=== PATIENT | male | born 1940 | race Caucasian/White ===

== ENCOUNTER 2016-10-13 07:21 | Emergency (ER) | payer MEDICARE, BC ==
[2016-10-13 07:33] VITALS: RESP 18
[2016-10-13] MEDS ORDERED: PROPARACAINE 0.5% OPHTH DROPS 15 ML BTL RIGHT EYE STA (08:12)
[2016-10-13 08:54] LABS: INR 1.4 (<1.1); Partial Thromboplastin Time 24.2 sec (22.0-30.0); Prothrombin Time 14.1 sec (9.0-12.0)
--- NOTE | 2016-10-13 08:55 | ED ---
Eye Problem HPI - General Chief complaint: Eye Problems Stated complaint: Right eye bloodshot Time Seen by Provider: 10/13/16 08:07 Source: patient, RN notes reviewed Mode of arrival: ambulatory Limitations: no limitations - History of Present Illness Initial comments: 76-year-old male presents emergency Department chief complaint right eye redness. Patient states that he woke up with this morning. Patient states she does remember last night that he felt that he had something in his eye or has an inch and states that he rubbed his right eye. Patient states he does normally take Coumadin but has not taken it in 4 days as he is scheduled for knee surgery on Monday. Patient denies any pain with his right eye. Denies any pain with ocular movements. Patient states his vision is normal denies any increased visual floaters. Patient states he normally has some visual floaters in which she has been evaluated by his classification and treatment director Dr. Fall. Patient states she does wear glasses. Patient states he has noticed some bruising underneath his right eye also. Patient denies headache, dizziness. Patient denies any melena or hematochezia. Patient offers no other complaints. - Related Data Home Medications Medication Instructions Recorded Confirmed HYDROcodone/APAP 7.5-325MG [[place] 1 tab PO Q3H PRN 10/13/16 10/13/16 7.5-325] Meloxicam [Mobic] 7.5 mg PO BID 10/13/16 10/13/16 Metoprolol Tartrate [Lopressor] 25 mg PO BID 10/13/16 10/13/16 Sertraline [Zoloft] 100 mg PO BID 10/13/16 10/13/16 Simvastatin [Zocor] 80 mg PO HS 10/13/16 10/13/16 Tamsulosin HCl [Flomax] 0.4 mg PO DAILY 10/13/16 10/13/16 Warfarin [Coumadin] 5 mg PO DAILY 10/13/16 10/13/16 amLODIPine [Norvasc] 5 mg PO DAILY 10/13/16 10/13/16 Allergies Allergy/AdvReac Type Severity Reaction Status Date / Time No Known Allergies Allergy Verified 10/13/16 07:48 Review of Systems ROS Statement: Those systems with pertinent positive or pertinent negative responses have been documented in the HPI. ROS Other: All systems not noted in ROS Statement are negative. Past Medical History Past Medical History: Hypertension History of Any Multi-Drug Resistant Organisms: None Reported Past Surgical History: Orthopedic Surgery Past Psychological History: No Psychological Hx Reported Smoking Status: Never smoker Past Alcohol Use History: Daily, Occasional Past Drug Use History: None Reported General Exam Limitations: no limitations General appearance: alert, in no apparent distress Head exam: Present: atraumatic, normocephalic, normal inspection Eye exam: Present: PERRL, EOMI, other (Mild ecchymosis inferior to the right I) . Absent: normal appearance, scleral icterus, conjunctival injection, periorbital swelling, periorbital tenderness Expanded Eyelids: Normal Inspection: Bilateral Pupils: Regular, Round: Bilateral Sclera/Conjunctival: Hemorrhage: Right (Large subconjunctival hemorrhage with some chemosis) Anterior chamber: Normal Inspection: Bilateral Visual acuity (R) = 20/: 40 Visual acuity (L) = 20/: 70 With correction: Yes IOP (R) in mmH ENT exam: Present: normal exam, mucous membranes moist Neck exam: Present: normal inspection, full ROM. Absent: tenderness, meningismus, lymphadenopathy Respiratory exam: Present: normal lung sounds bilaterally. Absent: respiratory distress, wheezes, rales, rhonchi, stridor Course Vital Signs 10/13/16 07:31 Temperature 97.0 F L Pulse Rate 84 Respiratory 18 Rate Blood Pressure 138/89 O2 Sat by Pulse 96 Oximetry Medical Decision Making - Medical Decision Making 76-year-old male present emergency department for right eye redness. Patient has a large subconjunctival hemorrhage. Patient's INR is 1.4. Patient's visual acuity is 20/40 which is better than his nonaffected eye. Pressure is 19. I did discuss case with Dr. vaz I strongly advised the patient to follow up with his classification and treatment director or barometers calibrator today or tomorrow morning. He states he will do this. He did understand if symptoms worsen that he needs to immediately come back to emergency department. - Lab Data Lab Results 10/13/16 Range/Units 08:23 PT 14.1 H (9.0-12.0) sec INR 1.4 (<1.1) APTT 24.2 (22.0-30.0) sec Disposition Clinical Impression: Subconjunctival hemorrhage of right eye Disposition: HOME SELF-CARE Condition: Stable Instructions: Subconjunctival Hemorrhage (ED) Additional Instructions: Please return to the Emergency Department if symptoms worsen or any other concerns. Follow-up with your classification and treatment director or barometers calibrator on-call today or tomorrow morning. Referrals: Blas Higginbotham DO [Primary Care Provider] - 1-2 days Ánegl Levi MD [STAFF PHYSICIAN] - 1-2 days Time of Disposition: 09:07
[2016-10-13 09:14] VITALS: BP 113/74; PULSE 72; TEMP 97.4
== END 2016-10-13 09:14 | disposition home or self-care (01) ==
LOC: EC 07:21
DX: H11.31 Conjunctival hemorrhage, right eye (principal); I10 Essential (primary) hypertension; Z79.899 Other long term (current) drug therapy; Z79.01 Long term (current) use of anticoagulants; Z79.1 Long term (current) use of non-steroidal anti-inflammatories (NSAID)
CPT/HCPCS: 36415; 85610; 85730; 99283

== ENCOUNTER 2018-02-18 12:30 | Emergency (ER) | payer MEDICARE, BC ==
[2018-02-18 12:52] VITALS: BP 123/71; PULSE 69; RESP 20; TEMP 98.2
[2018-02-18] MEDS ORDERED: DIPH,PERTUS(ACELL)TETVAC-LF 0.5 ML VIAL IM ONE (13:03)
--- NOTE | 2018-02-18 13:05 | ED ---
Wound/Laceration HPI - General Chief Complaint: Wound/Laceration Stated Complaint: LACERATION FIRST 3 FINGERS LEFT HAND Time Seen by Provider: 02/18/18 12:58 Source: patient Mode of arrival: ambulatory Limitations: no limitations - History of Present Illness Initial Comments: 78-year-old male patient presents the emergency department today for evaluation of laceration to the left second, third, and fourth digits. Patient states that he was cutting some wood when the board flew up and knocked his fingers into the blade. Patient states that he does take Coumadin. Patient is unsure when his last tetanus vaccine was. Patient denies any numbness or tingling to the fingers. He states he did get the bleeding under control with a "powder to stop bleeding". He denies any other injuries. Patient denies any headache, neck pain, back pain, chest pain, shortness of breath, dizziness, weakness, abdominal pain, nausea, vomiting, or difficulties with bowel movements or urination. - Related Data Home Medications Medication Instructions Recorded Confirmed HYDROcodone/APAP 7.5-325MG [[place] 1 tab PO Q3H PRN 10/13/16 10/13/16 7.5-325] Meloxicam [Mobic] 7.5 mg PO BID 10/13/16 10/13/16 Metoprolol Tartrate [Lopressor] 25 mg PO BID 10/13/16 10/13/16 Sertraline [Zoloft] 100 mg PO BID 10/13/16 10/13/16 Simvastatin [Zocor] 80 mg PO HS 10/13/16 10/13/16 Tamsulosin HCl [Flomax] 0.4 mg PO DAILY 10/13/16 10/13/16 Warfarin [Coumadin] 5 mg PO DAILY 10/13/16 10/13/16 amLODIPine [Norvasc] 5 mg PO DAILY 10/13/16 10/13/16 Previous Rx's Medication Instructions Recorded Cephalexin [Keflex] 500 mg PO Q6H #28 cap 02/18/18 Allergies Allergy/AdvReac Type Severity Reaction Status Date / Time No Known Allergies Allergy Verified 02/18/18 12:52 Review of Systems ROS Statement: Those systems with pertinent positive or pertinent negative responses have been documented in the HPI. ROS Other: All systems not noted in ROS Statement are negative. Past Medical History Past Medical History: Atrial Fibrillation, Hypertension History of Any Multi-Drug Resistant Organisms: None Reported Past Surgical History: Orthopedic Surgery Past Psychological History: No Psychological Hx Reported Smoking Status: Never smoker Past Alcohol Use History: Daily, Occasional Past Drug Use History: None Reported General Exam Limitations: no limitations General appearance: alert, in no apparent distress, other (This is a well- developed, well-nourished elderly male patient in no acute distress. Vital signs upon presentation are temperature 98.2F, pulse 69, respirations 20, blood pressure 123/71, pulse ox 96% on room air.) Eye exam: Present: normal appearance, PERRL, EOMI. Absent: scleral icterus, conjunctival injection, periorbital swelling ENT exam: Present: normal exam, normal oropharynx, mucous membranes moist Respiratory exam: Present: normal lung sounds bilaterally. Absent: respiratory distress, wheezes, rales, rhonchi, stridor Cardiovascular Exam: Present: regular rate, normal rhythm, normal heart sounds. Absent: systolic murmur, diastolic murmur, rubs, gallop, clicks Extremities exam: Present: full ROM, normal capillary refill, other. Absent: normal inspection, tenderness, pedal edema, joint swelling, calf tenderness Neurological exam: Present: alert, oriented X3, CN II-XII intact Psychiatric exam: Present: normal affect, normal mood Skin exam: Present: warm, dry, intact, normal color. Absent: rash Course Vital Signs 02/18/18 12:47 Temperature 98.2 F Pulse Rate 69 Respiratory 20 Rate Blood Pressure 123/71 O2 Sat by Pulse 96 Oximetry Procedures - Laceration Laceration #1 Consent Obtained: verbal consent Time Out Performed: Yes Indication: laceration Site: hand (Index finger) Size (cm): 2 Description: flap Depth: simple, single layer Anesthetic Used: lidocaine 1% Anesthesia Technique: nerve block Amount (mls): 10 Pre-repair: irrigated extensively Type of Sutures: nylon Size of Sutures: 4-0 Number of Sutures: 5 Technique: simple, interrupted Patient Tolerated Procedure: well, no complications Laceration #2 Consent Obtained: verbal consent Time Out Performed: Yes Indication: laceration Site: hand (Middle finger) Size (cm): 1 Description: linear Depth: simple, single layer Type of Sutures: other (Exofin) Patient Tolerated Procedure: well, no complications Laceration #3 Consent Obtained: verbal consent Time Out Performed: Yes Indication: laceration Site: hand (Ring Finger) Size (cm): 2 Description: flap, avulsion (Distal nail) Anesthetic Used: lidocaine 1% Anesthesia Technique: nerve block Amount (mls): 10 Pre-repair: irrigated extensively Type of Sutures: nylon Size of Sutures: 4-0 Number of Sutures: 2 Technique: simple, interrupted Patient Tolerated Procedure: well, no complications Additional Comments: Applied gelfoam to nail bed Medical Decision Making - Medical Decision Making 78-year-old nail patient presented to the emergency department today for evaluation of laceration to the distal tips of his left index, middle, and ring fingers. The ring finger did show a chip fracture to the tuft of the distal phalanx. Ring finger also exhibited distal nail avulsion with irregular laceration. Lacerations repaired as documented, Gelfoam was placed in nail bed on the ring finger. Patient's tetanus was updated. He did receive thousand milligrams of IM. He'll be given a prescription for Keflex. He is instructed to take Tylenol for pain control. He was educated regarding wound care and signs or symptoms of infection. He is instructed to follow-up with orthopedics for further evaluation. Return parameters discussed in detail. He verbalizes understanding and agreement with this plan. - Radiology Data Radiology results: report reviewed, image reviewed 3 views of the left hand are submitted. Report was reviewed in its entirety. Impression by Dr. Barron shows soft tissue injury predominantly involving the fourth digit with a tiny chip fracture tuft of the distal phalanx fourth digit. Diffuse arthropathy in a pattern suggestive of osteoarthritis. Disposition Clinical Impression: Open fracture of phalanx of left ring finger, Finger laceration Disposition: HOME SELF-CARE Condition: Good Instructions: Care For Your Stitches (ED), Finger Fracture (ED), Finger Laceration (ED) Additional Instructions: Keep wounds clean and dry. Cleanse twice daily with warm water and antibacterial soap. Return in 7 days to have the stitches removed. Follow-up with orthopedic physician for reevaluation. Complete antibiotic prescription and full. Return here immediately for any new, worsening, or concerning symptoms. Prescriptions: Cephalexin [Keflex] 500 mg PO Q6H #28 cap Is patient prescribed a controlled substance at d/c from ED?: No Referrals: [facility],Clinic [Primary Care Provider] - 1-2 days Benito Encarnacion DO [Doctor of Osteopathic Medicine] - 1-2 days Time of Disposition: 14:21
--- NOTE | 2018-02-18 13:30 | XR ---
EXAMINATION TYPE: XR hand complete LT DATE OF EXAM: 02/18/2018 COMPARISON: NONE HISTORY: Pain TECHNIQUE: Three views are submitted. FINDINGS: There is soft tissue injury particularly involving the third and fourth digits. Appears to be a chip fracture off the distal phalanx of the fourth digit. Arthropathy of all DIP, PIP and MCP joints and s evere arthropathy first MCP joint and a pattern suggestive of osteoarthritis. Chondrocalcinosis aroun d the wrist with narrowing of the carpal radial joint. IMPRESSION: 1. Soft tissue injury predominantly involving the fourth digit with a tiny chip fracture tuft distal phalanx fourth digit. 2. Diffuse arthropathy in a pattern suggestive of osteoarthritis.
[2018-02-18] MEDS ORDERED: TOPICAL SKIN ADHESIVE 1 EACH AMP TOPICAL ONE (14:18)
[2018-02-18] MEDS ORDERED: LIDOCAINE 1% INJ 10MG/ML (20 ML MDV) SQ ONE (14:18)
[2018-02-18] MEDS ORDERED: GELATIN SPONGE,ABSORB (SMALL) 1 EACH SPONGE TOPICAL STA (14:19)
[2018-02-18] MEDS ORDERED: ceFAZolin 1,000 MG VIAL IM STA (14:19)
== END 2018-02-18 14:47 | disposition home or self-care (01) ==
LOC: EC 12:30
DX: S62.635B Displaced fracture of distal phalanx of left ring finger, initial encounter for open fracture (principal); S61.318A Laceration without foreign body of other finger with damage to nail, initial encounter; S61.211A Laceration without foreign body of left index finger without damage to nail, initial encounter; S61.213A Laceration without foreign body of left middle finger without damage to nail, initial encounter; I10 Essential (primary) hypertension; I48.91 Unspecified atrial fibrillation; Z23 Encounter for immunization; Z98.890 Other specified postprocedural states; Z79.01 Long term (current) use of anticoagulants; Z79.1 Long term (current) use of non-steroidal anti-inflammatories (NSAID); Z79.899 Other long term (current) drug therapy; W26.8XXA Contact with other sharp object(s), not elsewhere classified, initial encounter; Y93.89 Activity, other specified
CPT/HCPCS: 73130; 90715; 99283; 12002; 90471; J0690; J2001

== ENCOUNTER 2019-10-06 07:05 | Inpatient (IN) | payer MEDICARE ==
[2019-10-06] MEDS ORDERED: IPRATROPIUM-ALBUTEROL 3 ML NEB INHALATION STA (07:30)
--- NOTE | 2019-10-06 07:44 | ED ---
Weakness HPI - General Chief complaint: Weakness Stated complaint: Fever, SOB Time Seen by Provider: 10/06/19 07:22 Source: patient, family, RN notes reviewed Mode of arrival: wheelchair Limitations: no limitations - History of Present Illness Initial comments: This is a 79-year-old male who presents with complaints of generalized weakness he also states been going on for several days he has a recent feeling of shakes and hot flashes no overt fever he has exertional dyspnea. He also states he's had rhinorrhea no overt fever that he is aware however. Is a slight cough no chest pain no focal weakness he states he is a prediabetic his glucose was b etween 94 and 111 at home he takes it daily. Is a history of chronic atrial fibrillation. No other complaints or modifying factors reported at this time MD Complaint: generalized weakness - Related Data Home Medications Medication Instructions Recorded Confirmed HYDROcodone/APAP 7.5-325MG [[place] 1 tab PO Q3H PRN 10/13/16 10/13/16 7.5-325] Meloxicam [Mobic] 7.5 mg PO BID 10/13/16 10/13/16 Metoprolol Tartrate [Lopressor] 25 mg PO BID 10/13/16 10/13/16 Sertraline [Zoloft] 100 mg PO BID 10/13/16 10/13/16 Simvastatin [Zocor] 80 mg PO HS 10/13/16 10/13/16 Tamsulosin HCl [Flomax] 0.4 mg PO DAILY 10/13/16 10/13/16 Warfarin [Coumadin] 5 mg PO DAILY 10/13/16 10/13/16 amLODIPine [Norvasc] 5 mg PO DAILY 10/13/16 10/13/16 Previous Rx's Medication Instructions Recorded Cephalexin [Keflex] 500 mg PO Q6H #28 cap 02/18/18 Allergies Allergy/AdvReac Type Severity Reaction Status Date / Time No Known Allergies Allergy Verified 10/06/19 07:15 Review of Systems ROS Statement: Those systems with pertinent positive or pertinent negative responses have been documented in the HPI. ROS Other: All systems not noted in ROS Statement are negative. Past Medical History Past Medical History: Atrial Fibrillation, Hyperlipidemia, Hypertension History of Any Multi-Drug Resistant Organisms: None Reported Past Surgical History: Orthopedic Surgery Past Psychological History: Anxiety Smoking Status: Never smoker Past Alcohol Use History: Daily, Occasional Past Drug Use History: None Reported General Exam - General Exam Comments Initial Comments: This is a well-developed well-nourished awake alert oriented 3 male Limitations: no limitations General appearance: alert, anxious Head exam: Present: atraumatic, normocephalic, normal inspection Eye exam: Present: normal appearance, PERRL, EOMI. Absent: scleral icterus, conjunctival injection, periorbital swelling ENT exam: Present: normal exam, mucous membranes moist Neck exam: Present: normal inspection, full ROM, other ([place]). Absent: tenderness, meningismus, lymphadenopathy Respiratory exam: Present: decreased breath sounds. Absent: respiratory distress, wheezes, rales, rhonchi, stridor Cardiovascular Exam: Present: irregular rhythm. Absent: systolic murmur, diast olic murmur, rubs, gallop, clicks GI/Abdominal exam: Present: soft, normal bowel sounds. Absent: distended, tenderness, guarding, rebound, rigid Extremities exam: Present: full ROM, normal capillary refill, pedal edema. Absent: tenderness, joint swelling, calf tenderness Back exam: Present: normal inspection Neurological exam: Present: alert, oriented X3, CN II-XII intact Psychiatric exam: Present: normal affect, normal mood Skin exam: Present: warm, dry, intact, normal color. Absent: rash Course Vital Signs 10/06/19 10/06/19 10/06/19 07:16 08:35 08:40 Temperature 97.8 F Pulse Rate 64 56 L 55 L Respiratory 18 Rate Blood Pressure 140/80 O2 Sat by Pulse 96 Oximetry - Reevaluation(s) Reevaluation #1: 10/06/19 09:26 Stated summary is relief from the breathing with updraft nebulized treatment. EKG Findings - EKG Results: EKG: interpreted by ERMD (Atrial fibrillation rate of 59 QRS 106 QT since QTC 438/[address] configuration) Medical Decision Making - Medical Decision Making Did discuss the findings with the patient and his gas was present patient will be admitted I did discuss case with Dr. Paiz patient does demonstrate evidence of CHF and acute kidney injury will be admitted with consultation by far - Lab Data Result diagrams: 10/06/19 07:45 10/06/19 07:45 Lab Results 10/06/19 10/06/19 10/06/19 Range/Units 07:45 07:45 07:45 WBC 4.7 (3.8-10.6) k/uL RBC 3.86 L (4.30-5.90) m/uL Hgb 12.7 L (13.0-17.5) gm/dL Hct 38.8 L (39.0-53.0) % MCV 100.5 H (80.0-100.0) fL MCH 32.9 (25.0-35.0) pg MCHC 32.8 (31.0-37.0) g/dL RDW 14.3 (11.5-15.5) % Plt Count 128 L (150-450) k/uL Neutrophils % 75 % Lymphocytes % 14 % Monocytes % 7 % Eosinophils % 2 % Basophils % 1 % Neutrophils # 3.5 (1.3-7.7) k/uL Lymphocytes # 0.7 L (1.0-4.8) k/uL Monocytes # 0.3 (0-1.0) k/uL Eosinophils # 0.1 (0-0.7) k/uL Basophils # 0.0 (0-0.2) k/uL Macrocytosis Slight PT (9.0-12.0) sec INR (<1.2) APTT (22.0-30.0) sec Sodium 146 H (137-145) mmol/L Potassium 4.9 (3.5-5.1) mmol/L Chloride 114 H (98-107) mmol/L Carbon Dioxide 24 (22-30) mmol/L Anion Gap 8 mmol/L BUN 51 H (9-20) mg/dL Creatinine 3.03 H (0.66-1.25) mg/dL Est GFR (CKD-EPI)AfAm 22 (>60 ml/min/1.73 sqM) Est GFR (CKD-EPI)NonAf 19 (>60 ml/min/1.73 sqM) Glucose 112 H (74-99) mg/dL Plasma Lactic Acid Cornelio 1.0 (0.7-2.0) mmol/L Calcium 9.7 (8.4-10.2) mg/dL Magnesium 2.4 H (1.6-2.3) mg/dL Total Bilirubin 1.1 (0.2-1.3) mg/dL AST 38 (17-59) U/L ALT 34 (4-49) U/L Alkaline Phosphatase 57 (38-126) U/L Creatine Kinase 108 (55-170) U/L Troponin I (0.000-0.034) ng/mL NT-Pro-B Natriuret Pep pg/mL Total Protein 7.1 (6.3-8.2) g/dL Albumin 4.3 (3.5-5.0) g/dL Influenza Type A RNA (Not Detectd) Influenza Type B (PCR) (Not Detectd) 10/06/19 10/06/19 10/06/19 Range/Units 07:45 07:45 07:45 WBC (3.8-10.6) k/uL RBC (4.30-5.90) m/uL Hgb (13.0-17.5) gm/dL Hct (39.0-53.0) % MCV (80.0-100.0) fL MCH (25.0-35.0) pg MCHC (31.0-37.0) g/dL RDW (11.5-15.5) % Plt Count (150-450) k/uL Neutrophils % % Lymphocytes % % Monocytes % % Eosinophils % % Basophils % % Neutrophils # (1.3-7.7) k/uL Lymphocytes # (1.0-4.8) k/uL Monocytes # (0-1.0) k/uL Eosinophils # (0-0.7) k/uL Basophils # (0-0.2) k/uL Macrocytosis PT 20.0 H (9.0-12.0) sec INR 2.1 H (<1.2) APTT 25.9 (22.0-30.0) sec Sodium (137-145) mmol/L Potassium (3.5-5.1) mmol/L Chloride (98-107) mmol/L Carbon Dioxide (22-30) mmol/L Anion Gap mmol/L BUN (9-20) mg/dL Creatinine (0.66-1.25) mg/dL Est GFR (CKD-EPI)AfAm (>60 ml/min/1.73 sqM) Est GFR (CKD-EPI)NonAf (>60 ml/min/1.73 sqM) Glucose (74-99) mg/dL Plasma Lactic Acid Cornelio (0.7-2.0) mmol/L Calcium (8.4-10.2) mg/dL Magnesium (1.6-2.3) mg/dL Total Bilirubin (0.2-1.3) mg/dL AST (17-59) U/L ALT (4-49) U/L Alkaline Phosphatase (38-126) U/L Creatine Kinase (55-170) U/L Troponin I <0.012 (0.000-0.034) ng/mL NT-Pro-B Natriuret Pep 8680 pg/mL Total Protein (6.3-8.2) g/dL Albumin (3.5-5.0) g/dL Influenza Type A RNA (Not Detectd) Influenza Type B (PCR) (Not Detectd) 10/06/19 Range/Units 08:30 WBC (3.8-10.6) k/uL RBC (4.30-5.90) m/uL Hgb (13.0-17.5) gm/dL Hct (39.0-53.0) % MCV (80.0-100.0) fL MCH (25.0-35.0) pg MCHC (31.0-37.0) g/dL RDW (11.5-15.5) % Plt Count (150-450) k/uL Neutrophils % % Lymphocytes % % Monocytes % % Eosinophils % % Basophils % % Neutrophils # (1.3-7.7) k/uL Lymphocytes # (1.0-4.8) k/uL Monocytes # (0-1.0) k/uL Eosinophils # (0-0.7) k/uL Basophils # (0-0.2) k/uL Macrocytosis PT (9.0-12.0) sec INR (<1.2) APTT (22.0-30.0) sec Sodium (137-145) mmol/L Potassium (3.5-5.1) mmol/L Chloride (98-107) mmol/L Carbon Dioxide (22-30) mmol/L Anion Gap mmol/L BUN (9-20) mg/dL Creatinine (0.66-1.25) mg/dL Est GFR (CKD-EPI)AfAm (>60 ml/min/1.73 sqM) Est GFR (CKD-EPI)NonAf (>60 ml/min/1.73 sqM) Glucose (74-99) mg/dL Plasma Lactic Acid Cornelio (0.7-2.0) mmol/L Calcium (8.4-10.2) mg/dL Magnesium (1.6-2.3) mg/dL Total Bilirubin (0.2-1.3) mg/dL AST (17-59) U/L ALT (4-49) U/L Alkaline Phosphatase (38-126) U/L Creatine Kinase (55-170) U/L Troponin I (0.000-0.034) ng/mL NT-Pro-B Natriuret Pep pg/mL Total Protein (6.3-8.2) g/dL Albumin (3.5-5.0) g/dL Influenza Type A RNA Not Detected (Not Detectd) Influenza Type B (PCR) Not Detected (Not Detectd) - Radiology Data Radiology results: report reviewed (Review the imaging and report cardiomegaly with increased pulmonary markings consistent complete report), image reviewed Disposition Clinical Impression: CHF (congestive heart failure), Acute kidney injury Disposition: ADMITTED IP TO THIS HOSP Condition: Fair Referrals: [facility],Clinic [Primary Care Provider] - 1-2 days
[2019-10-06 08:07] LABS: Basophils % (A) 1 %; Eosinophils # (A) 0.1 k/uL (0-0.7); Eosinophils % (A) 2 %; HCT 38.8 % (39.0-53.0); HGB 12.7 gm/dL (13.0-17.5); Lymphocytes # (A) 0.7 k/uL (1.0-4.8); Lymphocytes % (A) 14 %; MCH 32.9 pg (25.0-35.0); MCHC 32.8 g/dL (31.0-37.0); MCV 100.5 fL (80.0-100.0); Macrocytosis Slight; Mean Platelet Volume 8.1; Monocytes # (A) 0.3 k/uL (0-1.0); Monocytes % (A) 7 %; Neutrophils # (A) 3.5 k/uL (1.3-7.7); Neutrophils % (A) 75 %; Platelet Count 128 k/uL (150-450); RBC 3.86 m/uL (4.30-5.90); RDW 14.3 % (11.5-15.5); WBC 4.7 k/uL (3.8-10.6)
[2019-10-06 08:17] LABS: INR 2.1 (<1.2); Partial Thromboplastin Time 25.9 sec (22.0-30.0)
[2019-10-06 08:18] LABS: Albumin 4.3 g/dL (3.5-5.0); Calcium 9.7 mg/dL (8.4-10.2); Magnesium 2.4 mg/dL (1.6-2.3); Potassium 4.9 mmol/L (3.5-5.1); Total Bilirubin 1.1 mg/dL (0.2-1.3); Total Protein 7.1 g/dL (6.3-8.2)
--- NOTE | 2019-10-06 09:14 | XR ---
EXAMINATION TYPE: XR chest 2V DATE OF EXAM: 10/06/2019 HISTORY: Weakness. REFERENCE: Previous study dated 01/06/2012. FINDINGS: There is multichamber cardiac enlargement. There are chronic pleural parenchymal changes bi laterally. No definite lobar pneumonia is seen. No definite pleural fluid is seen. IMPRESSION: 1. MULTICHAMBER CARDIAC ENLARGEMENT. 2. CHRONIC PLEURAL PARENCHYMAL CHANGE WHICH IS WORSENED SOMEWHAT FROM THE PREVIOUS STUDY.
[2019-10-06] MEDS ORDERED: FUROSEMIDE 10 MG/ML 4 ML VIAL IV STA (09:27)
[2019-10-06] MEDS ORDERED: NITROGLYCERIN OINT 1 INCH/GM PACKET TOPICAL STA (09:28)
[2019-10-06] MEDS ORDERED: HYDROcodone/APAP 7.5-325MG 1 EACH TAB PO PRN (09:31)
--- NOTE | 2019-10-06 11:14 | CONS ---
CONSULTATION REASON FOR CONSULT: Renal failure. HISTORY OF PRESENT ILLNESS: The patient is a 79-year-old male who was admitted to the hospital with complaints of shortness of breath which had been getting worse over the past few days. The patient states he has not been feeling well for weeks. He thought he had the flu. He did have some diarrhea and vomiting and has not been eating much. He states that he was told his kidney function was weak a few years ago. However repeat labs had shown that it had improved and patient has not seen a blue leather setter. He is maintained on Mobic for pain. The serum creatinine was 3.0 mg/dL today and I do not have any other labs available for comparison. The patient denies any major prostatic issues. He is currently voiding. He was found to be in CHF and is currently being diuresed. PAST MEDICAL HISTORY: Hypertension, atrial fibrillation, being followed by Dr. Perez, depression, dyslipidemia, BPH, osteoarthritis. PAST SURGICAL HISTORY: Knee arthroplasties. SOCIAL HISTORY: Negative for smoking, drug abuse or alcohol abuse. MEDICATIONS: Medications prior to admission included Norvasc, Coumadin, Flomax, Zocor, Zoloft, Lopressor, Mobic, N[place]a. ALLERGIES: None. REVIEW OF SYSTEMS: As per HPI. Other systems negative. PHYSICAL EXAMINATION: Patient is comfortable, awake, alert, oriented x3, not in any acute distress. Blood pressure is 154/94, heart rate 66 per minute. He is afebrile. Examination of the heart S1, S2. Examination of the lungs, bilateral breath sounds are heard. ABDOMEN: Soft, nontender. Examination of lower extremities shows edema 2+ bilaterally more in the left leg as compared to the right leg. [facility] MAN exam grossly intact. LABS: Show sodium 146, potassium 4.9, chloride 114, CO2 is 24, BUN 51, creatinine 3.0, glucose 112, calcium is 9.7. Influenza antigen was negative. UA is not available. Chest x-ray shows cardiac enlargement, chronic parenchymal changes which seems to have worsened. ASSESSMENT: 1. Acute kidney injury associated with use of NSAIDs as well as possibly cardiorenal nonoliguric. We will check a urinalysis, repeat chest x-ray post diuresis. The patient is advised to avoid use of nonsteroidal anti-inflammatory agents. Check ultrasound of the kidneys. We will also try and obtain previous labs from primary care physician's office. The patient follows up at the [facility]. 2. Benign prostatic hypertrophy maintained on Flomax. 3. Hypertension. May continue with the Lopressor. 4. Atrial fibrillation with controlled ventricular response maintained on Coumadin. PLAN: DC Mobic. Check UA. Check ultrasound of the kidneys. May continue with the Lasix for now. Repeat chest x-ray in a.m. Repeat labs in a.m. Avoid hypotension and we will try and obtain previous labs to obtain patient's baseline renal function. Thank you for this consultation. We will continue to follow the patient with you during his hospitalization. MMODL / IJN: [id number] /
[2019-10-06 11:49] LABS: Glucose,Whole Blood 115 mg/dL (75-99)
[2019-10-06] MEDS: INSULIN ASPART (NovoLOG) 100 UNIT/ML VIAL SQ SCH ×3 (12:25→21:58)
[2019-10-06 13:01] VITALS: BMI 25.8
[2019-10-06] MEDS ORDERED: ALPRAZolam 0.25 MG TAB PO PRN (15:12)
[2019-10-06] MEDS ORDERED: ACETAMINOPHEN TAB 500 MG TAB PO PRN (15:12)
[2019-10-06 15:40] LABS: Appearance,Urine Clear (Clear); Bilirubin,Urine Negative (Negative); Blood,Urine Negative (Negative); Color,Urine Light Yellow; Glucose,Urine (UA) Negative (Negative); Ketones,Urine Negative (Negative); Leukocyte Esterase,Urine Negative (Negative); Nitrite,Urine Negative (Negative); PH, Urine 6.5 (5.0-8.0); Protein,Urine Negative (Negative); Specific Gravity,Urine 1.006 (1.001-1.035); Urobilinogen,Urine <2.0 mg/dL (<2.0)
[2019-10-06 16:47] LABS: Glucose,Whole Blood 85 mg/dL (75-99)
[2019-10-06 16:55] LABS: Appearance,Urine Clear (Clear); Bilirubin,Urine Negative (Negative); Blood,Urine Negative (Negative); Color,Urine Light Yellow; Glucose,Urine (UA) Negative (Negative); Ketones,Urine Negative (Negative); Leukocyte Esterase,Urine Negative (Negative); Nitrite,Urine Negative (Negative); PH, Urine 6.5 (5.0-8.0); Protein,Urine Negative (Negative); Specific Gravity,Urine 1.006 (1.001-1.035); Urobilinogen,Urine <2.0 mg/dL (<2.0)
--- NOTE | 2019-10-06 17:03 | P.CRDCN ---
History of Present Illness Consult date: 10/06/19 Reason for Consult (text): Atrial fibrillation and CHF History of present illness: This is a 79-year-old gentleman with history of hypertension and chronic atrial fibrillation on beta jon and anti-cognition therapy is admitted to the [facility] with complaints of increasing exertional shortness of breath, fatigue and tiredness. He was found to have renal failure with creatinine in the range of 3. A chest x-ray showed evidence of possible CHF. Patient has chronic atrial fibrillation with controlled ventricular response. Patient has history of arthritis but hasn't been taking any anti-inflammatory agents. Denies any chest pain. It appears that patient has, however, bili acute on chronic renal failure and some CHF and fluid overload. We'll get an echocardiogram to assess LV function. We will continue the current medical therapy including IV Lasix. Review of Systems As per the chart Past Medical History Past Medical History: Atrial Fibrillation, Hyperlipidemia, Hypertension History of Any Multi-Drug Resistant Organisms: None Reported Past Surgical History: Orthopedic Surgery Additional Past Surgical History / Comment(s): Bilateral knee replacement, cataract removal, cardioversion Past Anesthesia/Blood Transfusion Reactions: No Reported Reaction Past Psychological History: Anxiety Smoking Status: Never smoker Past Alcohol Use History: Daily, Occasional Past Drug Use History: None Reported - Past Family History Mother Family Medical History: Congestive Heart Failure (CHF), Diabetes Mellitus Additional Family Medical History / Comment(s): at 90yrs old Sister(s) Family Medical History: Cancer, Diabetes Mellitus Brother(s) Family Medical History: Diabetes Mellitus Medications and Allergies Home Medications Medication Instructions Recorded Confirmed Type Metoprolol Tartrate [Lopressor] 25 mg PO BID@0530,1700 10/13/16 10/06/19 History Sertraline [Zoloft] 100 mg PO BID@0530,1700 10/13/16 10/06/19 History Warfarin [Coumadin] 5 mg PO MOWEFR@1700 10/13/16 10/06/19 History amLODIPine [Norvasc] 5 mg PO DAILY 10/13/16 10/06/19 History Warfarin [Coumadin] 2.5 mg PO SUTUTHSA@1700 10/06/19 10/06/19 History Allergies Allergy/AdvReac Type Severity Reaction Status Date / Time No Known Allergies Allergy Verified 10/06/19 07:15 Physical Exam Vitals: Vital Signs Temp Pulse Pulse Resp BP BP Pulse Ox 10/06/19 15:55 98.6 F 62 16 152/92 93 L 10/06/19 10:45 98.5 F 67 16 150/82 95 10/06/19 10:30 97.8 F 66 18 154/94 94 L 10/06/19 10:08 66 18 154/94 94 L 10/06/19 09:00 56 L 152/85 10/06/19 08:40 55 L 10/06/19 08:35 56 L 10/06/19 08:00 143/82 10/06/19 07:16 97.8 F 64 18 140/80 96 Intake and Output 10/06/19 10/06/19 10/06/19 06:59 14:59 22:59 Intake Total 240 Output Total 400 Balance 240 -400 Intake: Oral 240 Output: Urine 400 Other: Voiding Method Toilet # Voids 2 Weight 81.647 kg GENERAL EXAM: Patient is alert and oriented and doesn't appear to be in any acute distress HEENT: Normocephalic. Normal reaction of pupils, equal size, normal range of extraocular motion. No erythema or exudates in the throat. NECK: No masses, no nuchal rigidity. JVD CHEST: No chest wall deformity. LUNGS: Equal air entry with no crackles or wheeze. He is regular and HEART: S1 and S2 normal with no audible mumurs or gallops. Irregular heart rhythm, femorals equal on both sides.. ABDOMEN: No hepatosplenomegaly, normal bowel sounds, no guarding or rigidity. SKIN: No rashes CENTRAL NERVOUS SYSTEM: No focal deficits. EXTREMITIES: Bilateral edema Results 10/06/19 07:45 10/06/19 07:45 Cardiac Enzymes 10/06/19 10/06/19 Range/Units 07:45 07:45 AST 38 (17-59) U/L Troponin I <0.012 (0.000-0.034) ng/mL Coagulation 10/06/19 Range/Units 07:45 PT 20.0 H (9.0-12.0) sec APTT 25.9 (22.0-30.0) sec CBC 10/06/19 Range/Units 07:45 WBC 4.7 (3.8-10.6) k/uL RBC 3.86 L (4.30-5.90) m/uL Hgb 12.7 L (13.0-17.5) gm/dL Hct 38.8 L (39.0-53.0) % Plt Count 128 L (150-450) k/uL Comprehensive Metabolic Panel 10/06/19 Range/Units 07:45 Sodium 146 H (137-145) mmol/L Potassium 4.9 (3.5-5.1) mmol/L Chloride 114 H (98-107) mmol/L Carbon Dioxide 24 (22-30) mmol/L BUN 51 H (9-20) mg/dL Creatinine 3.03 H (0.66-1.25) mg/dL Glucose 112 H (74-99) mg/dL Calcium 9.7 (8.4-10.2) mg/dL AST 38 (17-59) U/L ALT 34 (4-49) U/L Alkaline Phosphatase 57 (38-126) U/L Total Protein 7.1 (6.3-8.2) g/dL Albumin 4.3 (3.5-5.0) g/dL Current Medications Generic Name Dose Route Start Last Admin Trade Name Freq PRN Reason Stop Dose Admin Acetaminophen 500 mg 10/06/19 15:12 Tylenol Tab PO Q6HR PRN Fever and/ or Mild Pain Hydrocodone Bitart/Acetaminophen 1 each 10/06/19 09:31 [place] 7.5-325 PO Q3H PRN Pain Alprazolam 0.25 mg 10/06/19 15:12 Xanax PO TID PRN Anxiety Amlodipine Besylate 5 mg 10/07/19 09:00 Norvasc PO DAILY [facility] Aspirin 325 mg 10/07/19 09:30 Aspirin PO DAILY [facility] Atorvastatin Calcium 40 mg 10/06/19 21:00 Lipitor PO HS [facility] Furosemide 40 mg 10/07/19 09:00 Lasix IV DAILY [facility] Insulin Aspart 0 unit 10/06/19 12:30 10/06/19 12:25 Novolog SQ Not Given ACHS [facility] Protocol Metoprolol Tartrate 25 mg 10/06/19 21:00 Lopressor PO BID [facility] Pantoprazole Sodium 40 mg 10/07/19 07:30 Protonix PO AC-BRKFST [facility] Sertraline HCl 100 mg 10/06/19 21:00 Zoloft PO BID [facility] Tamsulosin HCl 0.4 mg 10/07/19 09:00 Flomax PO DAILY [facility] Warfarin Sodium 5 mg 10/07/19 18:00 Coumadin PO [email or web address] [facility] Protocol Warfarin Sodium 2.5 mg 10/06/19 18:00 Coumadin PO [email or web address] [facility] Protocol Intake and Output 10/06/19 10/06/19 10/06/19 06:59 14:59 22:59 Intake Total 240 Output Total 400 Balance 240 -400 Intake: Oral 240 Output: Urine 400 Other: Voiding Method Toilet # Voids 2 Weight 81.647 kg Patient Weight 10/07/19 06:59 Weight 81.647 kg 10/06/19 07:45 10/06/19 07:45 EKG Interpretations (text) Atrial fibrillation with controlled ventricular response Assessment and Plan (1) Chronic atrial fibrillation Current Visit: Yes Status: Acute Code(s): I48.20 - CHRONIC ATRIAL FIBRILLATION, UNSPECIFIED SNOMED Code(s): 173457169 (2) Acute kidney injury Current Visit: Yes Status: Acute Code(s): N17.9 - ACUTE KIDNEY FAILURE, UNSPECIFIED SNOMED Code(s): 82646996 (3) CHF (congestive heart failure) Current Visit: Yes Status: Acute Code(s): I50.9 - HEART FAILURE, UNSPECIFIED SNOMED Code(s): 69655522 Plan: Continue current medical therapy. Diuretic doses as per nephrology. We'll continue with the hydralazine and Imdur combination. He also get an echocardiogram. Further recommendations depend upon the clinical course
[2019-10-06] MEDS: WARFARIN 2.5 MG TAB PO SCH (17:28)
[2019-10-06 20:45] LABS: Glucose,Whole Blood 125 mg/dL (75-99)
[2019-10-06] MEDS ORDERED: FUROSEMIDE 10 MG/ML 4 ML VIAL IV SCH (21:00)
[2019-10-06] MEDS ORDERED: MELOXICAM 7.5 MG TAB PO SCH (21:00)
--- NOTE | 2019-10-06 21:49 | HP ---
HISTORY AND PHYSICAL DATE OF SERVICE: 10/06/2019 CHIEF COMPLAINT: Tiredness weakness, some shortness of breath and also hot flashes, and kidney injury. HISTORY OF PRESENT ILLNESS: This 79-year-old gentleman with a past medical history of multiple medical problems including atrial fibrillation, hypertension, hyperlipidemia, history of DJD, anxiety being followed by Dr. Higginbotham in the outpatient setting, was not feeling well for the past several days. Patient complaining of weakness. The patient also had some shortness of breath. The patient also has shaking and the patient also had hot flashes apparently. The patient came to [facility] and was admitted to the hospital for further evaluation and treatment. Found to have creatinine elevated up to 3. Baseline creatinine is unknown at this time. The patient being closely monitored. Chest x-ray showed some minimal infiltrate in the right side with water bottle heart and as well as some cardiomegaly. Cardiology evaluation in progress. There is no history of fever, rigors or chills. No history of headache, loss of consciousness, seizures at this time. NT pro BNP is elevated. PAST MEDICAL HISTORY: History of atrial fibrillation, history of hypertension, hyperlipidemia, DJD, history of anxiety. MEDICATIONS: Home medications prior to admission include are: 1. Norvasc 5 mg p.o. daily. 2. Coumadin 2.5 mg Monday, Monday, , Monday and 5 mg Monday, Monday, Monday. 3. Zoloft 100 mg p.o. b.i.d. 4. Lopressor 25 mg p.o. b.i.d. ALLERGIES: None. FAMILY HISTORY: History of CHF, diabetes mellitus. SOCIAL HISTORY: No history of smoking. Occasional alcohol intake. REVIEW OF SYSTEMS: ENT diminished vision. Diminished hearing. CARDIOVASCULAR system is as mentioned earlier. RESPIRATORY: As mentioned earlier. GASTROINTESTINAL: As mentioned earlier. as mentioned earlier. NERVOUS SYSTEM: No numbness or weakness. ALLERGY/IMMUNOLOGY: No asthma or hayfever. MUSCULOSKELETAL as mentioned earlier. HEMATOLOGY/ONCOLOGY: No history of anemia. ENDOCRINE: No history of diabetes or hypothyroidism. CONSTITUTIONAL: As mentioned earlier. DERMATOLOGY: Negative. RHEUMATOLOGY: Negative. PSYCHIATRY: As mentioned earlier. PHYSICAL EXAMINATION: Alert and oriented x2. Pulse 67, blood pressure 140/82, respiration 18, temperature 98.4, pulse ox 94% on room air. HEENT: Conjunctivae normal. Oral mucosa moist. NECK is jugular venous distention at the root of the neck. CARDIOVASCULAR system: S1, S2 muffled. Ejection murmur present. No S3, no S4. RESPIRATORY: Breath sounds diminished in the bases. A few scattered rhonchi. No crackles. ABDOMEN: Soft, nontender. No mass palpable. LEGS: No edema. No swelling. NERVOUS SYSTEM: Higher functions as mentioned earlier. Moves all four limbs. No focal motor or sensory deficits. SKIN: No ulcer, no rashes, no bleeding. JOINTS: No active deforming arthropathy. LABS: WBC 4.2, hemoglobin 12.7, and INR is 2.1. Sodium 146 and creatinine 3.03. ASSESSMENT: 1. Acute renal failure, multifactorial, possible acute tubular necrosis possibly contributed by NSAID usage. 2. Hypernatremia. 3. Anemia macrocytic. 4. History of atrial fibrillation. 5. Coumadin monitoring. 6. Hypertension. 7. Hyperlipidemia. 8. History of degenerative joint disease. 9. History of bilateral knee replacements. 10.History of anxiety. 11.Hard of hearing. 12.NO CODE, NO CPR, NO VENT. RECOMMENDATIONS AND DISCUSSION: In this 73-year-old gentleman who presented with multiple complex medical issues, we will monitor the patient closely, continue the current medications, management and symptomatic treatment. The patient was started on Lasix. I would recommend to cut down the dose to daily dose and continue to monitor the labs clearly. The patient does not have too much of signs of fluid overload at this time, even though right lower lobe infiltrate or some increased markings were suspected. I would recommend 2D echo with Doppler, intake/output charting. We will repeat labs. Nephrology input appreciated. Ultrasound of the abdomen. I would avoid nephrotoxic medications. No NSAIDs. Guarded prognosis because of multiple complex medical issues. Further recommendations to follow. A copy of dictation being forwarded to Dr. Higginbotham who is the primary care physician. We will initiate the home medications as well. MMODL / IJN: [id number] /
[2019-10-06] MEDS: SERTRALINE 100 MG TAB PO SCH (22:06)
[2019-10-06] MEDS: ATORVASTATIN 40 MG TAB PO SCH (22:06)
[2019-10-06] MEDS: METOPROLOL TARTRATE 25 MG TAB PO SCH (22:06)
[2019-10-07] MEDS ORDERED: ONDANSETRON 4 MG/2 ML VIAL IVP PRN (00:17)
[2019-10-07 06:26] LABS: Glucose,Whole Blood 125 mg/dL (75-99)
[2019-10-07] MEDS: PANTOPRAZOLE 40 MG TABLET PO SCH (06:39)
[2019-10-07] MEDS: INSULIN ASPART (NovoLOG) 100 UNIT/ML VIAL SQ SCH ×4 (06:39→21:50)
[2019-10-07 06:46] LABS: Basophils % (A) 1 %; Eosinophils # (A) 0.1 k/uL (0-0.7); Eosinophils % (A) 2 %; INR 2.1 (<1.2); Lymphocytes # (A) 0.7 k/uL (1.0-4.8); Lymphocytes % (A) 15 %; MCH 31.9 pg (25.0-35.0); MCHC 31.7 g/dL (31.0-37.0); MCV 100.4 fL (80.0-100.0); Macrocytosis Slight; Mean Platelet Volume 7.9; Monocytes # (A) 0.4 k/uL (0-1.0); Monocytes % (A) 8 %; Neutrophils # (A) 3.5 k/uL (1.3-7.7); Neutrophils % (A) 73 %; Platelet Count 135 k/uL (150-450); Prothrombin Time 20.2 sec (9.0-12.0); RBC 3.78 m/uL (4.30-5.90); RDW 14.4 % (11.5-15.5); WBC 4.8 k/uL (3.8-10.6)
[2019-10-07 06:53] LABS: Calcium 9.4 mg/dL (8.4-10.2); Potassium 4.3 mmol/L (3.5-5.1)
[2019-10-07] MEDS: ASPIRIN 325 MG TAB PO SCH (08:18)
[2019-10-07] MEDS: TAMSULOSIN 0.4 MG CAP.ER.24H PO SCH (08:18)
[2019-10-07] MEDS: METOPROLOL TARTRATE 25 MG TAB PO SCH ×2 (08:18→21:50)
[2019-10-07] MEDS: SERTRALINE 100 MG TAB PO SCH ×2 (08:18→21:50)
[2019-10-07] MEDS: amLODIPine 5 MG TAB PO SCH (08:18)
[2019-10-07] MEDS ORDERED: FUROSEMIDE 10 MG/ML 4 ML VIAL IV SCH (09:00)
--- NOTE | 2019-10-07 09:23 | US ---
EXAMINATION TYPE: US kidneys/renal and bladder DATE OF EXAM: 10/06/2019 COMPARISON: NONE CLINICAL HISTORY: rf. EXAM MEASUREMENTS: Right Kidney: 11.5 x 6.2 x 5.8 cm Left Kidney: 10.5 x 4.4 x 5.8 cm Incidental finding, splenomegaly. Spleen appears grossly heterogeneous vs innumerable masses. Right Kidney: mild to moderate hydro Left Kidney: moderate to severe hydro Bladder: wnl IMPRESSION: MODERATE, BILATERAL HYDRONEPHROSIS WITH DISTENTION OF THE BLADDER.
--- NOTE | 2019-10-07 09:26 | P.PN ---
Subjective Patient is seen in follow-up for acute kidney injury. Renal function a little worse. Creatinine 3.36 today. Unknown baseline renal function. Admits to good urine output. No vomiting or diarrhea. No chest pain. Dyspnea improved. Vital signs are stable. General: The patient appeared well nourished and normally developed. HEENT: Head exam is unremarkable. Neck is without jugular venous distension. LUNGS: Lungs are clear to auscultation and percussion. Breath sounds decreased. HEART: Rate and Rhythm are regular. First and second heart sounds normal. No murmurs, rubs or gallops. ABDOMEN: Abdominal exam reveals normal bowel sounds. Non-tender and non- distended. No evidence of peritonitis. EXTREMITITES: 1+ edema. Objective - Vital Signs Vital signs: Vital Signs Temp 97.8 F 10/07/19 08:24 Pulse 72 10/07/19 08:24 Resp 18 10/07/19 08:24 BP 145/86 10/07/19 08:24 Pulse Ox 95 10/07/19 08:24 Intake & Output 10/06/19 10/07/19 10/07/19 18:59 06:59 18:59 Intake Total 240 Output Total 800 1225 Balance -560 -1225 Weight 81.647 kg 85.6 kg Intake: Oral 240 Output: Urine 800 1225 Other: Voiding Method Toilet Toilet Toilet # Voids 2 1 - Labs CBC & Chem 7: 10/07/19 06:05 10/07/19 06:05 Labs: Abnormal Lab Results - Last 24 Hours (Table) 10/06/19 10/06/19 10/07/19 Range/Units 11:41 20:44 06:05 RBC 3.78 L (4.30-5.90) m/uL Hgb 12.0 L (13.0-17.5) gm/dL Hct 38.0 L (39.0-53.0) % MCV 100.4 H (80.0-100.0) fL Plt Count 135 L (150-450) k/uL Lymphocytes # 0.7 L (1.0-4.8) k/uL PT (9.0-12.0) sec INR (<1.2) Sodium (137-145) mmol/L Chloride (98-107) mmol/L BUN (9-20) mg/dL Creatinine (0.66-1.25) mg/dL Glucose (74-99) mg/dL POC Glucose (mg/dL) 115 H 125 H (75-99) mg/dL 10/07/19 10/07/19 10/07/19 Range/Units 06:05 06:05 06:25 RBC (4.30-5.90) m/uL Hgb (13.0-17.5) gm/dL Hct (39.0-53.0) % MCV (80.0-100.0) fL Plt Count (150-450) k/uL Lymphocytes # (1.0-4.8) k/uL PT 20.2 H (9.0-12.0) sec INR 2.1 H (<1.2) Sodium 148 H (137-145) mmol/L Chloride 115 H (98-107) mmol/L BUN 55 H (9-20) mg/dL Creatinine 3.36 H (0.66-1.25) mg/dL Glucose 114 H (74-99) mg/dL POC Glucose (mg/dL) 125 H (75-99) mg/dL Assessment and Plan Plan: Assessment: 1. Acute kidney injury secondary to ATN secondary to nonsteroidals and cardiorenal syndrome. Unknown baseline renal function. Creatinine 3.36 today. UA is benign. 2. Rule out chronic kidney disease. 3. Hypernatremia secondary to lack of water intake. 4. A. fib maintained on anticoagulation. 5. Benign hypertension. Controlled. 6. BPH maintained on Flomax. Plan: I will change Lasix to 40 mg orally once daily. Follow-up kidney ultrasound. Follow-up echocardiogram. Continue to monitor renal function and urine output.
--- NOTE | 2019-10-07 10:22 | ECHOF ---
Referral Reason:chf MEASUREMENTS -------- HEIGHT: 182.9 cm WEIGHT: 85.3 kg BP: 156/86 RVIDd: 3.3 cm (< 3.3) IVSd: 1.2 cm (0.6 - 1.1) LVIDd: 5.5 cm (3.9 - 5.3) LVPWd: 1.3 cm (0.6 - 1.1) IVSs: 2.2 cm LVIDs: 3.0 cm LVPWs: 2.0 cm LAESV Index (A-L): 60.29 ml/m Ao Diam: 3.1 cm (2.0 - 3.7) AV Cusp: 1.7 cm (1.5 - 2.6) LA Diam: 4.9 cm (2.7 - 3.8) MV EXCURSION: 22.495 mm (> 18.000) MV EF SLOPE: 244 mm/s (70 - 150) EPSS: 0.4 cm AR PHT: 425 ms RAP: 15.00 mmHg RVSP: 65.83 mmHg FINDINGS -------- Atrial fibrillation. This was a technically good study. The left ventricular size is normal. There is mild concentric left ventricular hypertrophy. Overa ll left ventricular systolic function is low-normal with, an EF between 50 - 55 %. Left ventricular fillimg pressure cannot be estimated due to Atrial fibrillation. The right ventricle is mildly enlarged. LA is severely dilated >40 ml/m2 The right atrium is moderately enlarged. The aortic valve is trileaflet and appears structurally normal. There is mild aortic regurgitation. The mitral valve is normal. The mitral valve leaflets are mildly thickened. Moderate mitral regur gitation is present. The tricuspid valve appears structurally normal. Moderate to severe tricuspid regurgitation present . There is moderate to severe pulmonary hypertension. The right ventricular systolic pressure, is slightly overestimated, as measured by Doppler, is 65.83mmHg. There is no pulmonic regurgitation present. The aortic root size is normal. The inferior vena cava is mildly dilated. There is no pericardial effusion. CONCLUSIONS -------- 1. Atrial fibrillation. 2. This was a technically good study. 3. The left ventricular size is normal. 4. There is mild concentric left ventricular hypertrophy. 5. Overall left ventricular systolic function is low-normal with, an EF between 50 - 55 %. 6. Left ventricular fillimg pressure cannot be estimated due to Atrial fibrillation. 7. The right ventricle is mildly enlarged. 8. LA is severely dilated >40 ml/m2 9. The right atrium is moderately enlarged. 10. The aortic valve is trileaflet and appears structurally normal. 11. There is mild aortic regurgitation. 12. The mitral valve is normal. 13. The mitral valve leaflets are mildly thickened. 14. Moderate mitral regurgitation is present. 15. The tricuspid valve appears structurally normal. 16. Moderate to severe tricuspid regurgitation present. 17. There is moderate to severe pulmonary hypertension. 18. The right ventricular systolic pressure, as measured by Doppler, is 65.83mmHg. 19. There is no pulmonic regurgitation present. 20. The aortic root size is normal. 21. The inferior vena cava is mildly dilated. 22. There is no pericardial effusion. GENERAL ENGINEERING TEACHER: Kena Mitchell RDCS
--- NOTE | 2019-10-07 11:16 | P.PN ---
Subjective Progress Note Date: 10/07/19 This is a 79-year-old gentleman with history of hypertension and chronic atrial fibrillation on beta jon and anti-cognition therapy is admitted to the hospital with complaints of increasing exertional shortness of breath, fatigue and tiredness. He was found to have renal failure with creatinine in the range of 3. A chest x-ray showed evidence of possible CHF. Patient has chronic atrial fibrillation with controlled ventricular response. Patient had been on IV Lasix, this was discontinued today and patient will be reinitiated on oral diuretics from tomorrow. Blood pressure this morning 144/86, heart rate in the 70s, 95% on room air. White blood cell count 4.8, hemoglobin 12.0, platelet cou nt 135. INR 2.1. Sodium 148, potassium 4.3, BUN 55 and creatinine 3.3. Patient overall feels well this morning, no complaints. Echocardiogram with Doppler study was performed which revealed an ejection fraction of 50-55%, moderate mitral regurg, moderate to severe tricuspid regurg. Objective - Vital Signs Vital signs: Vital Signs Temp 97.8 F 10/07/19 08:24 Pulse 72 10/07/19 08:24 Resp 18 10/07/19 08:24 BP 145/86 10/07/19 08:24 Pulse Ox 95 10/07/19 08:24 Intake & Output 10/06/19 10/07/19 10/07/19 18:59 06:59 18:59 Intake Total 240 Output Total 800 1225 Balance -560 -1225 Weight 81.647 kg 85.6 kg Intake: Oral 240 Output: Urine 800 1225 Other: Voiding Method Toilet Toilet Toilet # Voids 2 1 - Exam GENERAL EXAM: Patient is alert and oriented and doesn't appear to be in any acute distress HEENT: Normocephalic. Normal reaction of pupils, equal size, normal range of extraocular motion. No erythema or exudates in the throat. NECK: No masses, no nuchal rigidity. JVD CHEST: No chest wall deformity. LUNGS: Equal air entry with no crackles or wheeze. HEART: S1 and S2 systolic murmur is heard . Irregular heart rhythm, femorals equal on both sides.. ABDOMEN: No hepatosplenomegaly, normal bowel sounds, no guarding or rigidity. SKIN: No rashes CENTRAL NERVOUS SYSTEM: No focal deficits. - Labs CBC & Chem 7: 10/07/19 06:05 10/07/19 06:05 Labs: Abnormal Lab Results - Last 24 Hours (Table) 10/06/19 10/06/19 10/07/19 Range/Units 11:41 20:44 06:05 RBC 3.78 L (4.30-5.90) m/uL Hgb 12.0 L (13.0-17.5) gm/dL Hct 38.0 L (39.0-53.0) % MCV 100.4 H (80.0-100.0) fL Plt Count 135 L (150-450) k/uL Lymphocytes # 0.7 L (1.0-4.8) k/uL PT (9.0-12.0) sec INR (<1.2) Sodium (137-145) mmol/L Chloride (98-107) mmol/L BUN (9-20) mg/dL Creatinine (0.66-1.25) mg/dL Glucose (74-99) mg/dL POC Glucose (mg/dL) 115 H 125 H (75-99) mg/dL 10/07/19 10/07/19 10/07/19 Range/Units 06:05 06:05 06:25 RBC (4.30-5.90) m/uL Hgb (13.0-17.5) gm/dL Hct (39.0-53.0) % MCV (80.0-100.0) fL Plt Count (150-450) k/uL Lymphocytes # (1.0-4.8) k/uL PT 20.2 H (9.0-12.0) sec INR 2.1 H (<1.2) Sodium 148 H (137-145) mmol/L Chloride 115 H (98-107) mmol/L BUN 55 H (9-20) mg/dL Creatinine 3.36 H (0.66-1.25) mg/dL Glucose 114 H (74-99) mg/dL POC Glucose (mg/dL) 125 H (75-99) mg/dL Microbiology - Last 24 Hours (Table) 10/06/19 07:45 Blood Culture - Preliminary Blood No Growth after 24 hours Assessment and Plan Plan: Assessment and plan #1 acute kidney injury #2 diastolic congestive heart failure acute on chronic #3 chronic persistent atrial fibrillation #4 BPH #5 hypertension #6 hyperlipidemia Plan Echocardiogram with Doppler study revealed a normal left ventricular systolic function with moderate mitral regurgitation and moderate to severe tricuspid regurg. His IV diuretics have been discontinued and will be resumed on oral diuretics from tomorrow per nephrology's recommendation. We will continue with current medications. DNP note has been reviewed, I agree with a documented findings and plan of care. Patient was seen and examined.
[2019-10-07 12:50] LABS: Glucose,Whole Blood 105 mg/dL (75-99)
[2019-10-07 17:09] LABS: Glucose,Whole Blood 131 mg/dL (75-99)
[2019-10-07] MEDS: WARFARIN 5 MG TAB PO SCH (17:29)
[2019-10-07 20:59] LABS: Glucose,Whole Blood 105 mg/dL (75-99)
--- NOTE | 2019-10-07 21:43 | P.PN ---
Subjective Progress Note Date: 10/07/19 Principal diagnosis: This is a 79-year-old male who was recently admitted for weakness, shortness of breath, kidney injury and is being closely monitored. Multiple medical consultat ions following including cardiology and nephrology. Patient is currently on IV lasix and being transitioned to oral lasix in the am. Patient creatinine is 3.36. Patient underwent an echo today showing overall left ventricular systolic function is low-normal with an EF of 50-55% with moderate mitral regurgitation with moderate to severe tricuspid regurgitation present. Currently patient states that his shortness of breath has slightly improved. Patient denies any chest pain or palpitations. Patient is afebrile. Patient denies any nausea or vomiting. Patient states urine output is significant. Objective - Vital Signs Vital signs: Vital Signs Temp 97.8 F 10/07/19 12:13 Pulse 67 10/07/19 12:13 Resp 18 10/07/19 12:13 BP 124/80 10/07/19 12:13 Pulse Ox 95 10/07/19 12:13 Intake & Output 10/06/19 10/07/19 10/07/19 18:59 06:59 18:59 Intake Total 240 480 Output Total 800 1225 Balance -560 -1225 480 Weight 81.647 kg 85.6 kg Intake: Oral 240 480 Output: Urine 800 1225 Other: Voiding Method Toilet Toilet Toilet # Voids 2 1 - Exam Gen: This is a 79 year old male lying in bed, alert and oriented x3, well nourished. Temp is 97.8F, pulse is 72, resp are 16, blood pressure is 145/86, and oxygen saturation is 95% on room air. HEENT: Head is atraumatic, normocephalic. Pupils equal, round. Sclerae is anicteric. NECK: Supple. JVD noted. No lymphadenopathy. No thyromegaly. LUNGS: diminished breath sounds at the bases with some scattered rhonchi noted. No intercostal retractions. HEART: S1, S2 muffled with an ejection murmur noted ABDOMEN: Soft. Bowel sounds are present. No masses. No tenderness. EXTREMITIES: mild bilateral lower extremity edema. No calf tenderness. NEUROLOGICAL: Patient is awake, alert and oriented x3. Cranial nerves 2 through 12 are grossly intact. - Labs CBC & Chem 7: 10/07/19 06:05 10/07/19 06:05 Labs: Abnormal Lab Results - Last 24 Hours (Table) 10/06/19 10/07/19 10/07/19 Range/Units 20:44 06:05 06:05 RBC 3.78 L (4.30-5.90) m/uL Hgb 12.0 L (13.0-17.5) gm/dL Hct 38.0 L (39.0-53.0) % MCV 100.4 H (80.0-100.0) fL Plt Count 135 L (150-450) k/uL Lymphocytes # 0.7 L (1.0-4.8) k/uL PT 20.2 H (9.0-12.0) sec INR 2.1 H (<1.2) Sodium (137-145) mmol/L Chloride (98-107) mmol/L BUN (9-20) mg/dL Creatinine (0.66-1.25) mg/dL Glucose (74-99) mg/dL POC Glucose (mg/dL) 125 H (75-99) mg/dL 10/07/19 10/07/19 10/07/19 Range/Units 06:05 06:25 12:39 RBC (4.30-5.90) m/uL Hgb (13.0-17.5) gm/dL Hct (39.0-53.0) % MCV (80.0-100.0) fL Plt Count (150-450) k/uL Lymphocytes # (1.0-4.8) k/uL PT (9.0-12.0) sec INR (<1.2) Sodium 148 H (137-145) mmol/L Chloride 115 H (98-107) mmol/L BUN 55 H (9-20) mg/dL Creatinine 3.36 H (0.66-1.25) mg/dL Glucose 114 H (74-99) mg/dL POC Glucose (mg/dL) 125 H 105 H (75-99) mg/dL Microbiology - Last 24 Hours (Table) 10/06/19 07:45 Blood Culture - Preliminary Blood No Growth after 24 hours Assessment and Plan Assessment: Acute renal failure, multifactorial, possible acute tubular necrosis possibly c ontributive by NSAID usage Hypernatremia Anemia macrocytic History of atrial fibrillation Coumadin monitoring Hypertension Hyperlipidemia History of degenerative joint disease History of bilateral knee replacements History of anxiety Heart of hearing No code, no CPR, no vent Recommendations and discussion: Recommend to continue current medications, management, and symptomatic treatment. Patient will be transitioned to oral lasix. Will continue to monitor vital signs and labs closely along with intake and output. PT/OT to evaluate the patient. Due to multiple complex medical issues prognosis is guarded. Further recommendations to follow. Will repeat am labs.
[2019-10-07] MEDS: ATORVASTATIN 40 MG TAB PO SCH (21:50)
[2019-10-08 05:52] LABS: Glucose,Whole Blood 140 mg/dL (75-99)
[2019-10-08 06:06] LABS: Basophils % (A) 0 %; Eosinophils # (A) 0.1 k/uL (0-0.7); Eosinophils % (A) 3 %; HCT 38.9 % (39.0-53.0); HGB 12.4 gm/dL (13.0-17.5); Lymphocytes # (A) 0.9 k/uL (1.0-4.8); Lymphocytes % (A) 19 %; MCH 31.7 pg (25.0-35.0); MCHC 31.8 g/dL (31.0-37.0); MCV 99.7 fL (80.0-100.0); Macrocytosis Slight; Mean Platelet Volume 7.6; Monocytes # (A) 0.4 k/uL (0-1.0); Monocytes % (A) 9 %; Neutrophils # (A) 3.1 k/uL (1.3-7.7); Neutrophils % (A) 67 %; Platelet Count 127 k/uL (150-450); RDW 14.2 % (11.5-15.5); WBC 4.7 k/uL (3.8-10.6)
[2019-10-08 06:18] LABS: Calcium 9.3 mg/dL (8.4-10.2); INR 2.1 (<1.2); Magnesium 2.1 mg/dL (1.6-2.3); Prothrombin Time 20.9 sec (9.0-12.0)
[2019-10-08] MEDS: PANTOPRAZOLE 40 MG TABLET PO SCH (06:31)
[2019-10-08] MEDS: INSULIN ASPART (NovoLOG) 100 UNIT/ML VIAL SQ SCH ×4 (06:31→22:00)
[2019-10-08] MEDS: SERTRALINE 100 MG TAB PO SCH ×2 (08:56→20:02)
[2019-10-08] MEDS: amLODIPine 5 MG TAB PO SCH (08:56)
[2019-10-08] MEDS: FUROSEMIDE 40 MG TAB PO SCH (08:56)
[2019-10-08] MEDS: METOPROLOL TARTRATE 25 MG TAB PO SCH ×2 (08:56→20:02)
[2019-10-08] MEDS: TAMSULOSIN 0.4 MG CAP.ER.24H PO SCH (08:56)
[2019-10-08] MEDS: ASPIRIN 325 MG TAB PO SCH (08:56)
--- NOTE | 2019-10-08 10:58 | P.PN ---
Subjective Patient is seen in follow-up for acute kidney injury. Renal function is fairly stable. Creatinine 3.42 today. Unknown baseline renal function. Admits to good urine output. No vomiting or diarrhea. No chest pain. Dyspnea improved. Vital signs are stable. General: The patient appeared well nourished and normally developed. HEENT: Head exam is unremarkable. Neck is without jugular venous distension. LUNGS: Lungs are clear to auscultation and percussion. Breath sounds decreased. HEART: Rate and Rhythm are regular. First and second heart sounds normal. No murmurs, rubs or gallops. ABDOMEN: Abdominal exam reveals normal bowel sounds. Non-tender and non- distended. No evidence of peritonitis. EXTREMITITES: Trace edema. Objective - Vital Signs Vital signs: Vital Signs Temp 98.4 F 10/08/19 08:00 Pulse 64 10/08/19 08:00 Resp 16 10/08/19 08:00 BP 147/79 10/08/19 08:00 Pulse Ox 95 10/08/19 08:00 Intake & Output 10/07/19 10/08/19 10/08/19 18:59 06:59 18:59 Intake Total 480 Output Total 1600 Balance 480 -1600 Weight 85.6 kg Intake: Oral 480 Output: Urine 1600 Other: Voiding Method Toilet Toilet # Voids 2 - Labs CBC & Chem 7: 10/08/19 05:35 10/08/19 05:35 Labs: Abnormal Lab Results - Last 24 Hours (Table) 10/07/19 10/07/19 10/07/19 Range/Units 12:39 16:53 20:54 RBC (4.30-5.90) m/uL Hgb (13.0-17.5) gm/dL Hct (39.0-53.0) % Plt Count (150-450) k/uL Lymphocytes # (1.0-4.8) k/uL PT (9.0-12.0) sec INR (<1.2) Sodium (137-145) mmol/L Chloride (98-107) mmol/L BUN (9-20) mg/dL Creatinine (0.66-1.25) mg/dL Glucose (74-99) mg/dL POC Glucose (mg/dL) 105 H 131 H 105 H (75-99) mg/dL 10/08/19 10/08/19 10/08/19 Range/Units 05:35 05:35 05:35 RBC 3.90 L (4.30-5.90) m/uL Hgb 12.4 L (13.0-17.5) gm/dL Hct 38.9 L (39.0-53.0) % Plt Count 127 L (150-450) k/uL Lymphocytes # 0.9 L (1.0-4.8) k/uL PT 20.9 H (9.0-12.0) sec INR 2.1 H (<1.2) Sodium 147 H (137-145) mmol/L Chloride 111 H (98-107) mmol/L BUN 59 H (9-20) mg/dL Creatinine 3.42 H (0.66-1.25) mg/dL Glucose 117 H (74-99) mg/dL POC Glucose (mg/dL) (75-99) mg/dL 10/08/19 Range/Units 05:50 RBC (4.30-5.90) m/uL Hgb (13.0-17.5) gm/dL Hct (39.0-53.0) % Plt Count (150-450) k/uL Lymphocytes # (1.0-4.8) k/uL PT (9.0-12.0) sec INR (<1.2) Sodium (137-145) mmol/L Chloride (98-107) mmol/L BUN (9-20) mg/dL Creatinine (0.66-1.25) mg/dL Glucose (74-99) mg/dL POC Glucose (mg/dL) 140 H (75-99) mg/dL Microbiology - Last 24 Hours (Table) 10/06/19 07:45 Blood Culture - Preliminary Blood No Growth after 48 hours Assessment and Plan Plan: Assessment: 1. Acute kidney injury secondary to ATN secondary to nonsteroidals and cardiorenal syndrome. There is also concern for obstructive uropathy due to bilateral hydronephrosis noted on kidney ultrasound. Unknown baseline renal function. Creatinine fairly stable at 3.42 today. UA is benign. 2. Rule out chronic kidney disease. 3. Hypernatremia secondary to lack of water intake. 4. A. fib maintained on anticoagulation. 5. Benign hypertension. Controlled. 6. BPH maintained on Flomax. 7. Acute on chronic diastolic CHF with moderate to severe tricuspid reg urgitation and pulmonary hypertension. Plan: Maintain Lasix 40 mg once daily. Check chest x-ray. Consult urology for the hydronephrosis. Continue to monitor renal function and urine output. Encourage oral intake, including free water.
--- NOTE | 2019-10-08 11:57 | CT ---
EXAMINATION TYPE: CT abdomen pelvis wo con DATE OF EXAM: 10/08/2019 HISTORY: abdominal pain, hydronephrosis CT DLP: 719.4 mGycm. Automated Exposure Control for Dose Reduction was Utilized. TECHNIQUE: CT scan of the abdomen and pelvis is performed without oral or IV contrast. COMPARISON: Renal ultrasound 2 days ago FINDINGS: Within the limitations of a non-contrast study, the following observations are made. LUNG BASES: Patchy bibasilar linear scarring and/or atelectasis. Cardiomegaly with coronary artery ca lcification. Moderate biatrial dilatation is present. LIVER/GB: Liver is slightly heterogeneous in appearance but normal in size. No concerning mass or sherry ace dilatation on noncontrast CT. PANCREAS: No significant abnormality is seen. SPLEEN: Mild splenomegaly confirmed a 13.8 cm long axis coronal image 65. ADRENALS: No significant abnormality is seen. KIDNEYS: Confirmation of severe left-sided hydronephrosis and hydroureter nearly up to UVJ without ob structing calculus or mass identified. Confirmation of moderate to severe right-sided hydronephrosis with more mild to moderate right-sided hydroureter. Moderate to severe distended bladder extending rai periorly past the umbilicus just to the right of midline. No abnormal intraluminal mass or wall thick ening. Local mass effect is present. BOWEL: No significant abnormality is seen. GENITAL ORGANS: Markedly enlarged prostate gland consistent with BPH bulging on bladder base. LYMPH NODES: No greater than 1cm abdominal or pelvic lymph nodes are appreciated. OSSEOUS STRUCTURES: Slight S-shaped scoliosis. Grade 1 anterolisthesis of L4 on L5. Moderate to sever e disc space narrowing L4-L5 level. [id number] multilevel anterior and lateral spurring. Mild-t o-moderate joint space loss in both hips.. OTHER: Moderate fat-containing wide mouth umbilical hernia containing fat along with tiny amount of f luid. Small fat-containing left inguinal hernia. IMPRESSION: Severe left-sided hydronephrosis and hydroureter along with moderate to severe right-side d hydronephrosis is confirmed. Findings felt on basis of abnormally distended bladder related to outl et obstruction from marked BPH. Consider Nuñez catheter decompression.
[2019-10-08 11:59] LABS: Glucose,Whole Blood 121 mg/dL (75-99)
--- NOTE | 2019-10-08 12:13 | XR ---
EXAMINATION TYPE: XR chest 1V DATE OF EXAM: 10/08/2019 COMPARISON: 10/06/2019 HISTORY: 79-year-old male with shortness of breath TECHNIQUE: Single frontal view of the chest is obtained. FINDINGS: Heart is mild to moderately enlarged. Diffuse interstitial prominence shows improvement from prior ex am. No consolidation or pleural effusion. IMPRESSION: Mild to moderate cardiomegaly. Improvement in aeration as compared to prior exam. No focal infiltrate .
--- NOTE | 2019-10-08 13:45 | P.PN ---
Subjective Progress Note Date: 10/08/19 This is a 79-year-old gentleman with history of hypertension and chronic atrial fibrillation on beta jon and anti-cognition therapy is admitted to the hospital with complaints of increasing exertional shortness of breath, fatigue and tiredness. He was found to have renal failure with creatinine in the range of 3. A chest x-ray showed evidence of possible CHF. Patient has chronic atrial fibrillation with controlled ventricular response. Patient had been on IV Lasix, this was discontinued today and patient will be reinitiated on oral diuretics from tomorrow. Blood pressure this morning 144/86, heart rate in the 70s, 95% on room air. White blood cell count 4.8, hemoglobin 12.0, platelet cou nt 135. INR 2.1. Sodium 148, potassium 4.3, BUN 55 and creatinine 3.3. Patient overall feels well this morning, no complaints. Echocardiogram with Doppler study was performed which revealed an ejection fraction of 50-55%, moderate mitral regurg, moderate to severe tricuspid regurg. 10/08/2019 Patient was seen and examined today, renal function as overall stable, creatinine 3.4, up from 3.3 yesterday. Having good urine output overall. His breathing is improving. Patient is quite anxious to be discharged home. Blood pressure 124/80 with a heart rate in the 70s, 96% on room air. White blood cell count 4.7, hemoglobin 12.4, platelet count 127. Pro time 20.9 with an INR of 2.1. Sodium 147, potassium 4.0, BUN 59, creatinine 3.4, magnesium 2.1. Objective - Vital Signs Vital signs: Vital Signs Temp 97.8 F 10/08/19 12:00 Pulse 72 10/08/19 12:00 Resp 16 10/08/19 12:00 BP 125/80 10/08/19 12:00 Pulse Ox 96 10/08/19 12:00 Intake & Output 10/07/19 10/08/19 10/08/19 18:59 06:59 18:59 Intake Total 480 480 Output Total 1600 Balance 480 -1600 480 Weight 85.6 kg Intake: Oral 480 480 Output: Urine 1600 Other: Voiding Method Toilet Toilet Toilet # Voids 2 - Exam GENERAL EXAM: Patient is alert and oriented and doesn't appear to be in any acute distress HEENT: Normocephalic. Normal reaction of pupils, equal size, normal range of extraocular motion. No erythema or exudates in the throat. NECK: No masses, no nuchal rigidity. JVD CHEST: No chest wall deformity. LUNGS: Equal air entry with no crackles or wheeze. HEART: S1 and S2 systolic murmur is heard . Irregular heart rhythm, femorals equal on both sides.. ABDOMEN: No hepatosplenomegaly, normal bowel sounds, no guarding or rigidity. SKIN: No rashes CENTRAL NERVOUS SYSTEM: No focal deficits. - Labs CBC & Chem 7: 10/08/19 05:35 10/08/19 05:35 Labs: Abnormal Lab Results - Last 24 Hours (Table) 10/07/19 10/07/19 10/08/19 Range/Units 16:53 20:54 05:35 RBC 3.90 L (4.30-5.90) m/uL Hgb 12.4 L (13.0-17.5) gm/dL Hct 38.9 L (39.0-53.0) % Plt Count 127 L (150-450) k/uL Lymphocytes # 0.9 L (1.0-4.8) k/uL PT (9.0-12.0) sec INR (<1.2) Sodium (137-145) mmol/L Chloride (98-107) mmol/L BUN (9-20) mg/dL Creatinine (0.66-1.25) mg/dL Glucose (74-99) mg/dL POC Glucose (mg/dL) 131 H 105 H (75-99) mg/dL 10/08/19 10/08/19 10/08/19 Range/Units 05:35 05:35 05:50 RBC (4.30-5.90) m/uL Hgb (13.0-17.5) gm/dL Hct (39.0-53.0) % Plt Count (150-450) k/uL Lymphocytes # (1.0-4.8) k/uL PT 20.9 H (9.0-12.0) sec INR 2.1 H (<1.2) Sodium 147 H (137-145) mmol/L Chloride 111 H (98-107) mmol/L BUN 59 H (9-20) mg/dL Creatinine 3.42 H (0.66-1.25) mg/dL Glucose 117 H (74-99) mg/dL POC Glucose (mg/dL) 140 H (75-99) mg/dL 10/08/19 Range/Units 11:49 RBC (4.30-5.90) m/uL Hgb (13.0-17.5) gm/dL Hct (39.0-53.0) % Plt Count (150-450) k/uL Lymphocytes # (1.0-4.8) k/uL PT (9.0-12.0) sec INR (<1.2) Sodium (137-145) mmol/L Chloride (98-107) mmol/L BUN (9-20) mg/dL Creatinine (0.66-1.25) mg/dL Glucose (74-99) mg/dL POC Glucose (mg/dL) 121 H (75-99) mg/dL Microbiology - Last 24 Hours (Table) 10/06/19 07:45 Blood Culture - Preliminary Blood No Growth after 48 hours Assessment and Plan Plan: Assessment and plan #1 acute kidney injury #2 diastolic congestive heart failure acute on chronic #3 chronic persistent atrial fibrillation #4 BPH #5 hypertension #6 hyperlipidemia Plan Echocardiogram with Doppler study revealed a normal left ventricular systolic function with moderate mitral regurgitation and moderate to severe tricuspid regurg. From cardiology's perspective, patient may be able to be discharged home once he is cleared by nephrology and primary care. We'll make a follow-up appointment in the office post discharge. DNP note has been reviewed, I agree with a documented findings and plan of care. Patient was seen and examined.
--- NOTE | 2019-10-08 14:16 | P.PN ---
Subjective Progress Note Date: 10/08/19 Principal diagnosis: This is a 79-year-old male who was recently admitted for weakness, shortness of breath, kidney injury and is being closely monitored. Multiple medical consultat ions following including cardiology and nephrology. Patient is currently on IV lasix and being transitioned to oral lasix in the am. Patient creatinine is 3.36. Patient underwent an echo today showing overall left ventricular systolic function is low-normal with an EF of 50-55% with moderate mitral regurgitation with moderate to severe tricuspid regurgitation present. Currently patient states that his shortness of breath has slightly improved. Patient denies any chest pain or palpitations. Patient is afebrile. Patient denies any nausea or vomiting. Patient states urine output is significant. 10/08/2019 Patient is sitting up in bed with family at the bedside. Patient states that his shortness of breath continues to slightly improve although he becomes slightly winded with exertion and has to sit for a few moments to catch his breath. Patient states he is still urinating but has noticed it's not as much as yesterday. Patient was transitioned oral Lasix today. Creatinine slightly worsened and is currently 3.42. Ultrasound of the kidneys was done yesterday along with the CT of the abdomen pelvis to confirm severe left-sided hydronephrosis and hydroureter nearly up to the UVJ without obstructing calculus or mass identified along with moderate to severe right-sided hydronephrosis with more mild to moderate right-sided hydroureter with a moderate to severely distended bladder. Urology was consulted. Nephrology and cardiology are following closely. Will continue to monitor closely. Review of Systems: Cardiovascular: No reports of chest pain or palpitations Respiratory: Reports some shortness of breath, no reports of cough GI: No reports of nausea, vomiting, or diarrhea : No reports of dysuria, reports decreased urine output from yesterday Active Medications Acetaminophen (Tylenol Tab) 500 mg PO Q6HR PRN PRN Reason: Fever and/ or Mild Pain Hydrocodone Bitart/Acetaminophen ([place] 7.5-325) 1 each PO Q3H PRN PRN Reason: Pain Alprazolam (Xanax) 0.25 mg PO TID PRN PRN Reason: Anxiety Amlodipine Besylate (Norvasc) 5 mg PO DAILY [facility] Last Admin: 10/08/19 08:56 Dose: 5 mg Documented by: Aspirin (Aspirin) 325 mg PO DAILY [facility] Last Admin: 10/08/19 08:56 Dose: 325 mg Documented by: Atorvastatin Calcium (Lipitor) 40 mg PO HS [facility] Last Admin: 10/07/19 21:50 Dose: 40 mg Documented by: Furosemide (Lasix) 40 mg PO DAILY [facility] Last Admin: 10/08/19 08:56 Dose: 40 mg Documented by: Insulin Aspart (Novolog) 0 unit SQ ACHS [facility]; Protocol Last Admin: 10/08/19 12:17 Dose: Not Given Documented by: Metoprolol Tartrate (Lopressor) 25 mg PO BID [facility] Last Admin: 10/08/19 08:56 Dose: 25 mg Documented by: Ondansetron HCl (Zofran) 4 mg IVP Q6HR PRN PRN Reason: Nausea And Vomiting Pantoprazole Sodium (Protonix) 40 mg PO AC-BRKFST [facility] Last Admin: 10/08/19 06:31 Dose: 40 mg Documented by: Sertraline HCl (Zoloft) 100 mg PO BID [facility] Last Admin: 10/08/19 08:56 Dose: 100 mg Documented by: Tamsulosin HCl (Flomax) 0.4 mg PO DAILY [facility] Last Admin: 10/08/19 08:56 Dose: 0.4 mg Documented by: Warfarin Sodium (Coumadin) 5 mg PO MoWeFr@1800 [facility]; Protocol Last Admin: 10/07/19 17:29 Dose: 5 mg Documented by: Warfarin Sodium (Coumadin) 2.5 mg PO [id number]@1800 [facility]; Protocol Last Admin: 10/06/19 17:28 Dose: 2.5 mg Documented by: Objective - Vital Signs Vital signs: Vital Signs Temp 98.4 F 10/08/19 08:00 Pulse 64 10/08/19 08:00 Resp 16 10/08/19 08:00 BP 147/79 10/08/19 08:00 Pulse Ox 95 10/08/19 08:00 Intake & Output 10/07/19 10/08/19 10/08/19 18:59 06:59 18:59 Intake Total 480 480 Output Total 1600 Balance 480 -1600 480 Weight 85.6 kg Intake: Oral 480 480 Output: Urine 1600 Other: Voiding Method Toilet Toilet Toilet # Voids 2 - Exam Gen: This is a 79 year old male sitting up in bed, alert and oriented x3, well nourished. Temp is 98.4 F, pulse is 64, resp are 16, blood pressure is 147/79, and oxygen saturation is 95% on room air. HEENT: Head is atraumatic, normocephalic. Pupils equal, round. Sclerae is anicteric. NECK: Supple. Mild JVD noted. No lymphadenopathy. No thyromegaly. LUNGS: diminished breath sounds at the bases with some scattered rhonchi noted. No intercostal retractions. HEART: S1, S2 muffled with an ejection murmur noted ABDOMEN: Soft. Bowel sounds are present. No masses. No tenderness. EXTREMITIES: mild bilateral lower extremity edema noted at the sock line. No calf tenderness. NEUROLOGICAL: Patient is awake, alert and oriented x3. Cranial nerves 2 through 12 are grossly intact. - Labs CBC & Chem 7: 10/08/19 05:35 10/08/19 05:35 Labs: Abnormal Lab Results - Last 24 Hours (Table) 10/07/19 10/07/19 10/07/19 Range/Units 12:39 16:53 20:54 RBC (4.30-5.90) m/uL Hgb (13.0-17.5) gm/dL Hct (39.0-53.0) % Plt Count (150-450) k/uL Lymphocytes # (1.0-4.8) k/uL PT (9.0-12.0) sec INR (<1.2) Sodium (137-145) mmol/L Chloride (98-107) mmol/L BUN (9-20) mg/dL Creatinine (0.66-1.25) mg/dL Glucose (74-99) mg/dL POC Glucose (mg/dL) 105 H 131 H 105 H (75-99) mg/dL 10/08/19 10/08/19 10/08/19 Range/Units 05:35 05:35 05:35 RBC 3.90 L (4.30-5.90) m/uL Hgb 12.4 L (13.0-17.5) gm/dL Hct 38.9 L (39.0-53.0) % Plt Count 127 L (150-450) k/uL Lymphocytes # 0.9 L (1.0-4.8) k/uL PT 20.9 H (9.0-12.0) sec INR 2.1 H (<1.2) Sodium 147 H (137-145) mmol/L Chloride 111 H (98-107) mmol/L BUN 59 H (9-20) mg/dL Creatinine 3.42 H (0.66-1.25) mg/dL Glucose 117 H (74-99) mg/dL POC Glucose (mg/dL) (75-99) mg/dL 10/08/19 Range/Units 05:50 RBC (4.30-5.90) m/uL Hgb (13.0-17.5) gm/dL Hct (39.0-53.0) % Plt Count (150-450) k/uL Lymphocytes # (1.0-4.8) k/uL PT (9.0-12.0) sec INR (<1.2) Sodium (137-145) mmol/L Chloride (98-107) mmol/L BUN (9-20) mg/dL Creatinine (0.66-1.25) mg/dL Glucose (74-99) mg/dL POC Glucose (mg/dL) 140 H (75-99) mg/dL Microbiology - Last 24 Hours (Table) 10/06/19 07:45 Blood Culture - Preliminary Blood No Growth after 48 hours Assessment and Plan Assessment: Acute renal failure, multifactorial, possible acute tubular necrosis possibly contributive by NSAID usage Hydronephrosis as noted on ultrasound and CAT scan bilaterally, severe on the left side, moderate to severe on the right side without obstructing calculus or mass identified Hypernatremia Anemia macrocytic History of atrial fibrillation Coumadin monitoring Hypertension Hyperlipidemia History of degenerative joint disease History of bilateral knee replacements History of anxiety Heart of hearing No code, no CPR, no vent Recommendations and discussion: Recommend to continue current medications, management, and symptomatic treatment. Urology was consulted and pending at this time. Patient was transitioned oral Lasix and noticing a decrease in urine output although patient states the output is clear and no reports of dysuria. Encourage oral intake of water. Patient may benefit from indwelling Nuñez catheter but refusing at this time. Will continue to monitor vital signs and labs closely along with intake and output. Due to multiple complex medical issues prognosis is guarded. Further recommendations to follow. Will repeat am labs.
--- NOTE | 2019-10-08 15:57 | P.GSCN ---
History of Present Illness Consult date: 10/08/19 History of present illness: This is a 79-year-old gentleman in the hospital for treatment of congestive heart failure. He presented to the emergency room with weakness. He has a known history of atrial fibrillation. During this evaluation is found to have renal failure with a creatinine of 3.3. He had a renal ultrasound identifying bilateral hydronephrosis with a distended bladder. He had a CAT scan that confirmed that. The left kidney is atrophic and chronically obstructed the right kidney has fairly good parenchyma but is also obstructed. The bladder is markedly distended based on computed tomography scan. I saw the patient once in 2016 for postoperative urinary retention after knee surgery. He remained in retention with a postvoid residual of greater than 1000 mL but he refused a catheter and he refused urologic follow-up. He stated that [facility] and had been urinating alright. He stated that he has not had any other urologic evaluation. He states that he urinates frequently and has a fair amount of urgency incontinence. He is a known very enlarged prostate. The CAT scan identified again markedly atrophic left kidney with with hydronephrosis and a hydronephrotic right kidney with fairly good pa renchyma and a very large prostate. His creatinine today was 3.4. Review of Systems - Constitutional Reports weight gain - Cardiovascular Reports dyspnea on exertion, Reports irregular heart beat - Genitourinary Reports as per HPI Past Medical History Past Medical History: Atrial Fibrillation, Hyperlipidemia, Hypertension History of Any Multi-Drug Resistant Organisms: None Reported Past Surgical History: Orthopedic Surgery Additional Past Surgical History / Comment(s): Bilateral knee replacement, cataract removal, cardioversion Past Anesthesia/Blood Transfusion Reactions: No Reported Reaction Past Psychological History: Anxiety Smoking Status: Never smoker Past Alcohol Use History: Daily, Occasional Past Drug Use History: None Reported - Past Family History Mother Family Medical History: Congestive Heart Failure (CHF), Diabetes Mellitus Additional Family Medical History / Comment(s): at 90yrs old Sister(s) Family Medical History: Cancer, Diabetes Mellitus Brother(s) Family Medical History: Diabetes Mellitus Medications and Allergies Home Medications Medication Instructions Recorded Confirmed Type Metoprolol Tartrate [Lopressor] 25 mg PO BID@0530,1700 10/13/16 10/06/19 History Sertraline [Zoloft] 100 mg PO BID@0530,1700 10/13/16 10/06/19 History Warfarin [Coumadin] 5 mg PO MOWEFR@1700 10/13/16 10/06/19 History amLODIPine [Norvasc] 5 mg PO DAILY 10/13/16 10/06/19 History Warfarin [Coumadin] 2.5 mg PO SUTUTHSA@1700 10/06/19 10/06/19 History Allergies Allergy/AdvReac Type Severity Reaction Status Date / Time No Known Allergies Allergy Verified 10/06/19 07:15 Surgical - Exam Vital Signs Temp Pulse Resp BP Pulse Ox 97.8 F 64 18 140/80 96 10/06/19 07:16 10/06/19 07:16 10/06/19 07:16 10/06/19 07:16 10/06/19 07:16 - General well developed, well nourished, no distress - Eyes PERRL - ENT no hearing loss - Neck trachea midline - Respiratory normal expansion, normal respiratory effort - Cardiovascular Rhythm: irregularly irregular - Abdomen The bladder is palpably full. - Genitourinary normal penis with no external lesions, testicles present - Integumentary no rash, no growths - Neurologic normal coordination, normal sensation - Musculoskeletal normal gait, normal posture - Psychiatric oriented to time, oriented to person, oriented to place, speech is normal, memory intact Results - Labs 10/08/19 05:35 10/08/19 05:35 Abnormal Lab Results - Last 24 Hours (Table) 10/07/19 10/07/19 10/08/19 Range/Units 16:53 20:54 05:35 RBC 3.90 L (4.30-5.90) m/uL Hgb 12.4 L (13.0-17.5) gm/dL Hct 38.9 L (39.0-53.0) % Plt Count 127 L (150-450) k/uL Lymphocytes # 0.9 L (1.0-4.8) k/uL PT (9.0-12.0) sec INR (<1.2) Sodium (137-145) mmol/L Chloride (98-107) mmol/L BUN (9-20) mg/dL Creatinine (0.66-1.25) mg/dL Glucose (74-99) mg/dL POC Glucose (mg/dL) 131 H 105 H (75-99) mg/dL 10/08/19 10/08/19 10/08/19 Range/Units 05:35 05:35 05:50 RBC (4.30-5.90) m/uL Hgb (13.0-17.5) gm/dL Hct (39.0-53.0) % Plt Count (150-450) k/uL Lymphocytes # (1.0-4.8) k/uL PT 20.9 H (9.0-12.0) sec INR 2.1 H (<1.2) Sodium 147 H (137-145) mmol/L Chloride 111 H (98-107) mmol/L BUN 59 H (9-20) mg/dL Creatinine 3.42 H (0.66-1.25) mg/dL Glucose 117 H (74-99) mg/dL POC Glucose (mg/dL) 140 H (75-99) mg/dL 10/08/19 Range/Units 11:49 RBC (4.30-5.90) m/uL Hgb (13.0-17.5) gm/dL Hct (39.0-53.0) % Plt Count (150-450) k/uL Lymphocytes # (1.0-4.8) k/uL PT (9.0-12.0) sec INR (<1.2) Sodium (137-145) mmol/L Chloride (98-107) mmol/L BUN (9-20) mg/dL Creatinine (0.66-1.25) mg/dL Glucose (74-99) mg/dL POC Glucose (mg/dL) 121 H (75-99) mg/dL Microbiology - Last 24 Hours (Table) 10/06/19 07:45 Blood Culture - Preliminary Blood No Growth after 48 hours Diabetes panel 10/08/19 Range/Units 05:35 Sodium 147 H (137-145) mmol/L Potassium 4.0 (3.5-5.1) mmol/L Chloride 111 H (98-107) mmol/L Carbon Dioxide 28 (22-30) mmol/L BUN 59 H (9-20) mg/dL Creatinine 3.42 H (0.66-1.25) mg/dL Glucose 117 H (74-99) mg/dL Calcium 9.3 (8.4-10.2) mg/dL Calcium panel 10/08/19 Range/Units 05:35 Calcium 9.3 (8.4-10.2) mg/dL Pituitary panel 10/08/19 Range/Units 05:35 Sodium 147 H (137-145) mmol/L Potassium 4.0 (3.5-5.1) mmol/L Chloride 111 H (98-107) mmol/L Carbon Dioxide 28 (22-30) mmol/L BUN 59 H (9-20) mg/dL Creatinine 3.42 H (0.66-1.25) mg/dL Glucose 117 H (74-99) mg/dL Calcium 9.3 (8.4-10.2) mg/dL Adrenal panel 10/08/19 Range/Units 05:35 Sodium 147 H (137-145) mmol/L Potassium 4.0 (3.5-5.1) mmol/L Chloride 111 H (98-107) mmol/L Carbon Dioxide 28 (22-30) mmol/L BUN 59 H (9-20) mg/dL Creatinine 3.42 H (0.66-1.25) mg/dL Glucose 117 H (74-99) mg/dL Calcium 9.3 (8.4-10.2) mg/dL - Imaging CT scan - abdomen: report reviewed, image reviewed CT scan - pelvis: report reviewed, image reviewed US - abdomen: report reviewed, image reviewed US - pelvic: report reviewed, image reviewed Assessment and Plan Assessment: Impression: Coronary artery disease with atrial fibrillation and congestive heart failure. Chronic and acute renal insufficiency due to vascular disease aggravated by chronic outlet obstruction. BPH with urinary retention acute and chronic a. Sided hydronephrosis chronic and severe. Right-sided hydronephrosis moderate. Recommendations: The patient has lost his left kidney most likely due to ob structive uropathy and chronic urine retention. I'm afraid he loses right kidney if we do not do something to address his lower urinary tract issues. I I recommend placing a Nuñez catheter and monitoring his urine output, kidney function. He will need urodynamics and cystoscopy as an outpatient to see if the bladder functions. I suspect the bladder will not function the needle and up either with a chronic indwelling catheter or intermittent catheterization. Hopefully there is enough parenchyma remaining in the right kidney to keep him off dialysis however this concerns me. If he does not follow-up as he has not in the past he puts himself at danger for complete kidney failure. This is been discussed at length with the patient and his friend. He understands the severity of the situation. A Nuñez catheter will be placed and we'll monitor how he does with regard to that. Time with Patient: Greater than 30
[2019-10-08 17:09] LABS: Glucose,Whole Blood 119 mg/dL (75-99)
[2019-10-08] MEDS: WARFARIN 2.5 MG TAB PO SCH (18:34)
[2019-10-08] MEDS: ATORVASTATIN 40 MG TAB PO SCH (20:02)
--- NOTE | 2019-10-08 20:52 | P.PN ---
Progress Note - Text Progress Note Date: 10/08/19 The patient was cathed for 1800 m of retention Will see how much his cr improves The patient will have to go home with the catheter HE will have outpatient cmg with cysto.
[2019-10-08 20:57] LABS: Glucose,Whole Blood 181 mg/dL (75-99)
[2019-10-09 06:15] LABS: Glucose,Whole Blood 110 mg/dL (75-99)
[2019-10-09] MEDS: INSULIN ASPART (NovoLOG) 100 UNIT/ML VIAL SQ SCH ×4 (06:15→21:43)
[2019-10-09] MEDS: PANTOPRAZOLE 40 MG TABLET PO SCH (06:18)
[2019-10-09 06:34] LABS: Basophils % (A) 0 %; Eosinophils # (A) 0.2 k/uL (0-0.7); Eosinophils % (A) 3 %; HCT 41.4 % (39.0-53.0); HGB 13.2 gm/dL (13.0-17.5); Lymphocytes # (A) 0.9 k/uL (1.0-4.8); Lymphocytes % (A) 15 %; MCHC 31.9 g/dL (31.0-37.0); MCV 100.4 fL (80.0-100.0); Macrocytosis Slight; Mean Platelet Volume 7.9; Monocytes # (A) 0.6 k/uL (0-1.0); Monocytes % (A) 9 %; Neutrophils # (A) 4.6 k/uL (1.3-7.7); Neutrophils % (A) 72 %; Platelet Count 125 k/uL (150-450); RBC 4.12 m/uL (4.30-5.90); RDW 14.1 % (11.5-15.5); WBC 6.4 k/uL (3.8-10.6)
[2019-10-09 06:40] LABS: INR 2.1 (<1.2); Prothrombin Time 20.5 sec (9.0-12.0)
[2019-10-09 06:44] LABS: Calcium 9.4 mg/dL (8.4-10.2)
--- NOTE | 2019-10-09 09:36 | P.PN ---
Subjective Patient is seen in follow-up for acute kidney injury. Patient was noted to have significant urinary retention and currently has a Nuñez catheter. Urine output over 8 L in the last 24 hours. Renal function is a little better today. Unknown baseline renal function. No vomiting or diarrhea. No chest pain. Dyspnea improved. Vital signs are stable. General: The patient appeared well nourished and normally developed. HEENT: Head exam is unremarkable. Neck is without jugular venous distension. LUNGS: Lungs are clear to auscultation and percussion. Breath sounds decreased. HEART: Rate and Rhythm are regular. First and second heart sounds normal. No murmurs, rubs or gallops. ABDOMEN: Abdominal exam reveals normal bowel sounds. Non-tender and non- distended. No evidence of peritonitis. EXTREMITITES: Trace edema. Objective - Vital Signs Vital signs: Vital Signs Temp 97.8 F 10/09/19 04:00 Pulse 75 10/09/19 04:00 Resp 18 10/09/19 04:00 BP 125/83 10/09/19 04:00 Pulse Ox 96 10/09/19 04:00 Intake & Output 10/08/19 10/09/19 10/09/19 18:59 06:59 18:59 Intake Total 720 480 Output Total 2800 5400 Balance -2080 -5400 480 Weight 79 kg Intake: Oral 720 480 Output: Urine 2800 5400 Other: Voiding Method Toilet Indwelling Catheter # Voids 2 - Labs CBC & Chem 7: 10/09/19 05:43 10/09/19 05:43 Labs: Abnormal Lab Results - Last 24 Hours (Table) 10/08/19 10/08/19 10/08/19 Range/Units 11:49 16:46 20:55 RBC (4.30-5.90) m/uL MCV (80.0-100.0) fL Plt Count (150-450) k/uL Lymphocytes # (1.0-4.8) k/uL PT (9.0-12.0) sec INR (<1.2) Sodium (137-145) mmol/L Chloride (98-107) mmol/L BUN (9-20) mg/dL Creatinine (0.66-1.25) mg/dL Glucose (74-99) mg/dL POC Glucose (mg/dL) 121 H 119 H 181 H (75-99) mg/dL 10/09/19 10/09/19 10/09/19 Range/Units 05:43 05:43 05:43 RBC 4.12 L (4.30-5.90) m/uL MCV 100.4 H (80.0-100.0) fL Plt Count 125 L (150-450) k/uL Lymphocytes # 0.9 L (1.0-4.8) k/uL PT 20.5 H (9.0-12.0) sec INR 2.1 H (<1.2) Sodium 149 H (137-145) mmol/L Chloride 112 H (98-107) mmol/L BUN 59 H (9-20) mg/dL Creatinine 3.28 H (0.66-1.25) mg/dL Glucose 110 H (74-99) mg/dL POC Glucose (mg/dL) (75-99) mg/dL 10/09/19 Range/Units 06:14 RBC (4.30-5.90) m/uL MCV (80.0-100.0) fL Plt Count (150-450) k/uL Lymphocytes # (1.0-4.8) k/uL PT (9.0-12.0) sec INR (<1.2) Sodium (137-145) mmol/L Chloride (98-107) mmol/L BUN (9-20) mg/dL Creatinine (0.66-1.25) mg/dL Glucose (74-99) mg/dL POC Glucose (mg/dL) 110 H (75-99) mg/dL Microbiology - Last 24 Hours (Table) 10/06/19 07:45 Blood Culture - Preliminary Blood No Growth after 48 hours Assessment and Plan Plan: Assessment: 1. Acute kidney injury secondary to ATN secondary to nonsteroidals and cardiorenal syndrome. Also component of urinary retention. Bilateral hydronephrosis noted on kidney ultrasound. Unknown baseline renal function. Renal function a little better today. UA is benign. 2. Rule out chronic kidney disease. 3. Hypernatremia secondary to lack of water intake. 4. A. fib maintained on anticoagulation. 5. Benign hypertension. Controlled. 6. BPH maintained on Flomax. 7. Acute on chronic diastolic CHF with moderate to severe tricuspid regurgitation and pulmonary hypertension. 8. Urinary retention status post Nuñez catheter placement. Urology following. Plan: Start D5W at 60 mL hour. Continue to monitor renal function and urine output. Encourage oral intake, including free water. Hold Lasix for now as patient is currently having significant urine output from postobstructive diuresis.
[2019-10-09] MEDS: TAMSULOSIN 0.4 MG CAP.ER.24H PO SCH (10:27)
[2019-10-09] MEDS: SERTRALINE 100 MG TAB PO SCH ×2 (10:27→21:49)
[2019-10-09] MEDS: amLODIPine 5 MG TAB PO SCH (10:27)
[2019-10-09] MEDS: ASPIRIN 325 MG TAB PO SCH (10:27)
[2019-10-09] MEDS: METOPROLOL TARTRATE 25 MG TAB PO SCH ×2 (10:27→21:49)
[2019-10-09] MEDS: DEXTROSE 5% IN WATER 1,000 ML IV SCH (10:30)
[2019-10-09] MEDS: FUROSEMIDE 40 MG TAB PO SCH (11:14)
[2019-10-09 11:56] LABS: Glucose,Whole Blood 142 mg/dL (75-99)
--- NOTE | 2019-10-09 12:49 | P.PN ---
Subjective Progress Note Date: 10/09/19 Principal diagnosis: This is a 79-year-old male who was recently admitted for weakness, shortness of breath, kidney injury and is being closely monitored. Multiple medical consultat ions following including cardiology and nephrology. Patient is currently on IV lasix and being transitioned to oral lasix in the am. Patient creatinine is 3.36. Patient underwent an echo today showing overall left ventricular systolic function is low-normal with an EF of 50-55% with moderate mitral regurgitation with moderate to severe tricuspid regurgitation present. Currently patient states that his shortness of breath has slightly improved. Patient denies any chest pain or palpitations. Patient is afebrile. Patient denies any nausea or vomiting. Patient states urine output is significant. 10/08/2019 Patient is sitting up in bed with family at the bedside. Patient states that his shortness of breath continues to slightly improve although he becomes slightly winded with exertion and has to sit for a few moments to catch his breath. Patient states he is still urinating but has noticed it's not as much as yesterday. Patient was transitioned oral Lasix today. Creatinine slightly worsened and is currently 3.42. Ultrasound of the kidneys was done yesterday along with the CT of the abdomen pelvis to confirm severe left-sided hydronephrosis and hydroureter nearly up to the UVJ without obstructing calculus or mass identified along with moderate to severe right-sided hydronephrosis with more mild to moderate right-sided hydroureter with a moderate to severely distended bladder. Urology was consulted. Nephrology and cardiology are following closely. Will continue to monitor closely. Review of Systems: Cardiovascular: No reports of chest pain or palpitations Respiratory: Reports some shortness of breath, no reports of cough GI: No reports of nausea, vomiting, or diarrhea : No reports of dysuria, reports decreased urine output from yesterday 10/09/2019 Patient is lying in bed with multiple friends at the bedside. Multiple medical consultations following including cardiology, nephrology, and urology. Patient underwent ultrasound and CT yesterday showing severe hydronephrosis and bladder distention and a Nuñez catheter was placed with a large amount of urinary output. Patient states that his abdomen feels soft and nontender. Creatinine slightly improved today and is 3.28. Patient will be started on gentle IV hydration and will hold Lasix at this time. Currently patient denies any chest pain, shortness of breath, or palpitations. Patient is afebrile. Patient denies any nausea or vomiting and has been tolerating diet. Will continue to monitor closely. Objective - Vital Signs Vital signs: Vital Signs Temp 98.3 F 10/09/19 12:00 Pulse 71 10/09/19 12:00 Resp 18 10/09/19 12:00 BP 115/71 10/09/19 12:00 Pulse Ox 92 L 10/09/19 12:00 Intake & Output 10/08/19 10/09/19 10/09/19 18:59 06:59 18:59 Intake Total 720 480 Output Total 2800 5400 Balance -2080 -5400 480 Weight 79 kg Intake: Oral 720 480 Output: Urine 2800 5400 Other: Voiding Method Toilet Indwelling Catheter Indwelling Catheter # Voids 2 - Exam Gen: This is a 79 year old male sitting up in bed, alert and oriented x3, well nourished. Temp is 98.3 F, pulse is 71, resp are 16, blood pressure is 115/71, and oxygen saturation is 92% on room air. HEENT: Head is atraumatic, normocephalic. Pupils equal, round. Sclerae is anicteric. NECK: Supple. Mild JVD noted. No lymphadenopathy. No thyromegaly. LUNGS: diminished breath sounds at the bases with some mild scattered rhonchi noted. No crackles or wheezing noted. No intercostal retractions. HEART: S1, S2 muffled with an ejection murmur noted ABDOMEN: Soft. Bowel sounds are present. No masses. No tenderness. EXTREMITIES: Trace bilateral lower extremity edema noted at the sock line. No calf tenderness. NEUROLOGICAL: Patient is awake, alert and oriented x3. Cranial nerves 2 through 12 are grossly intact. - Labs CBC & Chem 7: 10/09/19 05:43 10/09/19 05:43 Labs: Abnormal Lab Results - Last 24 Hours (Table) 10/08/19 10/08/19 10/09/19 Range/Units 16:46 20:55 05:43 RBC 4.12 L (4.30-5.90) m/uL MCV 100.4 H (80.0-100.0) fL Plt Count 125 L (150-450) k/uL Lymphocytes # 0.9 L (1.0-4.8) k/uL PT (9.0-12.0) sec INR (<1.2) Sodium (137-145) mmol/L Chloride (98-107) mmol/L BUN (9-20) mg/dL Creatinine (0.66-1.25) mg/dL Glucose (74-99) mg/dL POC Glucose (mg/dL) 119 H 181 H (75-99) mg/dL 10/09/19 10/09/19 10/09/19 Range/Units 05:43 05:43 06:14 RBC (4.30-5.90) m/uL MCV (80.0-100.0) fL Plt Count (150-450) k/uL Lymphocytes # (1.0-4.8) k/uL PT 20.5 H (9.0-12.0) sec INR 2.1 H (<1.2) Sodium 149 H (137-145) mmol/L Chloride 112 H (98-107) mmol/L BUN 59 H (9-20) mg/dL Creatinine 3.28 H (0.66-1.25) mg/dL Glucose 110 H (74-99) mg/dL POC Glucose (mg/dL) 110 H (75-99) mg/dL 10/09/19 Range/Units 11:54 RBC (4.30-5.90) m/uL MCV (80.0-100.0) fL Plt Count (150-450) k/uL Lymphocytes # (1.0-4.8) k/uL PT (9.0-12.0) sec INR (<1.2) Sodium (137-145) mmol/L Chloride (98-107) mmol/L BUN (9-20) mg/dL Creatinine (0.66-1.25) mg/dL Glucose (74-99) mg/dL POC Glucose (mg/dL) 142 H (75-99) mg/dL Microbiology - Last 24 Hours (Table) 10/06/19 07:45 Blood Culture - Preliminary Blood No Growth after 72 hours Assessment and Plan Assessment: Acute renal failure, multifactorial, possible acute tubular necrosis possibly contributive by NSAID usage Hydronephrosis as noted on ultrasound and CAT scan bilaterally, severe on the left side, moderate to severe on the right side without obstructing calculus or mass identified Hypernatremia Anemia macrocytic History of atrial fibrillation Coumadin monitoring Hypertension Hyperlipidemia History of degenerative joint disease History of bilateral knee replacements History of anxiety Heart of hearing No code, no CPR, no vent Recommendations and discussion: Recommend to continue current medications, management, and symptomatic treatment. Urology is following along with nephrology and cardiology. Lasix is on hold and D5W gentle hydration will be started. A Nuñez catheter was placed with over 1800 mL output initially. Encourage oral intake of water. Will continue to monitor vital signs and labs closely along with intake and output. Due to multiple complex medical issues prognosis is guarded. Further recommendat ions to follow. Will repeat am labs.
--- NOTE | 2019-10-09 12:51 | P.PN ---
Subjective Progress Note Date: 10/09/19 The patient was seen yesterday for bilateral hydronephrosis and renal failure and urine retention. He was catheterized for 1800 mL. He had a significant diuresis overnight. He feels better this morning. The urine is very minimal blood in it. The creatinine is gone down to 3.2. He should continue with the catheter for now. Objective - Vital Signs Vital signs: Vital Signs Temp 98.3 F 10/09/19 12:00 Pulse 71 10/09/19 12:00 Resp 18 10/09/19 12:00 BP 115/71 10/09/19 12:00 Pulse Ox 92 L 10/09/19 12:00 Intake & Output 10/08/19 10/09/19 10/09/19 18:59 06:59 18:59 Intake Total 720 480 Output Total 2800 5400 Balance -2080 -5400 480 Weight 79 kg Intake: Oral 720 480 Output: Urine 2800 5400 Other: Voiding Method Toilet Indwelling Catheter Indwelling Catheter # Voids 2 - Labs CBC & Chem 7: 10/09/19 05:43 10/09/19 05:43 Labs: Abnormal Lab Results - Last 24 Hours (Table) 10/08/19 10/08/19 10/09/19 Range/Units 16:46 20:55 05:43 RBC 4.12 L (4.30-5.90) m/uL MCV 100.4 H (80.0-100.0) fL Plt Count 125 L (150-450) k/uL Lymphocytes # 0.9 L (1.0-4.8) k/uL PT (9.0-12.0) sec INR (<1.2) Sodium (137-145) mmol/L Chloride (98-107) mmol/L BUN (9-20) mg/dL Creatinine (0.66-1.25) mg/dL Glucose (74-99) mg/dL POC Glucose (mg/dL) 119 H 181 H (75-99) mg/dL 10/09/19 10/09/19 10/09/19 Range/Units 05:43 05:43 06:14 RBC (4.30-5.90) m/uL MCV (80.0-100.0) fL Plt Count (150-450) k/uL Lymphocytes # (1.0-4.8) k/uL PT 20.5 H (9.0-12.0) sec INR 2.1 H (<1.2) Sodium 149 H (137-145) mmol/L Chloride 112 H (98-107) mmol/L BUN 59 H (9-20) mg/dL Creatinine 3.28 H (0.66-1.25) mg/dL Glucose 110 H (74-99) mg/dL POC Glucose (mg/dL) 110 H (75-99) mg/dL 10/09/19 Range/Units 11:54 RBC (4.30-5.90) m/uL MCV (80.0-100.0) fL Plt Count (150-450) k/uL Lymphocytes # (1.0-4.8) k/uL PT (9.0-12.0) sec INR (<1.2) Sodium (137-145) mmol/L Chloride (98-107) mmol/L BUN (9-20) mg/dL Creatinine (0.66-1.25) mg/dL Glucose (74-99) mg/dL POC Glucose (mg/dL) 142 H (75-99) mg/dL Microbiology - Last 24 Hours (Table) 10/06/19 07:45 Blood Culture - Preliminary Blood No Growth after 72 hours
--- NOTE | 2019-10-09 13:45 | P.PN ---
Subjective Progress Note Date: 10/09/19 This is a 79-year-old gentleman with history of hypertension and chronic atrial fibrillation on beta jon and anti-cognition therapy is admitted to the hospital with complaints of increasing exertional shortness of breath, fatigue and tiredness. He was found to have renal failure with creatinine in the range of 3. A chest x-ray showed evidence of possible CHF. Patient has chronic atrial fibrillation with controlled ventricular response. Patient had been on IV Lasix, this was discontinued today and patient will be reinitiated on oral diuretics from tomorrow. Blood pressure this morning 144/86, heart rate in the 70s, 95% on room air. White blood cell count 4.8, hemoglobin 12.0, platelet cou nt 135. INR 2.1. Sodium 148, potassium 4.3, BUN 55 and creatinine 3.3. Patient overall feels well this morning, no complaints. Echocardiogram with Doppler study was performed which revealed an ejection fraction of 50-55%, moderate mitral regurg, moderate to severe tricuspid regurg. 10/08/2019 Patient was seen and examined today, renal function as overall stable, creatinine 3.4, up from 3.3 yesterday. Having good urine output overall. His breathing is improving. Patient is quite anxious to be discharged home. Blood pressure 124/80 with a heart rate in the 70s, 96% on room air. White blood cell count 4.7, hemoglobin 12.4, platelet count 127. Pro time 20.9 with an INR of 2.1. Sodium 147, potassium 4.0, BUN 59, creatinine 3.4, magnesium 2.1. 10/09/2019 Patient was seen and examined this morning, he had significant urinary retention, catheter was placed and he was seen by urology in consultation. He put out over 8 L in the past 24 hours. Renal function is mildly improved today, his Lasix is on hold and he is receiving mild IV hydration at this time. Objective - Vital Signs Vital signs: Vital Signs Temp 98.3 F 10/09/19 12:00 Pulse 71 10/09/19 12:00 Resp 18 10/09/19 12:00 BP 115/71 10/09/19 12:00 Pulse Ox 92 L 10/09/19 12:00 Intake & Output 10/08/19 10/09/19 10/09/19 18:59 06:59 18:59 Intake Total 720 840 Output Total 2800 5400 Balance -2079 -540 840 Weight 79 kg Intake: Oral 720 840 Output: Urine 2800 5400 Other: Voiding Method Toilet Indwelling Catheter Indwelling Catheter # Voids 2 - Exam GENERAL EXAM: Patient is alert and oriented and doesn't appear to be in any acute distress HEENT: Normocephalic. Normal reaction of pupils, equal size, normal range of extraocular motion. No erythema or exudates in the throat. NECK: No masses, no nuchal rigidity. JVD CHEST: No chest wall deformity. LUNGS: Equal air entry with no crackles or wheeze. HEART: S1 and S2 systolic murmur is heard . Irregular heart rhythm, femorals equal on both sides.. ABDOMEN: No hepatosplenomegaly, normal bowel sounds, no guarding or rigidity. SKIN: No rashes CENTRAL NERVOUS SYSTEM: No focal deficits. - Labs CBC & Chem 7: 10/09/19 05:43 10/09/19 05:43 Labs: Abnormal Lab Results - Last 24 Hours (Table) 10/08/19 10/08/19 10/09/19 Range/Units 16:46 20:55 05:43 RBC 4.12 L (4.30-5.90) m/uL MCV 100.4 H (80.0-100.0) fL Plt Count 125 L (150-450) k/uL Lymphocytes # 0.9 L (1.0-4.8) k/uL PT (9.0-12.0) sec INR (<1.2) Sodium (137-145) mmol/L Chloride (98-107) mmol/L BUN (9-20) mg/dL Creatinine (0.66-1.25) mg/dL Glucose (74-99) mg/dL POC Glucose (mg/dL) 119 H 181 H (75-99) mg/dL 10/09/19 10/09/19 10/09/19 Range/Units 05:43 05:43 06:14 RBC (4.30-5.90) m/uL MCV (80.0-100.0) fL Plt Count (150-450) k/uL Lymphocytes # (1.0-4.8) k/uL PT 20.5 H (9.0-12.0) sec INR 2.1 H (<1.2) Sodium 149 H (137-145) mmol/L Chloride 112 H (98-107) mmol/L BUN 59 H (9-20) mg/dL Creatinine 3.28 H (0.66-1.25) mg/dL Glucose 110 H (74-99) mg/dL POC Glucose (mg/dL) 110 H (75-99) mg/dL 10/09/19 Range/Units 11:54 RBC (4.30-5.90) m/uL MCV (80.0-100.0) fL Plt Count (150-450) k/uL Lymphocytes # (1.0-4.8) k/uL PT (9.0-12.0) sec INR (<1.2) Sodium (137-145) mmol/L Chloride (98-107) mmol/L BUN (9-20) mg/dL Creatinine (0.66-1.25) mg/dL Glucose (74-99) mg/dL POC Glucose (mg/dL) 142 H (75-99) mg/dL Microbiology - Last 24 Hours (Table) 10/06/19 07:45 Blood Culture - Preliminary Blood No Growth after 72 hours Assessment and Plan Plan: Assessment and plan #1 acute kidney injury #2 diastolic congestive heart failure acute on chronic #3 chronic persistent atrial fibrillation #4 BPH #5 hypertension #6 hyperlipidemia Plan Echocardiogram with Doppler study revealed a normal left ventricular systolic function with moderate mitral regurgitation and moderate to severe tricuspid regurg. From cardiology's perspective, patient may be able to be discharged home once he is cleared by nephrology and primary care. We'll make a follow-up appointment in the office post discharge. DNP note has been reviewed, I agree with a documented findings and plan of care. Patient was seen and examined.
[2019-10-09 16:59] LABS: Glucose,Whole Blood 220 mg/dL (75-99)
[2019-10-09] MEDS: WARFARIN 5 MG TAB PO SCH (18:07)
[2019-10-09 21:02] LABS: Glucose,Whole Blood 126 mg/dL (75-99)
[2019-10-09] MEDS: ATORVASTATIN 40 MG TAB PO SCH (21:49)
[2019-10-10] MEDS: DEXTROSE 5% IN WATER 1,000 ML IV SCH (04:42)
[2019-10-10] MEDS: PANTOPRAZOLE 40 MG TABLET PO SCH (06:29)
[2019-10-10] MEDS: INSULIN ASPART (NovoLOG) 100 UNIT/ML VIAL SQ SCH ×2 (06:29→12:19)
[2019-10-10 06:33] LABS: Glucose,Whole Blood 115 mg/dL (75-99)
[2019-10-10 07:05] LABS: Calcium 9.1 mg/dL (8.4-10.2); Magnesium 1.7 mg/dL (1.6-2.3); Potassium 4.1 mmol/L (3.5-5.1)
--- NOTE | 2019-10-10 07:32 | P.PN ---
Subjective Progress Note Date: 10/10/19 The patient continues to do well with the catheter. The postobstructive diuresis appears to have slowed. His creatinine is down to 2.8. Again he will need cystometrogram and cystoscopy in the office after discharge Objective - Vital Signs Vital signs: Vital Signs Temp 97.8 F 10/10/19 03:56 Pulse 90 10/10/19 03:56 Resp 18 10/10/19 03:56 BP 188/67 10/10/19 03:56 Pulse Ox 95 10/10/19 03:56 Intake & Output 10/09/19 10/10/19 10/10/19 18:59 06:59 18:59 Intake Total 1080 Output Total 800 1600 Balance 280 -1600 Weight 79.7 kg Intake: Oral 1080 Output: Urine 800 1600 Other: Voiding Method Indwelling Catheter Indwelling Catheter - Labs CBC & Chem 7: 10/09/19 05:43 10/10/19 06:36 Labs: Abnormal Lab Results - Last 24 Hours (Table) 10/09/19 10/09/19 10/09/19 Range/Units 11:54 16:46 21:01 Chloride (98-107) mmol/L BUN (9-20) mg/dL Creatinine (0.66-1.25) mg/dL Glucose (74-99) mg/dL POC Glucose (mg/dL) 142 H 220 H 126 H (75-99) mg/dL 10/10/19 10/10/19 Range/Units 06:25 06:36 Chloride 109 H (98-107) mmol/L BUN 56 H (9-20) mg/dL Creatinine 2.82 H (0.66-1.25) mg/dL Glucose 126 H (74-99) mg/dL POC Glucose (mg/dL) 115 H (75-99) mg/dL Microbiology - Last 24 Hours (Table) 10/06/19 07:45 Blood Culture - Preliminary Blood No Growth after 72 hours
[2019-10-10] MEDS: ASPIRIN 325 MG TAB PO SCH (08:40)
[2019-10-10] MEDS: METOPROLOL TARTRATE 25 MG TAB PO SCH (08:41)
[2019-10-10] MEDS: TAMSULOSIN 0.4 MG CAP.ER.24H PO SCH (08:41)
[2019-10-10] MEDS: amLODIPine 5 MG TAB PO SCH (08:42)
[2019-10-10] MEDS: SERTRALINE 100 MG TAB PO SCH (08:42)
--- NOTE | 2019-10-10 09:37 | P.PN ---
Subjective Patient is seen in follow-up for acute kidney injury. Patient was noted to have significant urinary retention and currently has a Nuñez catheter. Nonoliguric. Renal function improving. Unknown baseline renal function. No vomiting or diarrhea. No chest pain. Dyspnea improved. Vital signs are stable. General: The patient appeared well nourished and normally developed. HEENT: Head exam is unremarkable. Neck is without jugular venous distension. LUNGS: Lungs are clear to auscultation and percussion. Breath sounds decreased. HEART: Rate and Rhythm are regular. First and second heart sounds normal. No murmurs, rubs or gallops. ABDOMEN: Abdominal exam reveals normal bowel sounds. Non-tender and non- distended. No evidence of peritonitis. EXTREMITITES: Trace edema. Objective - Vital Signs Vital signs: Vital Signs Temp 97.8 F 10/10/19 03:56 Pulse 73 10/10/19 08:52 Resp 16 10/10/19 08:52 BP 188/67 10/10/19 03:56 Pulse Ox 95 10/10/19 03:56 Intake & Output 10/09/19 10/10/19 10/10/19 18:59 06:59 18:59 Intake Total 1080 118 Output Total 800 1600 Balance 280 -1600 118 Weight 79.7 kg Intake: Oral 1080 118 Output: Urine 800 1600 Other: Voiding Method Indwelling Catheter Indwelling Catheter Indwelling Catheter - Labs CBC & Chem 7: 10/09/19 05:43 10/10/19 06:36 Labs: Abnormal Lab Results - Last 24 Hours (Table) 10/09/19 10/09/19 10/09/19 Range/Units 11:54 16:46 21:01 Chloride (98-107) mmol/L BUN (9-20) mg/dL Creatinine (0.66-1.25) mg/dL Glucose (74-99) mg/dL POC Glucose (mg/dL) 142 H 220 H 126 H (75-99) mg/dL 10/10/19 10/10/19 Range/Units 06:25 06:36 Chloride 109 H (98-107) mmol/L BUN 56 H (9-20) mg/dL Creatinine 2.82 H (0.66-1.25) mg/dL Glucose 126 H (74-99) mg/dL POC Glucose (mg/dL) 115 H (75-99) mg/dL Microbiology - Last 24 Hours (Table) 10/06/19 07:45 Blood Culture - Preliminary Blood No Growth after 72 hours Assessment and Plan Plan: Assessment: 1. Acute kidney injury secondary to ATN secondary to nonsteroidals and cardiorenal syndrome. Also component of urinary retention. Bilateral hydronephrosis noted on kidney ultrasound. Unknown baseline renal function. Renal function improving. Creatinine 2.82. UA is benign. 2. Rule out chronic kidney disease. 3. Hypernatremia secondary to lack of water intake. Better. 4. A. fib maintained on anticoagulation. 5. Benign hypertension. Controlled. 6. BPH maintained on Flomax. 7. Acute on chronic diastolic CHF with moderate to severe tricuspid regurgitation and pulmonary hypertension. 8. Urinary retention status post Nuñez catheter placement. Urology following. Plan: Maintain D5W at 60 mL hour. Continue to monitor renal function and urine output. Encourage oral intake, including free water. Hold lasix.
--- NOTE | 2019-10-10 10:39 | CDI ---
Documentation Clarification Form Date: 10/10/2019 10:11:10 AM From: Sindi Stahl RN CCDS Admit Date: 10/06/2019 09:29:00 AM Patient Name: Howard Doe Visit Number: [id number] Discharge Date: ATTENTION: The Clinical Documentation Specialists (CDI) and [facility] Coding Staff appreciate your assistance in clarifying documentation. Please respond to the clarification below the line at the bottom and electronically sign. The CDI & [facility] Coding staff will review the response and follow-up if needed. Please note: Queries are made part of the Legal Health Record. If you have any questions, please contact the author of this message via ITS. Dr. Hieu Mohan Rule Out Chronic Kidney Disease is documented in your progress note 2/3 and your subsequent progress notes. History/Risk Factors: 79-year-old male presents to the ED with nausea and vomiting. Clinical Indicators: Per your Progress Note 2/3 Acute kidney Injury secondary to ATN secondary to nonsteroidals and cardiorenal syndrome. Unknown baseline renal function Lab findings: 2 Bun 51; Cr 3.03; GFR 19; 2/3 Bun 55; Cr 3.36; GFR17; 10/08 Bun 59; Cr 3.42; GFR16; 10/09 Bun 59, Cr 3.28, GFR 17 2/ BUN 56; Cr 2.82; GFR 21 Ultrasound Kidneys/renal and bladder 2/2 Moderate, Bilateral hydronephrosis, with distention of the bladder. Vital Signs: 2/ 140/80 64 97.8 64 96% ra Other Clinical Indicators:2/2 Lasix ivp daily d/c 10/08; 2/3 Flomax po daily 2/ Dextrose 5% Water 60cc/hr. Treatment: Nuñez Catheter; In your professional opinion, can you please clarify CKD? * CKD Ruled Out * CKD Stage 2 (GFR 60-89) * CKD Stage 3 (GFR 30-59) * Other, please specify * Unable to determine (Last Revision: December 2017) unable to determine MTDD
[2019-10-10 11:46] VITALS: BP 103/67; PULSE 68; RESP 18; TEMP 98.5
[2019-10-10 12:11] LABS: Glucose,Whole Blood 126 mg/dL (75-99)
--- NOTE | 2019-10-10 12:26 | P.PN ---
Subjective Progress Note Date: 10/10/19 This is a 79-year-old gentleman with history of hypertension and chronic atrial fibrillation on beta jon and anti-cognition therapy is admitted to the hospital with complaints of increasing exertional shortness of breath, fatigue and tiredness. He was found to have renal failure with creatinine in the range of 3. A chest x-ray showed evidence of possible CHF. Patient has chronic atrial fibrillation with controlled ventricular response. Patient had been on IV Lasix, this was discontinued today and patient will be reinitiated on oral diuretics from tomorrow. Blood pressure this morning 144/86, heart rate in the 70s, 95% on room air. White blood cell count 4.8, hemoglobin 12.0, platelet cou nt 135. INR 2.1. Sodium 148, potassium 4.3, BUN 55 and creatinine 3.3. Patient overall feels well this morning, no complaints. Echocardiogram with Doppler study was performed which revealed an ejection fraction of 50-55%, moderate mitral regurg, moderate to severe tricuspid regurg. 10/08/2019 Patient was seen and examined today, renal function as overall stable, creatinine 3.4, up from 3.3 yesterday. Having good urine output overall. His breathing is improving. Patient is quite anxious to be discharged home. Blood pressure 124/80 with a heart rate in the 70s, 96% on room air. White blood cell count 4.7, hemoglobin 12.4, platelet count 127. Pro time 20.9 with an INR of 2.1. Sodium 147, potassium 4.0, BUN 59, creatinine 3.4, magnesium 2.1. 10/09/2019 Patient was seen and examined this morning, he had significant urinary retention, catheter was placed and he was seen by urology in consultation. He put out over 8 L in the past 24 hours. Renal function is mildly improved today, his Lasix is on hold and he is receiving mild IV hydration at this time. 10/10/2019 Patient seen and examined this morning, shortness of breath is definitely improving, creatinine today is 2.8. Continues to have a catheter in place for urinary retention. Blood pressure 104/60 with a heart rate in the 60s, 95% on room air. Objective - Vital Signs Vital signs: Vital Signs Temp 98.5 F 10/10/19 11:45 Pulse 68 10/10/19 11:45 Resp 18 10/10/19 11:45 BP 103/67 10/10/19 11:45 Pulse Ox 95 10/10/19 11:45 Intake & Output 10/09/19 10/10/19 10/10/19 18:59 06:59 18:59 Intake Total 1080 480 118 Output Total 800 1600 Balance 280 -1120 118 Weight 79.7 kg Intake: IV 480 Dextrose 5% in Water 1, 480 000 ml @ 60 mls/hr IV . [id number] [facility] Rx#:[id number] Oral 1080 118 Output: Urine 800 1600 Other: Voiding Method Indwelling Catheter Indwelling Catheter Indwelling Catheter - Exam GENERAL EXAM: Patient is alert and oriented and doesn't appear to be in any acute distress HEENT: Normocephalic. Normal reaction of pupils, equal size, normal range of extraocular motion. No erythema or exudates in the throat. NECK: No masses, no nuchal rigidity. JVD CHEST: No chest wall deformity. LUNGS: Equal air entry with no crackles or wheeze. HEART: S1 and S2 systolic murmur is heard . Irregular heart rhythm, femorals equal on both sides.. ABDOMEN: No hepatosplenomegaly, normal bowel sounds, no guarding or rigidity. SKIN: No rashes CENTRAL NERVOUS SYSTEM: No focal deficits. - Labs CBC & Chem 7: 10/09/19 05:43 10/10/19 06:36 Labs: Abnormal Lab Results - Last 24 Hours (Table) 10/09/19 10/09/19 10/10/19 Range/Units 16:46 21:01 06:25 Chloride (98-107) mmol/L BUN (9-20) mg/dL Creatinine (0.66-1.25) mg/dL Glucose (74-99) mg/dL POC Glucose (mg/dL) 220 H 126 H 115 H (75-99) mg/dL 10/10/19 10/10/19 Range/Units 06:36 11:54 Chloride 109 H (98-107) mmol/L BUN 56 H (9-20) mg/dL Creatinine 2.82 H (0.66-1.25) mg/dL Glucose 126 H (74-99) mg/dL POC Glucose (mg/dL) 126 H (75-99) mg/dL Microbiology - Last 24 Hours (Table) 10/06/19 07:45 Blood Culture - Preliminary Blood No Growth after 96 hours Assessment and Plan Plan: Assessment and plan #1 acute kidney injury #2 diastolic congestive heart failure acute on chronic #3 chronic persistent atrial fibrillation #4 BPH #5 hypertension #6 hyperlipidemia Plan From cardiology's perspective, we'll follow this patient along with you now on an as-needed basis only, please don't hesitate to call if you have any questions. We'll make a follow-up appointment in the office post discharge. DNP note has been reviewed, I agree with a documented findings and plan of care. Patient was seen and examined.
--- NOTE | 2019-10-10 12:57 | P.DS ---
Providers Date of admission: 10/06/19 09:29 Expected date of discharge: 10/10/19 Attending physician: Xander Castillo Consults: 10/06/19 09:29 Consult Physician Routine Consulting Provider: Brii Hardin Consult Reason/Comments: Acute kidney injury Do you want consulting provider notified?: Yes 10/06/19 14:35 Consult Physician Routine Consulting Provider: Floresita Perez Consult Reason/Comments: CHF Do you want consulting provider notified?: Yes 10/08/19 10:58 Consult Physician Urgent Consulting Provider: Sam Owen Consult Reason/Comments: hydronephrosis/ CHF/ elevated creatinine Do you want consulting provider notified?: Yes Primary care physician: [facility] Hospital Course: Final diagnosis Acute renal failure, multifactorial, possible acute tubular necrosis possibly contributive by NSAID usage Bilateral Hydronephrosis Hypernatremia Anemia macrocytic History of atrial fibrillation Coumadin monitoring Hypertension Hyperlipidemia History of degenerative joint disease History of bilateral knee replacements History of anxiety Heart of hearing No code, no CPR, no vent Discharge disposition Patient is being discharged in a stable condition with guarded prognosis to home and will follow-up with [facility] upon discharge. Patient will also be following up with nephrology, cardiology, and urology in the outpatient setting as discussed and scheduled. Patient will be going home with a indwelling Nuñez catheter and will follow-up with Dr. Owen in the outpatient setting for further testing. Total time taken is 35 minutes. History of present illness This is a 79-year-old male who was recently admitted for weakness, shortness of breath, kidney injury and was being closely monitored. Cardiology, nephrology, and urology were following closely. Patient was diuresed on IV Lasix and transitioned oral Lasix and creatinine continued to be elevated. Lasix was discontinued and patient was started on gentle IV hydration and continue to have urinary retention. Patient will continue to hold the Lasix in the outpatient setting until follow-up. Patient will need repeat labs in a few days to monitor kidney functions. Urology was consulted after computed tomography scan confirmed severe hydronephrosis bilaterally with left worse than right and recommending indwelling Nuñez catheter for severe bladder distention. Patient received Nuñez catheter had a large amount of output and is doing much better. Creatinine still elevated but slowly trending down and is currently 2.82. Discussed with the patient at length about following up with urology as well as nephrology in the outpatient setting as further testing needs to be done. Patient verbalized understanding and agrees with this treatment plan. Currently patient denies any chest pain, shortness of breath, or palpitations. Patient is afebrile. Patient denies any nausea or vomiting and has been tolerating diet. Discussed with patient also about increasing oral intake. Currently patient's condition is stable and is ready for discharge today. On exam vital signs are stable. Temp is 98.5F, pulse is 68, respirations are 18, blood pressure is 103/67, oxygen saturation is 95% on room air. Cardio S1, S2 are muffled. Respiratory system shows diminished breath sounds at the bases with no rhonchi or wheezes noted. Abdomen is soft and nontender. Nervous system shows no focal deficits. Please refer to medication reconciliation sheet for a list of medications. Patient Condition at Discharge: Fair Plan - Discharge Summary New Discharge Prescriptions: New Aspirin 325 mg PO DAILY 30 Days #30 tab Tamsulosin [Flomax] 0.4 mg PO DAILY 30 Days #30 cap.er.24h Atorvastatin [Lipitor] 40 mg PO HS 30 Days #30 tab Continue Warfarin [Coumadin] 5 mg PO MOWEFR@1700 amLODIPine [Norvasc] 5 mg PO DAILY Sertraline [Zoloft] 100 mg PO BID@0530,1700 Metoprolol Tartrate [Lopressor] 25 mg PO BID@0530,1700 Warfarin [Coumadin] 2.5 mg PO SUTUTHSA@1700 Discharge Medication List Metoprolol Tartrate [Lopressor] 25 mg PO BID@0530,1700 10/13/16 [History] Sertraline [Zoloft] 100 mg PO BID@0530,1700 10/13/16 [History] Warfarin [Coumadin] 5 mg PO MOWEFR@1700 10/13/16 [History] amLODIPine [Norvasc] 5 mg PO DAILY 10/13/16 [History] Warfarin [Coumadin] 2.5 mg PO SUTUTHSA@1700 10/06/19 [History] Aspirin 325 mg PO DAILY 30 Days #30 tab 10/10/19 [Rx] Atorvastatin [Lipitor] 40 mg PO HS 30 Days #30 tab 10/10/19 [Rx] Tamsulosin [Flomax] 0.4 mg PO DAILY 30 Days #30 cap.er.24h 10/10/19 [Rx] Follow up Appointment(s)/Referral(s): [facility], [NON-STAFF] - Floresita Perez MD [STAFF PHYSICIAN] - 10/22/19 2:30 pm (Monday) Hieu Mohan DO [STAFF PHYSICIAN] - 10/29/19 11:20 am (With Maria L [employer]. Please watch for new patient paperwork to be mailed to you to bring to follow up appointment. Kidney specialist.) Sam Owen MD [STAFF PHYSICIAN] - (Office will call with a follow up appointment regarding outpatient cystoscopy. Urologist.) [facility],Clinic [Primary Care Provider] - 10/24/19 3:00 pm (With Starr LORENZ.) Ambulatory/Diagnostic Orders: Basic Metabolic Panel [LAB.AMB] Time Frame: 3 Days, Location: None Selected Patient Instructions/Handouts: *Surgery [facility] - Nuñez Catheter Instructions, Heart Failure (DC), Acute Kidney Injury (DC), Nuñez Catheter Placement and Care (DC), Cystoscopy (DC) Activity/Diet/Wound Care/Special Instructions: Activity Limited until follow-up Continue current diet Follow-up with primary care provider upon discharge Follow-up with nephrology in 1-2 weeks Follow-up with urology in the outpatient setting Follow-up with cardiology in the outpatient setting Discharge Disposition: HOME SELF-CARE
== END 2019-10-10 13:51 | disposition home health service (06) | DRG 682 ==
LOC: EC 07:05 → 3SCARD 09:29
PROVIDERS: ADMIT Internal Medicine; ATTEND Internal Medicine
DX: N17.0 Acute kidney failure with tubular necrosis (principal); I50.33 Acute on chronic diastolic (congestive) heart failure; E87.0 Hyperosmolality and hypernatremia; I48.19 Other persistent atrial fibrillation; I27.20 Pulmonary hypertension, unspecified; N13.30 Unspecified hydronephrosis; I11.0 Hypertensive heart disease with heart failure; D53.9 Nutritional anemia, unspecified; F32.9 Major depressive disorder, single episode, unspecified; T39.395A Adverse effect of other nonsteroidal anti-inflammatory drugs [NSAID], initial encounter; E78.5 Hyperlipidemia, unspecified; F41.9 Anxiety disorder, unspecified; H91.90 Unspecified hearing loss, unspecified ear; I08.1 Rheumatic disorders of both mitral and tricuspid valves; N39.41 Urge incontinence; N40.1 Benign prostatic hyperplasia with lower urinary tract symptoms; H54.7 Unspecified visual loss; M19.90 Unspecified osteoarthritis, unspecified site; R33.8 Other retention of urine; Z79.01 Long term (current) use of anticoagulants; Z79.1 Long term (current) use of non-steroidal anti-inflammatories (NSAID); Z79.899 Other long term (current) drug therapy; Z96.653 Presence of artificial knee joint, bilateral; Z66 Do not resuscitate; Z83.3 Family history of diabetes mellitus; Z82.49 Family history of ischemic heart disease and other diseases of the circulatory system; Z80.9 Family history of malignant neoplasm, unspecified
CPT/HCPCS: 36415; 71045; 71046; 74176; 76770; 80048; 80053; 81003; 82550; 83605; 83735; 83880; 84484; 85025; 85610; 85730; 87040; 87502; 93005; 93306; 94640; 96374; 99285

== ENCOUNTER 2019-10-24 17:34 | Emergency (ER) | payer MEDICARE ==
[2019-10-24 17:39] VITALS: TEMP 97.8
--- NOTE | 2019-10-24 18:10 | ED ---
Male Urogenital HPI - General Chief complaint: Urogenital Stated complaint: Catheter issues Time Seen by Provider: 10/24/19 17:41 Source: patient Mode of arrival: ambulatory Limitations: no limitations - History of Present Illness Initial comments: Patient is 79-year-old male presents emergency Department with a chief complaint of catheter falling out. States that he is using a Nuñez catheter due to bladder damage. States he sees a urologist and has full catheter replaced briefly by a home nurse. States earlier today he was attempting to change d epending and noticed the catheter just completely fell out. States the balloon was deflated but he did not do himself. States they put the Nuñez catheter back in although it won't stay in. He is scheduled to see the urologist tomorrow. Denies any bleeding in the Nuñez bag. - Related Data Home Medications Medication Instructions Recorded Confirmed Metoprolol Tartrate [Lopressor] 25 mg PO BID@0530,1700 10/13/16 10/06/19 Sertraline [Zoloft] 100 mg PO BID@0530,1700 10/13/16 10/06/19 Warfarin [Coumadin] 5 mg PO MOWEFR@1700 10/13/16 10/06/19 amLODIPine [Norvasc] 5 mg PO DAILY 10/13/16 10/06/19 Warfarin [Coumadin] 2.5 mg PO SUTUTHSA@1700 10/06/19 10/06/19 Previous Rx's Medication Instructions Recorded Aspirin 325 mg PO DAILY 30 Days #30 tab 10/10/19 Atorvastatin [Lipitor] 40 mg PO HS 30 Days #30 tab 10/10/19 Tamsulosin [Flomax] 0.4 mg PO DAILY 30 Days #30 10/10/19 cap.er.24h Allergies Allergy/AdvReac Type Severity Reaction Status Date / Time No Known Allergies Allergy Verified 10/24/19 17:39 Review of Systems ROS Statement: Those systems with pertinent positive or pertinent negative responses have been documented in the HPI. ROS Other: All systems not noted in ROS Statement are negative. Past Medical History Past Medical History: Atrial Fibrillation, Heart Failure, Hyperlipidemia, Hypertension, Renal Disease Additional Past Medical History / Comment(s): prostate problems kidneys History of Any Multi-Drug Resistant Organisms: None Reported Past Surgical History: Orthopedic Surgery Additional Past Surgical History / Comment(s): Bilateral knee replacement, cataract removal, cardioversion Past Anesthesia/Blood Transfusion Reactions: No Reported Reaction Past Psychological History: Anxiety Smoking Status: Never smoker Past Alcohol Use History: Daily, Occasional Past Drug Use History: None Reported - Past Family History Mother Family Medical History: Congestive Heart Failure (CHF), Diabetes Mellitus Additional Family Medical History / Comment(s): at 90yrs old Sister(s) Family Medical History: Cancer, Diabetes Mellitus Brother(s) Family Medical History: Diabetes Mellitus General Exam Limitations: no limitations General appearance: alert, in no apparent distress Head exam: Present: atraumatic, normocephalic, normal inspection Eye exam: Present: normal appearance Pupils: Present: normal accommodation ENT exam: Present: normal exam Neck exam: Present: normal inspection, full ROM Respiratory exam: Present: normal lung sounds bilaterally Cardiovascular Exam: Present: regular rate, normal rhythm, normal heart sounds exam: Present: other (Nuñez catheter) Extremities exam: Present: normal inspection, full ROM Back exam: Present: normal inspection, full ROM Neurological exam: Present: alert, oriented X3 Psychiatric exam: Present: normal affect, normal mood Skin exam: Present: warm, dry, intact, normal color Course Vital Signs 10/24/19 17:36 Temperature 97.8 F Pulse Rate 77 Respiratory 18 Rate Blood Pressure 157/85 O2 Sat by Pulse 96 Oximetry Medical Decision Making - Medical Decision Making Patient is 79-year-old male presenting to the emergency department with a chief complaint of Nuñez catheter falling out. On exam patient did put the catheter in but the balloon was not inflated. I suspect this is catheter malfunction. No full catheter was inserted, patient feels much better. Patient is going to see the urologist tomorrow. No respiratory noted in the new bag. Vital are stable. No fevers or chills at home. Nuñez catheter instructions were given to patient. Return parameters were thoroughly discussed with patient was understanding and agreeable. Case discussed with physician. Disposition Clinical Impression: Malfunction of Nuñez catheter Disposition: HOME SELF-CARE Condition: Stable Instructions (If sedation given, give patient instructions): Nuñez Catheter Placement and Care (ED), Nuñez Catheter Removal (DC) Additional Instructions: Follow-up with urologist tomorrow. Return to emergency department if symptoms worsen. Is patient prescribed a controlled substance at d/c from ED?: No Referrals: [facility],Clinic [Primary Care Provider] - 1-2 days Time of Disposition: 18:51
[2019-10-24 19:18] VITALS: BP 150/72; PULSE 72; RESP 16
== END 2019-10-24 19:19 | disposition home or self-care (01) ==
LOC: EC 17:34
DX: T83.018A Breakdown (mechanical) of other urinary catheter, initial encounter (principal); I48.91 Unspecified atrial fibrillation; I11.0 Hypertensive heart disease with heart failure; I50.9 Heart failure, unspecified; N42.9 Disorder of prostate, unspecified; F41.9 Anxiety disorder, unspecified; Z79.01 Long term (current) use of anticoagulants; Z79.899 Other long term (current) drug therapy; Z98.890 Other specified postprocedural states
CPT/HCPCS: 99283

== ENCOUNTER 2020-01-22 15:38 | Emergency (ER) | payer MEDICARE ==
[2020-01-22 15:44] VITALS: RESP 18; TEMP 98.2
--- NOTE | 2020-01-22 16:17 | ED ---
Male Urogenital HPI - General Chief complaint: Urogenital Stated complaint: Catheter Issues Time Seen by Provider: 01/22/20 15:46 Source: patient, RN notes reviewed, old records reviewed Mode of arrival: ambulatory Limitations: no limitations - History of Present Illness Initial comments: This Patient is a pleasant 80-year-old male who presents emergency department today with nonfunctioning Nuñez catheter. Patient reports that he noticed today that his urine was blood tinged when he awoke this morning. Reports a change the catheter. He also reports noting blood clots at that time. Patient states that since this afternoon he has not had any output from his catheter and does have some minor suprapubic pain and urgency to urinate. He's had this catheter placed for a few months, and has a visiting nurse change it frequently. He had his last Nuñez catheter change this week. Patient states that he is also on Coumadin and his last INR was checked a few weeks ago. - Related Data Home Medications Medication Instructions Recorded Confirmed Metoprolol Tartrate [Lopressor] 25 mg PO BID@0530,1700 10/13/16 10/06/19 Sertraline [Zoloft] 100 mg PO BID@0530,1700 10/13/16 10/06/19 Warfarin [Coumadin] 5 mg PO MOWEFR@1700 10/13/16 10/06/19 amLODIPine [Norvasc] 5 mg PO DAILY 10/13/16 10/06/19 Warfarin [Coumadin] 2.5 mg PO SUTUTHSA@1700 10/06/19 10/06/19 Previous Rx's Medication Instructions Recorded Aspirin 325 mg PO DAILY 30 Days #30 tab 10/10/19 Atorvastatin [Lipitor] 40 mg PO HS 30 Days #30 tab 10/10/19 Tamsulosin [Flomax] 0.4 mg PO DAILY 30 Days #30 10/10/19 cap.er.24h Sulfamethox-Tmp 800-160Mg [Bactrim 1 tab PO Q12HR #20 tab 01/22/20 DS 800-160 mg] Allergies Allergy/AdvReac Type Severity Reaction Status Date / Time No Known Allergies Allergy Verified 01/22/20 15:44 Review of Systems ROS Statement: Those systems with pertinent positive or pertinent negative responses have been documented in the HPI. ROS Other: All systems not noted in ROS Statement are negative. Past Medical History Past Medical History: Atrial Fibrillation, Heart Failure, Hyperlipidemia, Hypertension, Renal Disease Additional Past Medical History / Comment(s): prostate problems kidneys History of Any Multi-Drug Resistant Organisms: None Reported Past Surgical History: Orthopedic Surgery Additional Past Surgical History / Comment(s): Bilateral knee replacement, cataract removal, cardioversion Past Anesthesia/Blood Transfusion Reactions: No Reported Reaction Past Psychological History: Anxiety Smoking Status: Never smoker Past Alcohol Use History: Daily Past Drug Use History: None Reported - Past Family History Mother Family Medical History: Congestive Heart Failure (CHF), Diabetes Mellitus Additional Family Medical History / Comment(s): at 90yrs old Sister(s) Family Medical History: Cancer, Diabetes Mellitus Brother(s) Family Medical History: Diabetes Mellitus General Exam - General Exam Comments Initial Comments: 80 -year-old male. Alert and oriented. No distress. Limitations: no limitations General appearance: alert, in no apparent distress Head exam: Present: atraumatic, normocephalic, normal inspection Eye exam: Present: normal appearance, PERRL, EOMI. Absent: scleral icterus, conjunctival injection, periorbital swelling ENT exam: Present: normal exam, mucous membranes moist Neck exam: Present: normal inspection. Absent: tenderness, meningismus, lymphadenopathy Respiratory exam: Present: normal lung sounds bilaterally. Absent: respiratory distress, wheezes, rales, rhonchi, stridor Cardiovascular Exam: Present: regular rate, normal rhythm, normal heart sounds. Absent: systolic murmur, diastolic murmur, rubs, gallop, clicks GI/Abdominal exam: Present: soft, normal bowel sounds. Absent: distended, tenderness, guarding, rebound, rigid Extremities exam: Present: normal inspection, full ROM, normal capillary refill. Absent: tenderness, pedal edema, joint swelling, calf tenderness Back exam: Present: normal inspection Neurological exam: Present: alert, oriented X3, CN II-XII intact Psychiatric exam: Present: normal affect, normal mood Skin exam: Present: warm, dry, intact, normal color. Absent: rash Course Vital Signs 01/22/20 15:41 Temperature 98.2 F Pulse Rate 60 Respiratory 18 Rate Blood Pressure 160/88 O2 Sat by Pulse 97 Oximetry Medical Decision Making - Medical Decision Making 80-year-old male persist reserves today with complaints of black Nuñez catheter, hematuria. Patient fully catheter replaced. He does have evidence of hematuria. Greater than 182 red blood cells and white blood cells and bacteria is noted. Urine Court will be completed. Patient's INR was completed and is 2.3. With this concern for possible infection and cystitis related to bleeding Patient be started on antibiotics of Bactrim. I discussed Patient should also have INR rechecked after taking his antibiotics. Patient understands treatment and will comply. Return parameters were discussed. - Lab Data Lab Results 01/22/20 01/22/20 Range/Units 16:00 16:00 PT 22.1 H (9.0-12.0) sec INR 2.3 H (<1.2) APTT 28.3 (22.0-30.0) sec Urine Color Light Red Urine Appearance Cloudy (Clear) Urine pH 6.5 (5.0-8.0) Ur Specific [place] 1.016 (1.001-1.035) Urine Protein 2+ H (Negative) Urine Glucose (UA) Negative (Negative) Urine Ketones Negative (Negative) Urine Blood Large H (Negative) Urine Nitrite Positive (Negative) Urine Bilirubin Negative (Negative) Urine Urobilinogen <2.0 (<2.0) mg/dL Ur Leukocyte Esterase Large H (Negative) Urine RBC >182 H (0-5) /hpf Urine WBC >182 H (0-5) /hpf Urine Bacteria Few H (None) /hpf Urine Mucus Rare H (None) /hpf Urine Sperm Occasional H (None) /hpf Disposition Clinical Impression: Hematuria, Complication, blocked Nuñez catheter Disposition: HOME SELF-CARE Condition: Good Instructions (If sedation given, give patient instructions): Urinary Tract Infection in Men (ED) Additional Instructions: Patient is a close follow-up with primary care physician. Recheck PT/INR after abx. Return to the ED if any alarming signs or symptoms occur. Take the medication as prescribed. Prescriptions: Sulfamethox-Tmp 800-160Mg [Bactrim DS 800-160 mg] 1 tab PO Q12HR #20 tab Is patient prescribed a controlled substance at d/c from ED?: No Referrals: [facility],Clinic [Primary Care Provider] - 1-2 days Time of Disposition: 16:55
[2020-01-22 16:28] LABS: Appearance,Urine Cloudy (Clear); Bacteria,Urine Few /hpf; Bilirubin,Urine Negative (Negative); Blood,Urine Large (Negative); Color,Urine Light Red; Glucose,Urine (UA) Negative (Negative); Ketones,Urine Negative (Negative); Leukocyte Esterase,Urine Large (Negative); Mucus,Urine Rare /hpf; Nitrite,Urine Positive (Negative); PH, Urine 6.5 (5.0-8.0); Protein,Urine 2+ (Negative); RBC,Urine >182 /hpf (0-5); Specific Gravity,Urine 1.016 (1.001-1.035); Sperm,Urine Occasional /hpf; Urobilinogen,Urine <2.0 mg/dL (<2.0); WBC,Urine >182 /hpf (0-5)
[2020-01-22 16:30] LABS: INR 2.3 (<1.2); Partial Thromboplastin Time 28.3 sec (22.0-30.0); Prothrombin Time 22.1 sec (9.0-12.0)
[2020-01-22] MEDS ORDERED: SULFAMETH-TMP DS STARTER PACK 2 TAB BTL PO STA (16:57)
[2020-01-22 17:16] VITALS: BP 152/85; PULSE 74
== END 2020-01-22 17:22 | disposition home or self-care (01) ==
LOC: EC 15:38
DX: T83.098A Other mechanical complication of other urinary catheter, initial encounter (principal); R31.9 Hematuria, unspecified; R39.15 Urgency of urination; I48.91 Unspecified atrial fibrillation; I11.0 Hypertensive heart disease with heart failure; I50.9 Heart failure, unspecified; F41.9 Anxiety disorder, unspecified; Z96.653 Presence of artificial knee joint, bilateral; Z98.890 Other specified postprocedural states; Z79.899 Other long term (current) drug therapy; Z79.01 Long term (current) use of anticoagulants
CPT/HCPCS: 36415; 51702; 81001; 85610; 85730; 87086; 99284

== ENCOUNTER 2020-10-16 10:30 | Emergency (ER) | payer MEDICARE ==
[2020-10-16 10:34] VITALS: BP 160/97; PULSE 66; RESP 18; TEMP 98
[2020-10-16] MEDS ORDERED: methylPREDNISolone SOD SUCCI 125 MG/2 ML VIAL IM ONE (11:21)
--- NOTE | 2020-10-16 11:26 | ED ---
Skin/Abscess/FB HPI - General Chief complaint: Skin/Abscess/Foreign Body Stated complaint: Rash Time Seen by Provider: 10/16/20 10:36 Source: patient Mode of arrival: ambulatory Limitations: no limitations - History of Present Illness Initial comments: Patient is a 80-year-old male presenting to the emergency Department with complaints of a rash that has been ongoing for the past week. Patient states he first noticed the rash on his legs but that has since decreased, now it's mostly on his back, both of his arms. Patient states it is extremely itchy. He states he does change his soaps and laundry detergents often, no changes in medications. He is unsure if this is the cause of it. He has been trying some lotions with only mild relief of symptoms. He denies any fever or chills, no chest pain or shortness of breath. He denies any trouble breathing. He has no further complaints at this time. - Related Data Home Medications Medication Instructions Recorded Confirmed Metoprolol Tartrate [Lopressor] 25 mg PO BID@0530,1700 10/13/16 03/28/20 Sertraline [Zoloft] 100 mg PO BID@0530,1700 10/13/16 03/28/20 amLODIPine [Norvasc] 5 mg PO DAILY 10/13/16 03/28/20 Tamsulosin HCl [Flomax] 0.4 mg PO 03/29/20 Previous Rx's Medication Instructions Recorded predniSONE 50 mg PO DAILY #4 tab 10/16/20 Allergies Allergy/AdvReac Type Severity Reaction Status Date / Time No Known Allergies Allergy Verified 10/16/20 10:31 Review of Systems ROS Statement: Those systems with pertinent positive or pertinent negative responses have been documented in the HPI. ROS Other: All systems not noted in ROS Statement are negative. Past Medical History Past Medical History: Atrial Fibrillation, Heart Failure, Hyperlipidemia, Hypertension, Renal Disease Additional Past Medical History / Comment(s): prostate problems kidneys History of Any Multi-Drug Resistant Organisms: None Reported Past Surgical History: Orthopedic Surgery Additional Past Surgical History / Comment(s): Bilateral knee replacement, cataract removal, cardioversion. TUR - 2019 Past Anesthesia/Blood Transfusion Reactions: No Reported Reaction Past Psychological History: Anxiety Smoking Status: Never smoker Past Alcohol Use History: Daily Past Drug Use History: None Reported - Past Family History Mother Family Medical History: Congestive Heart Failure (CHF), Diabetes Mellitus Additional Family Medical History / Comment(s): at 90yrs old Sister(s) Family Medical History: Cancer, Diabetes Mellitus Brother(s) Family Medical History: Diabetes Mellitus General Exam - General Exam Comments Initial Comments: GENERAL: Patient is well-developed and well-nourished. Patient is nontoxic and in no acute distress. HEAD: Atraumatic, normocephalic. EYES: Pupils equal round and reactive to light, extraocular movements intact, sclera anicteric, conjunctiva are normal. Eyelids were unremarkable. ENT: TMs normal, nares patent, oropharynx clear without exudates. Moist mucous membranes. NECK: Normal range of motion, supple without lymphadenopathy or JVD. LUNGS: Unlabored respirations. Breath sounds clear to auscultation bilaterally and equal. No wheezes rales or rhonchi. HEART: Regular rate and rhythm without murmurs, rubs or gallops. ABDOMEN: Soft, nontender, normoactive bowel sounds. No guarding, no rebound. No masses appreciated. : Deferred MUSCULOSKELETAL: Normal extremities with adequate strength and normal range of motion, no pitting or edema. No clubbing or cyanosis. NEUROLOGICAL: Patient is alert and oriented x 3. Motor and sensory are also intact. Cranial nerves II through XII grossly intact. Symmetrical smile. Normal speech, normal gait. PSYCH: Normal mood, normal affect. SKIN: Warm, Dry, normal turgor. Patient has a diffuse macular papular rash on bilateral lower arms, upper and mid back area as well as a little bit on bilateral lower legs. Limitations: no limitations Course Vital Signs 10/16/20 10:31 Temperature 98 F Pulse Rate 66 Respiratory 18 Rate Blood Pressure 160/97 O2 Sat by Pulse 96 Oximetry Medical Decision Making - Medical Decision Making Patient is a 80-year-old male here for a diffuse maculopapular rash mostly on his back, bilateral arms and a little bit on the lower legs. He states it started a week ago, is extremely pruritic. Patient has tried topical lotions without improvement. No other complaints rest of exam is unremarkable. Patient was given dose of steroids here in the ER and will continue on oral steroids starting tomorrow. He does have a follow-up appointment with his PCP on Monday. Patient is stable for discharge. Patient is in agreement with this plan of care. Return parameters were discussed with the patient and they verbalized understanding. Case discussed with Dr. Mon. Disposition Clinical Impression: Dermatitis Disposition: HOME SELF-CARE Condition: Stable Instructions (If sedation given, give patient instructions): Acute Rash (ED) Additional Instructions: Please return to the Emergency Department if symptoms worsen or any other concerns. Recommended using lotions and laundry detergent that are sensitive to skin. May take Benadryl at night for any further itching. Take oral steroids starting tomorrow as prescribed. Follow-up with your regular doctor. Prescriptions: predniSONE 50 mg PO DAILY #4 tab Is patient prescribed a controlled substance at d/c from ED?: No Referrals: [facility],Clinic [Primary Care Provider] - 1-2 days
== END 2020-10-16 11:42 | disposition home or self-care (01) ==
LOC: EC 10:30
DX: L30.9 Dermatitis, unspecified (principal); F41.9 Anxiety disorder, unspecified; I11.0 Hypertensive heart disease with heart failure; I50.9 Heart failure, unspecified; Z79.899 Other long term (current) drug therapy; Z96.653 Presence of artificial knee joint, bilateral; Z98.49 Cataract extraction status, unspecified eye
CPT/HCPCS: 99282; 96372; J2930

== ENCOUNTER → 2023-11-30 | Outpatient (CLI) | payer MEDICARE ==
--- NOTE | 2023-11-30 10:13 | US ---
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 No DVT or SVT is noted . Common Femoral Vein Deep Femoral Vein Femoral Vein Popliteal Vein Proximal Calf Veins Greater Saph Vein Upper Small Saph Vein 2) There is venous reflux noted at the following venous levels: none 3) Incompetent perforators are noted at these levels: none IMPRESSION: 1. Venous reflux is not identified.
--- NOTE | 2023-11-30 21:04 | US ---
EXAMINATION TYPE: US arterial LE single level DATE OF EXAM: 11/30/2023 9:01 AM CLINICAL INDICATION: Male, 83 years old with history of I87.2 VENOUS INSUFFICIENCY (CHRONIC) (PERIPHE RAL); Bilateral lower legs non healing wounds History of: Smoker: Never Hypertension: Yes Diabetic: No Hyperlipidemia: No TIA/CVA: No Previous Vascular Surgery: No TN: No Right Brachial Pressure: 136 Left Brachial Pressure: 125 Ankle-Brachial Indices: Right: CNO (could not obtain) Left: CNO (could not obtain) (Vessel hardening > 1.4; Normal 0.9 - 1.4, Moderate 0.7 - 0.9, Severe 0.5-0.7) IMPRESSION: 1. Left Posterior tibial vascular flow could be identified. Lower extremity arterial flow could not o therwise be obtained below the knee.
== END | disposition home or self-care (01) ==
LOC: RADUSWWP 07:55
PROVIDERS: ATTEND Family Medicine
DX: I87.2 Venous insufficiency (chronic) (peripheral) (principal)
CPT/HCPCS: 93922; 93970

== ENCOUNTER → 2024-01-17 | Outpatient (CLI) | payer OTHER ==
[2024-01-17 10:53] VITALS: BP 125/69; PULSE 72; RESP 15; TEMP 98.2
--- NOTE | 2024-01-17 14:48 | P.PAINPG ---
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 Pt states pain level is provoked at 9 /10 in intensity, constant, localized in the lower lumbar spine, predominantly axial, stabbing in character w occasional shooting pain towards the RLE. Pain is provoked by lifting. Pain is alleviated by PT x 3 wks which he is currently in, physician guided home stretches every other day since Dec 2023, medications (Ibu), repositioning and rest . Oswestry axial pain score at 34. PMH: OA, aFib, CHF, Hyperlipidemia, HTN, CKD, BPH, MDD/ Anxiety PSH: BL Knee Replacement, Cataract Extraction, Cardioversion, TURP (2019) SH: Never smoker, Daily ETOH use, No illicit drug use FH: Mo- CHF, DM, at age 90. Sis- CA, DM. Bro- DM. All: See list Meds: See list including Eliquis REVIEW OF ORGAN SYSTEMS: CONSTITUTIONAL: No fevers or chills. No recent weight loss. NEUROLOGICAL: + numbness and tingling along the distal extremities. No seizure disorders or headaches. MUSCULOSKELETAL: + pain PSYCHIATRIC: Denies current depression or suicidal thoug hts. Physical Examinations : Constitutional : Cooperative , not in acute distress . Neurologic : Cranial nerve II to XII intact. No focal neurological deficits. Psychiatric : alert & oriented x 3. Matching mood & appropriate affect. Judgment & insight intact. Musculoskeletal : Cervical Spine Motor strength in the deltoid and biceps: Normal right side. Normal Left side Motor strength biceps and the wrist extensors: Normal right side . Normal left side Motor strength in the triceps muscle: Normal right side. Normal left side Deep tendon reflexes: Normal at the biceps. Normal at Brachioradialis. Normal at triceps Vertebral body tenderness to deep palpation over Cervical facet loading test: positive bilaterally Spurling test: positive bilaterally Neck distraction test: positive bilaterally Ngoc sign: positive bilaterally Lumbar spine Motor strength lower extremities ,thigh and legs 5/5 Right side , 5/5 Left side Deep tendon reflexes : Normal Knee Jerk. Normal Ankle Jerk Vertebral body tenderness over Wallace Test positive L5-S1 Lumbar facet Loading Test: positive Right / positive Left Range of motion of the lumbar spine Flexion 30 degrees, extension 10 degrees Straight Leg Raise test: Left/ Right positive at degrees Ni test: positive right / positive left. Severe tenderness over the Sacroiliac joint on the Right / Left sides Gaenslen test: positive bilaterally Seated flexion test: positive bilatera lly. Sacral spine : Severe tenderness over the Sacroiliac joint: right side / left side Range of motion: Flexion of the lumbar spine <60 degrees Range of motion: Extension of the lumbar spine <20 degrees Gaenslen's Test positive Ni test: positive right side / left side Thigh Thrust Test Sacral Thrust Test Imaging: Lumbar x ray from Dec 2023 performed at the [facility] Assessment/ Plan : Lumbar DDD Recommendation of MRI non contrast of the lumbar spine M51.36. Follow up in 3wks for a re evaluation. All questions answered. I have spent greater than 30 minutes on patient care today. Dr Squires was available by phone for the evaluation of this patient. The time was used to review the medical records including relevant urine studies and Prescription history (MAPs), review of the available imaging, evaluation and examination of the patient, coordination of care with the medical staff and if applicable referring physicians, as well as creation of the medical record PQRS Narrative: Smoking Status Never smoker Home Medications: Ambulatory Orders Metoprolol Tartrate [Lopressor] 25 mg PO BID@0530,1700 10/13/16 Sertraline [Zoloft] 100 mg PO BID@0530,1700 10/13/16 amLODIPine [Norvasc] 5 mg PO DAILY 10/13/16 Tamsulosin HCl [Flomax] 0.4 mg PO 03/29/20 predniSONE 50 mg PO DAILY #4 tab 10/16/20 Controlled Substance Measures - Controlled Substance Measures Is patient prescribed a controlled substance at discharge?: No
== END ==
LOC: PNWHC3 09:55
PROVIDERS: ATTEND Specialist
DX: M51.36 Other intervertebral disc degeneration, lumbar region (principal); M47.816 Spondylosis without myelopathy or radiculopathy, lumbar region
CPT/HCPCS: 99211

== ENCOUNTER → 2024-02-07 | Outpatient (CLI) | payer OTHER ==
[2024-02-07 12:07] VITALS: BP 146/82; PULSE 54; RESP 16
--- NOTE | 2024-02-07 15:17 | P.PAINPG ---
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 Pt states pain level is provoked at 9 /10 in intensity, constant, localized in the lower lumbar spine, predominantly axial, stabbing in character w occasional shooting pain towards the RLE. Pain is provoked by lifting. Pain is alleviated by PT x 3 wks which he is currently in, physician guided home stretches every other day since Dec 2023, medications, repositioning and rest . MRI results reviewed. Oswestry axial pain score at 34. Interventional procedures include Medications include Ibu, Eliquis REVIEW OF ORGAN SYSTEMS: CONSTITUTIONAL: No fevers or chills. No recent weight loss. NEUROLOGICAL: + numbness and tingling along the distal extremities. No seizure disorders or headaches. MUSCULOSKELETAL: + pain PSYCHIATRIC: Denies current depression or suicidal thoughts. Physical Examinations : Constitutional : Cooperative , not in acute distress . Neurologic : Cranial nerve II to XII intact. No focal neurological deficits. Psychiatric : alert & oriented x 3. Matching mood & appropriate affect. Judgment & insight intact. Musculoskeletal : Cervical Spine Motor strength in the deltoid and biceps: Normal right side. Normal Left side Motor strength biceps and the wrist extensors: Normal right side . Normal left side Motor strength in the triceps muscle: Normal right side. Normal left side Deep tendon reflexes: Normal at the biceps. Normal at Brachioradialis. Normal at triceps Vertebral body tenderness to deep palpation over Cervical facet loading test: positive bilaterally Spurling test: positive bilaterally Neck distraction test: positive bilaterally Ngoc sign: positive bilaterally Lumbar spine Motor strength lower extremities ,thigh and legs 5/5 Right side , 5/5 Left side Deep tendon reflexes : Normal Knee Jerk. Normal Ankle Jerk Vertebral body tenderness over L5 Wallace Test positive L5-S1 Lumbar facet Loading Test: positive Right / positive Left Range of motion of the lumbar spine Flexion 30 degrees, extension 10 degrees Straight Leg Raise test: Left/ Right positive at degrees Ni test: positive right / positive left. Severe tenderness over the Sacroiliac joint on the Right / Left sides Gaenslen test: positive bilaterally Seated flexion test: positive bilaterally. Sacral spine : Severe tenderness over the Sacroiliac joint: right side / left side Range of motion: Flexion of the lumbar spine <60 degrees Range of motion: Extension of the lumbar spine <20 degrees Gaenslen's Test positive Ni test: positive right side / left side Thigh Thrust Test Sacral Thrust Test Imaging: Lumbar x ray from Dec 2023 performed at the [facility] MRI noncontrast of the lumbar spine from 02/02/2024 reviewed Assessment/ Plan : Lumbar DDD Recommendation of MAYUR L5-S1 and medication management. Risks, benefits of procedure discussed and pt verbalized understanding. Protocol for discontinuation/ continuation of medications jennifer procedure discussed. [place] 5/325mg #60 w 1 RF. Use, side effects, adverse reactions and safe storage discussed. Opiate/narcotic agreement signed 02/07/2024. All questions answered. I have spent greater than 30 minutes on patient care today. Dr Squires was available by phone for the evaluation of this patient. The time was used to review the medical records including relevant urine studies and Prescription history (MAPs), review of the available imaging, evaluation and examination of the patient, coordination of care with the medical staff and if applicable referring physicians, as well as creation of the medical record PQRS Narrative: Smoking Status Never smoker Hx Alcohol Use (MH) Yes Home Medications: Ambulatory Orders Metoprolol Tartrate [Lopressor] 25 mg PO BID@0530,1700 10/13/16 Sertraline [Zoloft] 100 mg PO BID@0530,1700 10/13/16 amLODIPine [Norvasc] 5 mg PO DAILY 10/13/16 Tamsulosin HCl [Flomax] 0.4 mg PO 03/29/20 predniSONE 50 mg PO DAILY #4 tab 10/16/20 HYDROcodone/APAP 5-325MG [[place] 5-325] 1 tab PO BID PRN 30 Days #60 tab 02/07/24 HYDROcodone/APAP 5-325MG [[place] 5-325] 1 tab PO BID PRN 30 Days #60 tab 02/07/24 Controlled Substance Measures - Controlled Substance Measures Is patient prescribed a controlled substance at discharge?: Yes When asked, does pt state using other controlled substances?: No If prescribed controlled substance>3 days was MAPS reviewed?: Yes If Rx opioid, was Start Talking consent form obtained?: Yes Was information provided regarding opioid addiction?: Yes
== END ==
LOC: PNWHC3 09:51
PROVIDERS: ATTEND Specialist
DX: M51.37 Other intervertebral disc degeneration, lumbosacral region (principal); M47.817 Spondylosis without myelopathy or radiculopathy, lumbosacral region
CPT/HCPCS: 99211

== ENCOUNTER 2024-11-09 11:47 | Emergency (ER) | payer OTHER, MEDICARE ==
[2024-11-09 11:51] VITALS: RESP 18
--- NOTE | 2024-11-09 12:18 | XR ---
Chest and left ribs. HISTORY: Left rib pain. COMPARISON: 10/08/2019. TECHNIQUE: 5 views of the chest and left ribs were obtained. FINDINGS: There is persistent marked cardiomegaly. The pulmonary vasculature does not appear congested There is suggestion of mild atelectasis or interstitial changes in the lower lobes. There is no pleural effusion or pneumothorax. There is a minimally displaced lateral left rib fracture approximately eighth or ninth rib. The remaining osseous structures are intact. IMPRESSION: 1. Stable marked cardiomegaly. 2. Minimally displaced fracture of the left eighth or ninth rib. [facility], Workstation: [facility], 11/09/2024 12:15 PM
--- NOTE | 2024-11-09 12:23 | ED ---
General Adult HPI - General Chief complaint: Chest Pain Stated complaint: L sided abd pain Time Seen by Provider: 11/09/24 11:50 Source: patient, RN notes reviewed Mode of arrival: ambulatory Limitations: no limitations - History of Present Illness Initial comments: 84-year-old male presents emerged part complaint of left-sided rib pain. Patient states he had a [place] table slide into his rib. Patient states this happened last night states he still has pain this morning felt that he should get evaluated. He states its only his ribs he has no abdominal pain denies any back pain no other complaints. - Related Data Home Medications Medication Instructions Recorded Confirmed Metoprolol Tartrate [Lopressor] 25 mg PO BID@0530,1700 10/13/16 03/28/20 Sertraline [Zoloft] 100 mg PO BID@0530,1700 10/13/16 03/28/20 amLODIPine [Norvasc] 5 mg PO DAILY 10/13/16 03/28/20 Tamsulosin HCl [Flomax] 0.4 mg PO 03/29/20 Previous Rx's Medication Instructions Recorded predniSONE 50 mg PO DAILY #4 tab 10/16/20 HYDROcodone/APAP 5-325MG [[place] 1 tab PO BID PRN 30 Days #60 tab 02/07/24 5-325] HYDROcodone/APAP 5-325MG [[place] 1 tab PO BID PRN 30 Days #60 tab 02/07/24 5-325] Allergies Allergy/AdvReac Type Severity Reaction Status Date / Time No Known Allergies Allergy Verified 10/16/20 10:31 Review of Systems ROS Statement: Those systems with pertinent positive or pertinent negative responses have been documented in the HPI. ROS Other: All systems not noted in ROS Statement are negative. Past Medical History Past Medical History: Atrial Fibrillation, Heart Failure, Hyperlipidemia, Hypertension, Renal Disease Additional Past Medical History / Comment(s): prostate problems kidneys History of Any Multi-Drug Resistant Organisms: None Reported Past Surgical History: Orthopedic Surgery Additional Past Surgical History / Comment(s): Bilateral knee replacement, cataract removal, cardioversion. TUR - 2019 Past Anesthesia/Blood Transfusion Reactions: No Reported Reaction Past Psychological History: Anxiety Smoking Status: Never smoker - Past Family History Mother Family Medical History: Congestive Heart Failure (CHF), Diabetes Mellitus Additional Family Medical History / Comment(s): at 90yrs old Sister(s) Family Medical History: Cancer, Diabetes Mellitus Brother(s) Family Medical History: Diabetes Mellitus General Exam Limitations: no limitations General appearance: alert, in no apparent distress Head exam: Present: atraumatic, normocephalic, normal inspection Eye exam: Present: normal appearance, PERRL, EOMI. Absent: scleral icterus, conjunctival injection, periorbital swelling Respiratory exam: Present: normal lung sounds bilaterally, chest wall tenderness. Absent: respiratory distress, wheezes, rales, rhonchi, stridor Cardiovascular Exam: Present: regular rate, normal rhythm, normal heart sounds. Absent: systolic murmur, diastolic murmur, rubs, gallop, clicks GI/Abdominal exam: Present: soft, normal bowel sounds. Absent: distended, tenderness, guarding, rebound, rigid Course Vital Signs 11/09/24 11/09/24 11:47 12:46 Temperature 97.3 F L 97.6 F Pulse Rate 60 74 Respiratory 18 18 Rate Blood Pressure 158/85 148/79 O2 Sat by Pulse 95 97 Oximetry Medical Decision Making - Medical Decision Making Was pt. sent in by a medical professional or institution (, PA, POST ACUTE CARE NURSE PRACTITIONER, urgent care, hospital, or fpc...) When possible be specific @ -No Did you speak to anyone other than the patient for history (EMS, parent, family, police, friend...)? What history was obtained from this source @ -No Did you review nursing and triage notes (agree or disagree)? Why? @ -I reviewed and agree with nursing and triage notes Were old charts reviewed (outside hosp., previous admission, EMS record, old EKG, old radiological studies, urgent care reports/EKG's, fpc records)? Report findings @ -No old charts were reviewed Differential Diagnosis (chest pain, altered mental status, abdominal pain women, abdominal pain men, vaginal bleeding, weakness, fever, dyspnea, syncope, headache, dizziness, GI bleed, back pain, seizure, CVA, palpatations, mental hea lth, musculoskeletal)? @Contusion rib fracture EKG interpreted by me (3pts min.). @ -None X-rays interpreted by me (1pt min.). @ -Chest x-ray with rib series shows rib fracture CT interpreted by me (1pt min.). @ -None done U/S interpreted by me (1pt. min.). @ -None done What testing was considered but not performed or refused? (CT, X-rays, U/S, labs)? Why? @ -None What meds were considered but not given or refused? Why? @ -None Did you discuss the management of the patient with other professionals (professionals i.e. Dr., PA, POST ACUTE CARE NURSE PRACTITIONER, lab, RT, psych nurse, neonatal social worker, cyber software engineer, teacher, horticultural technical officer, manager of case management)? Give summary @ -No Was smoking cessation discussed for >3mins.? @ -No Was critical care preformed (if so, how long)? @ -No Were there social determinants of health that impacted care today? How? (Homelessness, low income, unemployed, alcoholism, drug addiction, transportation, low edu. Level, literacy, decrease access to med. care, custodial, rehab)? @ -No Was there de-escalation of care discussed even if they declined (Discuss DNR or withdrawal of care, Hospice)? DNR status @ -No What co-morbidities impacted this encounter? (DM, HTN, Smoking, COPD, CAD, Cancer, CVA, ARF, Chemo, Hep., AIDS, mental health diagnosis, sleep apnea, morbid obesity)? @ -None Was patient admitted / discharged? Hospital course, mention meds given and route, prescriptions, significant lab abnormalities, going to OR and other pertinent info. @ -[Discharge patient has rib fracture incentive spirometer given patient has no abdominal complaints patient discharged in stable condition Undiagnosed new problem with uncertain prognosis? @ -No Drug Therapy requiring intensive monitoring for toxicity (Heparin, Nitro, Insulin, Cardizem)? @ -No Were any procedures done? @ -No Diagnosis/symptom? @ -Rib fracture Acute, or Chronic, or Acute on Chronic? @ -Acute Uncomplicated (without systemic symptoms) or Complicated (systemic symptoms)? @ -Uncomplicated Side effects of treatment? @ -No Exacerbation, Progression, or Severe Exacerbation? @ -No Poses a threat to life or bodily function? How? (Chest pain, [place], [place], pneumonia, PE, COPD, DKA, ARF, appy, cholecystitis, CVA, Diverticulitis, Homicidal, Suic idal, threat to staff... and all critical care pts) @ -No Disposition Clinical Impression: Left rib fracture Disposition: HOME SELF-CARE Condition: Stable Instructions (If sedation given, give patient instructions): Rib Fracture (ED) Additional Instructions: Please return to the Emergency Department if symptoms worsen or any other concerns. Is patient prescribed a controlled substance at d/c from ED?: No Referrals: Blas Higginbotham DO [Primary Care Provider] - 1-2 days Time of Disposition: 12:23
[2024-11-09 13:07] VITALS: BP 148/79; PULSE 74; TEMP 97.6
== END 2024-11-09 12:51 | disposition home or self-care (01) ==
LOC: EC 11:47
DX: S22.32XA Fracture of one rib, left side, initial encounter for closed fracture (principal); W22.8XXA Striking against or struck by other objects, initial encounter
CPT/HCPCS: 99285

== ENCOUNTER 2024-11-11 20:30 | Inpatient (IN) | payer OTHER, MEDICARE ==
--- NOTE | 2024-11-11 21:45 | ED ---
Fall HPI - General Chief Complaint: Fall Stated Complaint: Fall-Rib Pain Time Seen by Provider: 11/11/24 21:32 Source: patient, family, RN notes reviewed Mode of arrival: wheelchair - History of Present Illness Initial Comments: 84-year-old male presenting to the emergency department after a fall. Patient states that prior to arrival he was walking when he tripped over a blanket falling onto the left side of his chest. He denies hitting his head or loss conscious time of the fall. Patient does have baseline lumbar back pain and this has been exacerbated at the time of the fall as well. Of note, patient was recently diagnosed with left posterior rib fractures on 11/09/2024 from a another injury. He endorses difficulty breathing with inspiration. Denies blood thinner use. - Related Data Home Medications Medication Instructions Recorded Confirmed Metoprolol Tartrate [Lopressor] 25 mg PO BID@0530,1700 10/13/16 03/28/20 Sertraline [Zoloft] 100 mg PO BID@0530,1700 10/13/16 03/28/20 amLODIPine [Norvasc] 5 mg PO DAILY 10/13/16 03/28/20 Tamsulosin HCl [Flomax] 0.4 mg PO 03/29/20 Previous Rx's Medication Instructions Recorded predniSONE 50 mg PO DAILY #4 tab 10/16/20 HYDROcodone/APAP 5-325MG [[place] 1 tab PO BID PRN 30 Days #60 tab 02/07/24 5-325] HYDROcodone/APAP 5-325MG [[place] 1 tab PO BID PRN 30 Days #60 tab 02/07/24 5-325] Allergies Allergy/AdvReac Type Severity Reaction Status Date / Time No Known Allergies Allergy Verified 11/11/24 20:37 Review of Systems ROS Statement: Those systems with pertinent positive or pertinent negative responses have been documented in the HPI. ROS Other: All systems not noted in ROS Statement are negative. Past Medical History Past Medical History: Atrial Fibrillation, Heart Failure, Hyperlipidemia, Hypertension, Renal Disease Additional Past Medical History / Comment(s): prostate problems kidneys History of Any Multi-Drug Resistant Organisms: None Reported Past Surgical History: Orthopedic Surgery Additional Past Surgical History / Comment(s): Bilateral knee replacement, c ataract removal, cardioversion. 2019 Past Anesthesia/Blood Transfusion Reactions: No Reported Reaction Past Psychological History: Anxiety Smoking Status: Never smoker Past Alcohol Use History: Occasional Past Drug Use History: None Reported - Past Family History Mother Family Medical History: Congestive Heart Failure (CHF), Diabetes Mellitus Additional Family Medical History / Comment(s): at 90yrs old Sister(s) Family Medical History: Cancer, Diabetes Mellitus Brother(s) Family Medical History: Diabetes Mellitus General Exam Limitations: no limitations Eye exam: Present: normal appearance, PERRL, EOMI. Absent: scleral icterus, conjunctival injection, periorbital swelling Neck exam: Present: normal inspection. Absent: tenderness, meningismus, lymphadenopathy Respiratory exam: Present: normal lung sounds bilaterally, chest wall tenderness (anterior and posterior to palpation that is exacerbated on palpation and deep inspiration). Absent: respiratory distress, wheezes, rales, rhonchi, stridor Cardiovascular Exam: Present: regular rate, normal rhythm, normal heart sounds. Absent: systolic murmur, diastolic murmur, rubs, gallop, clicks GI/Abdominal exam: Present: soft, normal bowel sounds. Absent: distended, tenderness, guarding, rebound, rigid Extremities exam: Present: normal inspection, full ROM, normal capillary refill. Absent: tenderness, pedal edema, joint swelling, calf tenderness Back exam: Present: normal inspection, tenderness (lumbar spine to palpation). Absent: CVA tenderness (R), CVA tenderness (L) Neurological exam: Present: alert, oriented X3, CN II-XII intact Course Vital Signs 11/11/24 11/11/24 20:32 21:49 Temperature 97.5 F L 97.4 F L Pulse Rate 65 58 L Respiratory 18 17 Rate Blood Pressure 137/77 127/85 O2 Sat by Pulse 90 L 92 L Oximetry Medical Decision Making - Medical Decision Making Was pt. sent in by a medical professional or institution (, PA, FRONT CLERK, urgent care, hospital, or residential...) When possible be specific @ -No Did you speak to anyone other than the patient for history (EMS, parent, family, police, friend...)? What history was obtained from this source @ -No Did you review nursing and triage notes (agree or disagree)? Why? @ -I reviewed and agree with nursing and triage notes Were old charts reviewed (outside hosp., previous admission, EMS record, old EKG, old radiological studies, urgent care reports/EKG's, residential records)? Report findings @ -Reviewed patient's emergency department visit note from 11/09/2024 where he presented with left-sided rib pain where he had a table slide into the left side of his chest on his rib. X-ray of the chest with left ribs completed concerning for fractures of the left eighth or ninth rib, minimally displaced Differential Diagnosis (chest pain, altered mental status, abdominal pain women, abdominal pain men, vaginal bleeding, weakness, fever, dyspnea, syncope, headache, dizziness, GI bleed, back pain, seizure, CVA, palpatations, mental health, musculoskeletal)? @Rib fracture, pneumothorax, hemothorax, lumbar spine fracture, this list is not all inclusive EKG interpreted by me (3pts min.). @ -none X-rays interpreted by me (1pt min.). @ -None done CT interpreted by me (1pt min.). @ -CT of the chest without contrast reveals acute fractures of the left anterior 4th through 7th ribs, acute fracture of the left posterior ninth and 10th ribs U/S interpreted by me (1pt. min.). @ -None done What testing was considered but not performed or refused? (CT, X-rays, U/S, labs)? Why? @ -None What meds were considered but not given or refused? Why? @ -None Did you discuss the management of the patient with other professionals (professionals i.e. , PA, FRONT CLERK, lab, RT, psych nurse, social work program coordinator, mid level practitioner, teacher, risk control officer, manager case)? Give summary @ -Spoke with on-call trauma specialist, Dr. Brar, was agreed to admit the patient for pain management. Was smoking cessation discussed for >3mins.? @ -No Was critical care preformed (if so, how long)? @ -No Were there social determinants of health that impacted care today? How? (Homelessness, low income, unemployed, alcoholism, drug addiction, transportation, low edu. Level, literacy, decrease access to med. care, assisted, rehab)? @ -No Was there de-escalation of care discussed even if they declined (Discuss DNR or withdrawal of care, Hospice)? DNR status @ -No What co-morbidities impacted this encounter? (DM, HTN, Smoking, COPD, CAD, Cancer, CVA, ARF, Chemo, Hep., AIDS, mental health diagnosis, sleep apnea, morbid obesity)? @ -None Was patient admitted / discharged? Hospital course, mention meds given and route, prescriptions, significant lab abnormalities, going to OR and other pertinent info. @ -Admitted. 84-year-old male presenting to the emergency department after a fall. Patient noted to have pain to palpation of the mid back in addition to the left side of the ribs and appears quite uncomfortable. He is provided with dose of pain medication. CT of the chest and abdomen concerning for fractures of the left anterior 4th through 7th ribs and acute fracture left posterior ninth and 10th ribs. Patient is in continued pain despite pain medication. Patient will be admitted to trauma with pulmonology on consult for continued pain management of rib fractures. Case discussed with Dr. Bird Undiagnosed new problem with uncertain prognosis? @ -No Drug Therapy requiring intensive monitoring for toxicity (Heparin, Nitro, Insulin, Cardizem)? @ -No Were any procedures done? @ -No Diagnosis/symptom? @ -Rib fracture Acute, or Chronic, or Acute on Chronic? @ -Acute Uncomplicated (without systemic symptoms) or Complicated (systemic symptoms)? @ -Complicated Side effects of treatment? @ -No Exacerbation, Progression, or Severe Exacerbation? @ -No Poses a threat to life or bodily function? How? (Chest pain, [place], [place], pneumonia, PE, COPD, DKA, ARF, appy, cholecystitis, CVA, Diverticulitis, Homicidal, Suicidal, threat to staff... and all critical care pts) @ -No Disposition Clinical Impression: Fall, Ribs, multiple fractures Disposition: ADMITTED IP [facility] Condition: Stable Decision to Admit Reason: Admit from EC Decision Date: 11/11/24 Decision Time: 23:41
[2024-11-11] MEDS: HYDROmorphone 1 MG/ML 1 ML SYRINGE IM STA (21:52)
--- NOTE | 2024-11-11 23:14 | CT ---
EXAM: CT Chest Without Intravenous Contrast CLINICAL HISTORY: ITS.REASON CT Reason: fall, known rib fx, posterior mid back pain TECHNIQUE: Axial computed tomography images of the chest without intravenous contrast. CTDI is 9.8 mGy and DLP is 599.4 mGy-cm. This CT exam was performed using one or more of the following dose reduction techniques: automated exposure control, adjustment of the mA and/or kV according to patient size, and/or use of iterative reconstruction technique. COMPARISON: No relevant prior studies available. FINDINGS: Lungs: Scattered atelectasis in the lungs. No pulmonary contusion. Pleural space: No pleural effusion or pneumothorax. Heart: Severe cardiomegaly. Bones/joints: Acute fractures left anterior fourth through seventh ribs. Acute fracture left posterior ninth and 10th ribs. Multiple chronic fracture deformities in the ribs bilaterally. Soft tissues: Unremarkable. Vasculature: Unremarkable. Lymph nodes: Unremarkable. Other findings: Buckle of the sternal cortex which is age indeterminate. IMPRESSION: 1. Acute fractures left anterior fourth through seventh ribs. 2. Acute fracture left posterior ninth and 10th ribs. 3. Buckle of the sternal cortex which is age indeterminate. Correlate for point tenderness. 4. Severe cardiomegaly. EXAM: CT Abdomen Without Intravenous Contrast CLINICAL HISTORY: ITS.REASON CT Reason: fall, known rib fx, posterior mid back pain TECHNIQUE: Axial computed tomography images of the abdomen without intravenous contrast. CTDI is 9.8 mGy and DLP is 599.4 mGy-cm. This CT exam was performed using one or more of the following dose reduction techniques: automated exposure control, adjustment of the mA and/or kV according to patient size, and/or use of iterative reconstruction technique. COMPARISON: No relevant prior studies available. FINDINGS: Lung bases: Unremarkable. No mass. No consolidation. Liver: Unremarkable. Gallbladder and bile ducts: Unremarkable. No calcified stones. No ductal dilation. Pancreas: Unremarkable. No ductal dilation. Spleen: Unremarkable. No splenomegaly. Adrenals: Unremarkable. No mass. Kidneys and ureters: Atrophic left kidney. Unremarkable right kidney. No obstructing stones. No hydronephrosis. Stomach and bowel: Unremarkable. No obstruction. No mucosal thickening. Intraperitoneal space: Unremarkable. No free air. No significant fluid collection. Bones/joints: Severe degenerative changes in the lumbar spine. Anterolisthesis at the L4-5. No acute fracture. No dislocation. Soft tissues: Unremarkable. Vasculature: Aortobiiliac atherosclerotic calcifications. No abdominal aortic aneurysm. Lymph nodes: Unremarkable. No enlarged lymph nodes. IMPRESSION: No acute abnormality.
[2024-11-11] MEDS ORDERED: MORPHINE SULFATE 2 MG/ML SYRINGE IVP PRN (23:42)
[2024-11-11] MEDS ORDERED: NALOXONE 0.4 MG/ML 1 ML VIAL IV PRN (23:42)
[2024-11-11] MEDS ORDERED: ACETAMINOPHEN TAB 325 MG TAB PO PRN (23:42)
[2024-11-11] MEDS: HYDROmorphone 1 MG/ML 1 ML SYRINGE IVP STA (23:49)
[2024-11-11] MEDS: KETOROLAC 15 MG/ML 1 ML VIAL IVP STA (23:50)
[2024-11-11] MEDS: LIDOCAINE 4% PATCH TOPICAL ONE (23:53)
[2024-11-12 00:16] LABS: Basophils % (A) 0 %; Eosinophils # (A) 0.1 k/uL (0-0.7); Eosinophils % (A) 1 %; HCT 46.4 % (39.0-53.0); HGB 14.8 gm/dL (13.0-17.5); Lymphocytes # (A) 1.3 k/uL (1.0-4.8); Lymphocytes % (A) 16 %; MCH 33.1 pg (25.0-35.0); MCV 103.7 fL (80.0-100.0); Macrocytosis Slight; Mean Platelet Volume 7.6; Monocytes # (A) 0.7 k/uL (0-1.0); Monocytes % (A) 9 %; Neutrophils # (A) 6.1 k/uL (1.3-7.7); Neutrophils % (A) 72 %; Platelet Count 162 k/uL (150-450); RBC 4.48 m/uL (4.30-5.90); RDW 13.1 % (11.5-15.5); WBC 8.4 k/uL (3.8-10.6)
[2024-11-12 00:30] LABS: ALT 36 U/L (4-49); AST 39 U/L (17-59); African American GFR (CKD) 72 (>60 ml/min/1.73 sqM); Albumin 4.2 g/dL (3.5-5.0); Alkaline Phosphatase 61 U/L (38-126); Anion Gap 5 mmol/L; Blood Urea Nitrogen 37 mg/dL (9-20); Calcium 9.4 mg/dL (8.4-10.2); Carbon Dioxide 28 mmol/L (22-30); Chloride 105 mmol/L (98-107); Glucose 105 mg/dL (74-99); Non-African American GFR(CKD) 63 (>60 ml/min/1.73 sqM); Potassium 4.5 mmol/L (3.5-5.1); Sodium 138 mmol/L (137-145); Total Bilirubin 1.4 mg/dL (0.2-1.3); Total Protein 6.8 g/dL (6.3-8.2)
[2024-11-12] MEDS: ENOXAPARIN 40 MG/0.4 ML SYRINGE SQ SCH (01:20)
[2024-11-12 03:11] LABS: Allen Test Performed? Yes
[2024-11-12 03:12] LABS: ABG HCO3 27 mmol/L (21-25); ABG Oxygen Saturation 93.2 % (94-97); ABG PCO2 49 mmHg (35-45); ABG PH 7.36 (7.35-7.45); ABG PO2 70 mmHg (83-108); ABG TCO2 29 mmol/L (19-24)
--- NOTE | 2024-11-12 05:47 | CT ---
EXAMINATION TYPE: CT brain wo con DATE OF EXAM: 11/12/2024 COMPARISON: NONE CLINICAL INDICATION: Male, 84 years old with history of altered mental status; recent fall, TECHNIQUE: CT scan of the head is performed without contrast. CT DLP: 1196 mGycm. Automated Exposure Control for Dose Reduction was Utilized. FINDINGS: There is no acute intracranial hemorrhage or midline shift identified. There is moderate diffuse ventricular and sulcal prominence consistent with diffuse age-related cerebral atrophy. Ther e is mild low-attenuation in the periventricular white matter most likely consistent with chronic sma ll vessel ischemic change in patient of this age. The calvarium is intact. Bilateral aphakia is prese nt. The visualized sinuses are clear. IMPRESSION: No acute intracranial hemorrhage or midline shift. There is moderate diffuse age-relate d cerebral atrophy and mild chronic small vessel ischemic change noted. [facility], , 11/12/2024 5:45 AM
--- NOTE | 2024-11-12 07:13 | P.CNPUL ---
History of Present Illness Consult date: 11/12/24 Requesting physician: Luanne Chung Reason for consult: other (Rib fractures, pulmonary contusion) Chief complaint: Mechanical fall History of present illness: Patient is an 84-year-old male with past medical history significant for hypertension, paroxysmal atrial fibrillation, and chronic lumbar back pain. Patient currently confused and is a poor historian. Apparently, has been experiencing multiple falls while at home. Had a recent ER visit on 11/09/2024 for fall and left-sided chest pain. Chest x-ray at that time showed minimally displaced left-sided rib fractures of ribs 8 and 9. Ultimately, discharged home. Patient returns to the ED last night after reportedly tripping over a blanket. Again, landing on his left side. No obvious head trauma. No documented anticoagulants. CT of the chest/abdomen/pelvis remarkable for acute fractures of left anterior 4th through 7th ribs, as well as, acute fracture left posterior ninth and 10th ribs. Buckle of the sternal cortex which is age- indeterminate. Scattered atelectatic changes including bilateral bases and lingula. No pneumothoraces or pleural effusions. CBC unremarkable, no leukocytosis, hemoglobin 14.8, platelets 162. CMP also unremarkable, electrolytes WDL, creatinine 1.09, glucose 105. LFTs not elevated. On my evaluation, patient is lethargic, will wake up, oriented to self only. Moves all 4 extremities. Currently on 3 L/min nasal cannula. SpO2 reading 93%. I did order an ABG, and likely not the cause of the patient's confusion. Findings including PaO2 of 70, pCO2 of 49, pH of 7.36. Has been received a total of 2 mg IV Dilaudid. Also, received a dose of Toradol. No significant grimacing or tenderness with clinical examination. No subcutaneous emphysema or crepitus. There is a lidocaine patch on the left lateral chest. Current vital signs, afebrile, heart rate 78 bpm, blood pressure 124/84 mmHg, nontachypneic, SpO2 93% on above-mentioned 3 L/min nasal cannula. Review of Systems ROS unobtainable: due to mental status Past Medical History Past Medical History: Atrial Fibrillation, Heart Failure, Hyperlipidemia, Hypertension, Renal Disease Additional Past Medical History / Comment(s): prostate problems kidneys History of Any Multi-Drug Resistant Organisms: None Reported Past Surgical History: Orthopedic Surgery Additional Past Surgical History / Comment(s): Bilateral knee replacement, cataract removal, cardioversion. 2019 Past Anesthesia/Blood Transfusion Reactions: No Reported Reaction Past Psychological History: Anxiety Smoking Status: Never smoker Past Alcohol Use History: Occasional Past Drug Use History: None Reported - Past Family History Mother Family Medical History: Congestive Heart Failure (CHF), Diabetes Mellitus Additional Family Medical History / Comment(s): at 90yrs old Sister(s) Family Medical History: Cancer, Diabetes Mellitus Brother(s) Family Medical History: Diabetes Mellitus Medications and Allergies Home Medications Medication Instructions Recorded Confirmed Type Metoprolol Tartrate [Lopressor] 25 mg PO BID 10/13/16 11/12/24 History Apixaban [Eliquis] 5 mg PO BID 11/12/24 11/12/24 History Lidocaine 5% Patch [Lidoderm] 1 patch TOPICAL DAILY PRN 11/12/24 11/12/24 History Venlafaxine HCl ER [Effexor Xr] 75 mg PO DAILY 11/12/24 11/12/24 History Venlafaxine HCl ER [Effexor Xr] 150 mg PO DAILY 11/12/24 11/12/24 History amLODIPine [Norvasc] 5 mg PO DAILY 11/12/24 11/12/24 History Allergies Allergy/AdvReac Type Severity Reaction Status Date / Time No Known Allergies Allergy Verified 11/12/24 08:07 Physical Exam Vitals: Vital Signs Temp Pulse Resp BP Pulse Ox 11/12/24 02:00 78 20 124/84 95 11/12/24 00:02 79 18 127/86 86 L 11/11/24 21:49 97.4 F L 58 L 17 127/85 92 L 11/11/24 20:32 97.5 F L 65 18 137/77 90 L Intake and Output 11/11/24 11/11/24 11/12/24 14:59 22:59 06:59 Other: Weight 77.111 kg GENERAL EXAM: Lethargic, 84-year-old male, comfortable in no apparent distress. HEAD: Normocephalic and atraumatic EYES: Normal reaction of pupils, equal size. NOSE: Clear with pink turbinates. THROAT: No erythema or exudates. NECK: No masses, no JVD. CHEST: No chest wall deformity. No crepitus or subcutaneous emphysema LUNGS: Equal air entry with no crackles, wheeze, rhonchi or dullness. On 3 L/min nasal cannula. No conversational dyspnea or accessory muscle use.. CVS: S1 and S2 normal with grade 3 systolic murmur, irregular rhythm. No other e xtra heart sounds ABDOMEN: No hepatosplenomegaly, active bowel sounds, no guarding or rigidity. SPINE: No scoliosis or deformity SKIN: No rashes CENTRAL NERVOUS SYSTEM: Lethargic, oriented to self, no focal deficits, tone is normal in all 4 extremities. EXTREMITIES: There is no peripheral edema, clubbing, or cyanosis. Peripheral pulses are intact. Results - Laboratory Findings CBC and BMP: 11/12/24 08:06 11/12/24 08:06 Abnormal lab findings: Abnormal Labs 11/11/24 11/11/24 23:50 23:50 MCV 103.7 H BUN 37 H Glucose 105 H Total Bilirubin 1.4 H - Diagnostic Findings Chest x-ray: image reviewed Assessment and Plan Assessment: Mechanical fall, sustaining acute left-sided rib fractures involving the anterior 4th through 7th ribs as well as acute fracture of the left posterior ninth and 10th ribs. Block of the sternal cortex which is age-indeterminate. Scattered atelectatic changes including bilateral bases and lingula. No pneumothoraces or pleural effusions were noted. Acute hypoxemic respiratory failure, currently on 3 L/min nasal cannula, secondary to above Altered mental status, possibly secondary to medication effect, recently received total of 2 mg of IV Dilaudid Hypertension Paroxysmal atrial fibrillation, no documented anticoagulants History of valvular heart disease with moderate mitral regurgitation, mild aortic regurgitation, and severe tricuspid regurgitation Chronic lumbar back pain History of BPH Plan: Continue supplemental oxygen to maintain oxygen saturation of 92% or greater Pain management, continue combination of lidocaine patch, with Toradol and Tylenol as needed. Would hold narcotics at this time. Consult was placed to pain management Encourage incentive spirometer hourly while awake and when able Unsure of patient's baseline mentation; however, reportedly lives at home alone. Altered mental status under investigation Will continue to follow I have personally seen and examined the patient, performed the documentation and the assessment and plan as written. Number of minutes spent on the visit:20 Joint evaluation that was done along with the nurse practitioner. Evaluation was done and 33 minutes. The patient is currently stable on room air oxygen with a pulse ox of 95%. No significant respiratory distress. Complaining of skeletal chest wall pain. Chest x-ray was repeated this morning and shows no acute cardiopulmonary process. The patient has marked cardiomegaly and his previous CAT scan of the chest showed no evidence of any pericardial effusion. Rib fractures are less well-appreciated compared to the CAT scan of the chest based on the chest x-ray that was done this morning. CAT scan of the brain was also repeated that showed no acute intracranial process. Labs were reviewed. CBC is normal, electrolytes are normal. Lactic acid level is down to 1.2. Ammonia level is less than 5. UA is abnormal and the patient was started on IV Rocephin. Faxon for pain control. Toradol for pain control. Lidocaine patch. Morphine as needed. Will continue to follow. Patient was seen also by the anesthesia group. No plans for any epidural pain control based on the fact that the patient was taking anticoagulants. He is currently on Lovenox 40 mg subcu Time with Patient: Greater than 30
[2024-11-12] MEDS ORDERED: IPRATROPIUM-ALBUTEROL 3 ML NEB INHALATION PRN ×2 (08:01)
[2024-11-12] MEDS ORDERED: LIDOCAINE 4% PATCH TOPICAL PRN (08:23)
--- NOTE | 2024-11-12 08:24 | XR ---
EXAMINATION TYPE: XR chest 1V portable DATE OF EXAM: 11/12/2024 4:46 AM COMPARISON: CT CLINICAL INDICATION: Male, 84 years old with history of fall, rib fractures; [facility] TECHNIQUE: XR chest 1V portable Frontal view of the chest. FINDINGS: Lungs/Pleura: There is no evidence of pleural effusion, focal consolidation, or pneumothorax. Pulmonary vascularity: Unremarkable. Heart/mediastinum: Cardiomediastinal silhouette is enlarged and stable. Musculoskeletal: Known rib fractures are better appreciated on CT. Other findings: None Lines/Tubes: IMPRESSION: 1. No acute cardiopulmonary disease/process. 2. Rib fractures are less well appreciated compared to CT. 3. Marked cardiomegaly. [facility], , 11/12/2024 8:22 AM
[2024-11-12 08:26] LABS: HCT 43.5 % (39.0-53.0); MCH 33.3 pg (25.0-35.0); MCHC 32.2 g/dL (31.0-37.0); MCV 103.3 fL (80.0-100.0); Macrocytosis Slight; Mean Platelet Volume 7.8; Platelet Count 133 k/uL (150-450); RBC 4.21 m/uL (4.30-5.90); RDW 13.8 % (11.5-15.5); WBC 6.3 k/uL (3.8-10.6)
[2024-11-12 08:41] LABS: ALT 33 U/L (4-49); African American GFR (CKD) 89 (>60 ml/min/1.73 sqM); Albumin 3.7 g/dL (3.5-5.0); Anion Gap 6 mmol/L; Blood Urea Nitrogen 33 mg/dL (9-20); Calcium 8.9 mg/dL (8.4-10.2); Carbon Dioxide 26 mmol/L (22-30); Chloride 106 mmol/L (98-107); Glucose 107 mg/dL (74-99); Non-African American GFR(CKD) 77 (>60 ml/min/1.73 sqM); Sodium 138 mmol/L (137-145); Total Bilirubin 1.7 mg/dL (0.2-1.3); Total Protein 6.3 g/dL (6.3-8.2)
[2024-11-12 08:47] LABS: AST 37 U/L (17-59); Alkaline Phosphatase 49 U/L (38-126); Potassium 5.1 mmol/L (3.5-5.1)
[2024-11-12] MEDS ORDERED: VENLAFAXINE HCL ER 150 MG CAP PO SCH (09:00)
[2024-11-12] MEDS: METOPROLOL TARTRATE 25 MG TAB PO SCH (09:02)
[2024-11-12] MEDS: amLODIPine 5 MG TAB PO SCH (09:02)
[2024-11-12] MEDS: VENLAFAXINE HCL ER 75 MG CAP PO SCH (09:03)
[2024-11-12] MEDS: KETOROLAC 15 MG/ML 1 ML VIAL IVP PRN (10:34)
[2024-11-12] MEDS: HYDROcodone/APAP 5-325MG 1 EACH TAB PO PRN (10:35)
--- NOTE | 2024-11-12 10:54 | P.CONS ---
History of Present Illness - Reason for Consult Consult date: 11/12/24 Medical Management Requesting physician: Tye Brar - History of Present Illness History of Presenting Illness: Patient is a pleasant 84-year-old male with a past medical history of atrial fibrillation status post cardioversion, hypertension, hyperlipidemia, diastolic heart failure, and BPH with previous TURP.. He presented to the emergency department on 11/11/2024 status post trip and fall from standing position on anticoagulants. Patient reported he tripped and fell over a blanket landing onto the left side of his chest and denied hitting his head or having any loss of consciousness. Patient reported experiencing left-sided chest pain and lower lumbar back pain resulting from fall. Upon arrival to our facility, patient underwent evaluation in the emergency department. Vital signs upon arrival show blood pressure 137/77, heart rate 65, respiratory rate 16, temp 97.5 F, and SpO2 of 90% on room air shortly desaturating down to 86% on room air short while after arrival requiring supplemental oxygen with 3 L O2 via nasal cannula. EKG was completed showing atrial fibrillation with a slowed ventricular rate of 56 bpm and T wave inversion in inferior leads III and aVF. CT chest without contrast was completed showing acute fractures of the left anterior 4th through 7th ribs and acute fracture of left posterior ninth and 10th ribs along with a buckle fracture of the sternal cortex of indeterminate age and severe cardiomyopathy. CT abdomen negative for acute intra-abdominal process. CT lumbar spine showing severe degenerative changes in the lumbar spine with anterolisthesis at the L4-L5 but negative for acute fracture. CT brain negative for acute intracranial hemorrhage or abnormality showing moderate diffuse age-related cerebral atrophy and mild chronic small vessel ischemic changes. Labs completed and reviewed. CBC showing macrocytosis with MCV of 103.7 otherwise normal findings. BMP showing prerenal azotemia with BUN of 37, creatinine of 1.09, and GFR of 63 with baseline creatinine around 1.4. Blood glucose 105. Liver profile showing elevated total bili of 1.4. Patient was admitted to trauma surgery team with consultations to pulmonology for pulmonary contusion and we were consulted for medical management throughout hospitalization. After patient became hypoxic with SpO2 decreasing to 86%, ABG was completed showing respiratory alkalosis with pH of 7.36, pCO2 of 49, PaO2 of 70, bicarb of 27, total CO2 of 29, and low O2 sat of 93.2.. Patient maintaining oxygen saturations 95 to 96% on 3 L and currently shortness of breath, cough, or congestion. He does report having nasal stuffiness and dryness and pain to left ribs. Review of systems: Pertinent positives and negatives as discussed in HPI, a complete review of systems was performed and all other systems are negative. Physical exam: Vital signs reviewed and stable. General: Nontoxic, no distress and appears stated age. Derm: Skin warm and dry, normal coloration for ethnicity. Head: Atraumatic, normocephalic and symmetric. Eyes: EOM's intact, no lid lag, and anicteric sclera Mouth: no lip lesions, mucus membranes moist Cardiovascular: Irregularly irregular, systolic murmur, positive posterior tibial pulses bilaterally, and cap refill < 2 seconds. Lungs: Respirations even, regular, and unlabored on 3L O2 via NC. Lungs diminished, no rhonchi, no rales, no wheezing, and no accessory muscle usage. Abdominal: soft, nontender to palpation, no guarding, no appreciable organomegaly Ext: No gross muscle atrophy, no edema, no contractures Neuro: Speech clear, face symmetrical and CN II-XII grossly intact with no noted focal neuro deficits Psych: Alert and oriented to person, place, time, and situation. Appropriate and pleasant affect. Assessment and Plan of Care: Acute hypoxic respiratory failure Multiple Left-sided rib fractures, anteriorly left-sided 4th through 7th ribs and posteriorly ninth and 10th ribs Fall on anticoagulant -Patient admitted under general surgery/trauma surgery team. -Continue supplemental oxygen as needed to maintain SpO2 equal to or greater than 92% and wean as patient tolerates. Currently on 3 L O2. -Encourage use of incentive spirometry 10-15 times hourly while awake. Encourage coughing and deep breathing exercises. -Pulmonology following, discussed plan of care with Dr. Escobedo. -Telemetry monitoring. -Symptomatic care and pain management with Tylenol 650 mg every 6 hours as needed for mild pain, Wood 5-325 mg tablets every 4 hours as needed for moderate pain and morphine 4 mg IVP every 4 hours as needed for severe pain. -Lidocaine patch 4% to be applied to left rib region daily. -Maintain fall precautions and consult placed to physical and Occupational Therapy for evaluation. Chronic atrial fibrillation, currently with slowed ventricular rate History of diastolic heart failure, not in acute exacerbation Hypertension Hyperlipidemia -Patient on Eliquis 5 mg twice daily, Eliquis being held at this time pending clearance from cripple cutter and general surgeon to resume. -Monitor vital signs. Continue amlodipine 5 mg daily and metoprolol 25 mg twice daily with parameters placed to hold for heart rate less than 60. History of BPH with previous TURP -Patient not on daily medications, monitor output. Orders placed for bladder scan to monitor for any urinary retention/postvoid residuals. Data and imaging reviewed: As stated above in HPI. Morning vital signs reviewed. Blood pressure 110/69, heart rate 64, respiratory rate 15, and SpO2 of 96% on 3 L. Repeat morning labs ordered and reviewed upon completion. CBC showing stable hemoglobin of 14.0, continued macrocytosis with MCV of 103.3 and mild thrombocytopenia with platelet count of 133. Thank you for allowing us to participate in the care of this pleasant patient. Do not hesitate to contact us with questions. Someone can be reached from the [facility] hospitalist group all hours of the day at [phone] or via [employer]. Patient was seen independently by Nurse Practitioner. This document was prepared using [employer] dictation software. Please allow for errors in city weighmaster while rare they do occur. Orestes Mcconnell NP rendered care for this patient independently, reviewed the fi ndings and plan as documented in the note above and agree with plan. I did not physically speak with or examine the patient on this date. Past Medical History Past Medical History: Atrial Fibrillation, Heart Failure, Hyperlipidemia, Hypertension, Renal Disease Additional Past Medical History / Comment(s): prostate problems kidneys History of Any Multi-Drug Resistant Organisms: None Reported Past Surgical History: Orthopedic Surgery Additional Past Surgical History / Comment(s): Bilateral knee replacement, cataract removal, cardioversion. TURP - 2019 Past Anesthesia/Blood Transfusion Reactions: No Reported Reaction Past Psychological History: Anxiety Smoking Status: Never smoker Past Alcohol Use History: Occasional Past Drug Use History: None Reported - Past Family History Mother Family Medical History: Congestive Heart Failure (CHF), Diabetes Mellitus Additional Family Medical History / Comment(s): at 90yrs old Sister(s) Family Medical History: Cancer, Diabetes Mellitus Brother(s) Family Medical History: Diabetes Mellitus Medications and Allergies Home Medications Medication Instructions Recorded Confirmed Type Metoprolol Tartrate [Lopressor] 25 mg PO BID 10/13/16 11/12/24 History Apixaban [Eliquis] 5 mg PO BID 11/12/24 11/12/24 History Lidocaine 5% Patch [Lidoderm] 1 patch TOPICAL DAILY PRN 11/12/24 11/12/24 History Venlafaxine HCl ER [Effexor Xr] 75 mg PO DAILY 11/12/24 11/12/24 History Venlafaxine HCl ER [Effexor Xr] 150 mg PO DAILY 11/12/24 11/12/24 History amLODIPine [Norvasc] 5 mg PO DAILY 11/12/24 11/12/24 History Allergies Allergy/AdvReac Type Severity Reaction Status Date / Time No Known Allergies Allergy Verified 11/12/24 08:07 Physical Exam Vitals: Vital Signs Temp Pulse Resp BP Pulse Ox 11/12/24 06:00 49 L 14 120/64 98 11/12/24 05:00 47 L 16 115/62 96 11/12/24 04:00 56 L 14 127/71 96 11/12/24 02:00 78 20 124/84 95 11/12/24 00:02 79 18 127/86 86 L 11/11/24 21:49 97.4 F L 58 L 17 127/85 92 L 11/11/24 20:32 97.5 F L 65 18 137/77 90 L Intake and Output 11/11/24 11/12/24 11/12/24 22:59 06:59 14:59 Other: Weight 77.111 kg Results CBC & Chem 7: 11/12/24 08:06 11/12/24 08:06 Labs: Abnormal Lab Results - Last 24 Hours (Table) 11/11/24 11/11/24 11/12/24 Range/Units 23:50 23:50 03:08 MCV 103.7 H (80.0-100.0) fL ABG pCO2 49 H (35-45) mmHg ABG pO2 70 L (83-108) mmHg ABG HCO3 27 H (21-25) mmol/L ABG Total CO2 29 H (19-24) mmol/L ABG O2 Saturation 93.2 L (94-97) % BUN 37 H (9-20) mg/dL Glucose 105 H (74-99) mg/dL Total Bilirubin 1.4 H (0.2-1.3) mg/dL
[2024-11-12] MEDS ORDERED: FLUTICASONE NASAL 50MCG/SPRAY 16GM BTL EA NOSTRIL PRN (11:34)
--- NOTE | 2024-11-12 12:03 | P.PAINCN ---
History of Present Illness - History of Present Illness This is a 84-year-old pleasant gentleman who is an ER with multiple rib fractu res because of fall. I have been asked to consult for pain control. Patient is is moderately confused secondary to dementia which has gotten worse recently according to daughter. Patient relates he is reasonably comfortable at this point. Denies any pain when we were there. Patient had his oral Andale and Toradol injection done about an hour ago. He denies any motor or sensory symptoms in upper or lower extremities. Denies any bowel or bladder incontinence. Past Medical History Past Medical History: Atrial Fibrillation, Heart Failure, Hyperlipidemia, Hypertension, Renal Disease Additional Past Medical History / Comment(s): prostate problems kidneys History of Any Multi-Drug Resistant Organisms: None Reported Past Surgical History: Orthopedic Surgery Additional Past Surgical History / Comment(s): Bilateral knee replacement, cataract removal, cardioversion. TURP - 2019 Past Anesthesia/Blood Transfusion Reactions: No Reported Reaction Past Psychological History: Anxiety Smoking Status: Never smoker Past Alcohol Use History: Occasional Past Drug Use History: None Reported - Past Family History Mother Family Medical History: Congestive Heart Failure (CHF), Diabetes Mellitus Additional Family Medical History / Comment(s): at 90yrs old Sister(s) Family Medical History: Cancer, Diabetes Mellitus Brother(s) Family Medical History: Diabetes Mellitus Medications and Allergies Home Medications Medication Instructions Recorded Confirmed Type Metoprolol Tartrate [Lopressor] 25 mg PO BID@0530,1700 10/13/16 03/28/20 History Apixaban [Eliquis] 5 mg PO BID 11/12/24 11/12/24 History Lidocaine 5% Patch [Lidoderm] 1 patch TOPICAL DAILY PRN 11/12/24 11/12/24 History Venlafaxine HCl ER [Effexor Xr] 75 mg PO DAILY 11/12/24 11/12/24 History Venlafaxine HCl ER [Effexor Xr] 150 mg PO DAILY 11/12/24 11/12/24 History amLODIPine [Norvasc] 5 mg PO DAILY 11/12/24 11/12/24 History Allergies Allergy/AdvReac Type Severity Reaction Status Date / Time No Known Allergies Allergy Verified 11/12/24 08:07 Physical Exam Vitals: Vital Signs Temp Pulse Resp BP Pulse Ox 11/12/24 09:09 64 15 110/69 96 11/12/24 08:14 62 18 141/80 97 11/12/24 06:00 49 L 14 120/64 98 11/12/24 05:00 47 L 16 115/62 96 11/12/24 04:00 56 L 14 127/71 96 11/12/24 02:00 78 20 124/84 95 11/12/24 00:02 79 18 127/86 86 L 11/11/24 21:49 97.4 F L 58 L 17 127/85 92 L 11/11/24 20:32 97.5 F L 65 18 137/77 90 L Intake and Output 11/11/24 11/12/24 11/12/24 22:59 06:59 14:59 Other: Weight 77.111 kg Limited physical exam because of pain exacerbation. On pressure on the left side of the chest patient complains of increased pain. No obvious sensory deficit in lower extremities. No obvious motor deficit in lower extremities. Patient is not short of breath. Results CBC & Chem 7: 11/12/24 08:06 11/12/24 08:06 Labs: Abnormal Lab Results - Last 24 Hours (Table) 11/11/24 11/11/24 11/12/24 Range/Units 23:50 23:50 03:08 RBC (4.30-5.90) m/uL MCV 103.7 H (80.0-100.0) fL Plt Count (150-450) k/uL ABG pCO2 49 H (35-45) mmHg ABG pO2 70 L (83-108) mmHg ABG HCO3 27 H (21-25) mmol/L ABG Total CO2 29 H (19-24) mmol/L ABG O2 Saturation 93.2 L (94-97) % BUN 37 H (9-20) mg/dL Glucose 105 H (74-99) mg/dL Total Bilirubin 1.4 H (0.2-1.3) mg/dL 11/12/24 11/12/24 Range/Units 08:06 08:06 RBC 4.21 L (4.30-5.90) m/uL MCV 103.3 H (80.0-100.0) fL Plt Count 133 L (150-450) k/uL ABG pCO2 (35-45) mmHg ABG pO2 (83-108) mmHg ABG HCO3 (21-25) mmol/L ABG Total CO2 (19-24) mmol/L ABG O2 Saturation (94-97) % BUN 33 H (9-20) mg/dL Glucose 107 H (74-99) mg/dL Total Bilirubin 1.7 H (0.2-1.3) mg/dL Chest x-ray: pending Assessment and Plan Assessment: Multiple rib fracture left side. Plan: Patient could be a candidate for continuous thoracic epidural for longer term pain control or left erector spinae block for relatively short-term pain control. Patient is on Eliquis for atrial fibrillation which needs to be stopped for at least 3 days before any procedure. Patient apparently took his Eliquis last dose yesterday sometime in the morning according to daughter. Patient is also prophylactic Lovenox every 12 hours. Lovenox needs to be off for at least 12 hours before the procedure. Please let us know if cardiology gives okay to stop Eliquis for 3 days and Lovenox for 12 hours for either of the procedures if requested. Meanwhile continue current pain regimen of Andale, Toradol, lidocaine patch and morphine IV as needed. PQRS Measure Charge Sheet PQRS Narrative: Smoking Status Never smoker Blood Pressure 110/69 Pain Intensity 0 Pain Scale Used Numeric (1 - 10) Scale Used Numeric (1 - 10) Hx Alcohol Use (MH) Yes Home Medications: Ambulatory Orders Metoprolol Tartrate [Lopressor] 25 mg PO BID@0530,1700 10/13/16 Apixaban [Eliquis] 5 mg PO BID 11/12/24 Lidocaine 5% Patch [Lidoderm] 1 patch TOPICAL DAILY PRN 11/12/24 Venlafaxine HCl ER [Effexor Xr] 75 mg PO DAILY 11/12/24 Venlafaxine HCl ER [Effexor Xr] 150 mg PO DAILY 11/12/24 amLODIPine [Norvasc] 5 mg PO DAILY 11/12/24
[2024-11-12] MEDS: MORPHINE SULFATE 4 MG/ML SYRINGE IVP PRN (14:23)
[2024-11-12 14:29] LABS: Appearance,Urine Cloudy (Clear); Bacteria,Urine Few /hpf; Bilirubin,Urine Negative (Negative); Blood,Urine Negative (Negative); Color,Urine Yellow; Glucose,Urine (UA) Negative (Negative); Ketones,Urine Negative (Negative); Leukocyte Esterase,Urine Large (Negative); Mucus,Urine Rare /hpf; Nitrite,Urine Negative (Negative); Protein,Urine Trace (Negative); RBC,Urine 1 /hpf (0-5); Specific Gravity,Urine 1.025 (1.001-1.035); Squamous Epithelial Cell,Urine <1 /hpf (0-4); Urobilinogen,Urine <2.0 mg/dL (<2.0); WBC,Urine 56 /hpf (0-5)
[2024-11-12] MEDS: HALOPERIDOL LACTATE 5 MG/ML 1 ML VIAL IM STA (15:19)
[2024-11-12] MEDS: LORazepam 2 MG/ML INJ IV STA (15:39)
--- NOTE | 2024-11-12 16:03 | P.PN ---
Progress Note - Text Progress Note Date: 11/12/24 Indication: Called to bedside, pt with new onset mental status changes. 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 Was previously alert and oriented x3-4 now alert to self only. Pulled out IV. Security was called to bedside. Pt's niece (ALONZO) was also notified and returned to bedside. She reports that patient has not had episodes of confusion intermittently over the past few months but he is never became combative or confused to this extent. In order to protect patient and staff safety, patient was medically restrained and placed in soft restraints. Patient continued to thrash around in bed. Vital signs at this time show blood pressure 142/89, heart rate 87, respiratory rate 22, and SpO2 of 92% on 5 L. Physical exam: Vital signs reviewed and stable. General: Nontoxic, no distress and appears stated age. Derm: Skin warm and dry, normal coloration for ethnicity. Head: Atraumatic, normocephalic and symmetric. Eyes: EOM's intact, no lid lag, and anicteric sclera Mouth: no lip lesions, mucus membranes moist Cardiovascular: Irregularly irregular, systolic murmur, positive posterior tibial pulses bilaterally, and cap refill < 2 seconds. Lungs: Respirations even, regular, and unlabored on 5L O2 via NC. Lungs diminished, no rhonchi, no rales, no wheezing, and no accessory muscle usage. Abdominal: soft, nontender to palpation, no guarding, no appreciable organomegaly. umbilical hernia Ext: No gross muscle atrophy, no edema, no contractures Neuro: Speech clear, face symmetrical and pt moving all extremities without noted difficulties. Psych: Alert and oriented to self only. Patient very confused, agitated, and combative. Assessmen and Plan of Care: Acute mental status changes, unclear cause -Order placed for 4 point soft restraints to maintain patient's safety. -Order placed for Haldol 2 mg IM x 1 dose patient with no improvement after approximately 25 minutes and continuing to thrash in bed yelling and threatening to "kill" staff. Pt even pulling arms out of restraints, patient given Ativan 1 mg IVP x 1 dose. -Orders placed for stat CT brain, [id number] glucose, TSH with free T4, VBG, lactic acid and ammonia level. -Will start patient on Rocephin 2 g IVPB for possible UTI as urinalysis resulting showing leukocyte esterase and 56 WBCs with AMS and left flank pain (rib pain vs CVA tenderness.) Continue antibiotic pending urine culture results. -Order placed for continuous sitter at bedside -Continue neurochecks every 4 hours. Maintain fall and aspiration precautions. -Pending further results, may consider consultation to neurology. Notified: Called and notified primary admitting trauma surgeon, Dr. Brar of new onset acute mental status changes. A Total of 39 minutes of critical care time was spent on the complex care of this patient.
--- NOTE | 2024-11-12 17:02 | P.GSHP ---
History of Present Illness H&P Date: 11/12/24 Chief Complaint: Multiple falls This is a 84-year-old male who was admitted through the emergency room after tripping on a blanket. Patient has had multiple falls in the last several days. Patient's CAT scan performed shows multiple rib fractures left-sided 4 through 7 and 9 through 10. Patient is complaints of left chest wall pain. Past Medical History Past Medical History: Atrial Fibrillation, Heart Failure, Hyperlipidemia, Hy pertension, Renal Disease Additional Past Medical History / Comment(s): prostate problems kidneys History of Any Multi-Drug Resistant Organisms: None Reported Past Surgical History: Orthopedic Surgery Additional Past Surgical History / Comment(s): Bilateral knee replacement, cataract removal, cardioversion. TURP - 2019 Past Anesthesia/Blood Transfusion Reactions: No Reported Reaction Past Psychological History: Anxiety Smoking Status: Never smoker Past Alcohol Use History: Occasional Past Drug Use History: None Reported - Past Family History Mother Family Medical History: Congestive Heart Failure (CHF), Diabetes Mellitus Additional Family Medical History / Comment(s): at 90yrs old Sister(s) Family Medical History: Cancer, Diabetes Mellitus Brother(s) Family Medical History: Diabetes Mellitus Medications and Allergies Home Medications Medication Instructions Recorded Confirmed Type Metoprolol Tartrate [Lopressor] 25 mg PO BID 10/13/16 11/12/24 History Apixaban [Eliquis] 5 mg PO BID 11/12/24 11/12/24 History Lidocaine 5% Patch [Lidoderm] 1 patch TOPICAL DAILY PRN 11/12/24 11/12/24 History Venlafaxine HCl ER [Effexor Xr] 75 mg PO DAILY 11/12/24 11/12/24 History Venlafaxine HCl ER [Effexor Xr] 150 mg PO DAILY 11/12/24 11/12/24 History amLODIPine [Norvasc] 5 mg PO DAILY 11/12/24 11/12/24 History Allergies Allergy/AdvReac Type Severity Reaction Status Date / Time No Known Allergies Allergy Verified 11/12/24 08:07 Surgical - Exam Vital Signs Temp Pulse Resp BP Pulse Ox 97.5 F L 65 18 137/77 90 L 11/11/24 20:32 11/11/24 20:32 11/11/24 20:32 11/11/24 20:32 11/11/24 20:32 Patient Seen Date: 11/12/24 Patient Seen Time: 08:00 - General well developed, no distress - Eyes PERRL - ENT normal pinna - Neck no masses - Respiratory normal expansion - Cardiovascular Rhythm: regular - Abdomen Abdomen: soft, non tender - Integumentary no rash - Musculoskeletal normal posture - Psychiatric oriented to time Results - Labs 11/12/24 08:06 11/12/24 08:06 Abnormal Lab Results - Last 24 Hours (Table) 11/11/24 11/11/24 11/12/24 Range/Units 23:50 23:50 03:08 RBC (4.30-5.90) m/uL MCV 103.7 H (80.0-100.0) fL Plt Count (150-450) k/uL ABG pCO2 49 H (35-45) mmHg ABG pO2 70 L (83-108) mmHg ABG HCO3 27 H (21-25) mmol/L ABG Total CO2 29 H (19-24) mmol/L ABG O2 Saturation 93.2 L (94-97) % BUN 37 H (9-20) mg/dL Glucose 105 H (74-99) mg/dL Total Bilirubin 1.4 H (0.2-1.3) mg/dL Urine Protein (Negative) Ur Leukocyte Esterase (Negative) Urine WBC (0-5) /hpf Urine Bacteria (None) /hpf Urine Mucus (None) /hpf 11/12/24 11/12/24 11/12/24 Range/Units 08:06 08:06 13:30 RBC 4.21 L (4.30-5.90) m/uL MCV 103.3 H (80.0-100.0) fL Plt Count 133 L (150-450) k/uL ABG pCO2 (35-45) mmHg ABG pO2 (83-108) mmHg ABG HCO3 (21-25) mmol/L ABG Total CO2 (19-24) mmol/L ABG O2 Saturation (94-97) % BUN 33 H (9-20) mg/dL Glucose 107 H (74-99) mg/dL Total Bilirubin 1.7 H (0.2-1.3) mg/dL Urine Protein Trace H (Negative) Ur Leukocyte Esterase Large H (Negative) Urine WBC 56 H (0-5) /hpf Urine Bacteria Few H (None) /hpf Urine Mucus Rare H (None) /hpf Diabetes panel 11/11/24 11/12/24 Range/Units 23:50 08:06 Sodium 138 138 (137-145) mmol/L Potassium 4.5 5.1 (3.5-5.1) mmol/L Chloride 105 106 (98-107) mmol/L Carbon Dioxide 28 26 (22-30) mmol/L BUN 37 H 33 H (9-20) mg/dL Creatinine 1.09 0.92 (0.66-1.25) mg/dL Glucose 105 H 107 H (74-99) mg/dL Calcium 9.4 8.9 (8.4-10.2) mg/dL AST 39 37 (17-59) U/L ALT 36 33 (4-49) U/L Alkaline Phosphatase 61 49 (38-126) U/L Total Protein 6.8 6.3 (6.3-8.2) g/dL Albumin 4.2 3.7 (3.5-5.0) g/dL Calcium panel 11/11/24 11/12/24 Range/Units 23:50 08:06 Calcium 9.4 8.9 (8.4-10.2) mg/dL Albumin 4.2 3.7 (3.5-5.0) g/dL Pituitary panel 11/11/24 11/12/24 Range/Units 23:50 08:06 Sodium 138 138 (137-145) mmol/L Potassium 4.5 5.1 (3.5-5.1) mmol/L Chloride 105 106 (98-107) mmol/L Carbon Dioxide 28 26 (22-30) mmol/L BUN 37 H 33 H (9-20) mg/dL Creatinine 1.09 0.92 (0.66-1.25) mg/dL Glucose 105 H 107 H (74-99) mg/dL Calcium 9.4 8.9 (8.4-10.2) mg/dL Adrenal panel 11/11/24 11/12/24 Range/Units 23:50 08:06 Sodium 138 138 (137-145) mmol/L Potassium 4.5 5.1 (3.5-5.1) mmol/L Chloride 105 106 (98-107) mmol/L Carbon Dioxide 28 26 (22-30) mmol/L BUN 37 H 33 H (9-20) mg/dL Creatinine 1.09 0.92 (0.66-1.25) mg/dL Glucose 105 H 107 H (74-99) mg/dL Calcium 9.4 8.9 (8.4-10.2) mg/dL Total Bilirubin 1.4 H 1.7 H (0.2-1.3) mg/dL AST 39 37 (17-59) U/L ALT 36 33 (4-49) U/L Alkaline Phosphatase 61 49 (38-126) U/L Total Protein 6.8 6.3 (6.3-8.2) g/dL Albumin 4.2 3.7 (3.5-5.0) g/dL Assessment and Plan Assessment: Fall on thinners. Patient has multiple left-sided rib fractures. Patient will be observed and have the rib protocol order set
[2024-11-12 17:17] LABS: Glucose,Whole Blood 93 mg/dL (70-110)
--- NOTE | 2024-11-12 17:21 | CT ---
EXAMINATION TYPE: CT brain wo con DATE OF EXAM: 11/12/2024 4:56 PM COMPARISON: 11/12/2024. CLINICAL INDICATION: Male, 84 years old with history of mental status changes, TECHNIQUE: Brain: Axial CT images of the brain were obtained with coronal and sagittal reformats created and rev iewed. Contrast used: None. Oral contrast used: None. CT DLP: 1125 mGycm, Automated exposure control for dose reduction was used. FINDINGS: Brain: Extra-axial spaces: No abnormal extra-axial fluid collections. Ventricular system: Dilatation in proportion to cerebral atrophy. Cerebral parenchyma: Cerebral atrophy. No acute intraparenchymal hemorrhage or mass effect. The perez -white junction is well differentiated. Scattered hypoattenuating areas are seen within the white mat ter. Cerebellum: Unremarkable. Mass effect: No evidence of midline shift. Intracranial vasculature: Atherosclerotic calcifications of the intracranial vessels. Soft tissues: Normal. Calvarium/osseous structures: No depressed skull fracture. Paranasal sinuses and mastoid air cells: Mild scattered paranasal sinus disease. Visualized orbits: Bilateral aphakia IMPRESSION: 1. No acute intracranial process. 2. Nonspecific white matter changes, likely secondary to chronic small vessel ischemic disease. [facility], , 11/12/2024 5:19 PM
[2024-11-12 17:25] LABS: VBG PH 7.42 (7.31-7.41)
[2024-11-12 17:36] LABS: Lactic Acid, Venous 1.2 mmol/L (0.7-2.0)
[2024-11-13 07:06] LABS: ALT 29 U/L (4-49); AST 37 U/L (17-59); African American GFR (CKD) 78 (>60 ml/min/1.73 sqM); Albumin 3.4 g/dL (3.5-5.0); Alkaline Phosphatase 59 U/L (38-126); Anion Gap 7 mmol/L; Blood Urea Nitrogen 28 mg/dL (9-20); Calcium 8.6 mg/dL (8.4-10.2); Carbon Dioxide 25 mmol/L (22-30); Chloride 105 mmol/L (98-107); Glucose 84 mg/dL (74-99); Magnesium 1.9 mg/dL (1.6-2.3); Non-African American GFR(CKD) 68 (>60 ml/min/1.73 sqM); Potassium 4.3 mmol/L (3.5-5.1); Sodium 137 mmol/L (137-145); Total Bilirubin 1.1 mg/dL (0.2-1.3); Total Protein 5.8 g/dL (6.3-8.2)
[2024-11-13 07:18] LABS: HCT 41.1 % (39.0-53.0); HGB 13.1 gm/dL (13.0-17.5); MCH 32.8 pg (25.0-35.0); MCHC 31.9 g/dL (31.0-37.0); Macrocytosis Slight; Mean Platelet Volume 7.7; Platelet Count 136 k/uL (150-450); RBC 3.99 m/uL (4.30-5.90); RDW 13.5 % (11.5-15.5); WBC 7.3 k/uL (3.8-10.6)
--- NOTE | 2024-11-13 09:12 | XR ---
EXAMINATION TYPE: XR chest 1V portable DATE OF EXAM: 11/13/2024 8:55 AM COMPARISON: CT chest CLINICAL INDICATION: Male, 84 years old with history of follow up CXR, continued O2 needs; [facility] TECHNIQUE: XR chest 1V portable Frontal view of the chest. FINDINGS: Lungs/Pleura: There is no evidence of pleural effusion, focal consolidation, or pneumothorax. Pulmonary vascularity: Unremarkable. Heart/mediastinum: Cardiomediastinal silhouette is enlarged and stable. Musculoskeletal: Known rib fractures are better appreciated on CT. Other findings: None IMPRESSION: 1. No significant change of cardiomegaly. 2. Rib fractures are less well appreciated compared to CT. [facility], , 11/13/2024 9:09 AM
[2024-11-13] MEDS: FOLIC ACID 1 MG TAB PO SCH (09:25)
[2024-11-13] MEDS: SIMETHICONE 80 MG CHEWABLE PO STA (09:25)
[2024-11-13] MEDS: LIDOCAINE 4% PATCH TOPICAL SCH (09:29)
--- NOTE | 2024-11-13 11:56 | P.PN ---
Subjective Progress Note Date: 11/13/24 Hospital Course: Patient is a pleasant 84-year-old male with a past medical history of atrial fibrillation status post cardioversion, hypertension, hyperlipidemia, diastolic heart failure, and BPH with previous TURP.. He presented to the emergency department on 11/11/2024 status post trip and fall from standing position on anticoagulants. Patient reported he tripped and fell over a blanket landing onto the left side of his chest and denied hitting his head or having any loss of consciousness. Patient reported experiencing left-sided chest pain and lower lumbar back pain resulting from fall. Upon arrival to our facility, patient underwent evaluation in the emergency department. Vital signs upon arrival show blood pressure 137/77, heart rate 65, respiratory rate 16, temp 97.5 F, and SpO2 of 90% on room air shortly desaturating down to 86% on room air short while after arrival requiring supplemental oxygen with 3 L O2 via nasal cannula. EKG was completed showing atrial fibrillation with a slowed ventricular rate of 56 bpm and T wave inversion in inferior leads III and aVF. CT chest without contrast was completed showing acute fractures of the left anterior 4th through 7th ribs and acute fracture of left posterior ninth and 10th ribs along with a buckle fracture of the sternal cortex of indeterminate age and severe cardiomyopathy. CT abdomen negative for acute intra-abdominal process. CT lumbar spine showing severe degenerative changes in the lumbar spine with anterolisthesis at the L4-L5 but negative for acute fracture. CT brain negative for acute intracranial hemorrhage or abnormality showing moderate diffuse age- related cerebral atrophy and mild chronic small vessel ischemic changes. Labs completed and reviewed. CBC showing macrocytosis with MCV of 103.7 otherwise normal findings. BMP showing prerenal azotemia with BUN of 37, creatinine of 1.09, and GFR of 63 with baseline creatinine around 1.4. Blood glucose 105. L iver profile showing elevated total bili of 1.4. After patient became hypoxic with SpO2 decreasing to 86%, ABG was completed showing respiratory alkalosis with pH of 7.36, pCO2 of 49, PaO2 of 70, bicarb of 27, total CO2 of 29, and low O2 sat of 93.2. Late afternoon on 11/12/2024 patient with acute new onset mental status changes with combative and aggressive behaviors. Patient required medical sedation and restraints to maintain his safety and safety of staff. Blood glucose at this time was 93. VBG revealed a pH of 7.42 with a pCO2 of 40 and bicarb of 25. Patient was maintaining oxygen saturations on 5 L O2 with SpO2 of 95%. Repeat stat CT brain was completed again negative for acute intracranial process. TSH normal findings at 0.050 with ammonia level of less than 9. Urinalysis rai bsequently positive for trace protein, leukocyte esterase, and 56 WBCs. Due to positive UA, acute mental status changes and left flank/rib pain cannot rule out UTI and patient was started on antibiotics with Rocephin 2 g IVPB daily. Sitter was placed at bedside to maintain safety. Physical exam: Patient seen and fully evaluated at bedside this morning. His mentation is significantly improved from yesterday afternoon and he is alert to person and preoperative removal. Sitter remains at bedside maintaining safety. Patient no longer agitated or aggressive with staff and he is currently calm and cooperativ e. Vital signs reviewed and stable. General: Nontoxic, no distress and appears stated age. Derm: Skin warm and dry, normal coloration for ethnicity. Head: Atraumatic, normocephalic and symmetric. Hard of hearing Eyes: EOM's intact, no lid lag, and anicteric sclera Mouth: no lip lesions, mucus membranes moist Cardiovascular: Irregularly irregular, systolic murmur, positive posterior tibial pulses bilaterally, and cap refill < 2 seconds. Lungs: Respirations even, regular, and unlabored on 3L O2 via NC. Lungs diminished, no rhonchi, no rales, no wheezing, and no accessory muscle usage. Abdominal: soft, nontender to palpation, no guarding, no appreciable organomegaly Ext: No gross muscle atrophy, no edema, no contractures Neuro: Speech clear, face symmetrical and CN II-XII grossly intact with no noted focal neuro deficits Psych: Alert and oriented to person and place this morning, remains confused to time and situation. Currently cooperative and pleasant. Assessment and Plan of Care: Acute hypoxic respiratory failure Acute mental status changes, possibly delirium resulting from narcotic pain medications vs metabolic encephalopathy Fall on anticoagulant with Multiple Left-sided rib fractures, anteriorly left-s ided 4th through 7th ribs and posteriorly ninth and 10th ribs -Continue supplemental oxygen as needed to maintain SpO2 equal to or greater than 92% and wean as patient tolerates. Currently on 5 L O2. -Order placed for repeat morning chest x-ray -Encourage use of incentive spirometry 10-15 times hourly while awake. Encourage coughing and deep breathing exercises. -Pulmonology following, discussed plan of care with Dr. Escobedo. -Continue neuro checks Q4 hours -Telemetry monitoring. -Symptomatic care and pain management with Tylenol 650 mg every 6 hours as needed for mild pain, [place] 5-325 mg tablets every 4 hours as needed for moderate pain and Toradol 15 mg IVP every 6 hours for persistent uncontrolled pain. -Lidocaine patch 4% to be applied to left rib region daily. -Maintain safety with sitter at bedside. -Fall precautions -Consult placed to Physical and Occupational Therapy for evaluation. UTI -Urinalysis positive for trace protein, leukocyte esterase, and 56 WBCs. -Due to positive UA, acute mental status changes and left flank/rib pain cannot rule out complicated UTI and patient was started on antibiotics -Continue Rocephin 2 g IVPB daily, follow up on urine culture. Chronic atrial fibrillation, currently with slowed ventricular rate History of diastolic heart failure, not in acute exacerbation Hypertension Hyperlipidemia -Patient on Eliquis 5 mg twice daily, Eliquis being held at this time pending clearance from canal equipment mechanic and general surgeon to resume. -Monitor vital signs. Continue amlodipine 5 mg daily and metoprolol 25 mg twice daily with parameters placed to hold for heart rate less than 60. History of BPH with previous TURP -Patient not on daily medications, monitor output. -Continue Bladder scans as needed to monitor for any urinary retention/postvoid residuals. Data and imaging reviewed: -Morning vital signs reviewed. Blood pressure 143/79, heart rate 76, respiratory rate 16, temp 98.1 F, and SpO2 of 96% on 3 L. -Labs reviewed. CBC showing mild macrocytosis with MCV of 103.0 and thrombocytopenia with platelet count of 136. BMP showing mild prerenal azotemia with BUN of 28, creatinine 1.02, GFR of 68. Blood glucose 84. Magnesium 1.9. Liver profile unremarkable with the exception of low protein of 5.8 and hypoalbuminemia with albumin of 3.4. Thank you for allowing us to participate in the care of this pleasant patient. Do not hesitate to contact us with questions. Someone can be reached from the [facility] hospitalist group all hours of the day at [phone] or via [employer]. Patient was seen independently by Nurse Practitioner. This document was prepared using [employer] dictation software. Please allow for errors in airline lounge receptionist while rare they do occur. Orestes Mcconnell, ELECTRICAL APPLIANCE MECHANIC rendered care for this patient independently, reviewed the findings and plan as documented in the note above and agree with plan. I did not physically speak with or examine the patient on this date. Objective - Vital Signs Vital signs: Vital Signs Temp 98.2 F 11/13/24 04:00 Pulse 64 11/13/24 04:00 Resp 17 11/13/24 04:00 BP 148/76 11/13/24 04:00 Pulse Ox 100 11/13/24 04:00 FiO2 Intake & Output 11/12/24 11/13/24 11/13/24 18:59 06:59 18:59 Intake Total 290 Balance 290 Weight 77 kg Intake: IV 10 Invasive Line 1 10 Oral 280 Other: # Voids 1 - Labs CBC & Chem 7: 11/13/24 05:49 11/13/24 05:49 Labs: Abnormal Lab Results - Last 24 Hours (Table) 11/12/24 11/12/24 11/12/24 Range/Units 08:06 08:06 13:30 RBC 4.21 L (4.30-5.90) m/uL MCV 103.3 H (80.0-100.0) fL Plt Count 133 L (150-450) k/uL VBG pH (7.31-7.41) BUN 33 H (9-20) mg/dL Glucose 107 H (74-99) mg/dL Total Bilirubin 1.7 H (0.2-1.3) mg/dL Total Protein (6.3-8.2) g/dL Albumin (3.5-5.0) g/dL Urine Protein Trace H (Negative) Ur Leukocyte Esterase Large H (Negative) Urine WBC 56 H (0-5) /hpf Urine Bacteria Few H (None) /hpf Urine Mucus Rare H (None) /hpf 11/12/24 11/13/24 11/13/24 Range/Units 17:15 05:49 05:49 RBC 3.99 L (4.30-5.90) m/uL MCV 103.0 H (80.0-100.0) fL Plt Count 136 L (150-450) k/uL VBG pH 7.42 H (7.31-7.41) BUN 28 H (9-20) mg/dL Glucose (74-99) mg/dL Total Bilirubin (0.2-1.3) mg/dL Total Protein 5.8 L (6.3-8.2) g/dL Albumin 3.4 L (3.5-5.0) g/dL Urine Protein (Negative) Ur Leukocyte Esterase (Negative) Urine WBC (0-5) /hpf Urine Bacteria (None) /hpf Urine Mucus (None) /hpf
[2024-11-13 12:50] LABS: Influenza A Not Detected (Not Detectd); Influenza B Not Detected (Not Detectd); RSV Not Detected (Not Detectd)
--- NOTE | 2024-11-13 13:38 | P.PN ---
Subjective Progress Note Date: 11/13/24 SURGICAL PROGRESS NOTE CHIEF COMPLAINT: Fall with rib fractures HISTORY OF PRESENT ILLNESS: Patient was very confused yesterday required to be restrained and received Haldol. Patient is less confused. He is sitting up in the chair. He reports his pain is controlled. He has pain with movement. Afebrile. Repeat CT scan of the brain completed due to altered mental status reports no acute intracranial process. Nonspecific white matter changes likely secondary to chronic small vessel ischemic disease. Chest x-ray reflexes are less well-appreciated compared to CT. No significant change or cardiomegaly. No pneumothorax. PHYSICAL EXAM: VITAL SIGNS: Reviewed. GENERAL: Well-developed in no acute distress. ABDOMEN: Soft. Nondistended. Nontender. NEUROLOGIC: Alert and oriented x [address] ASSESSMENT: 1. Trip and fall with history of multiple falls over the last several days 2. Traumatic rib fractures on the left 4 through 7 and 9-10 due to trip and fall 3. Altered mental status changes likely due narcotic pain medications versus a metabolic encephalopathy 4. UTI PLAN: -Continue bedside sitter -Continue pain management with Tylenol. Patient seen by pain service for possible epidural injection for pain -Incentive spirometer ordered -Encourage patient to increase activity level -Consult PT OT -Consult skilled nursing case manager for possible ECF placement -Eliquis remains on hold for possible epidural injection for pain. Okay to hold Lovenox 12 hours before procedure -Continue Lovenox for DVT prophylaxis Physician Director Of Officiating note has been reviewed by physician. Signing provider agrees with the documented findings, assessment, and plan of care. Objective - Vital Signs Vital signs: Vital Signs Temp 98.1 F 11/13/24 09:05 Pulse 62 11/13/24 11:15 Resp 16 11/13/24 11:15 BP 124/69 11/13/24 11:15 Pulse Ox 95 11/13/24 11:15 FiO2 Intake & Output 11/12/24 11/13/24 11/13/24 18:59 06:59 18:59 Intake Total 290 Balance 290 Weight 77 kg Intake: IV 10 Invasive Line 1 10 Oral 280 Other: Voiding Method Toilet # Voids 1 - Labs CBC & Chem 7: 11/13/24 05:49 11/13/24 05:49 Labs: Abnormal Lab Results - Last 24 Hours (Table) 11/12/24 11/12/24 11/13/24 Range/Units 13:30 17:15 05:49 RBC 3.99 L (4.30-5.90) m/uL MCV 103.0 H (80.0-100.0) fL Plt Count 136 L (150-450) k/uL VBG pH 7.42 H (7.31-7.41) BUN (9-20) mg/dL Total Protein (6.3-8.2) g/dL Albumin (3.5-5.0) g/dL Urine Protein Trace H (Negative) Ur Leukocyte Esterase Large H (Negative) Urine WBC 56 H (0-5) /hpf Urine Bacteria Few H (None) /hpf Urine Mucus Rare H (None) /hpf 11/13/24 Range/Units 05:49 RBC (4.30-5.90) m/uL MCV (80.0-100.0) fL Plt Count (150-450) k/uL VBG pH (7.31-7.41) BUN 28 H (9-20) mg/dL Total Protein 5.8 L (6.3-8.2) g/dL Albumin 3.4 L (3.5-5.0) g/dL Urine Protein (Negative) Ur Leukocyte Esterase (Negative) Urine WBC (0-5) /hpf Urine Bacteria (None) /hpf Urine Mucus (None) /hpf
[2024-11-13] MEDS: LORazepam 1 MG/0.5 ML VIAL IV STA (14:18)
--- NOTE | 2024-11-13 17:13 | P.PN ---
Subjective Progress Note Date: 11/13/24 Patient is an 84-year-old male with past medical history significant for hypertension, paroxysmal atrial fibrillation, and chronic lumbar back pain. Patient currently confused and is a poor historian. Apparently, has been experiencing multiple falls while at home. Had a recent ER visit on 11/09/2024 for fall and left-sided chest pain. Chest x-ray at that time showed minimally displaced left-sided rib fractures of ribs 8 and 9. Ultimately, discharged home. Patient returns to the ED last night after reportedly tripping over a blanket. Again, landing on his left side. No obvious head trauma. No documented anticoagulants. CT of the chest/abdomen/pelvis remarkable for acute fractures of left anterior 4th through 7th ribs, as well as, acute fracture left posterior ninth and 10th ribs. Buckle of the sternal cortex which is age- indeterminate. Scattered atelectatic changes including bilateral bases and lingula. No pneumothoraces or pleural effusions. CBC unremarkable, no leukocytosis, hemoglobin 14.8, platelets 162. CMP also unremarkable, electrolytes WDL, creatinine 1.09, glucose 105. LFTs not elevated. On my evaluation, patient is lethargic, will wake up, oriented to self only. Moves all 4 extremities. Currently on 3 L/min nasal cannula. SpO2 reading 93%. I did order an ABG, and likely not the cause of the patient's confusion. Findings including PaO2 of 70, pCO2 of 49, pH of 7.36. Has been received a total of 2 mg IV Dilaudid. Also, received a dose of Toradol. No significant grimacing or tenderness with clinical examination. No subcutaneous emphysema or crepitus. There is a lidocaine patch on the left lateral chest. Current vital signs, afebrile, heart rate 78 bpm, blood pressure 124/84 mmHg, nontachypneic, SpO2 93% on above-mentioned 3 L/min nasal cannula. On today's evaluation of 11/13/2024, the patient is somewhat delirious and confused. No agitation. No falls. No significant respiratory distress. No significant chest pain and the patient is currently on 1 L of oxygen by nasal cannula with pulse ox of 95%. Hemoglobin is stable at 13.1. BUN is 28 and a creatinine of 1.02. Sodium levels at 137. Remains on empiric antibiotic coverage with IV Rocephin. Remains on Lovenox for DVT prophylaxis. Rest of the medications remain unchanged. Pain is under better control. No other new complaints otherwise for now. He has a sitter at the bedside. He is using the incentive spirometer.Repeat chest x-ray was also obtained today and shows no significant changes. Right-sided rib fractures are less well-appreciated on today's chest x-ray. Objective - Vital Signs Vital signs: Vital Signs Temp 98.1 F 11/13/24 09:05 Pulse 76 11/13/24 09:05 Resp 16 11/13/24 09:05 BP 143/79 11/13/24 09:05 Pulse Ox 96 11/13/24 09:05 FiO2 Intake & Output 11/12/24 11/13/24 11/13/24 18:59 06:59 18:59 Intake Total 290 Balance 290 Weight 77 kg Intake: IV 10 Invasive Line 1 10 Oral 280 Other: Voiding Method Toilet # Voids 1 - Exam GENERAL EXAM: Lethargic, 84-year-old male, comfortable in no apparent distress. The patient is currently on 1 L of O2 nasal cannula HEAD: Normocephalic and atraumatic EYES: Normal reaction of pupils, equal size. NOSE: Clear with pink turbinates. THROAT: No erythema or exudates. NECK: No masses, no JVD. CHEST: No chest wall deformity. No crepitus or subcutaneous emphysema LUNGS: Equal air entry with no crackles, wheeze, rhonchi or dullness. . No conversational dyspnea or accessory muscle use.. CVS: S1 and S2 normal with grade 3 systolic murmur, irregular rhythm. No other extra heart sounds ABDOMEN: No hepatosplenomegaly, active bowel sounds, no guarding or rigidity. SPINE: No scoliosis or deformity SKIN: No rashes CENTRAL NERVOUS SYSTEM: Lethargic, oriented to self, no focal deficits, tone is normal in all 4 extremities. EXTREMITIES: There is no peripheral edema, clubbing, or cyanosis. Peripheral pulses are intact. - Labs CBC & Chem 7: 11/13/24 05:49 11/13/24 05:49 Labs: Abnormal Lab Results - Last 24 Hours (Table) 11/12/24 11/12/24 11/13/24 Range/Units 13:30 17:15 05:49 RBC 3.99 L (4.30-5.90) m/uL MCV 103.0 H (80.0-100.0) fL Plt Count 136 L (150-450) k/uL VBG pH 7.42 H (7.31-7.41) BUN (9-20) mg/dL Total Protein (6.3-8.2) g/dL Albumin (3.5-5.0) g/dL Urine Protein Trace H (Negative) Ur Leukocyte Esterase Large H (Negative) Urine WBC 56 H (0-5) /hpf Urine Bacteria Few H (None) /hpf Urine Mucus Rare H (None) /hpf 11/13/24 Range/Units 05:49 RBC (4.30-5.90) m/uL MCV (80.0-100.0) fL Plt Count (150-450) k/uL VBG pH (7.31-7.41) BUN 28 H (9-20) mg/dL Total Protein 5.8 L (6.3-8.2) g/dL Albumin 3.4 L (3.5-5.0) g/dL Urine Protein (Negative) Ur Leukocyte Esterase (Negative) Urine WBC (0-5) /hpf Urine Bacteria (None) /hpf Urine Mucus (None) /hpf Assessment and Plan Assessment: Mechanical fall, sustaining acute left-sided rib fractures involving the anterior 4th through 7th ribs as well as acute fracture of the left posterior ninth and 10th ribs. Block of the sternal cortex which is age-indeterminate. Scattered atelectatic changes including bilateral bases and lingula. No pneumothoraces or pleural effusions were noted. Repeat chest x-ray from 11/13/2024 shows that the rib fractures are less prominent compared to the CAT scan findings. No evidence of any hemothorax or pleural effusion. No evidence of any pulmonary contusion. Chest wall pain, currently stable Acute hypoxemic respiratory failure, currently on 1 L of O2 nasal cannula Altered mental status,/delirium, part related to drug effect Hypertension Paroxysmal atrial fibrillation, no documented anticoagulants History of valvular heart disease with moderate mitral regurgitation, mild aortic regurgitation, and severe tricuspid regurgitation Chronic lumbar back pain History of BPH Plan: Patient is currently on 1 L of O2 nasal cannula Pain management, continue combination of lidocaine patch, with Toradol and Tylenol as needed. Would hold narcotics at this time. Monitor mental status Follow-up chest x-ray was noted Lovenox for DVT prophylaxis Sitter at the bedside Consider ECF Will continue to follow. Clinically and hemodynamic stable Time with Patient: Greater than 30
[2024-11-13] MEDS: LORazepam 1 MG/0.5 ML VIAL IV PRN (20:19)
[2024-11-14 07:20] LABS: HCT 43.6 % (39.0-53.0); HGB 13.9 gm/dL (13.0-17.5); MCHC 31.9 g/dL (31.0-37.0); MCV 103.2 fL (80.0-100.0); Macrocytosis Slight; Mean Platelet Volume 7.4; Platelet Count 141 k/uL (150-450); RBC 4.22 m/uL (4.30-5.90); RDW 12.9 % (11.5-15.5); WBC 5.7 k/uL (3.8-10.6)
[2024-11-14 07:40] LABS: ALT 30 U/L (4-49); AST 38 U/L (17-59); African American GFR (CKD) 75 (>60 ml/min/1.73 sqM); Albumin 3.4 g/dL (3.5-5.0); Alkaline Phosphatase 58 U/L (38-126); Anion Gap 6 mmol/L; Blood Urea Nitrogen 28 mg/dL (9-20); Calcium 8.7 mg/dL (8.4-10.2); Carbon Dioxide 27 mmol/L (22-30); Chloride 107 mmol/L (98-107); Glucose 101 mg/dL (74-99); Magnesium 2.1 mg/dL (1.6-2.3); Non-African American GFR(CKD) 65 (>60 ml/min/1.73 sqM); Potassium 4.1 mmol/L (3.5-5.1); Sodium 140 mmol/L (137-145); Total Bilirubin 1.1 mg/dL (0.2-1.3); Total Protein 5.9 g/dL (6.3-8.2)
--- NOTE | 2024-11-14 13:35 | P.PN ---
Subjective Progress Note Date: 11/14/24 SURGICAL PROGRESS NOTE CHIEF COMPLAINT: Fall with rib fractures HISTORY OF PRESENT ILLNESS: Patient was confused again during the night and required to be in restraints. Also received Ativan. Does have a bedside sitter. Patient was more awake on rounds with Dr. Brar. Lying in bed comfortably. Pain is controlled. He did receive [place] yesterday. Patient's oxygen needs are decreasing he is down to 1 L of O2. Afebrile. WBC 5.7 PHYSICAL EXAM: VITAL SIGNS: Reviewed. GENERAL: Well-developed in no acute distress. ABDOMEN: Soft. Nondistended. Nontender. NEUROLOGIC: Alert and oriented x [address] ASSESSMENT: 1. Trip and fall with history of multiple falls over the last several days 2. Traumatic rib fractures on the left 4 through 7 and 9-10 due to trip and fall 3. Altered mental status changes likely due narcotic pain medications versus a metabolic encephalopathy 4. UTI PLAN: -Discontinue [place] in case that is contribute to patient's confusion -Will continue with Tylenol and add Motrin for pain control. Continue Lidoderm patch -manager french working on ECF placement at time of discharge -Continue Lovenox for DVT prophylaxis Physician Auto Emissions Technician note has been reviewed by physician. Signing provider agrees with the documented findings, assessment, and plan of care. Objective - Vital Signs Vital signs: Vital Signs Temp 98.6 F 11/14/24 08:10 Pulse 86 11/14/24 12:05 Resp 18 11/14/24 12:05 BP 158/83 11/14/24 12:05 Pulse Ox 95 11/14/24 12:05 FiO2 Intake & Output 11/13/24 11/14/24 11/14/24 18:59 06:59 18:59 Intake Total 260 Balance 260 Intake: IV 20 Invasive Line 1 20 Oral 240 Other: Voiding Method Toilet Toilet Toilet # Voids 1 1 2 - Labs CBC & Chem 7: 11/14/24 06:52 11/14/24 06:52 Labs: Abnormal Lab Results - Last 24 Hours (Table) 11/14/24 11/14/24 Range/Units 06:52 06:52 RBC 4.22 L (4.30-5.90) m/uL MCV 103.2 H (80.0-100.0) fL Plt Count 141 L (150-450) k/uL BUN 28 H (9-20) mg/dL Glucose 101 H (74-99) mg/dL Total Protein 5.9 L (6.3-8.2) g/dL Albumin 3.4 L (3.5-5.0) g/dL Microbiology - Last 24 Hours (Table) 11/12/24 13:30 Urine Culture - Preliminary Urine,Voided Gram Neg Bacilli
--- NOTE | 2024-11-14 15:53 | P.PN ---
Subjective Progress Note Date: 11/14/24 Subjective: Patient seen and examined at bedside. Continues to remain confused and agitated overnight. Sitter at bedside. Patient is incontinent per making urine. No bowel movements at the moment. Pertinent positives and negatives as discussed above, a complete review of systems was performed and all other systems are negative. Vitals Signs Reviewed. General: Nontoxic, no distress, appears at stated age, somnolent Derm: Warm, dry Head: Atraumatic, normocephalic, symmetric Eyes: EOMI, no lid lag, anicteric sclera Mouth: No lip lesion, mucus membranes moist Cardiovascular: S1S2 reg, no murmur Lungs: CTA bilateral, no rhonchi, no rales, no accessory muscle use Abdominal: Soft, nontender to palpation, no guarding, no appreciable organomegaly Ext: No gross muscle atrophy, no edema, no contractures Neuro: CN II-XI grossly intact, no focal neuro deficits Psych: Somnolent, oriented x 2, appropriate affect Data Reviewed Today: Pertinent Labs: WBC 5.7, creatinine 1.06, magnesium 2.1 Imaging: No new imaging Assessment and Plan: Active: Acute encephalopathy, likely delirium Mechanical fall with multiple left-sided rib fractures Urinary tract infection -Okay to continue sitter at bedside -Pain control with oral Tylenol 650 every 6 hours and ibuprofen 600 3 times daily as needed, narcotics discontinued by general surgery -Also on lidocaine patch 4% daily -I will schedule Tylenol in case encephalopathy and delirium is secondary to pain -Patient able to urinate, bladder scan if needed -Started on senna nightly -Seroquel 25 nightly for acute delirium -Continue ceftriaxone 2 g IV every 24 hours, urine cultures pending, currently growing gram-negative bacilli -PT OT following Resolved: Acute hypoxic respiratory failure Chronic: Chronic A-fib -restart Eliquis if surgery agrees History of diastolic heart failure, not in exacerbation Hypertension Dyslipidemia BPH DVT ppx: Lovenox Thank you for allowing us to participate in the care of this pleasant patient. Do not hesitate to contact us with questions. Someone can be reached from the [facility] hospitalist group all hours of the day at [phone] or via perfect serve. Objective - Vital Signs Vital signs: Vital Signs Temp 98.6 F 11/14/24 08:10 Pulse 86 11/14/24 12:05 Resp 18 11/14/24 12:05 BP 158/83 11/14/24 12:05 Pulse Ox 95 11/14/24 12:05 FiO2 Intake & Output 11/13/24 11/14/24 11/14/24 18:59 06:59 18:59 Intake Total 260 Balance 260 Intake: IV 20 Invasive Line 1 20 Oral 240 Other: Voiding Method Toilet Toilet Toilet # Voids 1 1 2 - Labs CBC & Chem 7: 11/14/24 06:52 11/14/24 06:52 Labs: Abnormal Lab Results - Last 24 Hours (Table) 11/14/24 11/14/24 Range/Units 06:52 06:52 RBC 4.22 L (4.30-5.90) m/uL MCV 103.2 H (80.0-100.0) fL Plt Count 141 L (150-450) k/uL BUN 28 H (9-20) mg/dL Glucose 101 H (74-99) mg/dL Total Protein 5.9 L (6.3-8.2) g/dL Albumin 3.4 L (3.5-5.0) g/dL Microbiology - Last 24 Hours (Table) 11/12/24 13:30 Urine Culture - Preliminary Urine,Voided Gram Neg Bacilli
[2024-11-14] MEDS: haloperidoL 1 MG TAB PO STA (16:18)
[2024-11-14] MEDS: ACETAMINOPHEN TAB 500 MG TAB PO SCH (18:47)
--- NOTE | 2024-11-14 18:57 | P.PN ---
Subjective Progress Note Date: 11/14/24 Patient is an 84-year-old male with past medical history significant for hypertension, paroxysmal atrial fibrillation, and chronic lumbar back pain. Patient currently confused and is a poor historian. Apparently, has been experiencing multiple falls while at home. Had a recent ER visit on 11/09/2024 for fall and left-sided chest pain. Chest x-ray at that time showed minimally displaced left-sided rib fractures of ribs 8 and 9. Ultimately, discharged home. Patient returns to the ED last night after reportedly tripping over a blanket. Again, landing on his left side. No obvious head trauma. No documented anticoagulants. CT of the chest/abdomen/pelvis remarkable for acute fractures of left anterior 4th through 7th ribs, as well as, acute fracture left posterior ninth and 10th ribs. Buckle of the sternal cortex which is age- indeterminate. Scattered atelectatic changes including bilateral bases and lingula. No pneumothoraces or pleural effusions. CBC unremarkable, no leukocytosis, hemoglobin 14.8, platelets 162. CMP also unremarkable, electrolytes WDL, creatinine 1.09, glucose 105. LFTs not elevated. On my evaluation, patient is lethargic, will wake up, oriented to self only. Moves all 4 extremities. Currently on 3 L/min nasal cannula. SpO2 reading 93%. I did order an ABG, and likely not the cause of the patient's confusion. Findings including PaO2 of 70, pCO2 of 49, pH of 7.36. Has been received a total of 2 mg IV Dilaudid. Also, received a dose of Toradol. No significant grimacing or tenderness with clinical examination. No subcutaneous emphysema or crepitus. There is a lidocaine patch on the left lateral chest. Current vital signs, afebrile, heart rate 78 bpm, blood pressure 124/84 mmHg, nontachypneic, SpO2 93% on above-mentioned 3 L/min nasal cannula. On today's evaluation of 11/13/2024, the patient is somewhat delirious and confused. No agitation. No falls. No significant respiratory distress. No significant chest pain and the patient is currently on 1 L of oxygen by nasal cannula with pulse ox of 95%. Hemoglobin is stable at 13.1. BUN is 28 and a creatinine of 1.02. Sodium levels at 137. Remains on empiric antibiotic coverage with IV Rocephin. Remains on Lovenox for DVT prophylaxis. Rest of the medications remain unchanged. Pain is under better control. No other new complaints otherwise for now. He has a sitter at the bedside. He is using the incentive spirometer.Repeat chest x-ray was also obtained today and shows no significant changes. Right-sided rib fractures are less well-appreciated on today's chest x-ray. On 11/14/2024, the patient is at times confused. Denies having any chest pain or shortness of breath. No cough. No sputum production. Sitter at the bedside. He has developed a gram-negative urine tract infection the patient remains on IV Rocephin. The white cell count is at 5.7, hemoglobin 13.9 and platelet count of 141. BUN is 28 with a creatinine 1.06 and a sodium level is at 140. He is cu rrently on 1 L of O2 nasal cannula. No other significant events overnight. Objective - Vital Signs Vital signs: Vital Signs Temp 98.6 F 11/14/24 08:10 Pulse 77 11/14/24 08:10 Resp 18 11/14/24 08:10 BP 152/85 11/14/24 08:10 Pulse Ox 95 11/14/24 10:01 FiO2 Intake & Output 11/13/24 11/14/24 11/14/24 18:59 06:59 18:59 Intake Total 260 Balance 260 Intake: IV 20 Invasive Line 1 20 Oral 240 Other: Voiding Method Toilet Toilet Toilet # Voids 1 1 0 - Exam GENERAL EXAM: Lethargic, 84-year-old male, comfortable in no apparent distress. The patient is currently on 1 L of O2 nasal cannula HEAD: Normocephalic and atraumatic EYES: Normal reaction of pupils, equal size. NOSE: Clear with pink turbinates. THROAT: No erythema or exudates. NECK: No masses, no JVD. CHEST: No chest wall deformity. No crepitus or subcutaneous emphysema LUNGS: Equal air entry with no crackles, wheeze, rhonchi or dullness. . No conversational dyspnea or accessory muscle use.. CVS: S1 and S2 normal with grade 3 systolic murmur, irregular rhythm. No other extra heart sounds ABDOMEN: No hepatosplenomegaly, active bowel sounds, no guarding or rigidity. SPINE: No scoliosis or deformity SKIN: No rashes CENTRAL NERVOUS SYSTEM: Lethargic, oriented to self, no focal deficits, tone is normal in all 4 extremities. EXTREMITIES: There is no peripheral edema, clubbing, or cyanosis. Peripheral pulses are intact. - Labs CBC & Chem 7: 11/14/24 06:52 11/14/24 06:52 Labs: Abnormal Lab Results - Last 24 Hours (Table) 11/14/24 11/14/24 Range/Units 06:52 06:52 RBC 4.22 L (4.30-5.90) m/uL MCV 103.2 H (80.0-100.0) fL Plt Count 141 L (150-450) k/uL BUN 28 H (9-20) mg/dL Glucose 101 H (74-99) mg/dL Total Protein 5.9 L (6.3-8.2) g/dL Albumin 3.4 L (3.5-5.0) g/dL Microbiology - Last 24 Hours (Table) 11/12/24 13:30 Urine Culture - Preliminary Urine,Voided Gram Neg Bacilli Assessment and Plan Assessment: Mechanical fall, sustaining acute left-sided rib fractures involving the anterior 4th through 7th ribs as well as acute fracture of the left posterior ninth and 10th ribs. Block of the sternal cortex which is age-indeterminate. Scattered atelectatic changes including bilateral bases and lingula. No pneumothoraces or pleural effusions were noted. Repeat chest x-ray from 11/13/2024 shows that the rib fractures are less prominent compared to the CAT scan findings. No evidence of any hemothorax or pleural effusion. No evidence of any pulmonary contusion. Chest wall pain, currently stable Acute hypoxemic respiratory failure, currently on 1 L of O2 nasal cannula Gram-negative UTI, currently on IV Rocephin Altered mental status,/delirium, part related to drug effect Hypertension Paroxysmal atrial fibrillation, no documented anticoagulants History of valvular heart disease with moderate mitral regurgitation, mild aor tic regurgitation, and severe tricuspid regurgitation Chronic lumbar back pain History of BPH Plan: Patient is currently on 1 L of O2 nasal cannula Pain management, continue combination of lidocaine patch, with Toradol and Tylenol as needed. Would hold narcotics at this time. Pain is under adequate control for now IV Rocephin Monitor mental status Follow-up chest x-ray was noted Lovenox for DVT prophylaxis Sitter at the bedside Consider ECF Will continue to follow. Clinically and hemodynamic stable
[2024-11-14] MEDS: QUEtiapine 25 MG TAB PO SCH (19:38)
[2024-11-15 06:34] LABS: Basophils % (A) 0 %; Eosinophils # (A) 0.1 k/uL (0-0.7); Eosinophils % (A) 2 %; HCT 41.9 % (39.0-53.0); HGB 13.1 gm/dL (13.0-17.5); Lymphocytes # (A) 0.9 k/uL (1.0-4.8); Lymphocytes % (A) 15 %; MCH 32.1 pg (25.0-35.0); MCHC 31.2 g/dL (31.0-37.0); MCV 102.8 fL (80.0-100.0); Macrocytosis Slight; Mean Platelet Volume 7.2; Monocytes # (A) 0.7 k/uL (0-1.0); Monocytes % (A) 11 %; Neutrophils # (A) 4.4 k/uL (1.3-7.7); Neutrophils % (A) 70 %; Platelet Count 146 k/uL (150-450); RBC 4.08 m/uL (4.30-5.90); WBC 6.3 k/uL (3.8-10.6)
[2024-11-15 06:44] LABS: African American GFR (CKD) 78 (>60 ml/min/1.73 sqM); Anion Gap 6 mmol/L; Blood Urea Nitrogen 24 mg/dL (9-20); Calcium 8.7 mg/dL (8.4-10.2); Carbon Dioxide 29 mmol/L (22-30); Chloride 106 mmol/L (98-107); Glucose 104 mg/dL (74-99); Magnesium 2.1 mg/dL (1.6-2.3); Non-African American GFR(CKD) 67 (>60 ml/min/1.73 sqM); Potassium 4.2 mmol/L (3.5-5.1); Sodium 141 mmol/L (137-145)
--- NOTE | 2024-11-15 13:42 | P.PN ---
Subjective Progress Note Date: 11/15/24 SURGICAL PROGRESS NOTE CHIEF COMPLAINT: Fall with rib fractures HISTORY OF PRESENT ILLNESS: Patient having confusion during the night and required restraints again. He has a bedside sitter. This morning he is awake and lying in bed. Pain controlled. He is on room air. WBC 6.3. Medicine service has changed the Tylenol to scheduled for possible pain contributing to patient's mentation changes PHYSICAL EXAM: VITAL SIGNS: Reviewed. GENERAL: Well-developed in no acute distress. ABDOMEN: Soft. Nondistended. Nontender. NEUROLOGIC: Alert and oriented x [address] ASSESSMENT: 1. Trip and fall with history of multiple falls over the last several days 2. Traumatic rib fractures on the left 4 through 7 and 9-10 due to trip and fall 3. Altered mental status changes likely due narcotic pain medications versus a metabolic encephalopathy 4. UTI PLAN: -Continue to monitor -Increase activity level -Encourage patient to use incentive spirometer -Continue pain management -Patient will require ECF at discharge -Okay to resume Eliquis from surgical standpoint -Continue Lovenox for DVT prophylaxis Physician Photographer Motion Picture note has been reviewed by physician. Signing provider agrees with the documented findings, assessment, and plan of care. Objective - Vital Signs Vital signs: Vital Signs Temp 98.5 F 11/15/24 08:00 Pulse 82 11/15/24 08:24 Resp 18 11/15/24 08:24 BP 167/73 11/15/24 08:00 Pulse Ox 93 L 11/15/24 08:00 FiO2 Intake & Output 11/14/24 11/15/24 11/15/24 18:59 06:59 18:59 Intake Total 10 Output Total 1500 400 Balance -1500 -390 Weight 65 kg Intake: IV 10 Invasive Line 1 10 Output: Urine 1500 400 Straight 400 Uretheral (Nuñez) 650 Other: Voiding Method Toilet Urinal Urinal Diaper Diaper # Voids 2 - Labs CBC & Chem 7: 11/15/24 06:04 11/15/24 06:04 Labs: Abnormal Lab Results - Last 24 Hours (Table) 11/15/24 11/15/24 Range/Units 06:04 06:04 RBC 4.08 L (4.30-5.90) m/uL MCV 102.8 H (80.0-100.0) fL Plt Count 146 L (150-450) k/uL Lymphocytes # 0.9 L (1.0-4.8) k/uL BUN 24 H (9-20) mg/dL Glucose 104 H (74-99) mg/dL
--- NOTE | 2024-11-15 14:41 | P.PN ---
Subjective Progress Note Date: 11/15/24 Subjective: Patient seen and examined at bedside. Mostly . Sitter at bedside. Improved from yesterday. Having urinary retention, had to be straight cathed twice. Pertinent positives and negatives as discussed above, a complete review of systems was performed and all other systems are negative. Vitals Signs Reviewed. General: Nontoxic, no distress, appears at stated age, somnolent Derm: Warm, dry Head: Atraumatic, normocephalic, symmetric Eyes: EOMI, no lid lag, anicteric sclera Mouth: No lip lesion, mucus membranes moist Cardiovascular: S1S2 reg, no murmur Lungs: CTA bilateral, no rhonchi, no rales, no accessory muscle use Abdominal: Soft, nontender to palpation, no guarding, no appreciable organomegaly Ext: No gross muscle atrophy, no edema, no contractures Neuro: CN II-XI grossly intact, no focal neuro deficits Psych: Somnolent, oriented x 2, appropriate affect Data Reviewed Today: Pertinent Labs: WBC 6.3, hemoglobin 13.1, sodium 141, creatinine 1.03, magnesium 2.1 Imaging: No new imaging Assessment and Plan: Active: Acute encephalopathy, likely delirium Mechanical fall with multiple left-sided rib fractures Urinary tract infection Acute urinary retention -Okay to continue sitter at bedside -Pain control with oral Tylenol scheduled 1000 mg every 8 hours and ibuprofen 600 3 times daily as needed, narcotics discontinued by general surgery -Also on lidocaine patch 4% daily -Patient had to be straight cath twice overnight, started on Flomax 0.4 daily -Started on senna twice daily -Seroquel 25 nightly for acute delirium -Continue ceftriaxone 2 g IV every 24 hours, urine cultures pending, currently growing gram-negative bacilli -PT OT following -Patient does have some history of alcohol use but not behaving like alcohol withdrawal -Per niece, patient was already showing signs of dementia prior to this hospitalization ` Resolved: Acute hypoxic respiratory failure Chronic: Chronic A-fib History of diastolic heart failure, not in exacerbation Hypertension Dyslipidemia BPH DVT ppx: Zachary Thank you for allowing us to participate in the care of this pleasant patient. Do not hesitate to contact us with questions. Someone can be reached from the [facility] hospitalist group all hours of the day at [phone] or via perfect serve. Objective - Vital Signs Vital signs: Vital Signs Temp 98.5 F 11/15/24 08:00 Pulse 82 11/15/24 08:24 Resp 18 11/15/24 08:24 BP 167/73 11/15/24 08:00 Pulse Ox 93 L 11/15/24 08:00 FiO2 Intake & Output 11/14/24 11/15/24 11/15/24 18:59 06:59 18:59 Intake Total 10 Output Total 1500 400 Balance -1500 -390 Weight 65 kg Intake: IV 10 Invasive Line 1 10 Output: Urine 1500 400 Straight 400 Uretheral (Nuñez) 650 Other: Voiding Method Toilet Urinal Urinal Diaper Diaper # Voids 2 - Labs CBC & Chem 7: 11/15/24 06:04 11/15/24 06:04 Labs: Abnormal Lab Results - Last 24 Hours (Table) 11/15/24 11/15/24 Range/Units 06:04 06:04 RBC 4.08 L (4.30-5.90) m/uL MCV 102.8 H (80.0-100.0) fL Plt Count 146 L (150-450) k/uL Lymphocytes # 0.9 L (1.0-4.8) k/uL BUN 24 H (9-20) mg/dL Glucose 104 H (74-99) mg/dL
[2024-11-15] MEDS: TAMSULOSIN 0.4 MG CAP.ER.24H PO SCH (15:32)
[2024-11-15] MEDS ORDERED: HALOPERIDOL LACTATE 5 MG/ML 1 ML VIAL IVP PRN (16:52)
[2024-11-15] MEDS ORDERED: HALOPERIDOL LACTATE 5 MG/ML 1 ML VIAL IM PRN (16:54)
--- NOTE | 2024-11-15 17:50 | P.PN ---
Subjective Progress Note Date: 11/15/24 Patient is an 84-year-old male with past medical history significant for hypertension, paroxysmal atrial fibrillation, and chronic lumbar back pain. Patient currently confused and is a poor historian. Apparently, has been experiencing multiple falls while at home. Had a recent ER visit on 11/09/2024 for fall and left-sided chest pain. Chest x-ray at that time showed minimally displaced left-sided rib fractures of ribs 8 and 9. Ultimately, discharged home. Patient returns to the ED last night after reportedly tripping over a blanket. Again, landing on his left side. No obvious head trauma. No documented anticoagulants. CT of the chest/abdomen/pelvis remarkable for acute fractures of left anterior 4th through 7th ribs, as well as, acute fracture left posterior ninth and 10th ribs. Buckle of the sternal cortex which is age- indeterminate. Scattered atelectatic changes including bilateral bases and lingula. No pneumothoraces or pleural effusions. CBC unremarkable, no leukocytosis, hemoglobin 14.8, platelets 162. CMP also unremarkable, electrolytes WDL, creatinine 1.09, glucose 105. LFTs not elevated. On my evaluation, patient is lethargic, will wake up, oriented to self only. Moves all 4 extremities. Currently on 3 L/min nasal cannula. SpO2 reading 93%. I did order an ABG, and likely not the cause of the patient's confusion. Findings including PaO2 of 70, pCO2 of 49, pH of 7.36. Has been received a total of 2 mg IV Dilaudid. Also, received a dose of Toradol. No significant grimacing or tenderness with clinical examination. No subcutaneous emphysema or crepitus. There is a lidocaine patch on the left lateral chest. Current vital signs, afebrile, heart rate 78 bpm, blood pressure 124/84 mmHg, nontachypneic, SpO2 93% on above-mentioned 3 L/min nasal cannula. On today's evaluation of 11/13/2024, the patient is somewhat delirious and confused. No agitation. No falls. No significant respiratory distress. No significant chest pain and the patient is currently on 1 L of oxygen by nasal cannula with pulse ox of 95%. Hemoglobin is stable at 13.1. BUN is 28 and a creatinine of 1.02. Sodium levels at 137. Remains on empiric antibiotic coverage with IV Rocephin. Remains on Lovenox for DVT prophylaxis. Rest of the medications remain unchanged. Pain is under better control. No other new complaints otherwise for now. He has a sitter at the bedside. He is using the incentive spirometer.Repeat chest x-ray was also obtained today and shows no significant changes. Right-sided rib fractures are less well-appreciated on today's chest x-ray. On 11/14/2024, the patient is at times confused. Denies having any chest pain or shortness of breath. No cough. No sputum production. Sitter at the bedside. He has developed a gram-negative urine tract infection the patient remains on IV Rocephin. The white cell count is at 5.7, hemoglobin 13.9 and platelet count of 141. BUN is 28 with a creatinine 1.06 and a sodium level is at 140. He is cu rrently on 1 L of O2 nasal cannula. No other significant events overnight. 11/15/2024, patient continues to have delirium and on and off confusion. No chest pain. No shortness of breath. Having urinary retention and the patient is giving a straight cath periodically. Sitter at the bedside as the patient is found to have sundowning. The white cell count 6.3, hemoglobin 13.1 and a platelet count is currently at 146. Electrolytes are all within normal limits. He is on 1 L O2 nasal cannula with a pulse ox of 95%. Objective - Vital Signs Vital signs: Vital Signs Temp 98.5 F 11/15/24 08:00 Pulse 82 11/15/24 08:24 Resp 18 11/15/24 08:24 BP 167/73 11/15/24 08:00 Pulse Ox 93 L 11/15/24 08:00 FiO2 Intake & Output 11/14/24 11/15/24 11/15/24 18:59 06:59 18:59 Intake Total 10 Output Total 1500 400 Balance -1500 -390 Weight 65 kg Intake: IV 10 Invasive Line 1 10 Output: Urine 1500 400 Straight 400 Uretheral (Nuñez) 650 Other: Voiding Method Toilet Urinal Urinal Diaper Diaper # Voids 2 - Exam GENERAL EXAM: Lethargic, 84-year-old male, comfortable in no apparent distress. The patient is currently on 1 L of O2 nasal cannula HEAD: Normocephalic and atraumatic EYES: Normal reaction of pupils, equal size. NOSE: Clear with pink turbinates. THROAT: No erythema or exudates. NECK: No masses, no JVD. CHEST: No chest wall deformity. No crepitus or subcutaneous emphysema LUNGS: Equal air entry with no crackles, wheeze, rhonchi or dullness. . No conversational dyspnea or accessory muscle use.. CVS: S1 and S2 normal with grade 3 systolic murmur, irregular rhythm. No other extra heart sounds ABDOMEN: No hepatosplenomegaly, active bowel sounds, no guarding or rigidity. SPINE: No scoliosis or deformity SKIN: No rashes CENTRAL NERVOUS SYSTEM: Lethargic, oriented to self, no focal deficits, tone is normal in all 4 extremities. EXTREMITIES: There is no peripheral edema, clubbing, or cyanosis. Peripheral pulses are intact. - Labs CBC & Chem 7: 11/15/24 06:04 11/15/24 06:04 Labs: Abnormal Lab Results - Last 24 Hours (Table) 11/15/24 11/15/24 Range/Units 06:04 06:04 RBC 4.08 L (4.30-5.90) m/uL MCV 102.8 H (80.0-100.0) fL Plt Count 146 L (150-450) k/uL Lymphocytes # 0.9 L (1.0-4.8) k/uL BUN 24 H (9-20) mg/dL Glucose 104 H (74-99) mg/dL Assessment and Plan Assessment: Mechanical fall, sustaining acute left-sided rib fractures involving the anterior 4th through 7th ribs as well as acute fracture of the left posterior ninth and 10th ribs. Block of the sternal cortex which is age-indeterminate. Scattered atelectatic changes including bilateral bases and lingula. No pneumothoraces or pleural effusions were noted. Repeat chest x-ray from 11/13/2024 shows that the rib fractures are less prominent compared to the CAT scan findings. No evidence of any hemothorax or pleural effusion. No evidence of any pulmonary contusion. Chest wall pain, currently stable Acute hypoxemic respiratory failure, currently on 1 L of O2 nasal cannula Gram-negative UTI, currently on IV Rocephin Altered mental status,/delirium, part related to drug effect Hypertension Paroxysmal atrial fibrillation, no documented anticoagulants History of valvular heart disease with moderate mitral regurgitation, mild aortic regurgitation, and severe tricuspid regurgitation Chronic lumbar back pain History of BPH Plan: Episodes of delirium and sundowning Patient is currently on 1 L of O2 nasal cannula, should be able to transition to room air oxygen Pain management, continue combination of lidocaine patch, with Toradol and Tylenol as needed. Would hold narcotics at this time. Pain is under adequate control for now IV Rocephin Monitor mental status Follow-up chest x-ray was noted Lovenox for DVT prophylaxis Sitter at the bedside Consider ECF Will continue to follow. Clinically and hemodynamic stable
[2024-11-15] MEDS: APIXABAN 5 MG TAB PO SCH (20:32)
[2024-11-15] MEDS: SENNOSIDES 8.6 MG TAB PO SCH (20:33)
--- NOTE | 2024-11-16 08:26 | P.PN ---
Subjective Progress Note Date: 11/16/24 The patient is still in restraints. He has a sitter. Patient appears to be less awake this morning. The sitter is feeding him his breakfast. On exam vital signs appear stable. Patient states he has minimal left-sided rib pain. History of multiple falls. Patient has left rib fractures. He will be sent to rehab once his mentation has improved. Objective - Vital Signs Vital signs: Vital Signs Temp 97.7 F 11/16/24 01:03 Pulse 75 11/16/24 01:03 Resp 19 11/16/24 01:03 BP 122/70 11/16/24 01:03 Pulse Ox 93 L 11/16/24 08:21 FiO2 21 11/16/24 08:21 Intake & Output 11/15/24 11/16/24 11/16/24 18:59 06:59 18:59 Output Total 725 225 Balance -725 -225 Output: Urine 725 225 Other: Voiding Method Urinal Indwelling Catheter Diaper - Labs CBC & Chem 7: 11/15/24 06:04 11/15/24 06:04
--- NOTE | 2024-11-16 11:24 | P.PN ---
Subjective Progress Note Date: 11/16/24 Subjective: Patient seen and examined at bedside. Still having hyperactive delirium. Sitter at bedside. Nuñez catheter in place urinary retention Pertinent positives and negatives as discussed above, a complete review of systems was performed and all other systems are negative. Vitals Signs Reviewed. General: Nontoxic, no distress, appears at stated age, somnolent Derm: Warm, dry Head: Atraumatic, normocephalic, symmetric Eyes: EOMI, no lid lag, anicteric sclera Mouth: No lip lesion, mucus membranes moist Cardiovascular: S1S2 reg, no murmur Lungs: CTA bilateral, no rhonchi, no rales, no accessory muscle use Abdominal: Soft, nontender to palpation, no guarding, no appreciable org anomegaly Ext: No gross muscle atrophy, no edema, no contractures Neuro: CN II-XI grossly intact, no focal neuro deficits Psych: Somnolent, oriented x 1, appropriate affect Data Reviewed Today: Pertinent Labs: BMP and magnesium pending, will be reviewed when available Imaging: No new imaging Assessment and Plan: Active: Acute encephalopathy, likely hyperactive delirium Mechanical fall with multiple left-sided rib fractures Urinary tract infection Acute urinary retention -Okay to continue sitter at bedside -Pain control with oral Tylenol scheduled 1000 mg every 8 hours and ibuprofen 600 3 times daily as needed, narcotics discontinued by general surgery -Also on lidocaine patch 4% daily -on Flomax 0.4 daily, Nuñez catheter in place -Started on senna twice daily -Seroquel 25 nightly for acute delirium -Melatonin 3 mg nightly ordered -Continue ceftriaxone 2 g IV every 24 hours, urine cultures pending, currently growing gram-negative bacilli -PT OT following -Patient does have some history of alcohol use but not behaving like alcohol withdrawal -Per niece, patient was already showing signs of dementia prior to this hospitalization -No further improvement in encephalopathy, will get neurology involved Resolved: Acute hypoxic respiratory failure Chronic: Chronic A-fib History of diastolic heart failure, not in exacerbation Hypertension Dyslipidemia BPH DVT ppx: Zachary Thank you for allowing us to participate in the care of this pleasant patient. Do not hesitate to contact us with questions. Someone can be reached from the [facility] hospitalist group all hours of the day at [phone] or via perfect serve. Objective - Vital Signs Vital signs: Vital Signs Temp 98.3 F 11/16/24 08:00 Pulse 89 11/16/24 08:00 Resp 17 11/16/24 08:00 BP 159/87 11/16/24 08:00 Pulse Ox 93 L 11/16/24 08:21 FiO2 21 11/16/24 08:21 Intake & Output 11/15/24 11/16/24 11/16/24 18:59 06:59 18:59 Output Total 725 225 Balance -725 -225 Output: Urine 725 225 Other: Voiding Method Urinal Indwelling Catheter Diaper - Labs CBC & Chem 7: 11/15/24 06:04 11/15/24 06:04
[2024-11-16 12:30] LABS: BUN/Creat Ratio 16.91 Ratio (12.00-20.00); Blood Urea Nitrogen 18.6 mg/dL (9.0-27.0); Carbon Dioxide 23.2 mmol/L (21.6-31.8); Chloride 107 mmol/L (96-109); Glucose 108 mg/dL (70-110); Magnesium 1.9 mg/dL (1.5-2.4); Potassium 4.2 mmol/L (3.5-5.5); Sodium 144 mmol/L (135-145)
--- NOTE | 2024-11-16 14:20 | P.CNNES ---
History of Present Illness Consult date: 11/16/24 Reason for Consult: Encephalopathy History of Present Illness: The patient is an 84-year-old male who is seen in neurologic consultation on November 16, 2024, in collaboration with Marta Shah, via teleneurology. History is obtained entirely from review of the chart. Patient reportedly presented to the emergency department following a fall. He reportedly tripped and fell to the floor, onto his side.. He was found to have a quite severe urinary tract infection. He reportedly has a history of dementia and since admission, has been much more confused. Workup in the emergency department involved a CT scan of the brain. There was no reported evidence of acute hemorrhage or infarct. In addition to CT scan of the brain, CT scan of the chest was performed. There is reported evidence of multiple rib fractures. Review of Systems Unable to obtain secondary to mental status of patient Past Medical History Past Medical History: Atrial Fibrillation, Heart Failure, Hyperlipidemia, Hypertension, Renal Disease Additional Past Medical History / Comment(s): prostate problems kidneys History of Any Multi-Drug Resistant Organisms: None Reported Past Surgical History: Orthopedic Surgery Additional Past Surgical History / Comment(s): Bilateral knee replacement, cataract removal, cardioversion. TURP - 2019 Past Anesthesia/Blood Transfusion Reactions: No Reported Reaction Past Psychological History: Anxiety Smoking Status: Never smoker Past Alcohol Use History: Occasional Past Drug Use History: None Reported - Past Family History Mother Family Medical History: Congestive Heart Failure (CHF), Diabetes Mellitus Additional Family Medical History / Comment(s): at 90yrs old Sister(s) Family Medical History: Cancer, Diabetes Mellitus Brother(s) Family Medical History: Diabetes Mellitus Medications and Allergies Home Medications Medication Instructions Recorded Confirmed Type Metoprolol Tartrate [Lopressor] 25 mg PO BID 10/13/16 11/12/24 History Apixaban [Eliquis] 5 mg PO BID 11/12/24 11/12/24 History Lidocaine 5% Patch [Lidoderm] 1 patch TOPICAL DAILY PRN 11/12/24 11/12/24 History Venlafaxine HCl ER [Effexor Xr] 75 mg PO DAILY 11/12/24 11/12/24 History Venlafaxine HCl ER [Effexor Xr] 150 mg PO DAILY 11/12/24 11/12/24 History amLODIPine [Norvasc] 5 mg PO DAILY 11/12/24 11/12/24 History Allergies Allergy/AdvReac Type Severity Reaction Status Date / Time No Known Allergies Allergy Verified 11/12/24 08:07 Physical Examination - Vital Signs Vital Signs: Vital Signs Temp Pulse Resp BP Pulse Ox FiO2 11/16/24 08:21 93 L 21 11/16/24 08:00 98.3 F 89 17 159/87 94 L 11/16/24 01:03 97.7 F 75 19 122/70 90 L 11/15/24 21:53 74 19 11/15/24 19:41 98.4 F 74 19 153/79 94 L Intake and Output 11/15/24 11/16/24 11/16/24 22:59 06:59 14:59 Output Total 525 225 Balance -525 -225 Output: Urine 525 225 Other: Voiding Method Indwelling Catheter Indwelling Catheter General: The patient is reclining in the bed. There is a sitter at the bedside. He is well-nourished and in no acute distress. HEENT: Head is atraumatic, normocephalic. Fundus not visualized. There is no scleral icterus. Mucous membranes are moist. Neck: Supple without carotid bruits Heart: Regular rate and rhythm Lungs: No shortness of breath or cough Extremities: Without edema Neurological examination Mental status: The patient is arousable. He is able to state his name. He falls quickly back to sleep. His speech is slurred and nonsensical. He does deny pain. Cranial nerves: Pupils are equal at 3 mm and reactive. The patient does blink to visual threat. There is no obvious facial asymmetry. The patient does not cooperate with further cranial nerve testing. Motor: Patient is able to move all 4 extremities. He does not cooperate with strength testing. Sensation: Grossly intact to noxious stimulation. Deep tendon reflexes: 3+/4+ in bilateral upper extremities. Lower extremity reflexes are absent. Coordination: Patient is unable to cooperate at this time Gait: Not assessed Results - Laboratory Findings CBC and BMP: 11/15/24 06:04 11/16/24 03:44 Abnormal Lab Findings: Abnormal Labs 11/11/24 11/11/24 11/12/24 23:50 23:50 03:08 RBC MCV 103.7 H Plt Count Lymphocytes # ABG pCO2 49 H ABG pO2 70 L ABG HCO3 27 H ABG Total CO2 29 H ABG O2 Saturation 93.2 L VBG pH Anion Gap BUN 37 H Glucose 105 H Total Bilirubin 1.4 H Total Protein Albumin Urine Protein Ur Leukocyte Esterase Urine WBC Urine Bacteria Urine Mucus 11/12/24 11/12/24 11/12/24 08:06 08:06 13:30 RBC 4.21 L MCV 103.3 H Plt Count 133 L Lymphocytes # ABG pCO2 ABG pO2 ABG HCO3 ABG Total CO2 ABG O2 Saturation VBG pH Anion Gap BUN 33 H Glucose 107 H Total Bilirubin 1.7 H Total Protein Albumin Urine Protein Trace H Ur Leukocyte Esterase Large H Urine WBC 56 H Urine Bacteria Few H Urine Mucus Rare H 11/12/24 11/13/24 11/13/24 17:15 05:49 05:49 RBC 3.99 L MCV 103.0 H Plt Count 136 L Lymphocytes # ABG pCO2 ABG pO2 ABG HCO3 ABG Total CO2 ABG O2 Saturation VBG pH 7.42 H Anion Gap BUN 28 H Glucose Total Bilirubin Total Protein 5.8 L Albumin 3.4 L Urine Protein Ur Leukocyte Esterase Urine WBC Urine Bacteria Urine Mucus 11/14/24 11/14/24 11/15/24 06:52 06:52 06:04 RBC 4.22 L 4.08 L MCV 103.2 H 102.8 H Plt Count 141 L 146 L Lymphocytes # 0.9 L ABG pCO2 ABG pO2 ABG HCO3 ABG Total CO2 ABG O2 Saturation VBG pH Anion Gap BUN 28 H Glucose 101 H Total Bilirubin Total Protein 5.9 L Albumin 3.4 L Urine Protein Ur Leukocyte Esterase Urine WBC Urine Bacteria Urine Mucus 11/15/24 11/16/24 06:04 03:44 RBC MCV Plt Count Lymphocytes # ABG pCO2 ABG pO2 ABG HCO3 ABG Total CO2 ABG O2 Saturation VBG pH Anion Gap 13.80 H BUN 24 H Glucose 104 H Total Bilirubin Total Protein Albumin Urine Protein Ur Leukocyte Esterase Urine WBC Urine Bacteria Urine Mucus Assessment and Plan Assessment: 1. Delirium secondary to urinary tract infection 2. History of atrial fibrillation 3. History of fall 4. Rib fractures Plan: 1. Avoid the use of benzodiazepines 2. Agree with Seroquel for agitation. Perhaps adjust dose to 50 mg twice daily 3. Attempt to keep the patient awake during the day so as he will sleep at night, to regain accurate sleep/wake cycle 4. Limit/avoid use of narcotics 5. Primary team to address urinary tract infection Thank you for allowing us to participate in the care of this patient Time with Patient: Greater than 30 (45 minutes were spent caring for this patient today including, obtaining history, examining the patient, reviewing imaging, chart documentation, labs, placing orders and creating this note)
--- NOTE | 2024-11-16 14:37 | P.PN ---
Subjective Progress Note Date: 11/16/24 Patient is an 84-year-old male with past medical history significant for hypertension, paroxysmal atrial fibrillation, and chronic lumbar back pain. Patient currently confused and is a poor historian. Apparently, has been experiencing multiple falls while at home. Had a recent ER visit on 11/09/2024 for fall and left-sided chest pain. Chest x-ray at that time showed minimally displaced left-sided rib fractures of ribs 8 and 9. Ultimately, discharged home. Patient returns to the ED last night after reportedly tripping over a blanket. Again, landing on his left side. No obvious head trauma. No documented anticoagulants. CT of the chest/abdomen/pelvis remarkable for acute fractures of left anterior 4th through 7th ribs, as well as, acute fracture left posterior ninth and 10th ribs. Buckle of the sternal cortex which is age- indeterminate. Scattered atelectatic changes including bilateral bases and lingula. No pneumothoraces or pleural effusions. CBC unremarkable, no leukocytosis, hemoglobin 14.8, platelets 162. CMP also unremarkable, electrolytes WDL, creatinine 1.09, glucose 105. LFTs not elevated. On my evaluation, patient is lethargic, will wake up, oriented to self only. Moves all 4 extremities. Currently on 3 L/min nasal cannula. SpO2 reading 93%. I did order an ABG, and likely not the cause of the patient's confusion. Findings including PaO2 of 70, pCO2 of 49, pH of 7.36. Has been received a total of 2 mg IV Dilaudid. Also, received a dose of Toradol. No significant grimacing or tenderness with clinical examination. No subcutaneous emphysema or crepitus. There is a lidocaine patch on the left lateral chest. Current vital signs, afebrile, heart rate 78 bpm, blood pressure 124/84 mmHg, nontachypneic, SpO2 93% on above-mentioned 3 L/min nasal cannula. On today's evaluation of 11/13/2024, the patient is somewhat delirious and confused. No agitation. No falls. No significant respiratory distress. No significant chest pain and the patient is currently on 1 L of oxygen by nasal cannula with pulse ox of 95%. Hemoglobin is stable at 13.1. BUN is 28 and a creatinine of 1.02. Sodium levels at 137. Remains on empiric antibiotic coverage with IV Rocephin. Remains on Lovenox for DVT prophylaxis. Rest of the medications remain unchanged. Pain is under better control. No other new complaints otherwise for now. He has a sitter at the bedside. He is using the incentive spirometer.Repeat chest x-ray was also obtained today and shows no significant changes. Right-sided rib fractures are less well-appreciated on today's chest x-ray. On 11/14/2024, the patient is at times confused. Denies having any chest pain or shortness of breath. No cough. No sputum production. Sitter at the bedside. He has developed a gram-negative urine tract infection the patient remains on IV Rocephin. The white cell count is at 5.7, hemoglobin 13.9 and platelet count of 141. BUN is 28 with a creatinine 1.06 and a sodium level is at 140. He is cu rrently on 1 L of O2 nasal cannula. No other significant events overnight. 11/15/2024, patient continues to have delirium and on and off confusion. No chest pain. No shortness of breath. Having urinary retention and the patient is giving a straight cath periodically. Sitter at the bedside as the patient is found to have sundowning. The white cell count 6.3, hemoglobin 13.1 and a platelet count is currently at 146. Electrolytes are all within normal limits. He is on 1 L O2 nasal cannula with a pulse ox of 95%. 11/16/2024, the patient is that he recently is having nighttime agitation. R eceiving Haldol. Will start the patient on Seroquel 100 mg at bedtime. Otherwise, no respiratory difficulties. Medication remain unchanged. His pulse ox is 93% room air oxygen. Afebrile. Hemodynamically stable. Still being treated for gram-negative UTI with IV Rocephin. Neurology consultation has been also obtained. Will avoid benzodiazepine as recommended. Seroquel was added. Objective - Vital Signs Vital signs: Vital Signs Temp 98.3 F 11/16/24 08:00 Pulse 89 11/16/24 08:00 Resp 17 11/16/24 08:00 BP 159/87 11/16/24 08:00 Pulse Ox 93 L 11/16/24 08:21 FiO2 21 11/16/24 08:21 Intake & Output 11/15/24 11/16/24 11/16/24 18:59 06:59 18:59 Output Total 725 225 Balance -725 -225 Output: Urine 725 225 Other: Voiding Method Urinal Indwelling Catheter Diaper - Exam GENERAL EXAM: Lethargic, 84-year-old male, comfortable in no apparent distress. The patient is currently on 1 L of O2 nasal cannula HEAD: Normocephalic and atraumatic EYES: Normal reaction of pupils, equal size. NOSE: Clear with pink turbinates. THROAT: No erythema or exudates. NECK: No masses, no JVD. CHEST: No chest wall deformity. No crepitus or subcutaneous emphysema LUNGS: Equal air entry with no crackles, wheeze, rhonchi or dullness. . No con versational dyspnea or accessory muscle use.. CVS: S1 and S2 normal with grade 3 systolic murmur, irregular rhythm. No other extra heart sounds ABDOMEN: No hepatosplenomegaly, active bowel sounds, no guarding or rigidity. SPINE: No scoliosis or deformity SKIN: No rashes CENTRAL NERVOUS SYSTEM: Lethargic, oriented to self, no focal deficits, tone is normal in all 4 extremities. EXTREMITIES: There is no peripheral edema, clubbing, or cyanosis. Peripheral pulses are intact. - Labs CBC & Chem 7: 11/15/24 06:04 11/16/24 03:44 Assessment and Plan Assessment: Mechanical fall, sustaining acute left-sided rib fractures involving the anterior 4th through 7th ribs as well as acute fracture of the left posterior ni nth and 10th ribs. Block of the sternal cortex which is age-indeterminate. Scattered atelectatic changes including bilateral bases and lingula. No pneumothoraces or pleural effusions were noted. Repeat chest x-ray from 11/13/2024 shows that the rib fractures are less prominent compared to the CAT scan findings. No evidence of any hemothorax or pleural effusion. No evidence of any pulmonary contusion. Chest wall pain, currently stable Acute hypoxemic respiratory failure, currently on 1 L of O2 nasal cannula Gram-negative UTI, currently on IV Rocephin Delirium, likely secondary urinary tract infection. Hypertension Paroxysmal atrial fibrillation, no documented anticoagulants History of valvular heart disease with moderate mitral regurgitation, mild aortic regurgitation, and severe tricuspid regurgitation Chronic lumbar back pain History of BPH Plan: Episodes of delirium and sundowning, started on Seroquel Avoid benzodiazepine use Haldol as needed for agitation Patient is currently on room air oxygen Pain management, continue combination of lidocaine patch, with Toradol and Tylenol as needed. Would hold narcotics at this time. Pain is under adequate control for now IV Rocephin Monitor mental status Follow-up chest x-ray was noted Lovenox for DVT prophylaxis Sitter at the bedside Consider ECF Will continue to follow. Clinically and hemodynamic stable Time with Patient: Greater than 30
[2024-11-16] MEDS: LACTATED RINGERS 1,000 ML IV SCH (16:14)
[2024-11-16] MEDS ORDERED: HALOPERIDOL LACTATE 5 MG/ML 1 ML VIAL IM PRN (19:11)
[2024-11-16] MEDS: MELATONIN 3 MG TABLET PO SCH (20:44)
[2024-11-16] MEDS: QUEtiapine 100 MG TAB PO SCH (20:44)
[2024-11-17 08:17] LABS: ALT 26 U/L (4-49); AST 29 U/L (17-59); African American GFR (CKD) 88 (>60 ml/min/1.73 sqM); Albumin 3.1 g/dL (3.5-5.0); Albumin/Globulin Ratio 1.2; Alkaline Phosphatase 51 U/L (38-126); Anion Gap 5 mmol/L; Blood Urea Nitrogen 19 mg/dL (9-20); Calcium 8.6 mg/dL (8.4-10.2); Carbon Dioxide 28 mmol/L (22-30); Chloride 105 mmol/L (98-107); Globulin 2.5 g/dL; Glucose 92 mg/dL (74-99); Non-African American GFR(CKD) 76 (>60 ml/min/1.73 sqM); Potassium 3.9 mmol/L (3.5-5.1); Sodium 138 mmol/L (137-145); Total Protein 5.6 g/dL (6.3-8.2)
[2024-11-17] MEDS: PIPERACILLIN-TAZOBACTAM 3.375 GM in SODIUM CHLORIDE 0.9% 100 ML IVPB SCH (08:31)
--- NOTE | 2024-11-17 11:02 | P.PN ---
Subjective Progress Note Date: 11/17/24 Patient appears to be more awake. He has minimal complaints of pain. Apparently had some confusion and disconnected his Nuñez catheter. On exam vital signs are stable. Abdomen is soft nontender Status post multiple falls with left-sided rib fractures. Patient may be able to go to rehab tomorrow. Objective - Vital Signs Vital signs: Vital Signs Temp 97.9 F 11/17/24 06:50 Pulse 80 11/17/24 06:50 Resp 17 11/17/24 06:50 BP 124/79 11/17/24 06:50 Pulse Ox 94 L 11/17/24 06:50 FiO2 21 11/16/24 08:21 Intake & Output 11/16/24 11/17/24 11/17/24 18:59 06:59 18:59 Output Total 675 400 Balance -675 -400 Output: Urine 675 400 Other: Voiding Method Indwelling Catheter Indwelling Catheter - Labs CBC & Chem 7: 11/15/24 06:04 11/17/24 07:08 Labs: Abnormal Lab Results - Last 24 Hours (Table) 11/16/24 11/17/24 Range/Units 03:44 07:08 Anion Gap 13.80 H (4.00-12.00) mmol/L Total Protein 5.6 L (6.3-8.2) g/dL Albumin 3.1 L (3.5-5.0) g/dL Microbiology - Last 24 Hours (Table) 11/12/24 13:30 Urine Culture - Final Urine,Voided Pseudomonas fluorescens/putida
--- NOTE | 2024-11-17 12:27 | P.PN ---
Subjective Progress Note Date: 11/17/24 Subjective: Patient seen and examined at bedside. Hypoactive delirium is improved. No sitter at bedside. Nuñez catheter in place for urinary retention. Pertinent positives and negatives as discussed above, a complete review of systems was performed and all other systems are negative. Vitals Signs Reviewed. General: Nontoxic, no distress, appears at stated age Derm: Warm, dry Head: Atraumatic, normocephalic, symmetric Eyes: EOMI, no lid lag, anicteric sclera Mouth: No lip lesion, mucus membranes moist Cardiovascular: S1S2 reg, no murmur Lungs: CTA bilateral, no rhonchi, no rales, no accessory muscle use Abdominal: Soft, nontender to palpation, no guarding, no appreciable organomeg cara Ext: No gross muscle atrophy, no edema, no contractures Neuro: CN II-XI grossly intact, no focal neuro deficits Psych: Alert and oriented x2, appropriate affect Data Reviewed Today: Pertinent Labs: Sodium 138, creatinine 0.93, magnesium 2 Imaging: No new imaging Assessment and Plan: Active: Acute encephalopathy, likely hyperactive delirium, resolving Mechanical fall with multiple left-sided rib fractures Urinary tract infection, MDRO Acute urinary retention -Pain control with oral Tylenol scheduled 1000 mg every 8 hours and ibuprofen 600 3 times daily as needed, narcotics discontinued by general surgery -Also on lidocaine patch 4% daily -on Flomax 0.4 daily, Nuñez catheter in place -Continue senna twice daily -Neurology following, Seroquel increased to 100 nightly -Melatonin 3 mg nightly -Urine cultures growing MDRO Pseudomonas, started on IV Zosyn -PT OT following Resolved: Acute hypoxic respiratory failure Chronic: Chronic A-fib History of diastolic heart failure, not in exacerbation Hypertension Dyslipidemia BPH DVT ppx: Zachary Thank you for allowing us to participate in the care of this pleasant patient. Do not hesitate to contact us with questions. Someone can be reached from the [facility] hospitalist group all hours of the day at [phone] or via perfect serve. Objective - Vital Signs Vital signs: Vital Signs Temp 97.9 F 11/17/24 06:50 Pulse 80 11/17/24 06:50 Resp 17 11/17/24 06:50 BP 124/79 11/17/24 06:50 Pulse Ox 94 L 11/17/24 06:50 FiO2 21 11/16/24 08:21 Intake & Output 11/16/24 11/17/24 11/17/24 18:59 06:59 18:59 Output Total 675 400 Balance -675 -400 Output: Urine 675 400 Other: Voiding Method Indwelling Catheter Indwelling Catheter - Labs CBC & Chem 7: 11/15/24 06:04 11/17/24 07:08 Labs: Abnormal Lab Results - Last 24 Hours (Table) 11/16/24 11/17/24 Range/Units 03:44 07:08 Anion Gap 13.80 H (4.00-12.00) mmol/L Total Protein 5.6 L (6.3-8.2) g/dL Albumin 3.1 L (3.5-5.0) g/dL Microbiology - Last 24 Hours (Table) 11/12/24 13:30 Urine Culture - Final Urine,Voided Pseudomonas fluorescens/putida
--- NOTE | 2024-11-17 14:29 | P.PN ---
Subjective Progress Note Date: 11/17/24 Patient is an 84-year-old male with past medical history significant for hypertension, paroxysmal atrial fibrillation, and chronic lumbar back pain. Patient currently confused and is a poor historian. Apparently, has been experiencing multiple falls while at home. Had a recent ER visit on 11/09/2024 for fall and left-sided chest pain. Chest x-ray at that time showed minimally displaced left-sided rib fractures of ribs 8 and 9. Ultimately, discharged home. Patient returns to the ED last night after reportedly tripping over a blanket. Again, landing on his left side. No obvious head trauma. No documented anticoagulants. CT of the chest/abdomen/pelvis remarkable for acute fractures of left anterior 4th through 7th ribs, as well as, acute fracture left posterior ninth and 10th ribs. Buckle of the sternal cortex which is age- indeterminate. Scattered atelectatic changes including bilateral bases and lingula. No pneumothoraces or pleural effusions. CBC unremarkable, no leukocytosis, hemoglobin 14.8, platelets 162. CMP also unremarkable, electrolytes WDL, creatinine 1.09, glucose 105. LFTs not elevated. On my evaluation, patient is lethargic, will wake up, oriented to self only. Moves all 4 extremities. Currently on 3 L/min nasal cannula. SpO2 reading 93%. I did order an ABG, and likely not the cause of the patient's confusion. Findings including PaO2 of 70, pCO2 of 49, pH of 7.36. Has been received a total of 2 mg IV Dilaudid. Also, received a dose of Toradol. No significant grimacing or tenderness with clinical examination. No subcutaneous emphysema or crepitus. There is a lidocaine patch on the left lateral chest. Current vital signs, afebrile, heart rate 78 bpm, blood pressure 124/84 mmHg, nontachypneic, SpO2 93% on above-mentioned 3 L/min nasal cannula. On today's evaluation of 11/13/2024, the patient is somewhat delirious and confused. No agitation. No falls. No significant respiratory distress. No significant chest pain and the patient is currently on 1 L of oxygen by nasal cannula with pulse ox of 95%. Hemoglobin is stable at 13.1. BUN is 28 and a creatinine of 1.02. Sodium levels at 137. Remains on empiric antibiotic coverage with IV Rocephin. Remains on Lovenox for DVT prophylaxis. Rest of the medications remain unchanged. Pain is under better control. No other new complaints otherwise for now. He has a sitter at the bedside. He is using the incentive spirometer.Repeat chest x-ray was also obtained today and shows no significant changes. Right-sided rib fractures are less well-appreciated on today's chest x-ray. On 11/14/2024, the patient is at times confused. Denies having any chest pain or shortness of breath. No cough. No sputum production. Sitter at the bedside. He has developed a gram-negative urine tract infection the patient remains on IV Rocephin. The white cell count is at 5.7, hemoglobin 13.9 and platelet count of 141. BUN is 28 with a creatinine 1.06 and a sodium level is at 140. He is cu rrently on 1 L of O2 nasal cannula. No other significant events overnight. 11/15/2024, patient continues to have delirium and on and off confusion. No chest pain. No shortness of breath. Having urinary retention and the patient is giving a straight cath periodically. Sitter at the bedside as the patient is found to have sundowning. The white cell count 6.3, hemoglobin 13.1 and a platelet count is currently at 146. Electrolytes are all within normal limits. He is on 1 L O2 nasal cannula with a pulse ox of 95%. 11/16/2024, the patient is that he recently is having nighttime agitation. R eceiving Haldol. Will start the patient on Seroquel 100 mg at bedtime. Otherwise, no respiratory difficulties. Medication remain unchanged. His pulse ox is 93% room air oxygen. Afebrile. Hemodynamically stable. Still being treated for gram-negative UTI with IV Rocephin. Neurology consultation has been also obtained. Will avoid benzodiazepine as recommended. Seroquel was added. On 11/17/2024, c showing some signs of improvement in his delirium. He was started on Seroquel yesterday. He has a Nuñez catheter for urinary retention. Overall respiratory status is unchanged. No significant chest wall pain. He is on oxygen at 1 L/min nasal cannula with a pulse ox of 94%. Electrolytes from today are all stable with a BUN of 19 and a creatinine of 0.93. LFTs are also within normal limits. Remains on anticoagulation. Remains on LR at rate of 75 cc an hour. Remains on IV Zosyn as the patient has been found to have Pseudomonas in the urine culture. Objective - Vital Signs Vital signs: Vital Signs Temp 97.9 F 11/17/24 06:50 Pulse 80 11/17/24 06:50 Resp 17 11/17/24 06:50 BP 124/79 11/17/24 06:50 Pulse Ox 94 L 11/17/24 06:50 FiO2 21 11/16/24 08:21 Intake & Output 11/16/24 11/17/24 11/17/24 18:59 06:59 18:59 Output Total 675 400 Balance -675 -400 Output: Urine 675 400 Other: Voiding Method Indwelling Catheter Indwelling Catheter - Exam GENERAL EXAM: Lethargic, 84-year-old male, comfortable in no apparent distress. The patient is currently on 1 L of O2 nasal cannula HEAD: Normocephalic and atraumatic EYES: Normal reaction of pupils, equal size. NOSE: Clear with pink turbinates. THROAT: No erythema or exudates. NECK: No masses, no JVD. CHEST: No chest wall deformity. No crepitus or subcutaneous emphysema LUNGS: Equal air entry with no crackles, wheeze, rhonchi or dullness. . No conversational dyspnea or accessory muscle use.. CVS: S1 and S2 normal with grade 3 systolic murmur, irregular rhythm. No other extra heart sounds ABDOMEN: No hepatosplenomegaly, active bowel sounds, no guarding or rigidity. SPINE: No scoliosis or deformity SKIN: No rashes CENTRAL NERVOUS SYSTEM: Lethargic, oriented to self, no focal deficits, tone is normal in all 4 extremities. EXTREMITIES: There is no peripheral edema, clubbing, or cyanosis. Peripheral pulses are intact. - Labs CBC & Chem 7: 11/15/24 06:04 11/17/24 07:08 Labs: Abnormal Lab Results - Last 24 Hours (Table) 11/16/24 11/17/24 Range/Units 03:44 07:08 Anion Gap 13.80 H (4.00-12.00) mmol/L Total Protein 5.6 L (6.3-8.2) g/dL Albumin 3.1 L (3.5-5.0) g/dL Microbiology - Last 24 Hours (Table) 11/12/24 13:30 Urine Culture - Final Urine,Voided Pseudomonas fluorescens/putida Assessment and Plan Assessment: Mechanical fall, sustaining acute left-sided rib fractures involving the anterior 4th through 7th ribs as well as acute fracture of the left posterior ninth and 10th ribs. Block of the sternal cortex which is age-indeterminate. Scattered atelectatic changes including bilateral bases and lingula. No pneumothoraces or pleural effusions were noted. Repeat chest x-ray from 11/13/2024 shows that the rib fractures are less prominent compared to the CAT scan findings. No evidence of any hemothorax or pleural effusion. No evidence of any pulmonary contusion. Chest wall pain, currently stable Acute hypoxemic respiratory failure, currently on 1 L of O2 nasal cannula Gram-negative UTI, with positive cultures indicating Pseudomonas and the patient is currently on IV Zosyn Delirium, likely secondary urinary tract infection. Hypertension Paroxysmal atrial fibrillation, no documented anticoagulants History of valvular heart disease with moderate mitral regurgitation, mild aortic regurgitation, and severe tricuspid regurgitation Chronic lumbar back pain History of BPH Plan: Episodes of delirium and sundowning, started on Seroquel, clinically improving as the patient is being treated with Seroquel and his underlying urine tract infection is also being treated. Avoid benzodiazepine use Haldol as needed for agitation Patient is currently on room air oxygen Pain management, continue combination of lidocaine patch, with Toradol and Tylenol as needed. Would hold narcotics at this time. Pain is under adequate control for now Monitor mental status Follow-up chest x-ray was noted Lovenox for DVT prophylaxis Clinically and hemodynamic stable Time with Patient: Greater than 30
--- NOTE | 2024-11-18 11:48 | P.DS ---
Providers Date of admission: 11/11/24 23:45 Expected date of discharge: 11/18/24 Attending physician: Tye Brar Consults: 11/11/24 23:42 Consult Physician Routine Consulting Provider: [facility] Consult Reason/Comments: Pulmonary Contusion Do you want consulting provider notified?: Yes 11/12/24 15:13 Consult Physician Stat Consulting Provider: Yevgeniy Cain Consult Reason/Comments: Medical Management Do you want consulting provider notified?: Yes, Notify in am 11/16/24 11:19 Consult Physician Routine Consulting Provider: Tony Ch Consult Reason/Comments: encephalopathy Do you want consulting provider notified?: Yes Primary care physician: Blas Higginbotham Hospital Course: Discharge diagnosis 1. Trip and fall with history of multiple falls over the last several days 2. Traumatic rib fractures on the left 4 through 7 and 9-10 due to trip and fall 3. Altered mental status changes likely due narcotic pain medications versus a metabolic encephalopathy 4. Possible UTI Hospital course This is a 84-year-old male admitted after tripping on a blanket and was found to have evidence of multiple rib fractures left sided 4 through 7 and 9 through 10. He has a known history of multiple falls over the last several days prior to admission. He was seen by pulmonary service, medicine service and neurology during this admission. Patient's pain is controlled. He is tolerating diet. He is on room air. He is afebrile. He has worked with physical therapy and they are recommending rehab at discharge. Patient has been cleared by pulmonary and medicine service for discharge. Patient is stable for discharge. Per medicine service no further antibiotics are needed. Please refer to chart for any further details. Physician Radio Message Router note has been reviewed by physician. Signing provider agrees with the documented findings, assessment, and plan of care. Patient Condition at Discharge: Stable Plan - Discharge Summary Discharge Rx Participant: Yes New Discharge Prescriptions: New Tamsulosin [Flomax] 0.4 mg PO PC-BRKFST cap Folic Acid 1 mg PO DAILY tab Melatonin 3 mg PO HS tab Sennosides [Senokot] 8.6 mg PO BID tab Acetaminophen Tab [Tylenol Tab] 650 mg PO Q4H PRN #30 tablet PRN Reason: Pain QUEtiapine [SEROquel] 25 mg PO HS tab Continue Metoprolol Tartrate [Lopressor] 25 mg PO BID Lidocaine 5% Patch [Lidoderm 5% Patch] 1 patch TOPICAL DAILY PRN PRN Reason: Pain Venlafaxine HCl ER [Effexor XR] 150 mg PO DAILY Apixaban [Eliquis] 5 mg PO BID amLODIPine [Norvasc] 5 mg PO DAILY Venlafaxine HCl ER [Effexor XR] 75 mg PO DAILY Discharge Medication List Metoprolol Tartrate [Lopressor] 25 mg PO BID 10/13/16 [History] Apixaban [Eliquis] 5 mg PO BID 11/12/24 [History] Lidocaine 5% Patch [Lidoderm 5% Patch] 1 patch TOPICAL DAILY PRN 11/12/24 [History] Venlafaxine HCl ER [Effexor XR] 75 mg PO DAILY 11/12/24 [History] Venlafaxine HCl ER [Effexor XR] 150 mg PO DAILY 11/12/24 [History] amLODIPine [Norvasc] 5 mg PO DAILY 11/12/24 [History] Acetaminophen Tab [Tylenol Tab] 650 mg PO Q4H PRN #30 tablet 11/18/24 [Rx] Folic Acid 1 mg PO DAILY tab 11/18/24 [Rx] Melatonin 3 mg PO HS tab 11/18/24 [Rx] QUEtiapine [SEROquel] 25 mg PO HS tab 11/18/24 [Rx] Sennosides [Senokot] 8.6 mg PO BID tab 11/18/24 [Rx] Tamsulosin [Flomax] 0.4 mg PO PC-BRKFST cap 11/18/24 [Rx] Follow up Appointment(s)/Referral(s): Blas Higginbotham DO [Primary Care Provider] - 1-2 days Shahnaz Escobedo MD [STAFF PHYSICIAN] - 1 Week Discharge Disposition: TRANSFER TO SNF/ECF
[2024-11-18 12:06] VITALS: BMI 21.7
[2024-11-18] MEDS: QUEtiapine 25 MG TAB PO SCH (12:42)
--- NOTE | 2024-11-18 12:50 | P.PN ---
Subjective Progress Note Date: 11/18/24 Subjective: Patient seen and examined at bedside. Delirium has resolved. Nuñez catheter in place for urinary retention. Pertinent positives and negatives as discussed above, a complete review of systems was performed and all other systems are negative. Vitals Signs Reviewed. General: Nontoxic, no distress, appears at stated age Derm: Warm, dry Head: Atraumatic, normocephalic, symmetric Eyes: EOMI, no lid lag, anicteric sclera Mouth: No lip lesion, mucus membranes moist Cardiovascular: S1S2 reg, no murmur Lungs: CTA bilateral, no rhonchi, no rales, no accessory muscle use Abdominal: Soft, nontender to palpation, no guarding, no appreciable organomegaly Ext: No gross muscle atrophy, no edema, no contractures Neuro: CN II-XI grossly intact, no focal neuro deficits Psych: Alert and oriented x3, appropriate affect Data Reviewed Today: Pertinent Labs: No new labs Imaging: No new imaging Assessment and Plan: Active: Acute encephalopathy, likely hyperactive delirium, resolved Mechanical fall with multiple left-sided rib fractures Suspected urinary tract infection Acute urinary retention -Pain control with oral Tylenol scheduled 1000 mg every 8 hours and ibuprofen 600 3 times daily as needed, narcotics discontinued by general surgery -Also on lidocaine patch 4% daily -on Flomax 0.4 daily, Nuñez catheter in place, voiding trial today -Continue senna twice daily -Neurology following, Seroquel increased to 25 twice daily -Melatonin 3 mg nightly -Urine cultures growing Pseudomonas fluorescens/putida, likely contaminant based on literature. Patient already received 5 days of IV antibiotics. Will discontinue at the time of discharge. -PT OT following Resolved: Acute hypoxic respiratory failure Chronic: Chronic A-fib History of diastolic heart failure, not in exacerbation Hypertension Dyslipidemia BPH DVT ppx: Ivoryqubienvenido Patient is medically optimized for discharge Thank you for allowing us to participate in the care of this pleasant patient. Do not hesitate to contact us with questions. Someone can be reached from the [facility] hospitalist group all hours of the day at [phone] or via perfect serve. Objective - Vital Signs Vital signs: Vital Signs Temp 97.5 F L 11/18/24 08:00 Pulse 63 11/18/24 08:00 Resp 18 11/18/24 08:00 BP 159/80 11/18/24 08:00 Pulse Ox 95 11/18/24 08:00 FiO2 21 11/16/24 08:21 Intake & Output 11/17/24 11/18/24 11/18/24 18:59 06:59 18:59 Intake Total 450 Output Total 600 950 Balance -150 -950 Weight 65 kg Intake: Oral 450 Output: Urine 600 950 Other: Voiding Method Indwelling Catheter # Voids 1 # Bowel Movements 1 - Labs CBC & Chem 7: 11/15/24 06:04 11/17/24 07:08
--- NOTE | 2024-11-18 14:27 | P.PN ---
Subjective Progress Note Date: 11/18/24 Patient is an 84-year-old male with past medical history significant for hypertension, paroxysmal atrial fibrillation, and chronic lumbar back pain. Patient currently confused and is a poor historian. Apparently, has been experiencing multiple falls while at home. Had a recent ER visit on 11/09/2024 for fall and left-sided chest pain. Chest x-ray at that time showed minimally displaced left-sided rib fractures of ribs 8 and 9. Ultimately, discharged home. Patient returns to the ED last night after reportedly tripping over a blanket. Again, landing on his left side. No obvious head trauma. No documented anticoagulants. CT of the chest/abdomen/pelvis remarkable for acute fractures of left anterior 4th through 7th ribs, as well as, acute fracture left posterior ninth and 10th ribs. Buckle of the sternal cortex which is age- indeterminate. Scattered atelectatic changes including bilateral bases and lingula. No pneumothoraces or pleural effusions. CBC unremarkable, no leukocytosis, hemoglobin 14.8, platelets 162. CMP also unremarkable, electrolytes WDL, creatinine 1.09, glucose 105. LFTs not elevated. On my evaluation, patient is lethargic, will wake up, oriented to self only. Moves all 4 extremities. Currently on 3 L/min nasal cannula. SpO2 reading 93%. I did order an ABG, and likely not the cause of the patient's confusion. Findings including PaO2 of 70, pCO2 of 49, pH of 7.36. Has been received a total of 2 mg IV Dilaudid. Also, received a dose of Toradol. No significant grimacing or tenderness with clinical examination. No subcutaneous emphysema or crepitus. There is a lidocaine patch on the left lateral chest. Current vital signs, afebrile, heart rate 78 bpm, blood pressure 124/84 mmHg, nontachypneic, SpO2 93% on above-mentioned 3 L/min nasal cannula. On today's evaluation of 11/13/2024, the patient is somewhat delirious and confused. No agitation. No falls. No significant respiratory distress. No significant chest pain and the patient is currently on 1 L of oxygen by nasal cannula with pulse ox of 95%. Hemoglobin is stable at 13.1. BUN is 28 and a creatinine of 1.02. Sodium levels at 137. Remains on empiric antibiotic coverage with IV Rocephin. Remains on Lovenox for DVT prophylaxis. Rest of the medications remain unchanged. Pain is under better control. No other new complaints otherwise for now. He has a sitter at the bedside. He is using the incentive spirometer.Repeat chest x-ray was also obtained today and shows no s ignificant changes. Right-sided rib fractures are less well-appreciated on today's chest x-ray. On 11/14/2024, the patient is at times confused. Denies having any chest pain or shortness of breath. No cough. No sputum production. Sitter at the bedside. He has developed a gram-negative urine tract infection the patient remains on IV Rocephin. The white cell count is at 5.7, hemoglobin 13.9 and platelet count of 141. BUN is 28 with a creatinine 1.06 and a sodium level is at 140. He is cur rently on 1 L of O2 nasal cannula. No other significant events overnight. 11/15/2024, patient continues to have delirium and on and off confusion. No chest pain. No shortness of breath. Having urinary retention and the patient is giving a straight cath periodically. Sitter at the bedside as the patient is found to have sundowning. The white cell count 6.3, hemoglobin 13.1 and a platelet count is currently at 146. Electrolytes are all within normal limits. He is on 1 L O2 nasal cannula with a pulse ox of 95%. 11/16/2024, the patient is that he recently is having nighttime agitation. Re ceiving Haldol. Will start the patient on Seroquel 100 mg at bedtime. Otherwise, no respiratory difficulties. Medication remain unchanged. His pulse ox is 93% room air oxygen. Afebrile. Hemodynamically stable. Still being treated for gram-negative UTI with IV Rocephin. Neurology consultation has been also obtained. Will avoid benzodiazepine as recommended. Seroquel was added. On 11/17/2024, c showing some signs of improvement in his delirium. He was started on Seroquel yesterday. He has a Nuñez catheter for urinary retention. Overall respiratory status is unchanged. No significant chest wall pain. He is on oxygen at 1 L/min nasal cannula with a pulse ox of 94%. Electrolytes from today are all stable with a BUN of 19 and a creatinine of 0.93. LFTs are also within normal limits. Remains on anticoagulation. Remains on LR at rate of 75 cc an hour. Remains on IV Zosyn as the patient has been found to have Pseudomonas in the urine culture. The patient is seen today November 18, 2024 in follow-up on the regular medical floor. He is currently resting in bed. Awake and alert in no acute distress. He is maintaining good O2 saturation in the mid 90s on room air. He is af ebrile. Hemodynamically stable. Urine culture was positive for Pseudomonas. Zosyn. Anticoagulated with Eliquis. Remains on Seroquel, Effexor and also Haldol as needed. He has been more calm and cooperative today. No safety officer at the bedside. Objective - Vital Signs Vital signs: Vital Signs Temp 97.5 F L 11/18/24 08:00 Pulse 63 11/18/24 08:00 Resp 18 11/18/24 08:00 BP 159/80 11/18/24 08:00 Pulse Ox 95 11/18/24 08:00 FiO2 21 11/16/24 08:21 Intake & Output 11/17/24 11/18/24 11/18/24 18:59 06:59 18:59 Intake Total 450 Output Total 600 950 Balance -150 -950 Weight 65 kg Intake: Oral 450 Output: Urine 600 950 Other: Voiding Method Indwelling Catheter # Voids 1 # Bowel Movements 1 - Exam GENERAL EXAM: Alert, 84-year-old male patient, on room air, comfortable in no apparent distress. HEAD: Normocephalic. EYES: Normal reaction of pupils, equal size. NOSE: Clear with pink turbinates. THROAT: No erythema or exudates. NECK: No masses, no JVD. CHEST: No chest wall deformity. LUNGS: Equal air entry with no crackles, wheeze, rhonchi or dullness. CVS: S1 and S2 normal with no audible murmur, regular rhythm. ABDOMEN: No hepatosplenomegaly, normal bowel sounds, no guarding or rigidity. SPINE: No scoliosis or deformity SKIN: No rashes CENTRAL NERVOUS SYSTEM: No focal deficits, tone is normal in all 4 extremities. EXTREMITIES: There is no peripheral edema. No clubbing, no cyanosis. Peripher al pulses are intact. - Labs CBC & Chem 7: 11/15/24 06:04 11/17/24 07:08 Assessment and Plan Assessment: Mechanical fall, sustaining acute left-sided rib fractures involving the anterior 4th through 7th ribs as well as acute fracture of the left posterior ninth and 10th ribs. Block of the sternal cortex which is age-indeterminate. Scattered atelectatic changes including bilateral bases and lingula. No pneumot horaces or pleural effusions were noted. Repeat chest x-ray from 11/13/2024 shows that the rib fractures are less prominent compared to the CAT scan findings. No evidence of any hemothorax or pleural effusion. No evidence of any pulmonary contusion Chest wall pain, currently stable Acute hypoxemic respiratory failure, recovered and on room air Acute urinary tract infection secondary to Pseudomonas and the patient is currently on IV Zosyn Delirium, likely secondary urinary tract infection Hypertension Paroxysmal atrial fibrillation, currently on Eliquis History of valvular heart disease with moderate mitral regurgitation, mild aortic regurgitation, and severe tricuspid regurgitation Chronic lumbar back pain History of BPH Plan: The patient was seen and evaluated Labs and medications reviewed Currently stable and on room air Educated regarding the use of the incentive spirometer Plan is for [facility] possibly today I have personally seen and examined the patient, performed the documentation and the assessment and plan as written. Number of minutes spent on the visit: 10 Dictation was produced using [employer] dictation software. Please excuse any grammatical, word or spelling errors.
[2024-11-18] MEDS: QUEtiapine 25 MG TAB PO STA (22:27)
--- NOTE | 2024-11-19 11:49 | P.PN ---
Subjective Progress Note Date: 11/19/24 Subjective: Patient seen and examined at bedside. Was again delirious overnight. Pertinent positives and negatives as discussed above, a complete review of systems was performed and all other systems are negative. Vitals Signs Reviewed. General: Nontoxic, no distress, appears at stated age, sleeping Derm: Warm, dry Head: Atraumatic, normocephalic, symmetric Eyes: EOMI, no lid lag, anicteric sclera Mouth: No lip lesion, mucus membranes moist Cardiovascular: S1S2 reg, no murmur Lungs: CTA bilateral, no rhonchi, no rales, no accessory muscle use Abdominal: Soft, nontender to palpation, no guarding, no appreciable organomegaly Ext: No gross muscle atrophy, no edema, no contractures Neuro: No focal neuro deficits Psych: Unable to assess Data Reviewed Today: Pertinent Labs: No new labs Imaging: No new imaging Assessment and Plan: Active: Acute encephalopathy Hyperactive delirium Mechanical fall with multiple left-sided rib fractures Urinary tract infection unlikely Acute urinary retention, resolved -Pain control with oral Tylenol scheduled 1000 mg every 8 hours and ibuprofen 600 3 times daily as needed, narcotics discontinued by general surgery -Also on lidocaine patch 4% daily -on Flomax 0.4 daily, Nuñez catheter in place, voiding trial today -Continue senna twice daily -Neurology following, Seroquel increased to 25 twice daily -Melatonin 3 mg nightly -Urine cultures growing Pseudomonas fluorescens/putida, likely contaminant based on literature. Patient already received 5 days of IV antibiotics. Will discontinue at the time of discharge. -PT OT following -Try to maintain a sleep-wake cycle -On IV fluids at 75 cc an hour of lactated Ringer's -Psychiatry also consulted Resolved: Acute hypoxic respiratory failure Chronic: Chronic A-fib History of diastolic heart failure, not in exacerbation Hypertension Dyslipidemia BPH DVT ppx: Zachary Thank you for allowing us to participate in the care of this pleasant patient. Do not hesitate to contact us with questions. Someone can be reached from the [facility] hospitalist group all hours of the day at [phone] or via perfect serve. Objective - Vital Signs Vital signs: Vital Signs Temp 97.5 F L 11/19/24 07:05 Pulse 64 11/19/24 07:05 Resp 16 11/19/24 07:05 BP 155/89 11/19/24 07:05 Pulse Ox 92 L 11/19/24 07:05 FiO2 21 11/16/24 08:21 Intake & Output 11/18/24 11/19/24 11/19/24 18:59 06:59 18:59 Weight 65 kg Other: Voiding Method Toilet # Voids 3 1 - Labs CBC & Chem 7: 11/15/24 06:04 11/17/24 07:08
--- NOTE | 2024-11-19 12:25 | P.PN ---
Subjective Progress Note Date: 11/19/24 SURGICAL PROGRESS NOTE CHIEF COMPLAINT: Fall with rib fractures HISTORY OF PRESENT ILLNESS: Patient remains confused. He had more agitation and aggression yesterday in which a yue banegas was called. His discharge was held yesterday due to his agitation. He again has a bedside sitter. Medicine servi ce has consulted psychiatry. Patient reports his pain is controlled. Denies shortness of breath. Discussed case with medicine service. They felt urine culture showing likely a contaminant and no further antibiotics needed. And that this was unlikely UTI. PHYSICAL EXAM: VITAL SIGNS: Reviewed. GENERAL: Well-developed in no acute distress. ABDOMEN: Soft. Nondistended. Nontender. NEUROLOGIC: Alert and oriented x [address] ASSESSMENT: 1. Trip and fall with history of multiple falls over the last several days 2. Traumatic rib fractures on the left 4 through 7 and 9-10 due to trip and fall 3. Altered mental status changes likely due narcotic pain medications versus a metabolic encephalopathy 4. Delirium PLAN: -Agree with psychiatric eval -Awaiting clearance from consultants for discharge to [facility] -Continue to monitor -Increase activity level -Encourage patient to use incentive spirometer -Continue pain management. Continue Tylenol and Lidoderm patch -Continue Lovenox for DVT prophylaxis Physician Dialysis Nurse note has been reviewed by physician. Signing provider agrees with the documented findings, assessment, and plan of care. Objective - Vital Signs Vital signs: Vital Signs Temp 97.5 F L 11/19/24 07:05 Pulse 64 11/19/24 07:05 Resp 16 11/19/24 07:05 BP 155/89 11/19/24 07:05 Pulse Ox 92 L 11/19/24 07:05 FiO2 21 11/16/24 08:21 Intake & Output 11/18/24 11/19/24 11/19/24 18:59 06:59 18:59 Weight 65 kg Other: Voiding Method Toilet # Voids 3 1 - Labs CBC & Chem 7: 11/15/24 06:04 11/17/24 07:08
--- NOTE | 2024-11-19 12:35 | P.PN ---
Subjective Progress Note Date: 11/19/24 Patient is an 84-year-old male with past medical history significant for hypertension, paroxysmal atrial fibrillation, and chronic lumbar back pain. Patient currently confused and is a poor historian. Apparently, has been experiencing multiple falls while at home. Had a recent ER visit on 11/09/2024 for fall and left-sided chest pain. Chest x-ray at that time showed minimally displaced left-sided rib fractures of ribs 8 and 9. Ultimately, discharged home. Patient returns to the ED last night after reportedly tripping over a blanket. Again, landing on his left side. No obvious head trauma. No documented anticoagulants. CT of the chest/abdomen/pelvis remarkable for acute fractures of left anterior 4th through 7th ribs, as well as, acute fracture left posterior ninth and 10th ribs. Buckle of the sternal cortex which is age- indeterminate. Scattered atelectatic changes including bilateral bases and lingula. No pneumothoraces or pleural effusions. CBC unremarkable, no leukocytosis, hemoglobin 14.8, platelets 162. CMP also unremarkable, electrolytes WDL, creatinine 1.09, glucose 105. LFTs not elevated. On my evaluation, patient is lethargic, will wake up, oriented to self only. Moves all 4 extremities. Currently on 3 L/min nasal cannula. SpO2 reading 93%. I did order an ABG, and likely not the cause of the patient's confusion. Findings including PaO2 of 70, pCO2 of 49, pH of 7.36. Has been received a total of 2 mg IV Dilaudid. Also, received a dose of Toradol. No significant grimacing or tenderness with clinical examination. No subcutaneous emphysema or crepitus. There is a lidocaine patch on the left lateral chest. Current vital signs, afebrile, heart rate 78 bpm, blood pressure 124/84 mmHg, nontachypneic, SpO2 93% on above-mentioned 3 L/min nasal cannula. On today's evaluation of 11/13/2024, the patient is somewhat delirious and confused. No agitation. No falls. No significant respiratory distress. No significant chest pain and the patient is currently on 1 L of oxygen by nasal cannula with pulse ox of 95%. Hemoglobin is stable at 13.1. BUN is 28 and a creatinine of 1.02. Sodium levels at 137. Remains on empiric antibiotic coverage with IV Rocephin. Remains on Lovenox for DVT prophylaxis. Rest of the medications remain unchanged. Pain is under better control. No other new complaints otherwise for now. He has a sitter at the bedside. He is using the incentive spirometer.Repeat chest x-ray was also obtained today and shows no s ignificant changes. Right-sided rib fractures are less well-appreciated on today's chest x-ray. On 11/14/2024, the patient is at times confused. Denies having any chest pain or shortness of breath. No cough. No sputum production. Sitter at the bedside. He has developed a gram-negative urine tract infection the patient remains on IV Rocephin. The white cell count is at 5.7, hemoglobin 13.9 and platelet count of 141. BUN is 28 with a creatinine 1.06 and a sodium level is at 140. He is cur rently on 1 L of O2 nasal cannula. No other significant events overnight. 11/15/2024, patient continues to have delirium and on and off confusion. No chest pain. No shortness of breath. Having urinary retention and the patient is giving a straight cath periodically. Sitter at the bedside as the patient is found to have sundowning. The white cell count 6.3, hemoglobin 13.1 and a platelet count is currently at 146. Electrolytes are all within normal limits. He is on 1 L O2 nasal cannula with a pulse ox of 95%. 11/16/2024, the patient is that he recently is having nighttime agitation. Re ceiving Haldol. Will start the patient on Seroquel 100 mg at bedtime. Otherwise, no respiratory difficulties. Medication remain unchanged. His pulse ox is 93% room air oxygen. Afebrile. Hemodynamically stable. Still being treated for gram-negative UTI with IV Rocephin. Neurology consultation has been also obtained. Will avoid benzodiazepine as recommended. Seroquel was added. On 11/17/2024, c showing some signs of improvement in his delirium. He was started on Seroquel yesterday. He has a Nuñez catheter for urinary retention. Overall respiratory status is unchanged. No significant chest wall pain. He is on oxygen at 1 L/min nasal cannula with a pulse ox of 94%. Electrolytes from today are all stable with a BUN of 19 and a creatinine of 0.93. LFTs are also within normal limits. Remains on anticoagulation. Remains on LR at rate of 75 cc an hour. Remains on IV Zosyn as the patient has been found to have Pseudomonas in the urine culture. The patient is seen today November 18, 2024 in follow-up on the regular medical floor. He is currently resting in bed. Awake and alert in no acute distress. He is maintaining good O2 saturation in the mid 90s on room air. He is af ebrile. Hemodynamically stable. Urine culture was positive for Pseudomonas. Zosyn. Anticoagulated with Eliquis. Remains on Seroquel, Effexor and also Haldol as needed. He has been more calm and cooperative today. No manager food safety at the bedside. The patient is seen today November 19, 2024 in follow-up on the regular medical floor. He is maintaining good O2 saturations in the 90s on room air. He remains afebrile. Hemodynamically stable. He had been again been having issues of restlessness and confusion. A manager food safety remains at the bedside. He remains on Seroquel and Haldol as needed. He is anticoagulated with Eliquis. Urine culture was positive for Pseudomonas. Completed a course of Zosyn. Objective - Vital Signs Vital signs: Vital Signs Temp 97.5 F L 11/19/24 07:05 Pulse 64 11/19/24 07:05 Resp 16 11/19/24 07:05 BP 155/89 11/19/24 07:05 Pulse Ox 92 L 11/19/24 07:05 FiO2 21 11/16/24 08:21 Intake & Output 11/18/24 11/19/24 11/19/24 18:59 06:59 18:59 Weight 65 kg Other: Voiding Method Toilet # Voids 3 1 - Exam GENERAL EXAM: Alert, confused at times 84-year-old male, on room air, comfortable in no apparent distress. HEAD: Normocephalic. EYES: Normal reaction of pupils, equal size. NOSE: Clear with pink turbinates. THROAT: No erythema or exudates. NECK: No masses, no JVD. CHEST: No chest wall deformity. LUNGS: Equal air entry with no crackles, wheeze, rhonchi or dullness. CVS: S1 and S2 normal with no audible murmur, regular rhythm. ABDOMEN: No hepatosplenomegaly, normal bowel sounds, no guarding or rigidity. SPINE: No scoliosis or deformity SKIN: No rashes CENTRAL NERVOUS SYSTEM: No focal deficits, tone is normal in all 4 extremities. EXTREMITIES: There is no peripheral edema. No clubbing, no cyanosis. Peripheral pulses are intact. - Labs CBC & Chem 7: 11/15/24 06:04 11/17/24 07:08 Assessment and Plan Assessment: Mechanical fall, sustaining acute left-sided rib fractures involving the anterior 4th through 7th ribs as well as acute fracture of the left posterior ninth and 10th ribs. Scattered atelectatic changes including bilateral bases and lingula. No pneumothoraces or pleural effusions were noted. Repeat chest x-ray from 11/13/2024 shows that the rib fractures are less prominent compared to the CAT scan findings. No evidence of any hemothorax or pleural effusion. No evidence of any pulmonary contusion Chest wall pain, currently stable Acute hypoxemic respiratory failure secondary to above, recovered and on room air Acute urinary tract infection secondary to Pseudomonas and completed Zosyn Delirium, likely secondary urinary tract infection Hypertension Paroxysmal atrial fibrillation, currently on Eliquis History of valvular heart disease Chronic lumbar back pain History of BPH Plan: The patient was seen and evaluated Medications reviewed Currently stable and on room air Continues with episodes of confusion Initiated on Seroquel 25 mg twice daily Haldol as needed Awaiting ECF placement This patient was seen by the pulmonary nurse practitioner addressing pulmonary issues I have personally seen and examined the patient, performed the documentation and the assessment and plan as written. Number of minutes spent on the visit: 23 Dictation was produced using [employer] dictation software. Please excuse any grammatical, word or spelling errors.
--- NOTE | 2024-11-19 14:22 | P.CN ---
Psychiatric Consult - . Consult date: 11/19/24 Consult:: 11/19/24 13:34 IDENTIFYING DATA: This patient is a 84-year-old male , claims he is single he has no kids. REASON FOR REFERRAL: Psychiatry was consulted for confusion/combative HISTORY OF PRESENT ILLNESS: The patient presented to the hospital initially on 11/11 to the ER after a fall at home, patient apparently was set to go to [facility] however yesterday patient became confused refused to go, restless agitated swinging at staff. He is requiring a occupational health and safety manager at the bedside. Acquisition Analyst attempted to speak to patient today, he appeared to have poor concentration, was illogical at times and his responses, loose associations. It was a fairly poor historian. He was rambling at times and difficult to redirect. He had fairly poor insight poor judgment. He knew his correct age name however did not know today's date or location. He denies any depression and states that he feels "celebratory" and responded nonsensically further to other questions. He did claim that he is hearing voices however was not able to specify what they are saying denies any visual hallucinations. At this time patient denies any suicidal or homical ideations, intent or plan. Patients admits to using no recreational drugs PAST PSYCHIATRIC HISTORY: Patient has a a history of form of mental illness however patient cannot recall. Patient is currently on Seroquel and Effexor and also melatonin. Able to provide further psychiatric history Past Medical History: Atrial Fibrillation, Heart Failure, Hyperlipidemia, Hypertension, Renal Disease Additional Past Medical History / Comment(s): prostate problems kidneys History of Any Multi-Drug Resistant Organisms: None Reported Past Surgical History: Orthopedic Surgery Additional Past Surgical History / Comment(s): Bilateral knee replacement, cataract removal, cardioversion. TURP - 2019 Past Anesthesia/Blood Transfusion Reactions: No Reported Reaction Past Psychological History: Anxiety Smoking Status: Never smoker Past Alcohol Use History: Occasional Past Drug Use History: None Reported ALLERGIES: as per EMR. CHEMICAL DEPENDENCY HISTORY: as per HPI. FAMILY PSYCHIATRIC/SUBSTANCE USE HISTORY: Unable to provide SOCIAL HISTORY: Patient was unable to provide further social history MENTAL STATUS EXAM: General Appearance: Patient appears to be thin, fairly thin hair, restless at times, stated age is alert,, pleasant, difficult to redirect. Patient appears to have fair hygiene and grooming wearing hospital gown with poor eye contact. Behavior: Patient is restless at times moving around the bed, difficult to redirect, somewhat pleasant Speech: Patient's speech is fluent and nonpressured. Rambles Mood/Affect: Patient reports their mood is "ok", affect is congruent Suicidality/Homicidality: Patient denies having any suicidal or homicidal ideation intent or plan. Perceptions: Patient denies any visual hallucinations and states that he is hearing voices Though content/process: Patient is nonsensical at times, illogical, loose associations. Rambling. Memory and concentration: AOX1-2, poor attention span n. Cannot spell "WORLD" backwards Judgment and insight: Poor/impulsive IMPRESSIONS: Delirium, unknown etiology Mood disorder unspecified PLAN: -At this time patient DOES NOT meet criteria for inpatient psychiatric admission. -Patient DOES NOT have decision making capacity at this time and is unable to reason through and communicate/appreciate the risks, benefits and alternatives to treatment. -Delirium precautions recommended with patient including - avoiding use of narcotics and INTERNET DATABASE SPECIALIST sedatives, limit anticholinergic medications when possible, frequent re-orientation, minimize use of restraints, open window shades during the day and close them at night -Would recommend the following medication changes/additions: Start Zyprexa 2.5 mg twice daily for mood stabilization/psychosis, melatonin 3 mg nightly for sleep, Depakote 250 mg liquid nightly for mood stabilization/aggression. Haldol 2.5 mg every 6 hours as needed IM and p.o. for severe agitation/psychosis. trazodone 25 mg qhs prn for sleep -Continue 1:1 sitter for safety -recreation worker to provide patient with outpatient mental health/psychiatry resources for appropriate follow up upon discharge -Communicated plan to patient's nurse -Will continue to follow along as needed. -Please contact with any questions. 11/19/24 14:16
[2024-11-19] MEDS: haloperidoL 5 MG TAB PO PRN (14:41)
[2024-11-19] MEDS: OLANZapine 2.5 MG TAB PO SCH (14:42)
[2024-11-19] MEDS: HALOPERIDOL LACTATE 5 MG/ML 1 ML VIAL IM PRN (16:19)
[2024-11-19] MEDS: VALPROIC ACID ORAL SOLN 250 MG/5 ML CUP PO SCH (20:04)
[2024-11-19] MEDS: traZODone HCL 50 MG TAB PO PRN (20:04)
[2024-11-19] MEDS: IBUPROFEN 600 MG TAB PO PRN (23:23)
--- NOTE | 2024-11-20 11:43 | P.PN ---
Subjective Progress Note Date: 11/20/24 SURGICAL PROGRESS NOTE CHIEF COMPLAINT: Fall with rib fractures HISTORY OF PRESENT ILLNESS: Patient remains confused. He has a bedside sitter. He was seen by psychiatry they have adjusted medications. Denies any pain. Afebrile. On room air PHYSICAL EXAM: VITAL SIGNS: Reviewed. GENERAL: Well-developed in no acute distress. ABDOMEN: Soft. Nondistended. Nontender. NEUROLOGIC: Confused ASSESSMENT: 1. Trip and fall with history of multiple falls over the last several days 2. Traumatic rib fractures on the left 4 through 7 and 9-10 due to trip and fall 3. Delirium PLAN: -Will transfer patient to medicine service for admitting and trauma service will remain on consult -Continue pain management. Continue Tylenol and Lidoderm patch -Appreciate psychiatry recommendations for delirium -Continue Lovenox for DVT prophylaxis Physician Transportation Planner note has been reviewed by physician. Signing provider agrees with the documented findings, assessment, and plan of care. Objective - Vital Signs Vital signs: Vital Signs Temp 97.7 F 11/20/24 07:52 Pulse 82 11/20/24 07:52 Resp 18 11/20/24 07:52 BP 105/58 11/20/24 07:52 Pulse Ox 95 11/20/24 07:52 FiO2 21 11/16/24 08:21 Intake & Output 11/19/24 11/20/24 11/20/24 18:59 06:59 18:59 Other: Voiding Method Toilet # Voids 3 3 # Bowel Movements 1 - Labs CBC & Chem 7: 11/15/24 06:04 11/17/24 07:08
--- NOTE | 2024-11-20 13:23 | P.PN ---
Subjective Progress Note Date: 11/20/24 Subjective: Patient seen and examined at bedside. Continues to remain delirious. Also having hallucinations in the room. Pertinent positives and negatives as discussed above, a complete review of systems was performed and all other systems are negative. Vitals Signs Reviewed. General: Nontoxic, no distress, appears at stated age Derm: Warm, dry Head: Atraumatic, normocephalic, symmetric Eyes: EOMI, no lid lag, anicteric sclera Mouth: No lip lesion, mucus membranes moist Cardiovascular: S1S2 reg, no murmur Lungs: CTA bilateral, no rhonchi, no rales, no accessory muscle use Abdominal: Soft, nontender to palpation, no guarding, no appreciable organomegaly Ext: No gross muscle atrophy, no edema, no contractures Neuro: No focal neuro deficits Psych: Having visual hallucinations, flight of thought Data Reviewed Today: Pertinent Labs: No new labs Imaging: No new imaging Assessment and Plan: Active: Acute encephalopathy Hyperactive delirium Mechanical fall with multiple left-sided rib fractures Urinary tract infection unlikely Acute urinary retention, resolved -Pain control with oral Tylenol scheduled 1000 mg every 8 hours and ibuprofen 600 3 times daily as needed, avoid narcotics, Also on lidocaine patch 4% daily -on Flomax 0.4 daily -Continue senna twice daily -Neurology following -Discussed with psychiatry, will likely need increase in his medications given persistent hyperactive delirium, currently on Zyprexa 2.5 twice daily, valproic acid 250 nightly, venlafaxine 225 daily, also on as needed IM Haldol, oral Haldol for agitation, as needed oral trazodone for insomnia -Melatonin 3 mg nightly -Urine cultures growing Pseudomonas fluorescens/putida, likely contaminant based on literature. Patient already received 5 days of IV antibiotics. Discontinued antibiotics -PT OT following -Try to maintain a sleep-wake cycle -On IV fluids at 75 cc an hour of lactated Ringer's Resolved: Acute hypoxic respiratory failure Chronic: Chronic A-fib History of diastolic heart failure, not in exacerbation Hypertension Dyslipidemia BPH DVT ppx: Eliquis Disposition: Likely subacute rehab when mentation improves Objective - Vital Signs Vital signs: Vital Signs Temp 97.7 F 11/20/24 07:52 Pulse 82 11/20/24 07:52 Resp 18 11/20/24 07:52 BP 105/58 11/20/24 07:52 Pulse Ox 95 11/20/24 07:52 FiO2 21 11/16/24 08:21 Intake & Output 11/19/24 11/20/24 11/20/24 18:59 06:59 18:59 Other: Voiding Method Toilet # Voids 3 3 # Bowel Movements 1 - Labs CBC & Chem 7: 11/15/24 06:04 11/17/24 07:08
--- NOTE | 2024-11-20 13:25 | P.PN ---
Subjective Progress Note Date: 11/20/24 Patient is an 84-year-old male with past medical history significant for hypertension, paroxysmal atrial fibrillation, and chronic lumbar back pain. Patient currently confused and is a poor historian. Apparently, has been experiencing multiple falls while at home. Had a recent ER visit on 11/09/2024 for fall and left-sided chest pain. Chest x-ray at that time showed minimally displaced left-sided rib fractures of ribs 8 and 9. Ultimately, discharged home. Patient returns to the ED last night after reportedly tripping over a blanket. Again, landing on his left side. No obvious head trauma. No documented anticoagulants. CT of the chest/abdomen/pelvis remarkable for acute fractures of left anterior 4th through 7th ribs, as well as, acute fracture left posterior ninth and 10th ribs. Buckle of the sternal cortex which is age- indeterminate. Scattered atelectatic changes including bilateral bases and lingula. No pneumothoraces or pleural effusions. CBC unremarkable, no leukocytosis, hemoglobin 14.8, platelets 162. CMP also unremarkable, electrolytes WDL, creatinine 1.09, glucose 105. LFTs not elevated. On my evaluation, patient is lethargic, will wake up, oriented to self only. Moves all 4 extremities. Currently on 3 L/min nasal cannula. SpO2 reading 93%. I did order an ABG, and likely not the cause of the patient's confusion. Findings including PaO2 of 70, pCO2 of 49, pH of 7.36. Has been received a total of 2 mg IV Dilaudid. Also, received a dose of Toradol. No significant grimacing or tenderness with clinical examination. No subcutaneous emphysema or crepitus. There is a lidocaine patch on the left lateral chest. Current vital signs, afebrile, heart rate 78 bpm, blood pressure 124/84 mmHg, nontachypneic, SpO2 93% on above-mentioned 3 L/min nasal cannula. On today's evaluation of 11/13/2024, the patient is somewhat delirious and confused. No agitation. No falls. No significant respiratory distress. No significant chest pain and the patient is currently on 1 L of oxygen by nasal cannula with pulse ox of 95%. Hemoglobin is stable at 13.1. BUN is 28 and a creatinine of 1.02. Sodium levels at 137. Remains on empiric antibiotic coverage with IV Rocephin. Remains on Lovenox for DVT prophylaxis. Rest of the medications remain unchanged. Pain is under better control. No other new complaints otherwise for now. He has a sitter at the bedside. He is using the incentive spirometer.Repeat chest x-ray was also obtained today and shows no s ignificant changes. Right-sided rib fractures are less well-appreciated on today's chest x-ray. On 11/14/2024, the patient is at times confused. Denies having any chest pain or shortness of breath. No cough. No sputum production. Sitter at the bedside. He has developed a gram-negative urine tract infection the patient remains on IV Rocephin. The white cell count is at 5.7, hemoglobin 13.9 and platelet count of 141. BUN is 28 with a creatinine 1.06 and a sodium level is at 140. He is cur rently on 1 L of O2 nasal cannula. No other significant events overnight. 11/15/2024, patient continues to have delirium and on and off confusion. No chest pain. No shortness of breath. Having urinary retention and the patient is giving a straight cath periodically. Sitter at the bedside as the patient is found to have sundowning. The white cell count 6.3, hemoglobin 13.1 and a platelet count is currently at 146. Electrolytes are all within normal limits. He is on 1 L O2 nasal cannula with a pulse ox of 95%. 11/16/2024, the patient is that he recently is having nighttime agitation. Re ceiving Haldol. Will start the patient on Seroquel 100 mg at bedtime. Otherwise, no respiratory difficulties. Medication remain unchanged. His pulse ox is 93% room air oxygen. Afebrile. Hemodynamically stable. Still being treated for gram-negative UTI with IV Rocephin. Neurology consultation has been also obtained. Will avoid benzodiazepine as recommended. Seroquel was added. On 11/17/2024, c showing some signs of improvement in his delirium. He was started on Seroquel yesterday. He has a Nuñez catheter for urinary retention. Overall respiratory status is unchanged. No significant chest wall pain. He is on oxygen at 1 L/min nasal cannula with a pulse ox of 94%. Electrolytes from today are all stable with a BUN of 19 and a creatinine of 0.93. LFTs are also within normal limits. Remains on anticoagulation. Remains on LR at rate of 75 cc an hour. Remains on IV Zosyn as the patient has been found to have Pseudomonas in the urine culture. The patient is seen today November 18, 2024 in follow-up on the regular medical floor. He is currently resting in bed. Awake and alert in no acute distress. He is maintaining good O2 saturation in the mid 90s on room air. He is af ebrile. Hemodynamically stable. Urine culture was positive for Pseudomonas. Zosyn. Anticoagulated with Eliquis. Remains on Seroquel, Effexor and also Haldol as needed. He has been more calm and cooperative today. No drug safety assistant at the bedside. The patient is seen today November 19, 2024 in follow-up on the regular medical floor. He is maintaining good O2 saturations in the 90s on room air. He remains afebrile. Hemodynamically stable. He had been again been having issues of restlessness and confusion. A drug safety assistant remains at the bedside. He remains on Seroquel and Haldol as needed. He is anticoagulated with Eliquis. Urine culture was positive for Pseudomonas. Completed a course of Zosyn. The patient is seen today November 20, 2024 in follow-up on the regular medical floor. Awake and alert in no acute distress. Still somewhat uncooperative and confused at times. He is sitting up in a chair at the bedside. violin maker hand remains in the room. Urine culture was positive for Pseudomonas. He completed antibiotics. He is on Eliquis for anticoagulation. He was seen and evaluated by psychiatry yesterday. Medications were adjusted. Objective - Vital Signs Vital signs: Vital Signs Temp 97.7 F 11/20/24 07:52 Pulse 82 11/20/24 07:52 Resp 18 11/20/24 07:52 BP 105/58 11/20/24 07:52 Pulse Ox 95 11/20/24 07:52 FiO2 21 11/16/24 08:21 Intake & Output 11/19/24 11/20/24 11/20/24 18:59 06:59 18:59 Other: Voiding Method Toilet # Voids 3 3 # Bowel Movements 1 - Exam GENERAL EXAM: Alert, confused at times, 84-year-old male, on room air, sitting up in a chair, comfortable in no apparent distress. HEAD: Normocephalic. EYES: Normal reaction of pupils, equal size. NOSE: Clear with pink turbinates. THROAT: No erythema or exudates. NECK: No masses, no JVD. CHEST: No chest wall deformity. LUNGS: Equal air entry with no crackles, wheeze, rhonchi or dullness. CVS: S1 and S2 normal with no audible murmur, regular rhythm. ABDOMEN: No hepatosplenomegaly, normal bowel sounds, no guarding or rigidity. SPINE: No scoliosis or deformity SKIN: No rashes CENTRAL NERVOUS SYSTEM: No focal deficits, tone is normal in all 4 extremities. EXTREMITIES: There is no peripheral edema. No clubbing, no cyanosis. Peripheral pulses are intact. - Labs CBC & Chem 7: 11/15/24 06:04 11/17/24 07:08 Assessment and Plan Assessment: Mechanical fall, sustaining acute left-sided rib fractures involving the anterior 4th through 7th ribs as well as acute fracture of the left posterior ninth and 10th ribs. Scattered atelectatic changes including bilateral bases and lingula. No pneumothoraces or pleural effusions were noted. Repeat chest x-ray from 11/13/2024 shows that the rib fractures are less prominent compared to the CAT scan findings. No evidence of any hemothorax or pleural effusion. No evidence of any pulmonary contusion Chest wall pain, currently stable Acute hypoxemic respiratory failure secondary to above, recovered and on room air Acute urinary tract infection secondary to Pseudomonas and completed Zosyn Delirium, likely secondary urinary tract infection Hypertension Paroxysmal atrial fibrillation, currently on Eliquis History of valvular heart disease Chronic lumbar back pain History of BPH Plan: The patient was seen and evaluated Medications reviewed Currently stable and on room air Continues with episodes of confusion Psychiatry consultation appreciated Medications have been adjusted violin maker hand remains at the bedside Case management working on placement This patient was seen by the pulmonary nurse practitioner addressing pulmonary issues I have personally seen and examined the patient, performed the documentation and the assessment and plan as written. Number of minutes spent on the visit: 24 Dictation was produced using Smartdate dictation software. Please excuse any grammatical, word or spelling errors.
[2024-11-20] MEDS: OLANZapine 10 MG VIAL IM STA (17:20)
[2024-11-21 08:34] LABS: Basophils # (A) 0.1 k/uL (0-0.2); Basophils % (A) 1 %; Eosinophils # (A) 0.3 k/uL (0-0.7); Eosinophils % (A) 4 %; HCT 42.8 % (39.0-53.0); HGB 13.7 gm/dL (13.0-17.5); Hypochromasia Slight; Lymphocytes # (A) 1.8 k/uL (1.0-4.8); Lymphocytes % (A) 22 %; MCHC 32.2 g/dL (31.0-37.0); MCV 102.5 fL (80.0-100.0); Macrocytosis Slight; Mean Platelet Volume 8.2; Monocytes # (A) 0.5 k/uL (0-1.0); Monocytes % (A) 6 %; Neutrophils # (A) 5.4 k/uL (1.3-7.7); Neutrophils % (A) 66 %; Platelet Count 207 k/uL (150-450); RBC 4.17 m/uL (4.30-5.90); RDW 12.9 % (11.5-15.5); WBC 8.2 k/uL (3.8-10.6)
[2024-11-21 08:51] LABS: ALT 30 U/L (4-49); AST 28 U/L (17-59); African American GFR (CKD) 69 (>60 ml/min/1.73 sqM); Albumin 3.8 g/dL (3.5-5.0); Albumin/Globulin Ratio 1.5; Alkaline Phosphatase 92 U/L (38-126); Anion Gap 7 mmol/L; Blood Urea Nitrogen 21 mg/dL (9-20); Calcium 9.1 mg/dL (8.4-10.2); Carbon Dioxide 29 mmol/L (22-30); Chloride 105 mmol/L (98-107); Globulin 2.5 g/dL; Glucose 127 mg/dL (74-99); Magnesium 2.1 mg/dL (1.6-2.3); Non-African American GFR(CKD) 60 (>60 ml/min/1.73 sqM); Potassium 4.1 mmol/L (3.5-5.1); Sodium 141 mmol/L (137-145); Total Bilirubin 1.1 mg/dL (0.2-1.3); Total Protein 6.3 g/dL (6.3-8.2)
--- NOTE | 2024-11-21 11:06 | P.PN ---
Subjective Progress Note Date: 11/21/24 SURGICAL PROGRESS NOTE CHIEF COMPLAINT: Fall with rib fractures HISTORY OF PRESENT ILLNESS: Patient remains confused. He is resting comfortably. He has a health and safety instructor at bedside. Afebrile. On room air 92%. WBC 8.2 Hgb 13.7 PHYSICAL EXAM: VITAL SIGNS: Reviewed. GENERAL: Well-developed in no acute distress. ABDOMEN: Soft. Nondistended. Nontender. NEUROLOGIC: Confused ASSESSMENT: 1. Trip and fall with history of multiple falls over the last several days 2. Traumatic rib fractures on the left 4 through 7 and 9-10 due to trip and fall 3. Delirium PLAN: -Continue supportive care -Continue health and safety instructor -Continue pain management. Continue Tylenol and Lidoderm patch -Continue psychiatric management of patient's delirium Physician Rod Placer note has been reviewed by physician. Signing provider agrees with the documented findings, assessment, and plan of care. Objective - Vital Signs Vital signs: Vital Signs Temp 97.7 F 11/21/24 06:54 Pulse 71 11/21/24 06:54 Resp 18 11/21/24 06:54 BP 114/65 11/21/24 06:54 Pulse Ox 92 L 11/21/24 08:41 FiO2 21 11/16/24 08:21 Intake & Output 11/20/24 11/21/24 11/21/24 18:59 06:59 18:59 Output Total 1840 Balance -1840 Output: Urine 920 Straight 920 Post Void Residual 920 Other: Voiding Method Toilet Diaper # Voids 2 0 - Labs CBC & Chem 7: 11/21/24 08:15 11/21/24 08:15 Labs: Abnormal Lab Results - Last 24 Hours (Table) 11/21/24 11/21/24 Range/Units 08:15 08:15 RBC 4.17 L (4.30-5.90) m/uL MCV 102.5 H (80.0-100.0) fL BUN 21 H (9-20) mg/dL Glucose 127 H (74-99) mg/dL
--- NOTE | 2024-11-21 11:42 | P.PN ---
Subjective Progress Note Date: 11/21/24 Patient is an 84-year-old male with past medical history significant for hypertension, paroxysmal atrial fibrillation, and chronic lumbar back pain. Patient currently confused and is a poor historian. Apparently, has been experiencing multiple falls while at home. Had a recent ER visit on 11/09/2024 for fall and left-sided chest pain. Chest x-ray at that time showed minimally displaced left-sided rib fractures of ribs 8 and 9. Ultimately, discharged home. Patient returns to the ED last night after reportedly tripping over a blanket. Again, landing on his left side. No obvious head trauma. No documented anticoagulants. CT of the chest/abdomen/pelvis remarkable for acute fractures of left anterior 4th through 7th ribs, as well as, acute fracture left posterior ninth and 10th ribs. Buckle of the sternal cortex which is age- indeterminate. Scattered atelectatic changes including bilateral bases and lingula. No pneumothoraces or pleural effusions. CBC unremarkable, no leukocytosis, hemoglobin 14.8, platelets 162. CMP also unremarkable, electrolytes WDL, creatinine 1.09, glucose 105. LFTs not elevated. On my evaluation, patient is lethargic, will wake up, oriented to self only. Moves all 4 extremities. Currently on 3 L/min nasal cannula. SpO2 reading 93%. I did order an ABG, and likely not the cause of the patient's confusion. Findings including PaO2 of 70, pCO2 of 49, pH of 7.36. Has been received a total of 2 mg IV Dilaudid. Also, received a dose of Toradol. No significant grimacing or tenderness with clinical examination. No subcutaneous emphysema or crepitus. There is a lidocaine patch on the left lateral chest. Current vital signs, afebrile, heart rate 78 bpm, blood pressure 124/84 mmHg, nontachypneic, SpO2 93% on above-mentioned 3 L/min nasal cannula. On today's evaluation of 11/13/2024, the patient is somewhat delirious and confused. No agitation. No falls. No significant respiratory distress. No significant chest pain and the patient is currently on 1 L of oxygen by nasal cannula with pulse ox of 95%. Hemoglobin is stable at 13.1. BUN is 28 and a creatinine of 1.02. Sodium levels at 137. Remains on empiric antibiotic coverage with IV Rocephin. Remains on Lovenox for DVT prophylaxis. Rest of the medications remain unchanged. Pain is under better control. No other new complaints otherwise for now. He has a sitter at the bedside. He is using the incentive spirometer.Repeat chest x-ray was also obtained today and shows no s ignificant changes. Right-sided rib fractures are less well-appreciated on today's chest x-ray. On 11/14/2024, the patient is at times confused. Denies having any chest pain or shortness of breath. No cough. No sputum production. Sitter at the bedside. He has developed a gram-negative urine tract infection the patient remains on IV Rocephin. The white cell count is at 5.7, hemoglobin 13.9 and platelet count of 141. BUN is 28 with a creatinine 1.06 and a sodium level is at 140. He is cur rently on 1 L of O2 nasal cannula. No other significant events overnight. 11/15/2024, patient continues to have delirium and on and off confusion. No chest pain. No shortness of breath. Having urinary retention and the patient is giving a straight cath periodically. Sitter at the bedside as the patient is found to have sundowning. The white cell count 6.3, hemoglobin 13.1 and a platelet count is currently at 146. Electrolytes are all within normal limits. He is on 1 L O2 nasal cannula with a pulse ox of 95%. 11/16/2024, the patient is that he recently is having nighttime agitation. Re ceiving Haldol. Will start the patient on Seroquel 100 mg at bedtime. Otherwise, no respiratory difficulties. Medication remain unchanged. His pulse ox is 93% room air oxygen. Afebrile. Hemodynamically stable. Still being treated for gram-negative UTI with IV Rocephin. Neurology consultation has been also obtained. Will avoid benzodiazepine as recommended. Seroquel was added. On 11/17/2024, c showing some signs of improvement in his delirium. He was started on Seroquel yesterday. He has a Nuñez catheter for urinary retention. Overall respiratory status is unchanged. No significant chest wall pain. He is on oxygen at 1 L/min nasal cannula with a pulse ox of 94%. Electrolytes from today are all stable with a BUN of 19 and a creatinine of 0.93. LFTs are also within normal limits. Remains on anticoagulation. Remains on LR at rate of 75 cc an hour. Remains on IV Zosyn as the patient has been found to have Pseudomonas in the urine culture. The patient is seen today November 18, 2024 in follow-up on the regular medical floor. He is currently resting in bed. Awake and alert in no acute distress. He is maintaining good O2 saturation in the mid 90s on room air. He is af ebrile. Hemodynamically stable. Urine culture was positive for Pseudomonas. Zosyn. Anticoagulated with Eliquis. Remains on Seroquel, Effexor and also Haldol as needed. He has been more calm and cooperative today. No safety representative at the bedside. The patient is seen today November 19, 2024 in follow-up on the regular medical floor. He is maintaining good O2 saturations in the 90s on room air. He remains afebrile. Hemodynamically stable. He had been again been having issues of restlessness and confusion. A safety representative remains at the bedside. He remains on Seroquel and Haldol as needed. He is anticoagulated with Eliquis. Urine culture was positive for Pseudomonas. Completed a course of Zosyn. The patient is seen today November 20, 2024 in follow-up on the regular medical floor. Awake and alert in no acute distress. Still somewhat uncooperative and confused at times. He is sitting up in a chair at the bedside. bird sitter remains in the room. Urine culture was positive for Pseudomonas. He completed antibiotics. He is on Eliquis for anticoagulation. He was seen and evaluated by psychiatry yesterday. Medications were adjusted. The patient is seen today November 21, 2024 in follow-up on the regular medical floor. He is currently resting comfortably in the bed. He is awake and alert in no acute distress. He has been more calm and cooperative. He is maintaining good O2 saturations in the 90s on room air. He has been afebrile. Hemodynamically stable. White count 8.2. Hemoglobin 13.7. Platelets 207. Sodium 141. Potassium 4.1. Bicarb 29. BUN 21. Creatinine 1.13. Glucose 127. He remains on Haldol as needed. Initiated on Zyprexa. Anticoagulated with Eliquis. Objective - Vital Signs Vital signs: Vital Signs Temp 97.7 F 03/20/25 06:54 Pulse 71 11/21/24 06:54 Resp 18 11/21/24 06:54 BP 114/65 11/21/24 06:54 Pulse Ox 92 L 11/21/24 08:41 FiO2 21 11/16/24 08:21 Intake & Output 11/20/24 11/21/24 11/21/24 18:59 06:59 18:59 Output Total 1840 Balance -1840 Output: Urine 920 Straight 920 Post Void Residual 920 Other: Voiding Method Toilet Diaper # Voids 2 0 - Exam GENERAL EXAM: Alert, more cooperative today, 84-year-old male, on room air, resting in bed, in no apparent distress. HEAD: Normocephalic. EYES: Normal reaction of pupils, equal size. NOSE: Clear with pink turbinates. THROAT: No erythema or exudates. NECK: No masses, no JVD. CHEST: No chest wall deformity. LUNGS: Equal air entry with no crackles, wheeze, rhonchi or dullness. CVS: S1 and S2 normal with no audible murmur, regular rhythm. ABDOMEN: No hepatosplenomegaly, normal bowel sounds, no guarding or rigidity. SPINE: No scoliosis or deformity SKIN: No rashes CENTRAL NERVOUS SYSTEM: No focal deficits, tone is normal in all 4 extremities. EXTREMITIES: There is no peripheral edema. No clubbing, no cyanosis. Peripheral pulses are intact. - Labs CBC & Chem 7: 11/21/24 08:15 11/21/24 08:15 Labs: Abnormal Lab Results - Last 24 Hours (Table) 11/21/24 11/21/24 Range/Units 08:15 08:15 RBC 4.17 L (4.30-5.90) m/uL MCV 102.5 H (80.0-100.0) fL BUN 21 H (9-20) mg/dL Glucose 127 H (74-99) mg/dL Assessment and Plan Assessment: Mechanical fall, sustaining acute left-sided rib fractures involving the anterior 4th through 7th ribs as well as acute fracture of the left posterior ninth and 10th ribs. Scattered atelectatic changes including bilateral bases and lingula. No pneumothoraces or pleural effusions were noted. Repeat chest x-ray from 11/13/2024 shows that the rib fractures are less prominent compared to the CAT scan findings. No evidence of any hemothorax or pleural effusion. No evidence of any pulmonary contusion Chest wall pain, currently stable Acute hypoxemic respiratory failure secondary to above, recovered and on room ai r Acute urinary tract infection secondary to Pseudomonas and completed Zosyn Delirium, likely secondary urinary tract infection Hypertension Paroxysmal atrial fibrillation, currently on Eliquis History of valvular heart disease Chronic lumbar back pain History of BPH Plan: The patient was seen and evaluated Medications and labs reviewed Currently stable and on room air More calm and cooperative today Receiving Haldol as needed Initiated on Zyprexa bird sitter at the bedside Plan is for possible subacute rehab versus home with home care This patient was seen by the pulmonary nurse practitioner addressing pulmonary issues I have personally seen and examined the patient, performed the documentation and the assessment and plan as written. Number of minutes spent on the visit: 23 Dictation was produced using [employer] dictation software. Please excuse any grammatical, word or spelling errors.
--- NOTE | 2024-11-21 12:45 | P.PN ---
Subjective Progress Note Date: 11/21/24 Subjective: Patient seen and examined at bedside. Less delirious compared to yesterday. Did have urinary retention overnight as well as this morning and was straight cathed twice. Sitter at bedside Pertinent positives and negatives as discussed above, a complete review of systems was performed and all other systems are negative. Vitals Signs Reviewed. General: Nontoxic, no distress, appears at stated age Derm: Warm, dry Head: Atraumatic, normocephalic, symmetric Eyes: EOMI, no lid lag, anicteric sclera Mouth: No lip lesion, mucus membranes moist Cardiovascular: S1S2 reg, no murmur Lungs: CTA bilateral, no rhonchi, no rales, no accessory muscle use Abdominal: Soft, nontender to palpation, no guarding, no appreciable organomegaly Ext: No gross muscle atrophy, no edema, no contractures Neuro: No focal neuro deficits Psych: Alert and oriented x 2 Data Reviewed Today: Pertinent Labs: WBC 8.2, hemoglobin 13.7, potassium 4.1, creatinine 1.13, magnesium 2.1 Imaging: No new imaging Assessment and Plan: Active: Acute encephalopathy Hyperactive delirium Mechanical fall with multiple left-sided rib fractures Urinary tract infection unlikely Acute urinary retention -Pain control with oral Tylenol scheduled 1000 mg every 8 hours and ibuprofen 600 3 times daily as needed, avoid narcotics, Also on lidocaine patch 4% daily -on Flomax 0.4 daily, with straight cath twice, will assess if patient needs Nuñez catheter -Continue senna twice daily -Neurology following -Psychiatry following, currently on Zyprexa 2.5 twice daily, valproic acid 250 nightly, venlafaxine 225 daily, also on as needed IM Haldol, oral Haldol for agitation, as needed oral trazodone for insomnia -Melatonin 3 mg nightly -Urine cultures growing Pseudomonas fluorescens/putida, likely contaminant based on literature. Patient already received 5 days of IV antibiotics. Discontinued antibiotics -PT OT following -Try to maintain a sleep-wake cycle Resolved: Acute hypoxic respiratory failure Chronic: Chronic A-fib History of diastolic heart failure, not in exacerbation Hypertension Dyslipidemia BPH DVT ppx: Eliquis Disposition: Likely subacute rehab when mentation improves Objective - Vital Signs Vital signs: Vital Signs Temp 97.7 F 11/21/24 06:54 Pulse 71 11/21/24 06:54 Resp 18 11/21/24 06:54 BP 114/65 11/21/24 06:54 Pulse Ox 92 L 11/21/24 08:41 FiO2 21 11/16/24 08:21 Intake & Output 11/20/24 11/21/24 11/21/24 18:59 06:59 18:59 Output Total 1840 Balance -1840 Output: Urine 920 Straight 920 Post Void Residual 920 Other: Voiding Method Toilet Diaper # Voids 2 0 - Labs CBC & Chem 7: 11/21/24 08:15 11/21/24 08:15 Labs: Abnormal Lab Results - Last 24 Hours (Table) 11/21/24 11/21/24 Range/Units 08:15 08:15 RBC 4.17 L (4.30-5.90) m/uL MCV 102.5 H (80.0-100.0) fL BUN 21 H (9-20) mg/dL Glucose 127 H (74-99) mg/dL
[2024-11-21] MEDS ORDERED: traZODone HCL 50 MG TAB PO PRN (14:03)
--- NOTE | 2024-11-21 14:09 | P.PN ---
Progress Note - Text Progress Note Date: 11/21/24 Interval History: Patient was seen today for psychiatric evaluation. Patient's nurse states that patient was getting a little restless earlier, mildly agitated attempting to get out of bed, sitter states that patient stated that he wanted to "go to work" and try to get out of bed. Patient was eating his lunch when documentation writer talked to him. He was agreeable to speak, appears to be mildly more pleasant more directable during conversation. Less illogical today, continues to be fairly concrete. Continues to have fairly limited insight and judgment. Less impulsive, has not been swinging or agitated towards staff. Claims that he has been sleeping on and off at nighttime. Has been taking his medications not reporting any side effects. Admits a to have a good appetite. Denies any auditory or visual hallucinations denies any suicidal homicidal ideations intent or plan MENTAL STATUS EXAM: General Appearance: Patient appears to be thin, fairly thin hair, restless at times, stated age is alert,, pleasant, difficult to redirect. Patient appears to have fair hygiene and grooming wearing hospital gown with mildly improving eye contact. Behavior: Patient is less restless at times moving around the bed, somewhat pleasant Speech: Patient's speech is fluent and nonpressured. Rambles less today Mood/Affect: Patient reports their mood is "ok", affect is congruent Suicidality/Homicidality: Patient denies having any suicidal or homicidal ideation intent or plan. Perceptions: Patient denies any visual hallucinations and denies hearing any voices Though content/process: Patient is nonsensical at times, this is improving, more logical today. less Rambling. No paranoia Memory and concentration: AOX1-2, poor attention span Judgment and insight: Poor, improving mildly IMPRESSIONS: Delirium, unknown etiology Mood disorder unspecified PLAN: -At this time patient DOES NOT meet criteria for inpatient psychiatric admission. -Patient DOES NOT have decision making capacity at this time and is unable to reason through and communicate/appreciate the risks, benefits and alternatives to treatment. -Delirium precautions recommended with patient including - avoiding use of narcotics and EXTRACTION SUPERVISOR sedatives, limit anticholinergic medications when possible, frequent re-orientation, minimize use of restraints, open window shades during the day and close them at night -Would recommend the following medication changes/additions: Zyprexa 2.5 mg twice daily for mood stabilization/psychosis, increase melatonin 6 mg nightly for sleep, change Depakote to sprinkles 250 mg BID for mood stabilization/aggression. Haldol 2.5 mg every 6 hours as needed IM and p.o. for severe agitation/psychosis. increase trazodone 50 mg qhs prn for sleep -Continue 1:1 sitter for safety -private household worker to provide patient with outpatient mental health/psychiatry resources for appropriate follow up upon discharge -Communicated plan to patient's nurse -Will continue to follow along as needed. private household worker looking for placement at this time. -Please contact with any questions.
[2024-11-21] MEDS: DIVALPROEX SPRINKLE 125 MG CAP.SPRINK PO SCH (17:00)
[2024-11-21] MEDS ORDERED: DIVALPROEX SPRINKLE 125 MG CAP.SPRINK PO SCH (21:00)
[2024-11-21] MEDS: MELATONIN 3 MG TABLET PO SCH (21:56)
--- NOTE | 2024-11-22 12:52 | P.PN ---
Subjective Progress Note Date: 11/22/24 SURGICAL PROGRESS NOTE CHIEF COMPLAINT: Fall with rib fractures HISTORY OF PRESENT ILLNESS: Patient seen this morning. He was sleeping in bed comfortably. He has bedside sitter. Afebrile. WBC 8.2 PHYSICAL EXAM: VITAL SIGNS: Reviewed. GENERAL: Well-developed in no acute distress. ABDOMEN: Soft. Nondistended. Nontender. NEUROLOGIC: Confused ASSESSMENT: 1. Trip and fall with history of multiple falls over the last several days 2. Traumatic rib fractures on the left 4 through 7 and 9-10 due to trip and fall 3. Delirium PLAN: -Continue supportive care -Continue safety consultant -Continue pain management. Continue Tylenol and Lidoderm patch -Continue psychiatric management of patient's delirium Physician Supervisor Quality Control note has been reviewed by physician. Signing provider agrees with the documented findings, assessment, and plan of care. Objective - Vital Signs Vital signs: Vital Signs Temp 97.5 F L 11/22/24 08:00 Pulse 50 L 11/22/24 08:00 Resp 18 11/22/24 08:00 BP 128/73 11/22/24 08:00 Pulse Ox 96 11/22/24 08:00 FiO2 21 11/16/24 08:21 Intake & Output 11/21/24 11/22/24 11/22/24 18:59 06:59 18:59 Intake Total 200 Output Total 1300 250 Balance -1300 -50 Weight 65 kg Intake: Oral 200 Output: Urine 1300 250 Straight 600 Other: Voiding Method Diaper Indwelling Catheter Indwelling Catheter Incontinent - Labs CBC & Chem 7: 11/21/24 08:15 11/21/24 08:15
--- NOTE | 2024-11-22 13:21 | P.PN ---
Subjective Progress Note Date: 11/22/24 Patient is an 84-year-old male with past medical history significant for hypertension, paroxysmal atrial fibrillation, and chronic lumbar back pain. Patient currently confused and is a poor historian. Apparently, has been experiencing multiple falls while at home. Had a recent ER visit on 11/09/2024 for fall and left-sided chest pain. Chest x-ray at that time showed minimally displaced left-sided rib fractures of ribs 8 and 9. Ultimately, discharged home. Patient returns to the ED last night after reportedly tripping over a blanket. Again, landing on his left side. No obvious head trauma. No documented anticoagulants. CT of the chest/abdomen/pelvis remarkable for acute fractures of left anterior 4th through 7th ribs, as well as, acute fracture left posterior ninth and 10th ribs. Buckle of the sternal cortex which is age- indeterminate. Scattered atelectatic changes including bilateral bases and lingula. No pneumothoraces or pleural effusions. CBC unremarkable, no leukocytosis, hemoglobin 14.8, platelets 162. CMP also unremarkable, electrolytes WDL, creatinine 1.09, glucose 105. LFTs not elevated. On my evaluation, patient is lethargic, will wake up, oriented to self only. Moves all 4 extremities. Currently on 3 L/min nasal cannula. SpO2 reading 93%. I did order an ABG, and likely not the cause of the patient's confusion. Findings including PaO2 of 70, pCO2 of 49, pH of 7.36. Has been received a total of 2 mg IV Dilaudid. Also, received a dose of Toradol. No significant grimacing or tenderness with clinical examination. No subcutaneous emphysema or crepitus. There is a lidocaine patch on the left lateral chest. Current vital signs, afebrile, heart rate 78 bpm, blood pressure 124/84 mmHg, nontachypneic, SpO2 93% on above-mentioned 3 L/min nasal cannula. On today's evaluation of 11/13/2024, the patient is somewhat delirious and confused. No agitation. No falls. No significant respiratory distress. No significant chest pain and the patient is currently on 1 L of oxygen by nasal cannula with pulse ox of 95%. Hemoglobin is stable at 13.1. BUN is 28 and a creatinine of 1.02. Sodium levels at 137. Remains on empiric antibiotic coverage with IV Rocephin. Remains on Lovenox for DVT prophylaxis. Rest of the medications remain unchanged. Pain is under better control. No other new complaints otherwise for now. He has a sitter at the bedside. He is using the incentive spirometer.Repeat chest x-ray was also obtained today and shows no s ignificant changes. Right-sided rib fractures are less well-appreciated on today's chest x-ray. On 11/14/2024, the patient is at times confused. Denies having any chest pain or shortness of breath. No cough. No sputum production. Sitter at the bedside. He has developed a gram-negative urine tract infection the patient remains on IV Rocephin. The white cell count is at 5.7, hemoglobin 13.9 and platelet count of 141. BUN is 28 with a creatinine 1.06 and a sodium level is at 140. He is cur rently on 1 L of O2 nasal cannula. No other significant events overnight. 11/15/2024, patient continues to have delirium and on and off confusion. No chest pain. No shortness of breath. Having urinary retention and the patient is giving a straight cath periodically. Sitter at the bedside as the patient is found to have sundowning. The white cell count 6.3, hemoglobin 13.1 and a platelet count is currently at 146. Electrolytes are all within normal limits. He is on 1 L O2 nasal cannula with a pulse ox of 95%. 11/16/2024, the patient is that he recently is having nighttime agitation. Re ceiving Haldol. Will start the patient on Seroquel 100 mg at bedtime. Otherwise, no respiratory difficulties. Medication remain unchanged. His pulse ox is 93% room air oxygen. Afebrile. Hemodynamically stable. Still being treated for gram-negative UTI with IV Rocephin. Neurology consultation has been also obtained. Will avoid benzodiazepine as recommended. Seroquel was added. On 11/17/2024, c showing some signs of improvement in his delirium. He was started on Seroquel yesterday. He has a Nuñez catheter for urinary retention. Overall respiratory status is unchanged. No significant chest wall pain. He is on oxygen at 1 L/min nasal cannula with a pulse ox of 94%. Electrolytes from today are all stable with a BUN of 19 and a creatinine of 0.93. LFTs are also within normal limits. Remains on anticoagulation. Remains on LR at rate of 75 cc an hour. Remains on IV Zosyn as the patient has been found to have Pseudomonas in the urine culture. The patient is seen today November 18, 2024 in follow-up on the regular medical floor. He is currently resting in bed. Awake and alert in no acute distress. He is maintaining good O2 saturation in the mid 90s on room air. He is af ebrile. Hemodynamically stable. Urine culture was positive for Pseudomonas. Zosyn. Anticoagulated with Eliquis. Remains on Seroquel, Effexor and also Haldol as needed. He has been more calm and cooperative today. No safety instruction police officer at the bedside. The patient is seen today November 19, 2024 in follow-up on the regular medical floor. He is maintaining good O2 saturations in the 90s on room air. He remains afebrile. Hemodynamically stable. He had been again been having issues of restlessness and confusion. A safety instruction police officer remains at the bedside. He remains on Seroquel and Haldol as needed. He is anticoagulated with Eliquis. Urine culture was positive for Pseudomonas. Completed a course of Zosyn. The patient is seen today November 20, 2024 in follow-up on the regular medical floor. Awake and alert in no acute distress. Still somewhat uncooperative and confused at times. He is sitting up in a chair at the bedside. convalescent sitter remains in the room. Urine culture was positive for Pseudomonas. He completed antibiotics. He is on Eliquis for anticoagulation. He was seen and evaluated by psychiatry yesterday. Medications were adjusted. The patient is seen today November 21, 2024 in follow-up on the regular medical floor. He is currently resting comfortably in the bed. He is awake and alert in no acute distress. He has been more calm and cooperative. He is maintaining good O2 saturations in the 90s on room air. He has been afebrile. Hemodynamically stable. White count 8.2. Hemoglobin 13.7. Platelets 207. Sodium 141. Potassium 4.1. Bicarb 29. BUN 21. Creatinine 1.13. Glucose 127. He remains on Haldol as needed. Initiated on Zyprexa. Anticoagulated with Eliquis. The patient is seen today November 22, 2024 in follow-up on the regular medical floor. He is awake and alert in no acute distress. Continues to maintain good O2 saturations in the 90s on room air. He has been afebrile. Hemodynamically stable. He is resting comfortably in bed. He is calm and cooperative. He remains on bronchodilators as needed. Anticoagulated with Eliquis. Receiving Zyprexa twice daily. Haldol as needed. Being followed by psychiatry. No new labs today. Objective - Vital Signs Vital signs: Vital Signs Temp 97.5 F L 11/22/24 08:00 Pulse 50 L 11/22/24 08:00 Resp 18 11/22/24 08:00 BP 128/73 11/22/24 08:00 Pulse Ox 96 11/22/24 08:00 FiO2 21 11/16/24 08:21 Intake & Output 11/21/24 11/22/24 11/22/24 18:59 06:59 18:59 Intake Total 200 Output Total 1300 250 Balance -1300 -50 Weight 65 kg Intake: Oral 200 Output: Urine 1300 250 Straight 600 Other: Voiding Method Diaper Indwelling Catheter Indwelling Catheter Incontinent - Exam GENERAL EXAM: Alert, more cooperative, 84-year-old male, on room air, resting in bed, in no apparent distress. HEAD: Normocephalic. EYES: Normal reaction of pupils, equal size. NOSE: Clear with pink turbinates. THROAT: No erythema or exudates. NECK: No masses, no JVD. CHEST: No chest wall deformity. LUNGS: Equal air entry with no crackles, wheeze, rhonchi or dullness. CVS: S1 and S2 normal with no audible murmur, regular rhythm. ABDOMEN: No hepatosplenomegaly, normal bowel sounds, no guarding or rigidity. SPINE: No scoliosis or deformity SKIN: No rashes CENTRAL NERVOUS SYSTEM: No focal deficits, tone is normal in all 4 extremities. EXTREMITIES: There is no peripheral edema. No clubbing, no cyanosis. Peripheral pulses are intact. - Labs CBC & Chem 7: 11/21/24 08:15 11/21/24 08:15 Assessment and Plan Assessment: Mechanical fall, sustaining acute left-sided rib fractures involving the anterior 4th through 7th ribs as well as acute fracture of the left posterior ninth and 10th ribs. Scattered atelectatic changes including bilateral bases and lingula. No pneumothoraces or pleural effusions were noted. Repeat chest x-ray from 11/13/2024 shows that the rib fractures are less prominent compared to the CAT scan findings. No evidence of any hemothorax or pleural effusion. No evidence of any pulmonary contusion Chest wall pain, currently stable Acute hypoxemic respiratory failure secondary to above, recovered and on room air Acute urinary tract infection secondary to Pseudomonas and completed Zosyn Delirium, likely secondary urinary tract infection Hypertension Paroxysmal atrial fibrillation, currently on Eliquis History of valvular heart disease Chronic lumbar back pain History of BPH Plan: The patient was seen and evaluated Medications reviewed Currently stable and on room air More calm and cooperative Receiving Haldol as needed Initiated on Zyprexa per psychiatry convalescent sitter at the bedside Cleared for discharge Management working on placement This patient was seen by the pulmonary nurse practitioner addressing pulmonary issues I have personally seen and examined the patient, performed the documentation and the assessment and plan as written. Number of minutes spent on the visit: 24 Dictation was produced using [employer] dictation software. Please excuse any grammatical, word or spelling errors.
--- NOTE | 2024-11-22 17:07 | P.PN ---
Subjective Progress Note Date: 11/22/24 Patient was seen and examined. He reports well controlled pain in his left ribs. Nuñez catheter inserted overnight for urinary retention. Per case management, [facility] will not take patient unless 24H without sitter, daughter reports house will not be ready until next Monday. No new labs done today. General: non toxic, no distress, appears at stated age Derm: warm, dry Head: atraumatic, normocephalic, symmetric Mouth: no lip lesion, mucus membranes moist Cardiovascular: S1S2 reg, no murmur Lungs: Clear to auscultation bilaterally, no accessory muscle use Abd: Non tender to palpation Ext: no gross muscle atrophy, no edema, no contractures Neuro: no focal neuro deficits Psych: Alert and oriented. + Nuñez Based on my assessment of this patient, this patient meets a high complexity level of care. Acute encephalopathy secondary to Delirium: Window side bed. Avoid sedative medications. Frequent re-direction. Continue 1:1 sitter. Psychiatry recommends Zyprexa 2.5 mg PO BID, Melatonin 6 mg PO QHS, Depakote 250 mg PO BID, Trazodone 50 mg PO QHS PRN, Haldol PRN. Hopefully, the sitter can be discontinued on Monday in preparation for discharge to SNF versus home on Monday. Acute urinary retention due to BPH: Status post Nuñez. Increase Flomax to 0.4 mg PO BID. Voiding trial on Monday. Mechanical fall with multiple left-sided rib fractures: Pain control with Tylenol 1g PO TID, Ibuprofen 600 mg PO TID PRN, Lidocaine patch QD. Acute hypoxic respiratory failure secondary to rib fractures: Incentive spirometer. Pulmonary has cleared the patient for discharge. Urinary tract infection: UCx Pseudomonas fluorescens/putida, likely contaminant based on literature. Patient already received 5 days of IV antibiotics. Discontinued antibiotics. Chronic A-fib: Metoprolol 25 mg PO BID. Eliquis 5 mg PO BID. HFpEF: Not in acute exacerbation Hypertension: Metoprolol as above. Amlodipine 5 mg PO QD. CODE STATUS: FULL CODE. DVT Prophylaxis: Eliquis. GI Prophylaxis: Designated medical POA if patient is not able to make medical decisions for themselves: I have reviewed the following furniture sales consultant notes: Pulm, Surgery note. I have reviewed the results of the following tests: I have ordered the following tests: I have discussed the care of this patient with the following independent histori an: Case management. Tanvi. I have independently interpreted the following test below: I have discussed the management of this patient with the following physician: Objective - Vital Signs Vital signs: Vital Signs Temp 98.4 F 11/22/24 14:00 Pulse 48 L 11/22/24 14:00 Resp 18 11/22/24 14:00 BP 115/65 11/22/24 14:00 Pulse Ox 91 L 11/22/24 14:00 FiO2 21 11/16/24 08:21 Intake & Output 11/21/24 11/22/24 11/22/24 18:59 06:59 18:59 Intake Total 200 Output Total 1300 250 Balance -1300 -50 Weight 65 kg Intake: Oral 200 Output: Urine 1300 250 Straight 600 Other: Voiding Method Diaper Indwelling Catheter Indwelling Catheter Incontinent - Labs CBC & Chem 7: 11/21/24 08:15 11/21/24 08:15
[2024-11-22] MEDS: TAMSULOSIN 0.4 MG CAP.ER.24H PO SCH (20:36)
--- NOTE | 2024-11-23 12:15 | P.PN ---
Subjective Progress Note Date: 11/23/24 Ongoing agitation issues despite meds and sitter. Discussed with nursing the benefit of removing unnecessary lines such as chao catheter and observe for improvement thereafter. Gen: In NAD, non-toxic HEENT: normocephalic, atraumatic, hearing acuity is intant, mucous membranes moist CVS: perfusing all extremities well, no pitting edema, Respiratory: symmetric chest expansion, no accessory muscle use, GI: soft, NTTP, ND, : no suprapubic tenderness, no CVA tenderness MSK/Derm: no rashes, cyanosis Neuro: CN II-XII intact, no motor weakness, Hospital course: 84-year-old man with a history of BPH, permanent atrial fibrillation, hypertension, heart failure with preserved ejection fraction presented after mechanical fall resulted in multiple left-sided rib fractures. Hospital course has been complicated by encephalopathy secondary to delirium superimposed on underlying dementia. Patient was seen by psychiatry who recommended the addition of Zyprexa, Depakote, trazodone, Haldol as needed. Patient has had urinary retention secondary to BPH and had Chao catheter placed which was r emoved on 11/23. Assessment/plan: Acute encephalopathy secondary to Delirium: Window side bed. Avoid sedative medications. Frequent re-direction. Continue 1:1 sitter. Psychiatry recommends Zyprexa 2.5 mg PO BID, Melatonin 6 mg PO QHS, Depakote 250 mg PO BID, Trazodone 50 mg PO QHS PRN, Haldol PRN. Hopefully, the sitter can be discontinued on Monday in preparation for discharge to SNF versus home on Monday. Acute urinary retention due to BPH: Status post Chao, with plans to remove the Chao today on 11/23; and replace with every 6 hours as needed straight catheterization in order to avoid excessive lines that can exacerbate delirium. Flomax was increased to 0.4 mg PO BID. Mechanical fall with multiple left-sided rib fractures: Pain control with Tylenol 1g PO TID, Ibuprofen 600 mg PO TID PRN, Lidocaine patch QD. Encourage incentive spirometer. Acute hypoxic respiratory failure secondary to rib fractures: Incentive spirometer. Pulmonary has cleared the patient for discharge. Urinary tract infection: UCx Pseudomonas fluorescens/putida, likely contaminant based on literature. Patient already received 5 days of IV antibiotics. Discontinued antibiotics. Chronic A-fib: Metoprolol 25 mg PO BID. Eliquis 5 mg PO BID. HFpEF: Not in acute exacerbation Hypertension: Metoprolol as above. Amlodipine 5 mg PO QD. CODE STATUS: DNR/DNI DVT Prophylaxis: Eliquis. Objective - Vital Signs Vital signs: Vital Signs Temp 98.2 F 11/23/24 07:15 Pulse 59 L 11/23/24 07:15 Resp 18 11/23/24 07:15 BP 137/73 11/23/24 07:15 Pulse Ox 94 L 11/23/24 07:15 FiO2 21 11/16/24 08:21 Intake & Output 11/22/24 11/23/24 11/23/24 18:59 06:59 18:59 Output Total 400 Balance -400 Output: Urine 400 Other: Voiding Method Indwelling Catheter Indwelling Catheter Indwelling Catheter # Voids 250 - Labs CBC & Chem 7: 11/21/24 08:15 11/21/24 08:15
--- NOTE | 2024-11-23 19:18 | P.PN ---
Progress Note - Text Progress Note Date: 11/23/24 Interval History: Patient was seen today for psychiatric evaluation. Per nursing staff, patient refused his oral Zyprexa and Depakote last night. He had difficulty sleeping overnight and requested Haldol as needed which he excepted orally. Patient was A&Ox1 to self. He was able to recoginze being in a hospital but did not know the name. Believed it to be "5" when I asked the month. Per staff, he napped during the day after having not slept overnight. This provider situated the patient to a seated position with the window open. Continues to have illogical tangential speech. Continues to have fairly limited insight and judgment. Less impulsive, has not been swinging or agitated towards staff. Claims that he has dreams that feel real. Denies any side effects. Admits to have a good appetite. Denies any auditory or visual hallucinations. Denies any suicidal homicidal ideations intent or plan. MENTAL STATUS EXAM: General Appearance: Patient appears to be thin, fairly thin hair, restless at times, stated age is alert,, pleasant, difficult to redirect. Patient appears to have fair hygiene and grooming wearing hospital gown with poor eye contact Behavior: Calm, seated Speech: Patient's speech is fluent and nonpressured. Mood/Affect: Patient reports their mood is "ok", affect is congruent Suicidality/Homicidality: Patient denies having any suicidal or homicidal ideation intent or plan. Perceptions: Patient denies any visual hallucinations and denies hearing any voices Though content/process: Rambling and tangential. No paranoia Memory and concentration: AOX1, poor attention span Judgment and insight: Poor, improving mildly IMPRESSIONS: Delirium, unknown etiology Mood disorder unspecified PLAN: -At this time patient DOES NOT meet criteria for inpatient psychiatric admission. -Patient DOES NOT have decision making capacity at this time and is unable to reason through and communicate/appreciate the risks, benefits and alternatives to treatment. -Delirium precautions recommended with patient including - avoiding use of narcotics and ADMINISTRATIVE SUPPORT ASSOCIATE sedatives, limit anticholinergic medications when possible, frequent re-orientation, minimize use of restraints, open window shades during the day and close them at night -Would recommend the following medication changes/additions: Zyprexa 2.5 mg PO twice daily for mood stabilization/psychosis, melatonin 6 mg nightly for sleep, Depakote sprinkles 250 mg BID for mood stabilization/aggression. Haldol 2.5 mg every 6 hours as needed IM and p.o. for severe agitation/psychosis. Chance trazodone 50 to rusty at bedtime for sleep -Continue 1:1 sitter for safety -maintenance worker to provide patient with outpatient mental health/psychiatry resources for appropriate follow up upon discharge -Communicated plan to patient's nurse -Will continue to follow along as needed. maintenance worker looking for placement at this time. -Please contact with any questions.
[2024-11-23] MEDS: traZODone HCL 50 MG TAB PO SCH (22:06)
--- NOTE | 2024-11-24 14:34 | P.PN ---
Subjective Progress Note Date: 11/24/24 Pt imiproved agitation after removal of chao, still quite impulsive however. Discussed with family member at bedside, plan is to take patient home with 24/ supervision on monday. Gen: In NAD, non-toxic HEENT: normocephalic, atraumatic, hearing acuity is intant, mucous membranes moist CVS: perfusing all extremities well, no pitting edema, Respiratory: symmetric chest expansion, no accessory muscle use, GI: soft, NTTP, ND, : no suprapubic tenderness, no CVA tenderness MSK/Derm: no rashes, cyanosis Neuro: CN II-XII intact, no motor weakness, Hospital course: 84-year-old man with a history of BPH, permanent atrial fibrillation, hypertension, heart failure with preserved ejection fraction presented after mechanical fall resulted in multiple left-sided rib fractures. Hospital course has been complicated by encephalopathy secondary to delirium superimposed on underlying dementia. Patient was seen by psychiatry who recommended the addition of Zyprexa, Depakote, trazodone, Haldol as needed. Patient has had urinary retention secondary to BPH and had Chao catheter placed which was removed on 11/23. Assessment/plan: Acute encephalopathy secondary to Delirium: Window side bed. Avoid sedative medications. Frequent re-direction. Continue 1:1 sitter. Psychiatry recommends Zyprexa 2.5 mg PO BID, Melatonin 6 mg PO QHS, Depakote 250 mg PO BID, Trazodone 50 mg PO QHS PRN, Haldol PRN. Hopefully, the sitter can be discontinued on Monday in preparation for discharge to SNF versus home on Monday. Acute urinary retention due to BPH: Status post Chao, with plans to remove the Chao today on 11/23; and replace with every 6 hours as needed straight catheterization in order to avoid excessive lines that can exacerbate delirium. Flomax was increased to 0.4 mg PO BID. Mechanical fall with multiple left-sided rib fractures: Pain control with Tylenol 1g PO TID, Ibuprofen 600 mg PO TID PRN, Lidocaine patch QD. Encourage incentive spirometer. Acute hypoxic respiratory failure secondary to rib fractures: Incentive spirometer. Pulmonary has cleared the patient for discharge. Urinary tract infection: UCx Pseudomonas fluorescens/putida, likely contaminant based on literature. Patient already received 5 days of IV antibiotics. Discontinued antibiotics. Chronic A-fib: Metoprolol 25 mg PO BID. Eliquis 5 mg PO BID. HFpEF: Not in acute exacerbation Hypertension: Metoprolol as above. Amlodipine 5 mg PO QD. CODE STATUS: DNR/DNI DVT Prophylaxis: Eliquis. Objective - Vital Signs Vital signs: Vital Signs Temp 98.3 F 11/24/24 08:00 Pulse 64 11/24/24 08:00 Resp 20 11/24/24 08:00 BP 155/91 11/24/24 08:00 Pulse Ox 94 L 11/24/24 08:00 FiO2 21 11/16/24 08:21 Intake & Output 11/23/24 11/24/24 11/24/24 18:59 06:59 18:59 Intake Total 10 Output Total 500 Balance -500 10 Intake: IV 10 Invasive Line 2 10 Output: Urine 500 Other: Voiding Method Indwelling Catheter # Voids 1 # Bowel Movements 2 - Labs CBC & Chem 7: 11/21/24 08:15 11/21/24 08:15
--- NOTE | 2024-11-25 13:00 | P.PN ---
Subjective Progress Note Date: 11/25/24 SURGICAL PROGRESS NOTE CHIEF COMPLAINT: Fall with rib fractures HISTORY OF PRESENT ILLNESS: Patient walking around comfortably in the room. He still has a sitter. He is still confused. Denies any rib pain. Denies shortness of breath. Afebrile. WBC is 8.2 PHYSICAL EXAM: VITAL SIGNS: Reviewed. GENERAL: Well-developed in no acute distress. ABDOMEN: Soft. Nondistended. Nontender. NEUROLOGIC: Confused ASSESSMENT: 1. Trip and fall with history of multiple falls over the last several days 2. Traumatic rib fractures on the left 4 through 7 and 9-10 due to trip and fall 3. Delirium PLAN: -Continue supportive care -Continue health safety and environment manager -Continue pain management. Continue Tylenol and Lidoderm patch -Anticipating discharge home with home care tomorrow -Patient can be discharged from trauma service standpoint when medically stable Physician Section Housekeeper note has been reviewed by physician. Signing provider agrees with the documented findings, assessment, and plan of care. Objective - Vital Signs Vital signs: Vital Signs Temp 94.7 F L 11/25/24 07:20 Pulse 62 11/25/24 07:20 Resp 16 11/25/24 07:20 BP 150/70 11/25/24 07:20 Pulse Ox 95 11/25/24 07:20 FiO2 21 11/16/24 08:21 Intake & Output 11/24/24 11/25/24 11/25/24 18:59 06:59 18:59 Output Total 127 Balance -127 Output: Post Void Residual 127 Other: Voiding Method Toilet # Voids 2 2 - Labs CBC & Chem 7: 11/21/24 08:15 11/21/24 08:15
--- NOTE | 2024-11-25 14:02 | P.PN ---
Subjective Progress Note Date: 11/25/24 No new complaints today. Pending dispo tomorrow home with supervision. Gen: In NAD, non-toxic HEENT: normocephalic, atraumatic, hearing acuity is intant, mucous membranes moist CVS: perfusing all extremities well, no pitting edema, Respiratory: symmetric chest expansion, no accessory muscle use, GI: soft, NTTP, ND, : no suprapubic tenderness, no CVA tenderness MSK/Derm: no rashes, cyanosis Neuro: CN II-XII intact, no motor weakness, Hospital course: 84-year-old man with a history of BPH, permanent atrial fibrillation, hypertension, heart failure with preserved ejection fraction presented after mechanical fall resulted in multiple left-sided rib fractures. Hospital course has been complicated by encephalopathy secondary to delirium superimposed on underlying dementia. Patient was seen by psychiatry who recommended the addition of Zyprexa, Depakote, trazodone, Haldol as needed. Patient has had urinary retention secondary to BPH and had Nuñez catheter placed which was removed on 11/23. Assessment/plan: Acute encephalopathy secondary to Delirium: Window side bed. Avoid sedative medications. Frequent re-direction. Continue 1:1 sitter. Psychiatry recommends Zyprexa 2.5 mg PO BID, Melatonin 6 mg PO QHS, Depakote 250 mg PO BID, Trazodone 50 mg PO QHS PRN, Haldol PRN. Hopefully, the sitter can be discontinued on Monday in preparation for discharge to SNF versus home on Monday. Acute urinary retention due to BPH: Status post Nuñez, with plans to remove the Nuñez today on 11/23; and replace with every 6 hours as needed straight catheterization in order to avoid excessive lines that can exacerbate delirium. Flomax was increased to 0.4 mg PO BID. Mechanical fall with multiple left-sided rib fractures: Pain control with Tylenol 1g PO TID, Ibuprofen 600 mg PO TID PRN, Lidocaine patch QD. Encourage incentive spirometer. Acute hypoxic respiratory failure secondary to rib fractures: Incentive spirometer. Pulmonary has cleared the patient for discharge. Urinary tract infection: UCx Pseudomonas fluorescens/putida, likely contaminant based on literature. Patient already received 5 days of IV antibiotics. Discontinued antibiotics. Chronic A-fib: Metoprolol 25 mg PO BID. Eliquis 5 mg PO BID. HFpEF: Not in acute exacerbation Hypertension: Metoprolol as above. Amlodipine 5 mg PO QD. CODE STATUS: DNR/DNI DVT Prophylaxis: Eliquis. Objective - Vital Signs Vital signs: Vital Signs Temp 94.7 F L 11/25/24 07:20 Pulse 62 11/25/24 07:20 Resp 16 11/25/24 07:20 BP 150/70 11/25/24 07:20 Pulse Ox 95 11/25/24 07:20 FiO2 21 11/16/24 08:21 Intake & Output 11/24/24 11/25/24 11/25/24 18:59 06:59 18:59 Output Total 127 Balance -127 Weight 65 kg Output: Post Void Residual 127 Other: Voiding Method Toilet # Voids 2 2 - Labs CBC & Chem 7: 11/21/24 08:15 11/21/24 08:15
--- NOTE | 2024-11-25 15:12 | P.MHFACE ---
Face to Face Restrain/Seclus - Evaluation Patient's Immediate Situation: Endangers self safety, Endangers others' safety, Endangers staff safety Patient's Immediate Situation - Comment: Pt throwing himself around room, threatening staff, and endangering self and family member in room Patient's Reaction to the Intervention: Uncooperative, Anxious, Restless Patient's Medical & Behavioral Condition: Awake, Anxious, Agitated, Paranoid, Bizarre behavior Need to Continue or Terminate Restraint or Seclusion: Continue Face to Face Eval of Restraint Date: 11/25/24 Face to Face Eval of Restraint Time: 15:07
[2024-11-25] MEDS: LORazepam 1 MG/0.5 ML VIAL IV STA (15:16)
[2024-11-26] MEDS: clonazePAM 0.5 MG TAB PO PRN (08:17)
--- NOTE | 2024-11-26 11:10 | P.PN ---
Subjective Progress Note Date: 11/26/24 SURGICAL PROGRESS NOTE CHIEF COMPLAINT: Fall with rib fractures HISTORY OF PRESENT ILLNESS: Patient lying in bed comfortably. Still has a bedside sitter. Confused. No shortness of breath. No new complaints. Patient scheduled for discharge today with home care. PHYSICAL EXAM: VITAL SIGNS: Reviewed. GENERAL: Well-developed in no acute distress. ABDOMEN: Soft. Nondistended. Nontender. NEUROLOGIC: Confused ASSESSMENT: 1. Trip and fall with history of multiple falls over the last several days 2. Traumatic rib fractures on the left 4 through 7 and 9-10 due to trip and fall 3. Delirium PLAN: -Patient can be discharged from trauma service standpoint when medically stable Physician Heel Sprayer First note has been reviewed by physician. Signing provider agrees with the documented findings, assessment, and plan of care. Objective - Vital Signs Vital signs: Vital Signs Temp 97.8 F 11/26/24 06:52 Pulse 57 L 11/26/24 06:52 Resp 22 11/26/24 06:52 BP 125/71 11/26/24 06:52 Pulse Ox 96 11/26/24 06:52 FiO2 21 11/16/24 08:21 Intake & Output 11/25/24 11/26/24 11/26/24 18:59 06:59 18:59 Weight 65 kg Other: # Voids 3 5 - Labs CBC & Chem 7: 11/21/24 08:15 11/21/24 08:15
--- NOTE | 2024-11-26 12:53 | P.DS ---
Providers Date of admission: 11/11/24 23:45 Expected date of discharge: 11/26/24 Attending physician: Kobe Anderson Consults: 11/11/24 23:42 Consult Physician Routine Consulting Provider: [facility] Consult Reason/Comments: Pulmonary Contusion Do you want consulting provider notified?: Yes 11/12/24 15:13 Consult Physician Stat Consulting Provider: Tye Brar Consult Reason/Comments: Medical Management Do you want consulting provider notified?: Yes, Notify in am 11/16/24 11:19 Consult Physician Routine Consulting Provider: Tony Ch Consult Reason/Comments: encephalopathy Do you want consulting provider notified?: Yes 11/19/24 09:25 Consult Physician Routine Consulting Provider: Thaddeus Pedraza Consult Reason/Comments: confusion/combative Do you want consulting provider notified?: Yes [facility] Course: Acute encephalopathy secondary to Delirium: Acute urinary retention due to BPH: Mechanical fall with multiple left-sided rib fractures: Acute hypoxic respiratory failure secondary to rib fractures: Urinary tract infection: Chronic A-fib: HFpEF: Hypertension: Gen: In NAD, non-toxic HEENT: normocephalic, atraumatic, hearing acuity is intant, mucous membranes moist CVS: perfusing all extremities well, no pitting edema, Respiratory: symmetric chest expansion, no accessory muscle use, GI: soft, NTTP, ND, : no suprapubic tenderness, no CVA tenderness MSK/Derm: no rashes, cyanosis Neuro: CN II-XII intact, no motor weakness, Hospital course: 84-year-old man with a history of BPH, permanent atrial fibrillation, hypertension, heart failure with preserved ejection fraction presented after mechanical fall resulted in multiple left-sided rib fractures. Hospital course has been complicated by encephalopathy secondary to delirium superimposed on underlying dementia. Patient was seen by psychiatry who recommended the addition of Zyprexa, Depakote, trazodone, Haldol as needed. Patient has had urinary retention secondary to BPH and had Nuñez catheter placed which was removed on 11/23. Patient was ultimately able to be discharged home with 24/7 supervision from family and home care services. New prescriptions as recommended by our psychiatry service were prescribed as well as Klonopin wafers as needed for agitation issues while at home. I spent 38 minutes coordinating this discharge Patient Condition at Discharge: Good Plan - Discharge Summary Discharge Rx Participant: Yes New Discharge Prescriptions: New Tamsulosin [Flomax] 0.4 mg PO PC-BRKFST cap Folic Acid 1 mg PO DAILY tab Melatonin 3 mg PO HS tab Sennosides [Senokot] 8.6 mg PO BID tab Acetaminophen Tab [Tylenol Tab] 650 mg PO Q4H PRN #30 tablet PRN Reason: Pain clonazePAM [KlonoPIN ODT] 0.5 mg PO TID 3 Days #20 tab Divalproex Sprinkle [Depakote Sprinkle] 250 mg PO BID #60 cap haloperidoL [Haldol] 2.5 mg PO Q6H PRN #30 tab PRN Reason: Agitation OLANZapine [ZyPREXA] 2.5 mg PO BID #60 tab QUEtiapine [SEROquel] 25 mg PO HS tab traZODone HCL [Desyrel] 50 mg PO HS #30 tab Continue Metoprolol Tartrate [Lopressor] 25 mg PO BID Lidocaine 5% Patch [Lidoderm 5% Patch] 1 patch TOPICAL DAILY PRN PRN Reason: Pain Venlafaxine HCl ER [Effexor XR] 150 mg PO DAILY Apixaban [Eliquis] 5 mg PO BID amLODIPine [Norvasc] 5 mg PO DAILY Venlafaxine HCl ER [Effexor XR] 75 mg PO DAILY Discharge Medication List Metoprolol Tartrate [Lopressor] 25 mg PO BID 10/13/16 [History] Apixaban [Eliquis] 5 mg PO BID 11/12/24 [History] Lidocaine 5% Patch [Lidoderm 5% Patch] 1 patch TOPICAL DAILY PRN 11/12/24 [History] Venlafaxine HCl ER [Effexor XR] 75 mg PO DAILY 11/12/24 [History] Venlafaxine HCl ER [Effexor XR] 150 mg PO DAILY 11/12/24 [History] amLODIPine [Norvasc] 5 mg PO DAILY 11/12/24 [History] Acetaminophen Tab [Tylenol Tab] 650 mg PO Q4H PRN #30 tablet 11/18/24 [Rx] Folic Acid 1 mg PO DAILY tab 11/18/24 [Rx] Melatonin 3 mg PO HS tab 11/18/24 [Rx] QUEtiapine [SEROquel] 25 mg PO HS tab 03/17/25 [Rx] Sennosides [Senokot] 8.6 mg PO BID tab 11/18/24 [Rx] Tamsulosin [Flomax] 0.4 mg PO PC-BRKFST cap 11/18/24 [Rx] clonazePAM [KlonoPIN ODT] 0.5 mg PO TID 3 Days #20 tab 11/25/24 [Rx] Divalproex Sprinkle [Depakote Sprinkle] 250 mg PO BID #60 cap 11/26/24 [Rx] OLANZapine [ZyPREXA] 2.5 mg PO BID #60 tab 11/26/24 [Rx] haloperidoL [Haldol] 2.5 mg PO Q6H PRN #30 tab 11/26/24 [Rx] traZODone HCL [Desyrel] 50 mg PO HS #30 tab 11/26/24 [Rx] Follow up Appointment(s)/Referral(s): [facility], [NON-STAFF] - As Needed Blas Higginbotham DO [Primary Care Provider] - 1-2 days ([facility] please call for follow-up appointment.) Shahnaz Escobedo MD [STAFF PHYSICIAN] - 12/10/24 9:30 am Discharge Disposition: HOME WITH HOME HEALTH SERVICES
[2024-11-26 15:31] VITALS: BP 110/63; PULSE 45; RESP 18; TEMP 96.1
== END 2024-11-26 16:10 | disposition home health service (06) | DRG 183 ==
LOC: EC 20:30 → 3SCARD 23:45 → 4SSUR 11-14 23:24
PROVIDERS: ADMIT Student in an Organized Health Care Education/Training Program; ATTEND Student in an Organized Health Care Education/Training Program
DX: S22.42XA Multiple fractures of ribs, left side, initial encounter for closed fracture (principal); G92.8 Other toxic encephalopathy; J96.01 Acute respiratory failure with hypoxia; E87.3 Alkalosis; F03.918 Unspecified dementia, unspecified severity, with other behavioral disturbance; F03.92 Unspecified dementia, unspecified severity, with psychotic disturbance; B96.5 Pseudomonas (aeruginosa) (mallei) (pseudomallei) as the cause of diseases classified elsewhere; S27.321A Contusion of lung, unilateral, initial encounter; I13.0 Hypertensive heart and chronic kidney disease with heart failure and stage 1 through stage 4 chronic kidney disease, or unspecified chronic kidney disease; F05 Delirium due to known physiological condition; J45.909 Unspecified asthma, uncomplicated; I08.3 Combined rheumatic disorders of mitral, aortic and tricuspid valves; N18.9 Chronic kidney disease, unspecified; F03.93 Unspecified dementia, unspecified severity, with mood disturbance; F03.94 Unspecified dementia, unspecified severity, with anxiety; I42.9 Cardiomyopathy, unspecified; I48.21 Permanent atrial fibrillation; I50.32 Chronic diastolic (congestive) heart failure; S22.20XA Unspecified fracture of sternum, initial encounter for closed fracture; N39.0 Urinary tract infection, site not specified; Z16.24 Resistance to multiple antibiotics; Z66 Do not resuscitate; Z78.1 Physical restraint status; Y92.009 Unspecified place in unspecified non-institutional (private) residence as the place of occurrence of the external cause; W01.0XXA Fall on same level from slipping, tripping and stumbling without subsequent striking against object, initial encounter; N40.1 Benign prostatic hyperplasia with lower urinary tract symptoms; R45.1 Restlessness and agitation; R32 Unspecified urinary incontinence; B96.89 Other specified bacterial agents as the cause of diseases classified elsewhere; D75.89 Other specified diseases of blood and blood-forming organs; E78.5 Hyperlipidemia, unspecified; G89.29 Other chronic pain; T40.605A Adverse effect of unspecified narcotics, initial encounter; M43.16 Spondylolisthesis, lumbar region; M47.816 Spondylosis without myelopathy or radiculopathy, lumbar region; R29.6 Repeated falls; R33.8 Other retention of urine; Y93.01 Activity, walking, marching and hiking; Z91.81 History of falling; Z79.01 Long term (current) use of anticoagulants; Z79.899 Other long term (current) drug therapy; Z96.653 Presence of artificial knee joint, bilateral
CPT/HCPCS: 36600; 70450; 71045; 71250; 74150; 80048; 80053; 81001; 82140; 82803; 82805; 83605; 83735; 84443; 85025; 85027; 87077; 87086; 87186; 87636; 93005; 94760; 96365; 96366; 96372; 96375; 96376; 99285

== ENCOUNTER 2024-11-27 23:05 | Inpatient (IN) | payer OTHER, MEDICARE ==
[2024-11-27 23:41] LABS: Basophils % (A) 0 %; Eosinophils # (A) 0.3 k/uL (0-0.7); Eosinophils % (A) 3 %; HCT 39.8 % (39.0-53.0); HGB 12.7 gm/dL (13.0-17.5); Lymphocytes # (A) 1.3 k/uL (1.0-4.8); Lymphocytes % (A) 14 %; MCH 32.2 pg (25.0-35.0); MCV 100.6 fL (80.0-100.0); Mean Platelet Volume 7.1; Monocytes # (A) 0.7 k/uL (0-1.0); Monocytes % (A) 8 %; Neutrophils # (A) 6.6 k/uL (1.3-7.7); Neutrophils % (A) 73 %; Platelet Count 242 k/uL (150-450); RBC 3.95 m/uL (4.30-5.90); RDW 12.7 % (11.5-15.5)
[2024-11-28 00:01] LABS: ALT 28 U/L (4-49); AST 33 U/L (17-59); African American GFR (CKD) 81 (>60 ml/min/1.73 sqM); Albumin 3.7 g/dL (3.5-5.0); Alkaline Phosphatase 125 U/L (38-126); Anion Gap 8 mmol/L; Blood Urea Nitrogen 39 mg/dL (9-20); Carbon Dioxide 28 mmol/L (22-30); Chloride 101 mmol/L (98-107); Glucose 101 mg/dL (74-99); Non-African American GFR(CKD) 70 (>60 ml/min/1.73 sqM); Potassium 4.7 mmol/L (3.5-5.1); Sodium 137 mmol/L (137-145); Total Bilirubin 0.8 mg/dL (0.2-1.3); Total Protein 6.4 g/dL (6.3-8.2)
--- NOTE | 2024-11-28 00:21 | ED ---
Altered Mental Status HPI - General Chief Complaint: Altered Mental Status Stated Complaint: Dementia Time Seen by Provider: 11/27/24 23:11 Source: EMS Mode of arrival: EMS Limitations: altered mental status - History of Present Illness Initial Comments: This patient is an 84-year-old man with history of dementia who arrives to have evaluation for alteration from baseline. The patient reportedly had been agitated and combative with caregiver who had arrived in the home today. The patient does occasionally have episodes where he is combative. He reported to nursing staff that he felt people were trying to break into his home. When I interviewed the patient, he does not have complaints. Denies pain and dyspnea. MD Complaint: altered mental status, other -: hour(s) Severity: moderate Consistency of Symptoms: waxing and waning Context: history of similar presentation Associated Symptoms: denies other symptoms - Related Data Previous Rx's Medication Instructions Recorded Acetaminophen Tab [Tylenol] 650 mg PO Q6HR PRN #30 tab 12/02/24 Apixaban [Eliquis] 5 mg PO BID 30 Days #60 tab 12/02/24 Divalproex Sprinkle [Depakote 250 mg PO BID #60 cap 12/02/24 Sprinkle] Ibuprofen [Motrin Ib] 400 mg PO Q6H PRN #30 tab 12/02/24 Melatonin 6 mg PO HS 30 Days #60 tab 12/02/24 OLANZapine [ZyPREXA] 2.5 mg PO DAILY 30 Days #30 tab 12/02/24 OLANZapine [ZyPREXA] 5 mg PO HS 30 Days #30 tab 12/02/24 amLODIPine [Norvasc] 5 mg PO DAILY 30 Days #30 tab 12/02/24 haloperidoL [Haldol] 5 mg PO QID PRN #12 tab 12/02/24 traZODone HCL [Desyrel] 50 mg PO HS #30 tab 12/02/24 Allergies Allergy/AdvReac Type Severity Reaction Status Date / Time No Known Allergies Allergy Verified 11/27/24 23:15 Review of Systems ROS Statement: Those systems with pertinent positive or pertinent negative responses have been documented in the HPI. ROS Other: All systems not noted in ROS Statement are negative. Limitations: ROS unobtainable due to patients medical condition Constitutional: Denies: fever Respiratory: Denies: cough, dyspnea Cardiovascular: Denies: chest pain Gastrointestinal: Denies: abdominal pain, vomiting Neurological: Denies: headache Past Medical History Past Medical History: Atrial Fibrillation, Heart Failure, Hyperlipidemia, Hypertension, Renal Disease Additional Past Medical History / Comment(s): prostate problems kidneys History of Any Multi-Drug Resistant Organisms: None Reported Past Surgical History: Orthopedic Surgery Additional Past Surgical History / Comment(s): Bilateral knee replacement, cataract removal, cardioversion. TURP - 2019 Past Anesthesia/Blood Transfusion Reactions: No Reported Reaction Past Psychological History: Anxiety Smoking Status: Never smoker Past Alcohol Use History: Occasional Past Drug Use History: None Reported - Past Family History Mother Family Medical History: Congestive Heart Failure (CHF), Diabetes Mellitus Additional Family Medical History / Comment(s): at 90yrs old Sister(s) Family Medical History: Cancer, Diabetes Mellitus Brother(s) Family Medical History: Diabetes Mellitus General Exam Limitations: altered mental status General appearance: alert, in no apparent distress Head exam: Present: atraumatic, normocephalic Eye exam: Present: normal appearance. Absent: scleral icterus, conjunctival injection Neck exam: Present: normal inspection Respiratory exam: Present: normal lung sounds bilaterally. Absent: respiratory distress, wheezes, rales, rhonchi, stridor, accessory muscle use Cardiovascular Exam: Present: regular rate, normal rhythm, normal heart sounds. Absent: systolic murmur, diastolic murmur, rubs, gallop GI/Abdominal exam: Present: soft. Absent: distended, tenderness, guarding, rebound, mass Extremities exam: Present: normal inspection, normal capillary refill. Absent: pedal edema, calf tenderness Back exam: Present: normal inspection. Absent: CVA tenderness (R), CVA tenderness (L) Neurological exam: Present: alert Skin exam: Present: warm, dry, intact, normal color. Absent: rash Course Vital Signs 11/27/24 11/28/24 11/28/24 23:08 02:00 03:45 Temperature 98.2 F 97.4 F L Pulse Rate 65 61 76 Pulse Rate [ Pulse Oximetery ] Respiratory 18 19 18 Rate Blood Pressure 126/73 133/59 156/77 Blood Pressure [Supine] O2 Sat by Pulse 95 94 L 90 L Oximetry 11/28/24 11/28/24 04:20 04:27 Temperature 97.4 F L 97.4 F L Pulse Rate 72 Pulse Rate [ 70 Pulse Oximetery ] Respiratory 18 18 Rate Blood Pressure 156/76 Blood Pressure 103/65 [Supine] O2 Sat by Pulse 92 L 91 L Oximetry Medical Decision Making - Medical Decision Making The patient had chest x-ray that I interpreted as showing vascular congestion consistent with CHF. No pneumothorax. Was pt. sent in by a medical professional or institution (, NITA, FACING END TRIMMER, urgent care, hospital, or alf...) When possible be specific @ -[No] Did you speak to anyone other than the patient for history (EMS, parent, family, police, friend...)? What history was obtained from this source @ -[No] Did you review nursing and triage notes (agree or disagree)? Why? @ -[I reviewed and agree with nursing and triage notes] Were old charts reviewed (outside hosp., previous admission, EMS record, old EKG, old radiological studies, urgent care reports/EKG's, alf records)? Report findings @ -[No old charts were reviewed] Differential Diagnosis (chest pain, altered mental status, abdominal pain women, abdominal pain men, vaginal bleeding, weakness, fever, dyspnea, syncope, headache, dizziness, GI bleed, back pain, seizure, CVA, palpatations, mental health, musculoskeletal)? @ -[Differential Altered Mental Status: Hypoglycemia, DKA, hypercapnia, ETOH, overdose, CO poisoning, trauma, myxedema coma, HTN encephalopathy, infection, encephalitis, psychosis, intercranial hemorrhage, hepatic encephalopathy, meningitis, CVA, this is not meant to be an all-inclusive list EKG interpreted by me (3pts min.). @ -[I interpreted as above] X-rays interpreted by me (1pt min.). @ -[I interpreted as above CT interpreted by me (1pt min.). @ -[None done] U/S interpreted by me (1pt. min.). @ -[None done] What testing was considered but not performed or refused? (CT, X-rays, U/S, labs)? Why? @ -[None] What meds were considered but not given or refused? Why? @ -[None] Did you discuss the management of the patient with other professionals (professionals i.e. , NITA, FACING END TRIMMER, lab, RT, psych nurse, aids social worker, informatics application analyst, teacher, chairman and chief executive officer, case management social worker)? Give summary @ -[Case discussed with admitting physician and treatment recommendations incorporated Was smoking cessation discussed for >3mins.? @ -[No] Was critical care preformed (if so, how long)? @ -[No] Were there social determinants of health that impacted care today? How? (Homelessness, low income, unemployed, alcoholism, drug addiction, tra nsportation, low edu. Level, literacy, decrease access to med. care, prison, rehab)? @ -[No] Was there de-escalation of care discussed even if they declined (Discuss DNR or withdrawal of care, Hospice)? DNR status @ -[No] What co-morbidities impacted this encounter? (DM, HTN, Smoking, COPD, CAD, Can cer, CVA, ARF, Chemo, Hep., AIDS, mental health diagnosis, sleep apnea, morbid obesity)? @ -[None] Was patient admitted / discharged? Hospital course, mention meds given and route, prescriptions, significant lab abnormalities, going to OR and other pertinent info. @ -[Patient is 84-year-old man here with altered mental status. The patient does have urinary tract infection and possible component of congestive heart failure. Patient will be admitted to start antibiotics Undiagnosed new problem with uncertain prognosis? @ -[No] Drug Therapy requiring intensive monitoring for toxicity (Heparin, Nitro, Insulin, Cardizem)? @ -[No] Were any procedures done? @ -[No] Diagnosis/symptom? @ -[Acute altered mental status Acute urinary tract infection Acute exacerbation of congestive heart failure Acute, or Chronic, or Acute on Chronic? @ -[Acute Uncomplicated (without systemic symptoms) or Complicated (systemic symptoms)? @ -[Complicated by altered mental status Side effects of treatment? @ -[No] Exacerbation, Progression, or Severe Exacerbation? @ -[No] Poses a threat to life or bodily function? How? (Chest pain, [place], [place], pneumonia, PE, COPD, DKA, ARF, appy, cholecystitis, CVA, Diverticulitis, Homicidal, Suicidal, threat to staff... and all critical care pts) @ -[No] All treatments are based on ideal body weight as in ED triage - Lab Data Result diagrams: 12/02/24 02:55 12/02/24 02:55 Lab Results 11/27/24 11/27/2425 Range/Units 23:35 23:35 23:35 WBC 9.0 (3.8-10.6) k/uL RBC 3.95 L (4.30-5.90) m/uL Hgb 12.7 L (13.0-17.5) gm/dL Hct 39.8 (39.0-53.0) % MCV 100.6 H (80.0-100.0) fL MCH 32.2 (25.0-35.0) pg MCHC 32.0 (31.0-37.0) g/dL RDW 12.7 (11.5-15.5) % Plt Count 242 (150-450) k/uL MPV 7.1 Neutrophils % 73 % Lymphocytes % 14 % Monocytes % 8 % Eosinophils % 3 % Basophils % 0 % Neutrophils # 6.6 (1.3-7.7) k/uL Lymphocytes # 1.3 (1.0-4.8) k/uL Monocytes # 0.7 (0-1.0) k/uL Eosinophils # 0.3 (0-0.7) k/uL Basophils # 0.0 (0-0.2) k/uL Sodium 137 (137-145) mmol/L Potassium 4.7 (3.5-5.1) mmol/L Chloride 101 (98-107) mmol/L Carbon Dioxide 28 (22-30) mmol/L Anion Gap 8 mmol/L BUN 39 H (9-20) mg/dL Creatinine 0.99 (0.66-1.25) mg/dL Est GFR (CKD-EPI)AfAm 81 (>60 ml/min/1.73 sqM) Est GFR (CKD-EPI)NonAf 70 (>60 ml/min/1.73 sqM) Glucose 101 H (74-99) mg/dL Plasma Lactic Acid Cornelio 1.1 (0.7-2.0) mmol/L Calcium 9.0 (8.4-10.2) mg/dL Total Bilirubin 0.8 (0.2-1.3) mg/dL AST 33 (17-59) U/L ALT 28 (4-49) U/L Alkaline Phosphatase 125 (38-126) U/L Troponin I (0.000-0.034) ng/mL Total Protein 6.4 (6.3-8.2) g/dL Albumin 3.7 (3.5-5.0) g/dL Urine Color Urine Appearance (Clear) Urine pH (5.0-8.0) Ur Specific [place] (1.001-1.035) Urine Protein (Negative) Urine Glucose (UA) (Negative) Urine Ketones (Negative) Urine Blood (Negative) Urine Nitrite (Negative) Urine Bilirubin (Negative) Urine Urobilinogen (<2.0) mg/dL Ur Leukocyte Esterase (Negative) Urine RBC (0-5) /hpf Urine WBC (0-5) /hpf Ur Squamous Epith Cells (0-4) /hpf Urine Bacteria (None) /hpf 11/27/24 11/28/24 Range/Units 23:35 00:29 WBC (3.8-10.6) k/uL RBC (4.30-5.90) m/uL Hgb (13.0-17.5) gm/dL Hct (39.0-53.0) % MCV (80.0-100.0) fL MCH (25.0-35.0) pg MCHC (31.0-37.0) g/dL RDW (11.5-15.5) % Plt Count (150-450) k/uL MPV Neutrophils % % Lymphocytes % % Monocytes % % Eosinophils % % Basophils % % Neutrophils # (1.3-7.7) k/uL Lymphocytes # (1.0-4.8) k/uL Monocytes # (0-1.0) k/uL Eosinophils # (0-0.7) k/uL Basophils # (0-0.2) k/uL Sodium (137-145) mmol/L Potassium (3.5-5.1) mmol/L Chloride (98-107) mmol/L Carbon Dioxide (22-30) mmol/L Anion Gap mmol/L BUN (9-20) mg/dL Creatinine (0.66-1.25) mg/dL Est GFR (CKD-EPI)AfAm (>60 ml/min/1.73 sqM) Est GFR (CKD-EPI)NonAf (>60 ml/min/1.73 sqM) Glucose (74-99) mg/dL Plasma Lactic Acid Cornelio (0.7-2.0) mmol/L Calcium (8.4-10.2) mg/dL Total Bilirubin (0.2-1.3) mg/dL AST (17-59) U/L ALT (4-49) U/L Alkaline Phosphatase (38-126) U/L Troponin I <0.012 (0.000-0.034) ng/mL Total Protein (6.3-8.2) g/dL Albumin (3.5-5.0) g/dL Urine Color Yellow Urine Appearance Cloudy (Clear) Urine pH 6.0 (5.0-8.0) Ur Specific [place] 1.020 (1.001-1.035) Urine Protein Trace H (Negative) Urine Glucose (UA) Negative (Negative) Urine Ketones Negative (Negative) Urine Blood Trace H (Negative) Urine Nitrite Negative (Negative) Urine Bilirubin Negative (Negative) Urine Urobilinogen <2.0 (<2.0) mg/dL Ur Leukocyte Esterase Large H (Negative) Urine RBC 4 (0-5) /hpf Urine WBC 179 H (0-5) /hpf Ur Squamous Epith Cells <1 (0-4) /hpf Urine Bacteria Few H (None) /hpf Disposition Clinical Impression: UTI (urinary tract infection), Altered mental status Disposition: ADMITTED IP TO THIS HOSP Condition: Stable Is patient prescribed a controlled substance at d/c from ED?: No
[2024-11-28] MEDS: SODIUM CHLORIDE 0.9% 1,000 ML IV STA (00:42)
[2024-11-28 00:47] LABS: Appearance,Urine Cloudy (Clear); Bacteria,Urine Few /hpf; Bilirubin,Urine Negative (Negative); Blood,Urine Trace (Negative); Color,Urine Yellow; Glucose,Urine (UA) Negative (Negative); Ketones,Urine Negative (Negative); Leukocyte Esterase,Urine Large (Negative); Nitrite,Urine Negative (Negative); Protein,Urine Trace (Negative); RBC,Urine 4 /hpf (0-5); Squamous Epithelial Cell,Urine <1 /hpf (0-4); Urobilinogen,Urine <2.0 mg/dL (<2.0); WBC,Urine 179 /hpf (0-5)
[2024-11-28] MEDS ORDERED: ACETAMINOPHEN TAB 325 MG TAB PO PRN (01:38)
[2024-11-28] MEDS ORDERED: NALOXONE 0.4 MG/ML 1 ML VIAL IV PRN (01:38)
[2024-11-28] MEDS: DOXYCYCLINE 100 MG TABLET PO ONE (02:07)
[2024-11-28] MEDS: LORazepam 2 MG/ML INJ IV STA ×2 (02:57→03:43)
[2024-11-28] MEDS: ZIPRASIDONE 20 MG VIAL IM STA (02:57)
[2024-11-28] MEDS: QUEtiapine 50 MG TAB PO STA (03:18)
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
--- NOTE | 2024-11-28 08:00 | XR ---
EXAMINATION TYPE: XR chest 1V portable DATE OF EXAM: 11/28/2024 7:50 AM COMPARISON: Chest radiographs from 11/13/2024, CT chest abdomen 11/11/2024 TECHNIQUE: XR chest 1V portable Portable AP radiograph of the chest. CLINICAL INDICATION:Male, 84 years old with history of hypoxia; FINDINGS: Lungs/Pleura: There is no evidence of pleural effusion or pneumothorax. Scattered reticular opacities throughout the lungs. Heart/mediastinum: Cardiomediastinal silhouette is enlarged and stable. Musculoskeletal: Known rib fractures are better appreciated on prior CT. IMPRESSION: Marked cardiomegaly with scattered peripheral reticular opacities throughout the lungs. Correlate for CHF exacerbation/volume overload with pulmonary edema. Superimposed infectious process is not exclud ed. [facility], , 11/28/2024 7:57 AM
[2024-11-28] MEDS: CEFEPIME 1 GM in SODIUM CHLORIDE 0.9% 50 ML IVPB SCH (08:51)
[2024-11-28] MEDS: ENOXAPARIN 40 MG/0.4 ML SYRINGE SQ SCH (09:00)
[2024-11-28] MEDS: amLODIPine 5 MG TAB PO SCH (11:40)
[2024-11-28] MEDS: APIXABAN 5 MG TAB PO SCH (11:41)
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
[2024-11-28] MEDS ORDERED: HALOPERIDOL LACTATE 5 MG/ML 1 ML VIAL IM PRN (12:49)
--- NOTE | 2024-11-28 12:52 | P.CN ---
Psychiatric Consult - . Consult date: 11/28/24 Consult:: 11/28/24 11:32 Stripe Marker attempted to see patient today for psychiatric consultation at the bedside. Stripe Marker spoke briefly with patient's nurse who claims that patient received 3 mg of Ativan and also Geodon as needed in the ER before being transferred to the medical floors last night. Patient has a one-to-one sitter. Patient has a urine analysis positive for UTI, currently being treated by antibiotics. Stripe Marker attempted to see patient at the bedside however patient was sedated heavily unable to be awoken. PLAN: -Will need to reevaluate patient tomorrow once patient is awake. -Delirium precautions recommended with patient including - avoiding use of narcotics and V[employer]IST sedatives, limit anticholinergic medications when possible, frequent re-orientation, minimize use of restraints, open window shades during the day and close them at night -Would recommend the following medication changes/additions: Zyprexa 2.5 mg twice daily for mood stabilization/psychosis, Depakene 250 mg bid nightly for mood stabilization/aggression. Haldol every 6 hours as needed IM and p.o. for severe agitation/psychosis. trazodone 50 mg qhs prn for sleep -Continue 1:1 sitter for safety -Please contact with any questions. 11/28/24 12:50
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
[2024-11-28] MEDS: FUROSEMIDE 10 MG/ML 2 ML VIAL IV ONE (14:13)
[2024-11-28] MEDS: VALPROIC ACID ORAL SOLN 250 MG/5 ML CUP PO SCH (21:11)
[2024-11-28] MEDS: OLANZapine 2.5 MG TAB PO SCH (21:11)
[2024-11-29 04:19] LABS: Influenza A Not Detected (Not Detectd); Influenza B Not Detected (Not Detectd); RSV Not Detected (Not Detectd)
[2024-11-29 08:19] LABS: Basophils # (A) 0.04 X 10*3/uL (0.00-0.10); Basophils % (A) 0.6 %; Eosinophils # (A) 0.18 X 10*3/uL (0.04-0.35); Eosinophils % (A) 2.5 %; HCT 45.5 % (39.6-50.0); HGB 14.7 g/dL (13.0-17.0); Lymphocytes # (A) 0.88 X 10*3/uL (0.90-5.00); Lymphocytes % (A) 12.3 %; MCH 33.3 pg (27.0-32.0); MCHC 32.3 g/dL (32.0-37.0); MCV 103.2 FL (80.0-97.0); Monocytes # (A) 0.77 X 10*3/uL (0.20-1.00); Monocytes % (A) 10.7 %; NRBC Per 100 WBC 0 X 10*3/uL (0.00-0.01); Neutrophils # (A) 5.28 X 10*3/uL (1.80-7.70); Neutrophils % (A) 73.5 %; Platelet Count 211 X 10*3/uL (140-440); RBC 4.41 X 10*6/uL (4.40-5.60); RDW 12.5 % (11.5-14.5); WBC 7.18 X 10*3/uL (4.50-10.00)
[2024-11-29 08:51] LABS: Blood Urea Nitrogen 21.5 mg/dL (9.0-27.0); Calcium 9.1 mg/dL (8.7-10.3); Chloride 104 mmol/L (96-109); Glucose 98 mg/dL (70-110); Potassium 4.4 mmol/L (3.5-5.5); Sodium 144 mmol/L (135-145)
[2024-11-29] MEDS: FUROSEMIDE 10 MG/ML 4 ML VIAL IV STA (10:29)
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
--- NOTE | 2024-11-29 13:55 | P.CN ---
Psychiatric Consult - . Consult date: 11/29/24 Consult:: 11/29/24 13:02 IDENTIFYING DATA: This patient is a 84-year-old male , claims he is single he has no kids. REASON FOR REFERRAL: psych evaluation HISTORY OF PRESENT ILLNESS: The patient presented to the hospital initially to the ER for agitation and aggression. Patient was found to have altered mental status. He has a history of dementia and delirium. Patient was recently discharged a few days ago. Soup Mixer attempted to see patient yesterday for psychiatric evaluation however patient was heavily sedated. Soup Mixer was able to see patient today, he was sitting up eating his lunch. He had a one-to-one sitter at his side. Patient's nurse states that he has been fairly calm cooperative at this time however last night was aggressive agitated and restless. Did not sleep much last night. Patient was fairly concrete, fairly limited understanding. Did not know why he is in the hospital. Claims that he is doing "fine" and was fairly focused on eating his soup. He was oriented to his name did not know where he was or today's date. Did not offer any complaints other than mild pain from a recent fall. Patient saying denies any visual hallucinations. At this time patient denies any suicidal or homical ideations, intent or plan. Patients admits to using no recreational drugs Patient was a rather poor historian, previous psychiatric past information and social history was taken from previous psychiatric assessment. PAST PSYCHIATRIC HISTORY: Patient has a a history of form of mental illness however patient cannot recall. Patient was last seen several weeks ago by staff writer for psychiatric evaluation while on the medical floors. Patient was previously on Seroquel Effexor, melatonin, Zyprexa and Depakote. Able to provide further psychiatric history Past Medical History: Atrial Fibrillation, Heart Failure, Hyperlipidemia, Hypertension, Renal Disease Additional Past Medical History / Comment(s): prostate problems kidneys History of Any Multi-Drug Resistant Organisms: None Reported Past Surgical History: Orthopedic Surgery Additional Past Surgical History / Comment(s): Bilateral knee replacement, cataract removal, cardioversion. TURP - 2019 Past Anesthesia/Blood Transfusion Reactions: No Reported Reaction Past Psychological History: Anxiety Smoking Status: Never smoker Past Alcohol Use History: Occasional Past Drug Use History: None Reported ALLERGIES: as per EMR. CHEMICAL DEPENDENCY HISTORY: as per HPI. FAMILY PSYCHIATRIC/SUBSTANCE USE HISTORY: Unable to provide SOCIAL HISTORY: Patient was unable to provide further social history. Patient apparently currently lives on his own. MENTAL STATUS EXAM: General Appearance: Patient appears to be thin, fairly thin hair, stated age is alert, he is somewhat pleasant, eating his food. Patient appears to have fair hygiene and grooming wearing hospital gown with poor eye contact. Behavior: Patient is attempting to cooperate, preoccupied with eating his food. Speech: Patient's speech is fluent and nonpressured. Fairly concrete Mood/Affect: Patient reports their mood is "ok", affect is congruent and constricted Suicidality/Homicidality: Patient denies having any suicidal or homicidal ideation intent or plan. Perceptions: Patient denies any visual hallucinations and states that he denies hearing any voices. Though content/process: Patient is logical, fairly concrete, poverty of content Memory and concentration: AOX1-2, does not know where he is or today's date. Poor attention span. Cannot spell "WORLD" backwards Judgment and insight: Poor/limited/impulsive IMPRESSIONS: Delirium, unknown etiology Underlying major neurocognitive disorder PLAN: -At this time patient does not meet inpatient psychiatric criteria -Delirium precautions recommended with patient including - avoiding use of narcotics and CONTENT ENGINEER sedatives, limit anticholinergic medications when possible, frequent re-orientation, minimize use of restraints, open window shades during the day and close them at night -Would recommend the following medication changes/additions: Increase Zyprexa 2.5 mg daily +5 mg nightly for mood stabilization/psychosis, Depakene 250 mg bid nightly for mood stabilization/aggression. Haldol every 6 hours as needed IM and p.o. for severe agitation/psychosis. trazodone 50 mg qhs prn for sleep. Added melatonin 6 mg nightly for sleep -Will defer one-to-one sitter need to the primary team at this time -Please contact with any questions. -Patient does require placement at this time due to underlying major neurocognitive disorder and unable to likely care for himself -Psychiatry will sign off, if patient's condition worsens then please reconsult or contact mental health team for further recommendations 11/29/24 13:03 11/29/24 13:48
[2024-11-29] MEDS: SODIUM CHLORIDE 0.65% NASAL SPRAY 44 ML BTL NASAL PRN (21:43)
[2024-11-29] MEDS: MELATONIN 3 MG TABLET PO SCH (22:12)
[2024-11-29] MEDS: OLANZapine 5 MG TAB PO SCH (22:12)
[2024-11-30] MEDS: OLANZapine 2.5 MG TAB PO SCH (08:16)
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
[2024-12-01] MEDS: traZODone HCL 50 MG TAB PO PRN (03:47)
[2024-12-01] MEDS ORDERED: haloperidoL 5 MG TAB PO PRN (09:43)
[2024-12-01] MEDS: haloperidoL 5 MG TAB PO PRN (09:49)
--- NOTE | 2024-12-01 11:43 | P.PN ---
Subjective Progress Note Date: 12/01/24 Hospital course: Patient is a pleasant 84-year-old male with a past medical history neck atrial fibrillation, valvular heart disease, pulmonary hypertension, diastolic heart failure, hypertension, hyperlipidemia, and dementia with behavioral disturbances. The patient presented to the hospital on 11/28/2024 secondary to reports of agitated and combative behaviors towards his caregiver at home. Upon arrival to our facility, patient was also found to be physically aggressive towards ER staff and was subsequently given sedatives and consult placed to psychiatry. Vital signs upon arrival show blood pressure 126/73, heart rate 65, respiratory rate 18, temp 98.2 F, and SpO2 of 95% on room air. EKG completed showing atrial fibrillation with a slowed ventricular response of 48 bpm with T wave inversion in inferior leads II, III, and aVF. Chest x-ray completed showing marked cardiomegaly with scattered peripheral reticular opacities throughout the lungs consistent with CHF exacerbation/pulmonary edema however superimposed infectious process was not excluded. Labs were completed and reviewed. CBC showing macrocytic anemia with hemoglobin of 12.7 and MCV 100.6. BMP showing mild prerenal azotemia with BUN of 39 otherwise normal findings. Blood glucose was 101. Lactic acid was 1.1. Liver profile unremarkable. Troponin was negative at less than 0.012 and proBNP was 2320. Urinalysis was positive for infection. Influenza A, influenza B, RSV, and COVID PCR were negative. Patient started on IV antibiotics and admitted under our services at this time. Patient was found to have bradycardia with heart rate down in 30s an d cardiology was also consulted. Cardiology evaluated stated junctional bradycardia ruled out stating patient continues to reveal atrial fibrillation with slowed ventricular response recommending continuation of holding beta-jon and outpatient follow-up in their office. Psychiatry evaluated stated patient does not meet inpatient psychiatric criteria recommending increasing Zyprexa to 2.5 mg daily and 5 mg nightly for mood stabilization/psychosis, Depakene 250 mg twice daily for mood stabil ization/aggressive behaviors and Haldol as needed for severe agitation/psychosis. Psychiatry stating patient does require placement at this time due to underlying major neurocognitive disorder and unable to provide care for self. evaluation manager/social work [facility] or a lternative safe discharge plan. Physical exam: Patient seen and fully evaluated at bedside. He was resting comfortably with sitter at bedside. Patient currently calm and cooperative and only complaint is feeling tired. He remains alert to self only and confused to time, place, and situation. He denies having any pain or complaints. Vital signs reviewed and stable. General: Nontoxic, no distress and appears stated age. Derm: Skin warm and dry, normal coloration for ethnicity. Head: Atraumatic, normocephalic and symmetric. Eyes: EOM's intact, no lid lag, and anicteric sclera Mouth: no lip lesions, mucus membranes moist Cardiovascular: regular rate and rhythm with normal S1S2, systolic murmur, positive posterior tibial pulses bilaterally, and cap refill < 2 seconds. Lungs: Respirations even, regular, and unlabored on room air. Lungs CTA bilaterally, no rhonchi, no rales, no wheezing, and no accessory muscle usage. Abdominal: soft, nontender to palpation, no guarding, no appreciable organomegaly Ext: No gross muscle atrophy, no edema, no contractures. Movement and Sensation intact Neuro: Speech clear, face symmetrical GCS 14. Psych: Alert and oriented to person only and confused to time, place, and situation. Assessment and Plan of Care: Acute encephalopathy/delirium Dementia with behavioral disturbances -Psychiatry evaluated stated patient does not meet inpatient psychiatric criteria but stating patient does require placement at this time due to underlying major neurocognitive disorder and unable to provide care for self. Recommending increasing Zyprexa to 2.5 mg daily and 5 mg nightly for mood stabilization/psychosis, Depakene 250 mg twice daily for mood stabilization /aggressive behaviors and Haldol as needed for severe agitation/psychosis. -Continue sitter for safety and provide safe and supportive care with assistance and redirection as needed -Case management following, reports patient's home nurse is no longer willing to take care of the patient as he was threatening her, cardiology manager/social work [facility] or alternative safe discharge plan. A-fib with slowed ventricular rate Junctional bradycardia ruled out Valcular heart disease Chronic diastolic heart failure, not in acute exacerbation Hypertension -Cardiology evaluated and in agreement to continue to hold beta-jon stating no further inpatient recommendations from cardiac standpoint clearing patient from cardiac perspective. -Beta-jon on hold and to be discontinued on discharge -Continue home amlodipine 5 mg daily and Eliquis 5 mg bid Abnormal urinalysis, urine cultures negative, UTI ruled out and antibiotics discontinued. Data and imaging reviewed: Labs reviewed. CBC showing mild macrocytosis with MCV 103.2. BMP unre markable with the exception of slightly elevated anion gap of 14.0. Blood glucose 98. Vital signs reviewed. Blood pressure 127/78, heart rate 75, respiratory rate 16, temp 98.2 F, and SpO2 of 95% on 3 L. CODE STATUS: Full Code DVT prophylaxis: Eliquis Discussed with: Pt, RN, sitter, cardiology manager, and EPS nurse Anticipated discharge date: Discharge pending placement. evaluation manager/social work [facility] or alternative safe discharge plan. Anticipated discharge place: [facility] vs [facility] Patient was seen independently by Nurse Pracitioner. This document was prepared using [employer] dictation software. Please allow for errors in middle school spanish teacher, while rare they do occur. Orestes Mcconnell NP rendered care for this patient independently, reviewed the findings and plan as documented in the note above and agree with plan. I did not physically speak with or examine the patient on this date. Objective - Vital Signs Vital signs: Vital Signs Temp 98.2 F 12/01/24 02:03 Pulse 75 12/01/24 07:00 Resp 16 12/01/24 07:00 BP 127/78 12/01/24 07:00 Pulse Ox 95 12/01/24 07:00 FiO2 Intake & Output 11/30/24 12/01/24 12/01/24 18:59 06:59 18:59 Intake Total 600 Balance 600 Intake: Oral 600 Other: Voiding Method Urinal Urinal Diaper Diaper # Voids 3 2 - Labs CBC & Chem 7: 11/29/24 04:25 11/29/24 04:25
[2024-12-02 09:17] LABS: Magnesium 1.9 mg/dL (1.5-2.4)
[2024-12-02 09:29] LABS: ALT 25 U/L (10-49); AST 22 U/L (14-35); Albumin 3.5 g/dL (3.8-4.9); Albumin/Globulin Ratio 1.46 Ratio (1.60-3.17); Alkaline Phosphatase 150 U/L (41-126); Blood Urea Nitrogen 29.1 mg/dL (9.0-27.0); Calcium 8.6 mg/dL (8.7-10.3); Carbon Dioxide 29.7 mmol/L (21.6-31.8); Chloride 100 mmol/L (96-109); Globulin 2.4 g/dL (1.6-3.3); Glucose 192 mg/dL (70-110); Potassium 4.4 mmol/L (3.5-5.5); Sodium 138 mmol/L (135-145); Total Bilirubin 0.3 mg/dL (0.3-1.2); Total Protein 5.9 g/dL (6.2-8.2)
[2024-12-02 09:42] VITALS: BP 150/85; PULSE 75; RESP 17; TEMP 97.6
[2024-12-02 10:17] LABS: HCT 41.8 % (39.6-50.0); HGB 13.3 g/dL (13.0-17.0); MCH 32.8 pg (27.0-32.0); MCHC 31.8 g/dL (32.0-37.0); Mean Platelet Volume 9.7 FL (9.5-12.2); NRBC Per 100 WBC 0 X 10*3/uL (0.00-0.01); Platelet Count 237 X 10*3/uL (140-440); RBC 4.06 X 10*6/uL (4.40-5.60); RDW 12.4 % (11.5-14.5); WBC 7.59 X 10*3/uL (4.50-10.00)
--- NOTE | 2024-12-02 12:37 | P.DS ---
Providers Date of admission: 11/28/24 01:39 Expected date of discharge: 12/02/24 Attending physician: Garo Cornelius MD Consults: 11/28/24 01:41 Consult Physician Routine Consulting Provider: Psychiatry - [facility] Psychiatry Consult Reason/Comments: dementia/aggression Do you want consulting provider notified?: Already Contacted [facility] Course: Discharge Diagnosis: Acute encephalopathy/delirium. Believed to be secondary to worsening dementia with behavioral disturbances resulting in acute delirium. Psychiatry evaluated stated patient does not meet inpatient psychiatric criteria but stating patient does require placement at this time due to underlying major neurocognitive disorder and unable to provide care for self. Recommending increasing Zyprexa to 2.5 mg daily and 5 mg nightly for mood stabilization/psychosis, Depakene 250 mg twice daily for mood stabilization/aggressive behaviors and Haldol as needed for severe agitation/psychosis. Patient's mentation significantly improved and he is currently alert to person, place, and time and slightly confused to situati on. He has been calm and cooperative. Safe discharge planning has been arranged and patient being discharged to [facility] home as arranged by social work professor and family. Dementia with behavioral disturbances A-fib with slowed ventricular rate. Cardiology evaluated, metoprolol was discontinued. Junctional bradycardia ruled out Valcular heart disease Chronic diastolic heart failure, not in acute exacerbation Hypertension Abnormal urinalysis, urine cultures negative, UTI ruled out and antibiotics discontinued. Hospital course: Patient is a pleasant 84-year-old male with a past medical history neck atrial fibrillation, valvular heart disease, pulmonary hypertension, diastolic heart failure, hypertension, hyperlipidemia, and dementia with behavioral disturbances. The patient presented to the hospital on 11/28/2024 secondary to reports of agitated and combative behaviors towards his caregiver at home. Upon arrival to our facility, patient was also found to be physically aggressive towards ER staff and was subsequently given sedatives and consult placed to psychiatry. Vital signs upon arrival show blood pressure 126/73, heart rate 65, respiratory rate 18, temp 98.2 F, and SpO2 of 95% on room air. EKG completed showing atrial fibrillation with a slowed ventricular response of 48 bpm with T wave inversion in inferior leads II, III, and aVF. Chest x-ray completed showing marked cardiomegaly with scattered peripheral reticular opacities throughout the lungs consistent with CHF exacerbation/pulmonary edema however superimposed infectious process was not excluded. Labs were completed and reviewed. CBC showing macrocytic anemia with hemoglobin of 12.7 and MCV 100.6. BMP showing mild prerenal azotemia with BUN of 39 otherwise normal findings. Blood glucose was 101. Lactic acid was 1.1. Liver profile unremarkable. Troponin was negative at less than 0.012 and proBNP was 2320. Urinalysis was positive for infection. Influenza A, influenza B, RSV, and COVID PCR were negative. Patient started on IV antibiotics and admitted under our services at this time. Patient was found to have bradycardia with heart rate down in 30s and cardiology was also consulted. Cardiology evaluated stated junctional bradycardia ruled out stating patient continues to reveal atrial fibrillation with slowed ventricular response recommending continuation of holding beta- jon and outpatient follow-up in their office. Psychiatry evaluated stated patient does not meet inpatient psychiatric criteria recommending increasing Zyprexa to 2.5 mg daily and 5 mg nightly for mood stabilization/psychosis, Depakene 250 mg twice daily for mood stabilization/aggressive behaviors and Haldol as needed for severe agitation/psychosis. Psychiatry stating patient does require placement at this time due to underlying major neurocognitive disorder and unable to provide care for self. manager architectural/social work [facility] or alternative safe discharge plan. Patient's mentation significantly improved and he is currently alert to person, place, and time and slightly confused to situation. He has been calm and cooperative. Safe discharge planning has been arranged and patient being discharged to [facility] home as arranged by social work professor and family. Physical exam: Patient seen and fully evaluated at bedside. Mentation significantly improved. Patient alert to person, place, and time this morning. Slightly confused to situation. He remains calm and cooperative. Vital signs reviewed and stable. General: Nontoxic, no distress and appears stated age. Derm: Skin warm and dry, normal coloration for ethnicity. Head: Atraumatic, normocephalic and symmetric. Eyes: EOM's intact, no lid lag, and anicteric sclera Mouth: no lip lesions, mucus membranes moist Cardiovascular: regular rate and rhythm with normal S1S2, systolic murmur, positive posterior tibial pulses bilaterally, and cap refill < 2 seconds. Lungs: Respirations even, regular, and unlabored on room air. Lungs CTA bilaterally, no rhonchi, no rales, no wheezing, and no accessory muscle usage. Abdominal: soft, nontender to palpation, no guarding, no appreciable organomegaly Ext: No gross muscle atrophy, no edema, no contractures. Movement and Sensation intact Neuro: Speech clear, face symmetrical GCS 14. Psych: Alert and oriented to person only and confused to time, place, and situation. A total of 31 minutes of time were spent preparing this complex discharge summary. Pt was discharged on 12/02/2024 at 10:58 AM. Prescriptions for all of pt's home medications were sent to [facility] as instructed by social work per request of intermediate patient is being placed. Patient was seen independently by Nurse Practitioner. This document was prepared using [employer] dictation software. Please allow for errors in air brake tester while rare they do occur. Orestes Mcconnell NP rendered care for this patient independently, reviewed the findings and plan as documented in the note above. I did not physically speak with or examine the patient on this date. Patient Condition at Discharge: Stable Plan - Discharge Summary New Discharge Prescriptions: New OLANZapine [ZyPREXA] 5 mg PO HS 30 Days #30 tab haloperidoL [Haldol] 5 mg PO QID PRN #12 tab PRN Reason: Agitation Or Acute Psychosis Melatonin 6 mg PO HS 30 Days #60 tab Acetaminophen Tab [Tylenol] 650 mg PO Q6HR PRN #30 tab PRN Reason: Mild Pain Or Fever > 100.5 OLANZapine [ZyPREXA] 2.5 mg PO DAILY 30 Days #30 tab Continue Divalproex Sprinkle [Depakote Sprinkle] 250 mg PO BID #60 cap Apixaban [Eliquis] 5 mg PO BID 30 Days #60 tab traZODone HCL [Desyrel] 50 mg PO HS #30 tab Ibuprofen [Motrin Ib] 400 mg PO Q6H PRN #30 tab PRN Reason: Pain amLODIPine [Norvasc] 5 mg PO DAILY 30 Days #30 tab Discontinued Metoprolol Tartrate [Lopressor] 25 mg PO DAILY Venlafaxine HCl ER [Effexor XR] 150 mg PO DAILY haloperidoL [Haldol] 2.5 mg PO Q6H PRN #30 tab PRN Reason: Agitation OLANZapine [ZyPREXA] 2.5 mg PO BID #60 tab Venlafaxine HCl ER [Effexor XR] 75 mg PO DAILY clonazePAM [KlonoPIN ODT] 0.5 mg PO TID PRN PRN Reason: Agitation Discharge Medication List Acetaminophen Tab [Tylenol] 650 mg PO Q6HR PRN #30 tab 12/02/24 [Rx] Apixaban [Eliquis] 5 mg PO BID 30 Days #60 tab 12/02/24 [Rx] Divalproex Sprinkle [Depakote Sprinkle] 250 mg PO BID #60 cap 12/02/24 [Rx] Ibuprofen [Motrin Ib] 400 mg PO Q6H PRN #30 tab 12/02/24 [Rx] Melatonin 6 mg PO HS 30 Days #60 tab 12/02/24 [Rx] OLANZapine [ZyPREXA] 2.5 mg PO DAILY 30 Days #30 tab 12/02/24 [Rx] OLANZapine [ZyPREXA] 5 mg PO HS 30 Days #30 tab 12/02/24 [Rx] amLODIPine [Norvasc] 5 mg PO DAILY 30 Days #30 tab 12/02/24 [Rx] haloperidoL [Haldol] 5 mg PO QID PRN #12 tab 12/02/24 [Rx] traZODone HCL [Desyrel] 50 mg PO HS #30 tab 12/02/24 [Rx] Follow up Appointment(s)/Referral(s): Blas Higginbotham DO [Primary Care Provider] - 1-2 days Activity/Diet/Wound Care/Special Instructions: Discharge to [facility] [id number] [place] [address] Discharge Disposition: HOME SELF-CARE
== END 2024-12-02 13:48 | disposition home or self-care (01) | DRG 884 ==
LOC: EC 23:05 → 4SSUR 11-28 01:38 → OBSVTOIN 11-28 01:39 → 4SSUR 11-28 04:08
PROVIDERS: ADMIT Internal Medicine; ATTEND Internal Medicine
DX: F03.C18 Unspecified dementia, severe, with other behavioral disturbance (principal); J96.01 Acute respiratory failure with hypoxia; F05 Delirium due to known physiological condition; I27.22 Pulmonary hypertension due to left heart disease; I50.32 Chronic diastolic (congestive) heart failure; I11.0 Hypertensive heart disease with heart failure; F03.C2 Unspecified dementia, severe, with psychotic disturbance; D53.9 Nutritional anemia, unspecified; I08.1 Rheumatic disorders of both mitral and tricuspid valves; I48.21 Permanent atrial fibrillation; N40.0 Benign prostatic hyperplasia without lower urinary tract symptoms; E78.5 Hyperlipidemia, unspecified; D75.89 Other specified diseases of blood and blood-forming organs; R00.1 Bradycardia, unspecified; R82.90 Unspecified abnormal findings in urine; Z74.2 Need for assistance at home and no other household member able to render care; Z96.653 Presence of artificial knee joint, bilateral; Z86.19 Personal history of other infectious and parasitic diseases; Z79.01 Long term (current) use of anticoagulants; Z79.899 Other long term (current) drug therapy
CPT/HCPCS: 36415; 71045; 80048; 80053; 81001; 83605; 83735; 83880; 84484; 85025; 85027; 87086; 87636; 93005; 94760; 96361; 96372; 96374; 96376; 99285